=== PATIENT | female | born 1970 | race Caucasian/White ===

== ENCOUNTER 2019-09-23 09:42 | Inpatient (IN) ==
[2019-09-23] MEDS ORDERED: MoRPHine SULFATE 4 MG/ML 1 ML CARP\\VIAL IV STA (10:04)
[2019-09-23] MEDS ORDERED: ONDANSETRON INJ 2 MG/ML 2 ML VIAL IV STA (10:04)
--- NOTE | 2019-09-23 10:06 | Emergency Department Note ---
Impression & Plan Acute leg pain, Neuroendocrine neoplasm of gastrointestinal tract, Arterial thrombosis, History of hemicolectomy, Intellectual disability, Dry gangrene ED Provider Note NAME: RODNEY TATE AGE: 49 SEX: F : 1970 ARRIVES VIA: Ambulance INFORMANT: Patient ED PROVIDER(S): Lucien Reid DO CHIEF COMPLAINT: Bilateral foot pain HPI: Patient is a 49-year-old female with a past medical history of neuroendocrine carcinoma with liver months, recent hospitalization for bilateral lower extremity limb ischemia with bilateral thrombectomies, small bowel cecal resection with ileocolonic anastomosis who presents the ER for pain in her bilateral feet. She notes this has been present since July. She notes that her toes have been gradually turning black. She denies any new headache, change in vision, chest pain shortness of breath nausea vomiting or diarrhea. She notes the pain in her feet has been worsening. She describes as a 10 out of 10. She notes she is having trouble walking. Denies any other exacerbating or remitting factors. She notes she has not had this looked at. Her doctor did see her today at home and referred her in. Does have a previous extensive admission in [facility] system in July for extensive clots in her legs and per her report stomach cancer as well. ROS: See above HPI for pertinent positives & negatives. A total of 10 systems reviewed and were otherwise negative. PAST MEDICAL HISTORY:See Below PAST SURGICAL HISTORY:See Below FAMILY HISTORY:See Below SOCIAL HISTORY:See Below HOME MEDICATIONS:See Below ALLERGIES:See Below VITALS:See Below PHYSICAL EXAMINATION: GENERAL: Sitting up in bed, alert, disheveled, stool covering abdomen and upper extremities EYE EXAM: normal conjunctiva. PERRL and EOM's grossly intact. OROPHARYNX: no exudate, no erythema, lips, buccal mucosa, and tongue normal and mucous membranes are dry NECK: supple, no nuchal rigidity, no adenopathy, non-tender LUNGS: Clear to auscultation. Normal chest wall mechanics HEART: no murmurs, S1 normal and S2 normal ABDOMEN: abdomen soft, non-tender, normo-active bowel sounds, no masses, no rebound or guarding. Midline incision with dressing covered in stool is fairly clean with drainage at the inferior aspect of the incision BACK: Back is symmetrical on inspection and there is no deformity, no midline tenderness, no CVA tenderness. SKIN: no rashes and no bruising UPPER EXTREMITIES: upper extremities are grossly normal. LOWER EXTREMITIES: Incisions on bilateral calves are clean and dry with a large scab left mid calf. Necrosis of the right first and second digits with partial necrosis of the left first and second digits. Unable to appreciate a DP or PT pulse. NEURO EXAM: Normal sensorium, cranial nerves II-XII grossly intact, normal sp eech, no gross weakness of arms, no gross weakness of legs. MEDICAL DECISION MAKING: Patient is a 49-year-old female with extensive past medical history as stated above in the HPI the presents the ER for bilateral foot pain. She has dry gangrene on bilateral first and second toes. She was tachycardic. IV was established blood work was obtained. Patient was covered in stool. Labs show no significant leukocytosis or anemia. INR was at 1.9. BMP with a potassium of 3.1. Lactate was elevated 2.9. LFTs bilirubin was fairly unremarkable. Troponin was negative. TSH unremarkable. UA does suggest a UTI with nitrates and leukocytes. It was contaminated with multiple epithelial cells. Patient was given a gram of Rocephin. She was also given IV vancomycin. Arterial ultrasound shows clot however this does appear to be old. This was discussed with Dr. Gresham who agreed as these findings were present on the old ultrasound performed in [place]. Patient given IV fluids. Updated bedside. Discussed with the hospitalist admitted for further work-up. Already anticoagulated will not place on heparin. Triage Nursing notes reviewed. Prior medical records reviewed Vital Signs: reviewed and remarkable for tachycardia Differential diagnosis: Differential diagnosis includes etiologies such as sepsis, UTI, pneumonia, metabolic, electrolyte abnormalities, cardiac sources, intracerebral event, toxicologic, neurological, as well as others were entertained. ER treatment provided: See below Diagnostics interpreted by me: ECG: Sinus rhythm rate of 94 Normal axis No PVCs Poor baseline Normal QTC Cardiac Monitoring: An order was placed for continuous cardiac monitoring. The monitor shows a rate of 89 with sinus rhythm. Laboratory studies: As stated above and show below. Imaging studies: Portable AP upright 1 view chest was unremarkable. Arterial ultrasound with clots as previously discussed. Consultation(s): D/w with Kishore Marie Discussed with Dr. 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 Family History (Updated 09/23/19 @ 14:41 by Herbert Johnston) Mother , age 82 Alzheimer disease Father Laryngeal cancer Social History (Updated 09/23/19 @ 14:49 by Herbert Johnston) Preferred Language: [place] Communication Ability: Effective Beliefs That Will Affect Care: None marital status: / marital status details: 2 children Current Living Situation: Other Current Living Situation Comment: PLANS TO MOVE IN WITH UNCLE current occupational status: disabled other: lives in [place] Feels Safe at Home: No Smoking Status: Former smoker Age Started Using Tobacco: 11 ; Age Quit Using Tobacco: 49 ; packs per day: 1 ; Hx Alcohol Use: No Hx Substance Use: No Home Meds Home Medications Medication Instructions Recorded Confirmed acetaminophen 500 mg PO TID PRN 09/23/19 09/23/19 albuterol sulfate [Ventolin HFA] 1 puff INHALATION UD PRN 09/23/19 09/23/19 apixaban [Eliquis] 5 mg PO BID 09/23/19 09/23/19 loperamide 2 mg PO Q6H 09/23/19 09/23/19 pantoprazole 40 mg PO DAILY 09/23/19 09/23/19 Results & Data (ED) Vital Signs Vital Signs - 24 hr 09/23/19 09:53 09/23/19 11:08 09/23/19 11:15 Temperature 36.5 C Temperature Source Oral Pulse Rate 107 H 86 Pulse Rate [Apical] 91 H Pulse Rate from SpO2 Sensor 86 Pulse Rhythm Regular Pulse Rhythm [Apical] Regular Respiratory Rate 18 18 17 Respiratory Effort / Characteristics Non-Labored Spontaneous Non-Labored Spontaneous Respiratory Depth Normal Normal Respiratory Pattern Regular Regular Blood Pressure 122/76 105/70 Blood Pressure [Right Arm] 104/69 Blood Pressure Mean 91 94 Blood Pressure Mean [Right Arm] 80 Pulse Oximetry 94 98 93 Oxygen Delivery Method Room Air Room Air Sepsis Recent Fever Within 48 Hours No Sepsis New/Unexplained Change in Mental Status No Sepsis Action Taken by Nursing No Action Required 09/23/19 12:10 09/23/19 12:15 09/23/19 12:31 Temperature Temperature Source Pulse Rate 86 109 H 100 H Pulse Rate [Apical] Pulse Rate from SpO2 Sensor 86 Pulse Rhythm Pulse Rhythm [Apical] Respiratory Rate 14 20 20 Respiratory Effort / Characteristics Respiratory Depth Respiratory Pattern Blood Pressure 132/73 122/83 115/60 Blood Pressure [Right Arm] Blood Pressure Mean 81 109 77 Blood Pressure Mean [Right Arm] Pulse Oximetry 97 97 98 Oxygen Delivery Method Sepsis Recent Fever Within 48 Hours Sepsis New/Unexplained Change in Mental Status Sepsis Action Taken by Nursing 09/23/19 12:45 09/23/19 13:01 09/23/19 13:15 Temperature Temperature Source Pulse Rate 96 H 87 90 Pulse Rate [Apical] Pulse Rate from SpO2 Sensor Pulse Rhythm Pulse Rhythm [Apical] Respiratory Rate 20 17 18 Respiratory Effort / Characteristics Respiratory Depth Respiratory Pattern Blood Pressure 125/87 130/82 105/66 Blood Pressure [Right Arm] Blood Pressure Mean 97 108 69 Blood Pressure Mean [Right Arm] Pulse Oximetry 98 95 95 Oxygen Delivery Method Sepsis Recent Fever Within 48 Hours Sepsis New/Unexplained Change in Mental Status Sepsis Action Taken by Nursing 09/23/19 13:30 Temperature Temperature Source Pulse Rate 91 H Pulse Rate [Apical] Pulse Rate from SpO2 Sensor Pulse Rhythm Pulse Rhythm [Apical] Respiratory Rate 23 Respiratory Effort / Characteristics Respiratory Depth Respiratory Pattern Blood Pressure 130/80 Blood Pressure [Right Arm] Blood Pressure Mean 98 Blood Pressure Mean [Right Arm] Pulse Oximetry 97 Oxygen Delivery Method Sepsis Recent Fever Within 48 Hours Sepsis New/Unexplained Change in Mental Status Sepsis Action Taken by Nursing Laboratory Data Result diagrams: 09/23/19 10:24 09/23/19 10:24 Lab Results 09/23/19 09/23/19 09/23/19 Range/Units 10:24 10:24 10:24 WBC 6.07 (4.8-10.8) K/uL RBC 4.89 (4.2-5.4) M/uL Hgb 13.7 (12.0-16.0) g/dL Hct 44.0 (37-47) % MCV 90.0 (80-100) fL MCH 28.0 (25-34) pg MCHC 31.1 L (32-36) g/dL RDW Std Deviation 60.0 H (36.4-46.3) fL RDW Coeff of Sharan 18.2 H (11.5-14.5) % Plt Count 411 H (130-400) K/uL MPV 11.6 H (7.4-10.4) fL Immature Gran % (Auto) 0.2 % Neut % (Auto) 66.6 % Lymph % (Auto) 22.2 % Monona % (Auto) 6.4 % Eos % (Auto) 3.1 % Baso % (Auto) 1.5 % Immature Gran # (Auto) 0.01 (0.00-0.02) K/uL Neut # (Auto) 4.04 (1.4-6.5) K/uL Lymph # (Auto) 1.35 (1.2-3.4) K/uL Monona # (Auto) 0.39 (0.11-0.59) K/uL Eos # (Auto) 0.19 (0-0.5) K/uL Baso # (Auto) 0.09 (0-0.2) K/uL PT 19.1 H (9.0-12.0) Seconds INR 1.9 H (0.9-1.1) Sodium 143 (136-145) mmol/L Potassium 3.1 L (3.5-5.1) mmol/L Chloride 105 (98-107) mmol/L Carbon Dioxide 33 H (21-32) mmol/L Anion Gap 5.0 (3-11) BUN 6 L (7-18) mg/dl Creatinine 0.78 (0.6-1.2) mg/dl Est Cr Clr Drug Dosing 93.6 ml/min Est GFR ( Amer) 104.2 Est GFR (Non-Af Amer) 89.9 BUN/Creatinine Ratio 7.9 L (10-20) Glucose 119 H (70-99) mg/dl Lactate (0.4-2.0) mmol/L Calcium 8.0 L (8.5-10.1) mg/dl Magnesium 1.5 L (1.8-2.4) mg/dl Total Bilirubin 0.7 (0.2-1) mg/dl AST 75 H (15-37) U/L ALT 41 (12-78) U/L Alkaline Phosphatase 252 H (45-117) U/L Troponin I < 0.015 (0-0.045) ng/ml Total Protein 6.9 (6.4-8.2) gm/dl Albumin 2.3 L (3.4-5.0) gm/dl Globulin 4.6 H (2.5-4.0) gm/dl Albumin/Globulin Ratio 0.5 L (0.9-2) TSH 2.570 (0.300-4.500) uIu/ml Urine Color Urine Appearance (Clear) Urine pH (4.5-7.5) Ur Specific Solen (1.000-1.030) Urine Protein (Negative) Urine Glucose (UA) (Negative) Urine Ketones (Negative) Urine Blood (Negative) Urine Nitrite (Negative) Urine Bilirubin (Negative) Urine Urobilinogen (Negative) Ur Leukocyte Esterase (Negative) Urine WBC (Auto) (0-5) /hpf Urine RBC (Auto) (0-4) /hpf U Hyaline Cast (Auto) U Epithel Cells (Auto) (0-5) /lpf Urine Bacteria (Auto) (Negative) Ur Renal Epithelial Cell Urine Mucus (None Prsent) 09/23/19 09/23/19 Range/Units 10:24 12:40 WBC (4.8-10.8) K/uL RBC (4.2-5.4) M/uL Hgb (12.0-16.0) g/dL Hct (37-47) % MCV (80-100) fL MCH (25-34) pg MCHC (32-36) g/dL RDW Std Deviation (36.4-46.3) fL RDW Coeff of Sharan (11.5-14.5) % Plt Count (130-400) K/uL MPV (7.4-10.4) fL Immature Gran % (Auto) % Neut % (Auto) % Lymph % (Auto) % Monona % (Auto) % Eos % (Auto) % Baso % (Auto) % Immature Gran # (Auto) (0.00-0.02) K/uL Neut # (Auto) (1.4-6.5) K/uL Lymph # (Auto) (1.2-3.4) K/uL Monona # (Auto) (0.11-0.59) K/uL Eos # (Auto) (0-0.5) K/uL Baso # (Auto) (0-0.2) K/uL PT (9.0-12.0) Seconds INR (0.9-1.1) Sodium (136-145) mmol/L Potassium (3.5-5.1) mmol/L Chloride (98-107) mmol/L Carbon Dioxide (21-32) mmol/L Anion Gap (3-11) BUN (7-18) mg/dl Creatinine (0.6-1.2) mg/dl Est Cr Clr Drug Dosing ml/min Est GFR ( Amer) Est GFR (Non-Af Amer) BUN/Creatinine Ratio (10-20) Glucose (70-99) mg/dl Lactate 2.8 H* (0.4-2.0) mmol/L Calcium (8.5-10.1) mg/dl Magnesium (1.8-2.4) mg/dl Total Bilirubin (0.2-1) mg/dl AST (15-37) U/L ALT (12-78) U/L Alkaline Phosphatase (45-117) U/L Troponin I (0-0.045) ng/ml Total Protein (6.4-8.2) gm/dl Albumin (3.4-5.0) gm/dl Globulin (2.5-4.0) gm/dl Albumin/Globulin Ratio (0.9-2) TSH (0.300-4.500) uIu/ml Urine Color Dark Yellow Urine Appearance Cloudy A (Clear) Urine pH 5.0 (4.5-7.5) Ur Specific Solen 1.039 H (1.000-1.030) Urine Protein 2+ H (Negative) Urine Glucose (UA) Trace H (Negative) Urine Ketones Trace H (Negative) Urine Blood 2+ H (Negative) Urine Nitrite Positive A (Negative) Urine Bilirubin Negative (Negative) Urine Urobilinogen Negative (Negative) Ur Leukocyte Esterase Trace H (Negative) Urine WBC (Auto) 10-30 H (0-5) /hpf Urine RBC (Auto) 5-10 H (0-4) /hpf U Hyaline Cast (Auto) Not Reportable U Epithel Cells (Auto) >30 H (0-5) /lpf Urine Bacteria (Auto) Negative (Negative) Ur Renal Epithelial Cell Not Reportable Urine Mucus Present A (None Prsent) Administered Medications Magnesium Sulfate/Dextrose (Magnesium Sulfate / D5w) 1 gm in 100 mls @ 100 mls/hr IV Q1H DEIDRE Stop: 09/23/19 16:19 Last Admin: 09/23/19 14:28 Dose: 100 mls/hr Documented by: [id number] Discontinued Medications Sodium Chloride (Nss 1000ml) 1,000 mls @ 999 mls/hr IV .Q1H1M DEIDRE Stop: 09/23/19 11:15 Last Infusion: 09/23/19 12:12 Dose: 0 mls/hr Documented by: [id number] Admin: 09/23/19 11:08 Dose: 999 mls/hr Documented by: [id number] Ceftriaxone Sodium (Rocephin) 1,000 mg in 50 mls @ 100 mls/hr IV NOW STA Stop: 09/23/19 12:54 Last Infusion: 09/23/19 13:27 Dose: 0 mls/hr Documented by: [id number] Admin: 09/23/19 12:48 Dose: 100 mls/hr Documented by: [id number] Vancomycin HCl 2,250 mg/ (Sodium Chloride) 545 mls @ 200 mls/hr IV NOW ONE Stop: 09/23/19 15:08 Last Admin: 09/23/19 13:27 Dose: 200 mls/hr Documented by: [id number] Morphine Sulfate (Morphine Sulfate) 4 mg IV NOW STA Stop: 09/23/19 10:05 Last Admin: 09/23/19 11:07 Dose: 4 mg Documented by: [id number] Ondansetron HCl (Zofran) 4 mg IV NOW STA Stop: 09/23/19 10:05 Last Admin: 09/23/19 11:07 Dose: 4 mg Documented by: [id number] Potassium Chloride (Klor-Con M20) 40 meq PO NOW STA Stop: 09/23/19 14:21 Last Admin: 09/23/19 14:28 Dose: 40 meq Documented by: [id number] Discharge Plan Visit Data Chief Complaint: Foot Injury/Pain ED Provider: Lucien Reid Discharge Problem: Acute leg pain, Neuroendocrine neoplasm of gastrointestinal tract, Arterial thrombosis, History of hemicolectomy, Intellectual disability, Dry gangrene Forms Stand Alone Forms: [facility] Prescriptions Prescriptions: No Action loperamide 2 mg capsule 2 mg PO Q6H RF: 0 acetaminophen 500 mg Tablet 500 mg PO TID PRN (Reason: Mild Pain (Scale Score 1-4)) RF: 0 pantoprazole 40 mg tablet,delayed release (DR/EC) 40 mg PO DAILY RF: 0 albuterol sulfate [Ventolin HFA] 90 mcg/actuation HFA aerosol inhaler 1 puff INHALATION UD PRN (Reason: Shortness Of Breath Or Wheezing) RF: 0 Eliquis 5 mg Tablet 5 mg PO BID RF: 0 Discharge Problem: Acute leg pain Qualifiers: Laterality: unspecified laterality Qualified Code(s): M79.606 - Pain in leg, unspecified
[2019-09-23] MEDS ORDERED: SODIUM CHLORIDE 0.9% 1000ML 1,000 ML IV SCH (10:15)
[2019-09-23 11:00] LABS: Basophils # (auto) 0.09 K/uL (0-0.2); Basophils % (auto) 1.5 %; Eosinophils # (auto) 0.19 K/uL (0-0.5); Eosinophils % (auto) 3.1 %; Hemoglobin 13.7 g/dL (12.0-16.0); Immature Granulocytes # (auto) 0.01 K/uL (0.00-0.02); Immature Granulocytes % (auto) 0.2 %; Lymphocytes # (auto) 1.35 K/uL (1.2-3.4); Lymphocytes % (auto) 22.2 %; Mean Corpuscular Hgb Conc 31.1 g/dL (32-36); Mean Platelet Volume 11.6 fL (7.4-10.4); Monocytes # (auto) 0.39 K/uL (0.11-0.59); Monocytes % (auto) 6.4 %; Neutrophils # (auto) 4.04 K/uL (1.4-6.5); Neutrophils % (auto) 66.6 %; Platelet Count 411 K/uL (130-400); RDW Coefficient of Variation 18.2 % (11.5-14.5); Red Blood Count 4.89 M/uL (4.2-5.4); White Blood Count 6.07 K/uL (4.8-10.8)
[2019-09-23 11:13] LABS: INR 1.9 (0.9-1.1); Prothrombin Time 19.1 Seconds (9.0-12.0)
[2019-09-23 11:17] LABS: Alanine Aminotransferase 41 U/L (12-78); Albumin Level 2.3 gm/dl (3.4-5.0); Aspartate Aminotransferase 75 U/L (15-37); BUN Creatinine Ratio 7.9 (10-20); Blood Urea Nitrogen 6 mg/dl (7-18); Carbon Dioxide 33 mmol/L (21-32); Chloride 105 mmol/L (98-107); Creatinine Clr Calc Pharmacy 93.6 ml/min; Est GFR (African American) 104.2; Est GFR (Non-African American) 89.9; Glucose 119 mg/dl (70-99); Magnesium 1.5 mg/dl (1.8-2.4); Potassium 3.1 mmol/L (3.5-5.1); Sodium 143 mmol/L (136-145)
[2019-09-23 11:28] LABS: Albumin Globulin Ratio 0.5 (0.9-2); Alkaline Phosphatase 252 U/L (45-117); Bilirubin,Total 0.7 mg/dl (0.2-1); Globulin 4.6 gm/dl (2.5-4.0); Total Protein 6.9 gm/dl (6.4-8.2); Troponin I < 0.015 ng/ml (0-0.045)
--- NOTE | 2019-09-23 12:21 | XRay Report ---
XR chest 1V portable CLINICAL HISTORY: weakness COMPARISON STUDY: No previous studies for comparison. FINDINGS: The bones soft tissues and hemidiaphragms are normal. The cardiomediastinal silhouette is n ormal. The lungs are clear. The pulmonary vasculature is normal. IMPRESSION: Negative chest. ACT 112: Negative or not required by law. The above report was generated using voice recognition software. It may contain grammatical, syntax or spelling errors. Electronically signed by: Christopher Tovar M.D. 09/23/2019 12:20 PM
[2019-09-23] MEDS ORDERED: VANCOMYCIN CONSULT ACTIVE PRN (12:25)
[2019-09-23] MEDS ORDERED: VANCOMYCIN HCL 2,250 MG in SODIUM CHLORIDE 0.9% 500 ML IV ONE (12:25)
[2019-09-23] MEDS ORDERED: cefTRIAXone SODIUM 1,000 MG/50 ML BAG IV STA (12:25)
--- NOTE | 2019-09-23 13:06 | Ultrasound Report ---
ULTRASOUND BILATERAL LOWER EXTREMITY ARTERIAL CLINICAL HISTORY: Gangrene of the toes. COMPARISON STUDY: No priors. TECHNIQUE: Real-time, grayscale, and color Doppler sonography of the right and left lower extremities performed from the inguinal crease to the foot. The patient could not tolerate ankle-brachial index assessment. FINDINGS: Right lower extremity: There is atherosclerotic plaque and irregularity throughout the arteries of th e right lower extremity. There are triphasic arterial waveforms in the common femoral artery with justyna ocities measuring up to 104 cm/s. The profundus femoris artery is patent with velocities measuring up to 64 cm/s. There are triphasic arterial waveforms throughout the superficial femoral artery. Veloci ties throughout the superficial femoral artery measure up to 103 cm/s. There is a short segment of th rombosis within the popliteal artery with distal reconstitution. The distal popliteal artery is paten t with velocities measuring up to 28 cm/s. There are blunted arterial waveforms in the right calf. Th e anterior tibial and posterior tibial arteries are likely patent with velocities measuring up to 21 cm/s. The peroneal artery appears thrombosed. No flow is shown within the dorsalis pedis artery. Left lower extremity: Atherosclerotic plaque and irregularity is seen throughout the arteries of the left lower extremity. The common femoral artery is patent with arterial triphasic waveforms and veloc ities measuring up to 213 cm/s. The profunda femoris artery is patent with velocities measuring up to 51 cm/s. There are triphasic waveforms throughout the superficial femoral artery and the popliteal a rtery. The velocities in the superficial femoral artery measure up to 133 cm/s. Velocities in the pop liteal artery measure up to 133 cm/s. The calf arteries are patent. Velocities within the calf arteri es measure up to 57 cm/s. No definite flow is shown within the dorsalis pedis artery. This was not we ll assessed due to lack of patient cooperation. IMPRESSION: 1. There is a short segment of complete thrombosis within the mid to distal right popliteal artery wi th reconstitution. 2. There is thrombosis of the right peroneal artery and likely the right dorsalis pedis artery. 3. There is no sonographic evidence of high-grade stenosis or focal vessel cut off throughout the art eries of the left lower extremity. 4. No flow is shown within the left dorsalis pedis artery. This vessel is not well evaluated due to l ack of patient cooperation. 5. The patient could not tolerate ankle-brachial index assessment. Dictated: 09/23/2019 12:32 PM Transcribed: 09/23/2019 1:01 PM Neelima [id number] [email or web address] Electronically signed by: Rex Santacruz M.D. 09/23/2019 1:04 PM
[2019-09-23 13:24] LABS: Appearance Urine Cloudy (Clear); Bacteria Urine Automated Negative (Negative); Blood Urine 2+ (Negative); Color Urine Dark Yellow; Epithelial Cell Urine Auto >30 /lpf (0-5); Glucose Urine UA Trace (Negative); Ketones Urine Trace (Negative); Leukocyte Esterase Urine Trace (Negative); Nitrite Urine Positive (Negative); Protein Urine 2+ (Negative); Specific Gravity Urine 1.039 (1.000-1.030); Urobilinogen Urine Negative (Negative)
[2019-09-23 13:52] LABS: Bilirubin Urine Negative (Negative); Ictotest Urine Negative (Negative)
[2019-09-23] MEDS ORDERED: POTASSIUM CHLORIDE 20 MEQ TABCR PO STA (14:20)
[2019-09-23 14:21] LABS: Mucus Urine Present (None Prsent)
[2019-09-23] MEDS: MAGNESIUM SULFATE / D5W 1 GM/100 ML BAG IV SCH ×2 (14:28→16:23)
--- NOTE | 2019-09-23 14:28 | History & Physical Report ---
Date of Service September 23, 2019 Assessment & Plan (1) Dry gangrene: b/l feet - present several weeks. in setting of neuroendocrine tumor with liver mets and recent arterial thrombi of legs causing critical limb ischemia requiring thrombectomies of b/l legs and LLE fasciotomy (s/p left femoral artery thrombectomy, b/l popliteal artery thrombectomies, and left leg fasciotomy - [facility]). arterial duplex today with severe PAD and occlusive disease b/l. spoke with Dr Gresham from vascular who will consult and provide recs. repeat CTA study of abd/pelvis with run-off needed. likely b/l amputations needed. Defer management to Dr Gresham. appears to have early sepsis from gangrene. start cefepime IV. cont IV vanco. follow blood cultures. anticoagulation - hold eliquis. has h/o HIT per [facility] records - start argatroban IV until timing of surgical intervention is known. (2) Sepsis: 2nd to dry gangrene, b/l feet/toes. repeat lactate. IV fluids. broad-spectrum IV abx therapy. (3) Neuroendocrine neoplasm of gastrointestinal tract: see HPI and PMH sections for further details. s/p ileal resection and right-sided hemicolectomy 07/2019 at [facility]. known liver mets. s/p depot octreotide 07/27/19. I spoke with Dr Yeung from heme/onc who will consult in am. (4) Coagulopathy: 09/04/19 - INR was 1.6 at [facility]. consider vitamin K deficiency but suspect bulk of coagulopathy is due to severe liver dysfunction from neuroendocrine tumor mets to liver. repeat INR in am. (5) Abnormal LFTs: 2nd to liver mets from neuroendocrine tumor. repeat LFTs and INR in am for trending/stability. (6) History of hemicolectomy: right-sided, 2nd to neuroendocrine tumor. recent diarrhea but has improved. if diarrhea recurs/persists check c.diff toxin in light of recent IV/PO antibiotics for sepsis/UTI in early September. (7) Intellectual disability: self-reported by patient (8) Hypokalemia: replace repeat BMP am replace low mag (9) Hypomagnesemia: replace repeat level in am (10) Vomiting: uncertain etiology. CTA abd/pelvis at [facility] 09/04/19 did not show any obstruction of the small bowel or gastric outlet obstruction. she is passing flatus and stools. start with abdominal x-rays. also to have CTA abd/pelvis later tonight - ordered by Dr Gresham. clear liquid diet. PPI. await imaging. 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 while eliquis is on hold for potential of needing amputation will place on argatraban drip protocol; spoke with pharmacy re: such. 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 - per records (15) Asthma: no exacerbation at this time pain control - dilaudid 0.25mg IV q3h prn IVF - NS w/ KCL 75cc/hr diet - clears uncle - Ozzie Dixon -- gave extensive update to him by phone total time between reviewing 50+ pages of records, speaking with oncology, speaking with vascular surgery, speaking with pharmacy Re: argatraban, calling family, etc - 100 minutes History of Present Illness Chief Complaint: painful, black toes on right foot Primary Care Provider: Jeff Junior MD 49yo female with recent complex history of neuroendocrine tumor distal small bowel with liver mets s/p resection of ileum and right hemicolectomy with ileal- colonic anastomosis at [facility] (07/2019), arterial clots of b/l legs s/p thrombectomies (also [facility], 07/2019) and LLE fasciotomy, and recent UTI with sepsis who presents at the urging of Dr Junior who does house-calls. The physician saw her today at her home and saw gangrene of the right 1st/2nd toes and advised hospitalization. When she was in [place] last week she was told she would ultimately need amputation but it was deferred during that hospitalization. Reports claudication of both legs (posterior thighs, calves b/l) with minimal activity/walking. No fevers or chills. Poor appetite for "a while." Has emesis with eating solids. Can tolerate liquids. Started about 1 week ago after getting out of [facility]. Minimal abdominal pain. Has diarrhea once a day. Records obtained from [facility] were reviewed -- Hospitalized at [facility] from 09/03 to 09/10 for UTI. During this admission a CTA abd/pelvis showed a RLL pulmonary infarct (3.1cm x 1.9cm) along with RLL pulmonary emboli. Same CT showed a decrease in size of her liver mets. Old splenic infarcts were seen and were decreasing in size from prior scan (07/21/19). In July was hospitalized at [facility] for recently discovered mesenteric mass concerning for carcinoid. Underwent ileal resection and right-sided hemicolectomy. Biopsy of a peritoneal nodule was done as well as left ovary. Path returned as a neuroendocrine tumor. Course complicated by b/l LE ischemia due to arterial thrombi with need for left femoral vein thrombectomy and b/l popliteal artery thrombectomies. She also underwent LLE fasciotomy. Records suggest she had a genetic/hypercoagulable work-up but I do not have those labs. After her lengthy stay in July at [facility] she was discharged to SNF. Following SNF she returned home. Lastly, during her 07/2019 stay in [place], she was also found to have an internal jugular DVT. With initiation of heparin she developed HIT. She ultimately was placed on eliquis BID. Allergies Allergy/AdvReac Type Severity Reaction Status Date / Time heparin Allergy Heparin Verified 09/23/19 17:20 induced thrombocytopenia Home Medications Home Medications Medication Instructions Recorded Confirmed Type acetaminophen 500 mg PO TID PRN 09/23/19 09/23/19 History albuterol sulfate [Ventolin HFA] 1 puff INHALATION UD PRN 09/23/19 09/23/19 History apixaban [Eliquis] 5 mg PO BID 09/23/19 09/23/19 History loperamide 2 mg PO Q6H 09/23/19 09/23/19 History pantoprazole 40 mg PO DAILY 09/23/19 09/23/19 History Past Med/Surg History Medical History (Updated 09/23/19 @ 19:00 by Herbert Johnston) Arterial thrombosis (Acute) b/l legs - 07/2019 - s/p right SFA/popliteal/tibial thrombectomy, left popliteal/tibial thrombectomy, LLE fasciotomy Asthma Dry gangrene (Acute) b/l feet 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 thrombocytopenia) 07/2019 - [facility] Intellectual disability (Acute) Internal jugular vein thrombosis RIGHT - 07/24/19. Developed HIT following anticoagulation for such. Neuroendocrine neoplasm of gastrointestinal tract (Acute) 07/11/19 - CT with 3.2 x 2.5cm spiculated mesenteric mass concerning for carcinoid tumor; 07/14 - ex lap with ileal resection and right hemicolectomy w/ end-to-end anastomosis; bx of peritoneal nodules and left ovarian mass; path -- metastatic well-differentiated NET, pT4 N1 M1b; Kl6y index 7.4% 07/27/19 - first dose IM Octreotide in [place] Pulmonary emboli RLL - 09/04/19 - [facility] Pulmonary infarction L - 09/04/19 Surgical History (Updated 09/23/19 @ 18:16 by Herbert Johnston) History of hemicolectomy (Acute) ileal-cecal resection and right-sided hemicolectomy; ileal-colonic anastomosis - [facility] 07/15/2019 S/P laparoscopic procedure 1999 - exploratory - to rule out cancer? Family History (Updated 09/23/19 @ 18:02 by Herbert Johnston) Mother , age 82 Alzheimer disease Diabetes Stroke Father Laryngeal cancer Social History (Updated 09/23/19 @ 18:18 by Herbert Johnston) Preferred Language: Chilean Communication Ability: Effective Beliefs That Will Affect Care: None marital status: / marital status details: 2 children Current Living Situation: Other Current Living Situation Comment: PLANS TO MOVE IN WITH UNCLE in [place] current occupational status: disabled other: 2 children are in foster care 2nd to her severe medical issues Feels Safe at Home: No Smoking Status: Former smoker Age Started Using Tobacco: 11 ; Age Quit Using Tobacco: 49 ; packs per day: 1 ; Hx Alcohol Use: No Hx Substance Use: No Review of Systems Constitutional: + anorexia and + weight loss (5 pounds); no fever and no chills Eyes: no worsening vision Ear, Nose, Mouth, Throat: no nasal congestion, no sore throat and no dysphagia Respiratory: + dyspnea on exertion; no cough Cardiovascular: + claudication; no chest pain and no edema Gastrointestinal: + abdominal pain, + nausea, + vomiting and + diarrhea/loose stools; no blood in stools Genitourinary: + dysuria Musculoskeletal: no back pain Integumentary: + change in skin color; no rash Neurologic: + loss of sensation (feet b/l ) Psychiatric: + depression Endocrine: denies diabetes Hematologic / Lymphatic: no easy bleeding Physical Exam Constitutional: + ill appearing, + obese and + frail appearing; no acute distress and no altered mental status Eyes: + anicteric sclerae and PERRL ENMT: Mouth: + poor dentition; oral mucous membranes not dry Neck: trachea midline, no thyromegaly Respiratory: normal respiratory effort, lungs clear to auscultation Cardiovascular: Rate/Rhythm: regular rhythm and + tachycardic Heart Sounds: normal S1 and normal S2; no murmur Vessels: dorsalis pedis pulses present (absent on right; <1+ on left) and popliteal pulses present (1-2+ b/l ); no JVD and + posterior tibial pulses abnormal (right foot no PT pulse; <1+ left PT pulse) Extremities: + abnormal capillary refill (severely prolonged b/l feet, worse on right) Gastrointestinal (Abdomen): Inspection/Auscultation: + abdomen distended, normal bowel sounds, + abdominal surgical scar and + abdominal surgical incision (midline, with mild dehiscense inferior portion; slight drainage) Percussion/Palpation: + hepatomegaly (at least 2-3 fingers below costal margin ); abdomen nontender Musculoskeletal: Extremities: + clubbing Skin: right foot - severe dry gangrene toes 1/2; toes 3-5 appear dusky with severely delayed cap refill; entire foot is cold. left foot - moderate dry gangrene toes 1/2; toes 3-5 also dusky and cool to touch with delayed cap refill. medial aspect of left leg with 2 areas of black eschar; superior one is about 2-3cm in size; inferior one is <1cm in size. surgical incision midline abdomen as above. Neurologic: deep tendon reflexes 2+ bilaterally and moves all extremities Psychiatric: Orientation: alert and oriented x 3 Affect: + tearful affect Lymphatic: no cervical lymphadenopathy Results & Data Results & Data ([facility]) Vital Signs (Past 12 Hours) Vital Signs Temp Pulse Pulse Resp BP BP Pulse Ox 09/23/19 13:30 91 H 23 130/80 97 09/23/19 13:15 90 18 105/66 95 09/23/19 13:01 87 17 130/82 95 09/23/19 12:45 96 H 20 125/87 98 09/23/19 12:31 100 H 20 115/60 98 09/23/19 12:15 109 H 20 122/83 97 09/23/19 12:10 86 14 132/73 97 09/23/19 11:15 86 17 105/70 93 09/23/19 11:08 91 H 18 104/69 98 09/23/19 09:53 36.5 C 107 H 18 122/76 94 Laboratory Results Laboratory Results - last 24 hr 09/23/19 09/23/19 09/23/19 10:24 10:24 10:24 WBC 6.07 RBC 4.89 Hgb 13.7 Hct 44.0 MCV 90.0 MCH 28.0 MCHC 31.1 L RDW Std Deviation 60.0 H RDW Coeff of Sharan 18.2 H Plt Count 411 H MPV 11.6 H Immature Gran % (Auto) 0.2 Neut % (Auto) 66.6 Lymph % (Auto) 22.2 Cla[place]orne % (Auto) 6.4 Eos % (Auto) 3.1 Baso % (Auto) 1.5 Immature Gran # (Auto) 0.01 Neut # (Auto) 4.04 Lymph # (Auto) 1.35 Claiborne # (Auto) 0.39 Eos # (Auto) 0.19 Baso # (Auto) 0.09 PT 19.1 H INR 1.9 H APTT PTT Ratio Sodium 143 Potassium 3.1 L Chloride 105 Carbon Dioxide 33 H Anion Gap 5.0 BUN 6 L Creatinine 0.78 Est Cr Clr Drug Dosing 93.6 Est GFR ( Amer) 104.2 Est GFR (Non-Af Amer) 89.9 BUN/Creatinine Ratio 7.9 L Glucose 119 H Lactate Calcium 8.0 L Magnesium 1.5 L Total Bilirubin 0.7 AST 75 H ALT 41 Alkaline Phosphatase 252 H Troponin I < 0.015 Total Protein 6.9 Albumin 2.3 L Globulin 4.6 H Albumin/Globulin Ratio 0.5 L TSH 2.570 Urine Color Urine Appearance Urine pH Ur Specific Queen Urine Protein Urine Glucose (UA) Urine Ketones Urine Blood Urine Nitrite Urine Bilirubin Urine Urobilinogen Ur Leukocyte Esterase Urine WBC (Auto) Urine RBC (Auto) U Hyaline Cast (Auto) U Epithel Cells (Auto) Urine Bacteria (Auto) Ur Renal Epithelial Cell Urine Mucus 09/23/19 09/23/19 09/23/19 10:24 10:24 12:40 WBC RBC Hgb Hct MCV MCH MCHC RDW Std Deviation RDW Coeff of Sharan Plt Count MPV Immature Gran % (Auto) Neut % (Auto) Lymph % (Auto) Cla[place]orne % (Auto) Eos % (Auto) Baso % (Auto) Immature Gran # (Auto) Neut # (Auto) Lymph # (Auto) Cla[place]orne # (Auto) Eos # (Auto) Baso # (Auto) PT INR APTT 31.7 H PTT Ratio 1.1 Sodium Potassium Chloride Carbon Dioxide Anion Gap BUN Creatinine Est Cr Clr Drug Dosing Est GFR ( Amer) Est GFR (Non-Af Amer) BUN/Creatinine Ratio Glucose Lactate 2.8 H* Calcium Magnesium Total Bilirubin AST ALT Alkaline Phosphatase Troponin I Total Protein Albumin Globulin Albumin/Globulin Ratio TSH Urine Color Dark Yellow Urine Appearance Cloudy A Urine pH 5.0 Ur Specific Queen 1.039 H Urine Protein 2+ H Urine Glucose (UA) Trace H Urine Ketones Trace H Urine Blood 2+ H Urine Nitrite Positive A Urine Bilirubin Negative Urine Urobilinogen Negative Ur Leukocyte Esterase Trace H Urine WBC (Auto) 10-30 H Urine RBC (Auto) 5-10 H U Hyaline Cast (Auto) Not Reportable U Epithel Cells (Auto) >30 H Urine Bacteria (Auto) Negative Ur Renal Epithelial Cell Not Reportable Urine Mucus Present A 09/23/19 15:42 WBC RBC Hgb Hct MCV MCH MCHC RDW Std Deviation RDW Coeff of Sharan Plt Count MPV Immature Gran % (Auto) Neut % (Auto) Lymph % (Auto) Cla[place]orne % (Auto) Eos % (Auto) Baso % (Auto) Immature Gran # (Auto) Neut # (Auto) Lymph # (Auto) Cla[place]orne # (Auto) Eos # (Auto) Baso # (Auto) PT INR APTT PTT Ratio Sodium Potassium Chloride Carbon Dioxide Anion Gap BUN Creatinine Est Cr Clr Drug Dosing Est GFR ( Amer) Est GFR (Non-Af Amer) BUN/Creatinine Ratio Glucose Lactate 2.1 H* Calcium Magnesium Total Bilirubin AST ALT Alkaline Phosphatase Troponin I Total Protein Albumin Globulin Albumin/Globulin Ratio TSH Urine Color Urine Appearance Urine pH Ur Specific Queen Urine Protein Urine Glucose (UA) Urine Ketones Urine Blood Urine Nitrite Urine Bilirubin Urine Urobilinogen Ur Leukocyte Esterase Urine WBC (Auto) Urine RBC (Auto) U Hyaline Cast (Auto) U Epithel Cells (Auto) Urine Bacteria (Auto) Ur Renal Epithelial Cell Urine Mucus Diagnostic Findings 1. b/l LE arterial duplex -- IMPRESSION: 1. There is a short segment of complete thrombosis within the mid to distal right popliteal artery with reconstitution. 2. There is thrombosis of the right peroneal artery and likely the right dorsalis pedis artery. 3. There is no sonographic evidence of high-grade stenosis or focal vessel cut off throughout the arteries of the left lower extremity. 4. No flow is shown within the left dorsalis pedis artery. This vessel is not well evaluated due to lack of patient cooperation. 5. The patient could not tolerate ankle-brachial index assessment. 2. cxr - no infiltrates. 3. EKG - my reading - NSR, nonspecific ST changes anterior leads, low voltage Code Status & VTE Plan Code Status full VTE Prophylaxis Plan VTE Prophylaxis will be ordered: Yes Critical Care Time Prolonged Care Time Prolonged Care Time: Yes Total Prolonged Care Time: 100 PG Care Time/CCT Total # of Minutes Spent Total Time Spent with Patient: Total time spent is greater than 50% in coordination of care (as documented) at patient's floor/unit and/or counseling patient: Prolonged Care Time Prolonged Care Time: Yes Total Prolonged Care Time: 100 Coding Level of Care Code 23384 Initial Inpt Care Lvl 3 (25 - SIGNIFICANT, SEPARATELY IDENTIFIABLE ) Diagnoses Dry gangrene I96 Sepsis A41.9; R65.20; K72.00 Sepsis type: sepsis due to unspecified organism Sepsis acute organ dysfunction status: with acute organ dysfunction Severe sepsis acute organ dysfunction type: acute liver failure Hepatic coma status: without hepatic coma Severe sepsis shock status: without septic shock Neuroendocrine neoplasm of gastrointestinal tract D3A.8 Coagulopathy D68.9 Abnormal LFTs R94.5 History of hemicolectomy Z90.49 Intellectual disability F79 Hypokalemia E87.6 Hypomagnesemia E83.42 Vomiting R11.10 Nausea presence: unspecified Vomiting Intractability: intractable Vomiting type: unspecified Pulmonary emboli I26.99 Acute cor pulmonale presence: without acute cor pulmonale Chronicity: unspecified Pulmonary embolism type: unspecified Pulmonary infarction I26.99 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 thrombocytopenia) D75.82 Internal jugular vein thrombosis I82.C11 Laterality: right Asthma J45.20 Asthma complication type: unspecified Asthma persistence: intermittent Asthma severity: mild Additional Codes Prolonged Care Time - Prolonged Care Time: Yes ([id number]) Time Spent (min) 100 (1) Internal jugular vein thrombosis Laterality: right Qualified Code(s): I82.C11 - Acute embolism and thrombosis of right internal jugular vein (2) Pulmonary emboli Acute cor pulmonale presence: without acute cor pulmonale Chronicity: unspecified Pulmonary embolism type: unspecified Qualified Code(s): I26.99 - Other pulmonary embolism without acute cor pulmonale (3) Vomiting Nausea presence: unspecified Vomiting Intractability: intractable Vomiting type: unspecified Qualified Code(s): R11.10 - Vomiting, unspecified (4) Asthma Asthma complication type: unspecified Asthma persistence: intermittent Asthma severity: mild Qualified Code(s): J45.20 - Mild intermittent asthma, uncomplicated (5) Sepsis Sepsis type: sepsis due to unspecified organism Sepsis acute organ dysfunction status: with acute organ dysfunction Severe sepsis acute organ dysfunction type: acute liver failure Hepatic coma status: without hepatic coma Severe sepsis shock status: without septic shock Qualified Code(s): A41.9 - Sepsis, unspecified organism; R65.20 - Severe sepsis without septic shock; K72.00 - Acute and subacute hepatic failure without coma
--- NOTE | 2019-09-23 15:30 | Electrocardiogram Report ---
Test Reason : Blood Pressure : / mmHG Vent. Rate : 094 BPM Atrial Rate : 094 BPM P-R Int : 130 ms QRS Dur : 078 ms QT Int : 370 ms P-R-T Axes : 056 064 037 degrees QTc Int : 462 ms Normal sinus rhythm Low voltage QRS Nonspecific ST abnormality Borderline ECG No previous ECGs available Confirmed by Calvin Daly [id number]) on 09/23/2019 3:30:00 PM Referred By: REFERRED SELF Confirmed By:Naresh Daly
[2019-09-23 16:49] LABS: Partial Thromboplastin Ratio 1.1; Partial Thromboplastin Time 31.7 Seconds (21.0-31.0)
--- NOTE | 2019-09-23 16:57 | XRay Report ---
XR abdomen min 2V HISTORY: 49 years-old Female persistent vomiting; eval obstruction acute vomiting with possible smal l bowel obstruction COMPARISON: Chest radiograph 09/23/2019 TECHNIQUE: 2 views of the abdomen FINDINGS: Indeterminate 2.3 x 3.1 cm nodular opacity projects over the abdominal right upper quadrant, right adilene ng base. No pneumatosis or pneumoperitoneum. Mildly dilated air-filled transverse colon, 6.2 cm trans versely. Nondilated air-filled small bowel of the left lateral midabdomen. Surgical suture material t he abdominal right lower quadrant. Hepatomegaly. No urolith identified. No acute fracture. Degenerati ve changes of the lower lumbar spine. IMPRESSION: 1. Mild gaseous distention of the colon with nonobstructive bowel gas pattern. 2. Hepatomegaly. 3. Indeterminate 3.1 cm nodular opacity projects over the abdominal right upper quadrant/right lung b ase. This finding could be correlated with the CTA study of same day which has not yet been completed . ACT 112: Negative or not required by law. The above report was generated using voice recognition software. It may contain grammatical, syntax o r spelling errors. Electronically signed by: Jonel Rodriguez M.D. 09/23/2019 4:55 PM
[2019-09-23] MEDS ORDERED: ARGATROBAN CONSULT ACTIVE PRN (18:50)
[2019-09-23] MEDS ORDERED: ALBUTEROL HFA 8 GM INHALER INH PRN (18:50)
[2019-09-23] MEDS ORDERED: STAT IV Infusion **Titration per Protocol STA (18:50)
[2019-09-23] MEDS ORDERED: ARGATROBAN CONSULT ACTIVE ONE (18:50)
[2019-09-23] MEDS ORDERED: ONDANSETRON INJ 2 MG/ML 2 ML VIAL IV PRN (18:50)
--- NOTE | 2019-09-23 19:18 | CT Scan Report ---
CT ang NEHA sullivan sonia esqueda HISTORY: 49 years-old Female gangrene bilateral feet patient presents with gangrene of the bilateral feet COMPARISON: Lower extremity arterial Doppler study of same day TECHNIQUE: CTA of the abdomen and pelvis with lower extremity runoff was obtained following the intra venous administration of 117 mL Optiray 320 IV contrast. 3-D coronal and sagittal MIPS were obtained from the axial data set and were submitted for review. All measurements were obtained according to NA SCET criteria. FINDINGS: Study is mildly motion degraded. CTA: The heart is normal in size. Trace pericardial effusion. Ascending thoracic aorta is unremarkable. Th e abdominal aorta appears unremarkable without aneurysm, dissection or significant atherosclerotic pl aque. The celiac trunk, superior and inferior mesenteric arteries appear patent. Renal arteries are a lso patent and unremarkable. RIGHT LOWER EXTREMITY: Minimal calcified plaque involves the distal aspect of the right common iliac artery. The common and external iliac arteries are patent. The common femoral, profunda femoris, prox imal mid superficial femoral artery are patent and unremarkable. No appreciable contrast is noted inv olving a 5.0 cm segment of the proximal and mid popliteal artery (for example please see sagittal roxy ge 35 of series 305). Reconstitution of flow is noted within the distal popliteal artery. Patent tibi operoneal trunk, anterior tibial, peroneal and posterior tibial arteries with three-vessel flow noted at the level of the ankle. Multifocal luminal narrowing is noted throughout the peroneal artery. LEFT LOWER EXTREMITY: The common and external iliac arteries are patent. The common femoral and profu nda femoris, proximal and mid superficial femoral artery are patent and unremarkable. There is mild l uminal narrowing involving the distal superficial femoral artery with moderate and high-grade luminal narrowing noted within the popliteal artery which appears to be secondary to mixed plaque. Patent ti bioperoneal trunk, anterior tibial, peroneal and posterior tibial arteries with three-vessel flow not ed to the level of the ankle. CT ABDOMEN/PELVIS: Irregular 2.3 cm nodule involves the posterior basal segment right lower lobe demonstrating spiculate d margins. Likely benign 2 mm subpleural solid nodule of the lateral segment right middle lobe. There is no pneumatosis or pneumoperitoneum. Unremarkable appearance of the spleen. There are multiple pathologically enlarged periportal and chelsy rohepatic lymph nodes measuring up to 2.6 x 1.5 cm. No definite intrinsic pancreatic mass. There is m ild generalized pancreatic atrophy. Unremarkable adrenal glands. Hepatomegaly with hepatic steatosis. There are innumerable enhancing lesions throughout the liver, largest of which measure up to approxi mately 2 cm. Central hypodensity within these lesions suggests central necrosis. Mild gallbladder dis tention. No biliary ductal dilation. Kidneys are unremarkable. Air within the urinary bladder suggestive of instrumentation. Partial diste ntion of the bladder is noted with mild wall thickening. Nonspecific mildly heterogeneous appearance of the uterus. Nonspecific heterogeneous enhancement of the adnexa. There is mild stranding with subc entimeter nodules within the central mesentery. There are 2 subcentimeter peritoneal nodular foci of the abdominal right lower quadrant which appear to enhance measuring up to 7 mm. Equivocal tiny subce ntimeter peritoneal nodule of the abdominal right lower quadrant on image 316 series 3. Postoperative changes of partial right hemicolectomy with enterocolic anastomosis. Intraluminal debris versus enha ncement is noted within the region of the distal colon proximal to the anastomosis measuring up to 11 mm. There is a small fluid collection measuring 1.9 x 0.9 cm the ventral midline abdominal scar. Multifoc al subcutaneous stranding of the left lower extremity with an open wound of the medial left calf, 3.9 cm. There is a 6 mm sclerotic focus involving the medullary space of the right tibia, image 93 serie s 3 which is indeterminate. There is a tiny nonspecific sclerotic focus of the T10 vertebral body whi ch is nonspecific. IMPRESSION: 1. 5.0 cm occluded segment of the right popliteal artery redemonstrated with reconstitution of flow d istally. 2. Three-vessel runoff is noted bilaterally with multifocal stenoses throughout the right peroneal ar mae 3. There is at least moderate multifocal luminal narrowing about the left popliteal artery. 4. Numerous enhancing hepatic lesions suggestive of metastasis. 5. Suspicious 2.3 cm solid nodule of the posterior basal segment right lower lobe. 6. Pathologic periportal/gastrohepatic lymph nodes are suggestive of lymphatic metastasis. 7. Postoperative changes of prior partial right hemicolectomy with enterocolic anastomosis. 8. Tiny subcentimeter foci of the abdominal right lower quadrant are suspicious for peritoneal nodule s. Attention at follow-up recommended to exclude peritoneal carcinomatosis. 9. Additional findings as above. ACT 112: Negative or not required by law. The above report was generated using voice recognition software. It may contain grammatical, syntax o r spelling errors. Electronically signed by: Jonel Rodriguez M.D. 09/23/2019 7:16 PM
[2019-09-23] MEDS: HYDROmorphone INJ 0.5 MG/0.5 ML SYR IV PRN (20:16)
[2019-09-23] MEDS: NSS + 20MEQ KCL 20 MEQ/1,000 ML BAG IV SCH (20:16)
[2019-09-23] MEDS: CEFEPIME 2,000 MG in SYRINGE 7.5 ML IV SCH (20:17)
--- NOTE | 2019-09-23 20:36 | Pharmacy Report ---
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 - Subjective Regarding previous anticoagulation: Patient takes Eliquis 5 mg PO BID at home for history of thromboembolism Eliquis was discontinued upon admission. Start Argatroban-IV for history of HIT/LALO in patient with previous thromboembolism. Goal PTT Ratio as determined by provider: 2 - 3 (range is 1.5-3). 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 Also found to have a decreased in liver mets * This admission noticed to have dry gangrene of b/l lower extremities which will likely require amputation * Argatroban to be started secondary to history of HIT/LALO and need for anticoagulant that can be rapidly discontinued if surgery is required on ischemic legs - Objective Laboratory Results:: Last 24 Hours 09/23/19 09/23/19 09/23/19 10:24 10:24 10:24 Hgb 13.7 Hct 44.0 Plt Count 411 H APTT 31.7 H PTT Ratio 1.1 BUN 6 L Creatinine 0.78 Last 72 Hours 09/23/19 09/23/19 09/23/19 10:24 10:24 10:24 Plt Count 411 H INR 1.9 H Total Bilirubin 0.7 AST 75 H ALT 41 - Recent Anticoagulant Meds * Received Eliquis 5 mg PO this AM - Assessment & Plan Regarding THERAPEUTIC Argatroban-IV for history of HIT/LALO: Managed per the [facility] Direct Thrombin Inhibitor Usage Guidelines II.E.13.01(j). D/C all heparin & low molecular weight heparin (LMWH) products. Start Argatroban-IV infusion at 0.5 mcg/kg/min. Goal PTT Ratio as determined by ordering provider: 2 -- 3 Monitoring: Steady state achieved in 1-3 hours in most patients without hepatic dysfunction. Clearance is reduced up to 4-fold in patients with hepatic impairment (i.e., steady- state may not be achieved for 4-12hrs). Further dosage adjustments per Clinical Pharmacy & the [facility] Direct Thrombin Inhibitor Usage Guidelines II.E.13.01(j). Adverse Effects: As there is no specific antidote for DTIs or DTI therapy, careful attention is paid to the achievement of optimal dosing without overdosing. Any DTI therapy should be discontinued should a major clinical bleeding episode take place. Contraindications to DTI Therapy: Overt, major bleeding, hypersensitivity to the medication or any component. Labs: Baseline/Ongoing Labs: Per P&T approved Anticoagulation Safety, Laboratory Test for Anticoagulants We will continue to monitor this patient and make adjustments as needed. Thank you.
[2019-09-23] MEDS: VANCOMYCIN HCL 1,000 MG in SODIUM CHLORIDE 0.9% 250 ML IV SCH (21:02)
--- NOTE | 2019-09-23 21:02 | Pharmacy Report ---
Pharmacy Abx Initial Consult - Date of Service September 23, 2019 - Pharmacy Dosing Scope Date of Consult: 09/23/2019 Consultation requested by: Dr. Johnston Pharmacy is consulted to initiate Vancomycin IV dosing therapy, order appropriate labs and adjust drug dose/frequency. - Subjective The patient is a 49 year old F admitted on 09/23/19 15:17. - Objective Height: 5 ft 3 in Weight: 89.4 kg Vital Signs (Past 12hrs): Vital Signs Temp Pulse Pulse Resp BP BP Pulse Ox 09/23/19 20:01 36.6 C 79 20 107/72 95 09/23/19 18:50 36.6 C 103 H 16 124/76 94 09/23/19 18:08 85 20 122/69 95 09/23/19 16:09 90 16 120/68 91 09/23/19 13:30 91 H 23 130/80 97 09/23/19 13:15 90 18 105/66 95 09/23/19 13:01 87 17 130/82 95 09/23/19 12:45 96 H 20 125/87 98 09/23/19 12:31 100 H 20 115/60 98 09/23/19 12:15 109 H 20 122/83 97 09/23/19 12:10 86 14 132/73 97 09/23/19 11:15 86 17 105/70 93 09/23/19 11:08 91 H 18 104/69 98 09/23/19 09:53 36.5 C 107 H 18 122/76 94 Lab Results (24hrs): Laboratory Tests (24 Hours) 09/23/19 09/23/19 10:24 10:24 WBC 6.07 Neut # (Auto) 4.04 Creatinine 0.78 Est Cr Clr Drug Dosing 93.6 Micro Results: 09/23/19 15:42 Aerobic Blood Culture - Pending Blood Anaerobic Blood Culture - Pending 09/23/19 10:46 Aerobic Blood Culture - Pending Blood Anaerobic Blood Culture - Pending 09/23/19 12:40 Urine Culture - Pending Urine,Indwelling Cath - Risk Factors for Resistance * None - Assessment & Plan Assessment 49 year old F admitted secondary to dry gangrene of bilateral lower extremities * PMHx significant for neuroendocrine carcinoma with mets to liver, long history of GI surgeries secondary to cancer, multiple thromboembolisms requiring thrombectomies * Now with some b/l lower extremity ischemia * No leukocytosis. Afebrile. Renal fxn stable. Cultures pending. Plan Vancomycin and Cefepime (not a pharmacy consult) for treatment of skin and soft tissue infection Vancomycin IV * Patient meets criteria for vancomycin AUC dosing nomogram * AUC/RUSTAM is the preferred PK/PD target for vancomycin * Target AUC/RUSTAM = 400-600 * AUC guided dosing is effective and associated with decreased risk of nephrotoxicity Cefepime IV * 2 g IV every 8 hours is appropriate per indication and renal fxn Pharmacy will continue to follow and will adjust dose/frequency as necessary. Thank you.
[2019-09-24] MEDS: HYDROmorphone INJ 0.5 MG/0.5 ML SYR IV PRN ×2 (00:50→08:18)
[2019-09-24 01:27] LABS: Partial Thromboplastin Ratio 1.1; Partial Thromboplastin Time 31.6 Seconds (21.0-31.0)
[2019-09-24] MEDS ORDERED: PHARMACY ARGATROBAN RATE CHANGE STA ×2 (01:30→07:21)
[2019-09-24] MEDS: CEFEPIME 2,000 MG in SYRINGE 7.5 ML IV SCH ×3 (03:53→20:20)
[2019-09-24] MEDS: VANCOMYCIN HCL 1,000 MG in SODIUM CHLORIDE 0.9% 250 ML IV SCH ×3 (04:41→20:20)
[2019-09-24 07:01] LABS: Hematocrit (blood only) 38.4 % (37-47); Hemoglobin 11.8 g/dL (12.0-16.0); Mean Corpuscular Hemoglobin 27.6 pg (25-34); Mean Corpuscular Hgb Conc 30.7 g/dL (32-36); Mean Corpuscular Volume 89.9 fL (80-100); Mean Platelet Volume 11.2 fL (7.4-10.4); Platelet Count 369 K/uL (130-400); RDW Coefficient of Variation 18.6 % (11.5-14.5); RDW Standard Deviation 61.2 fL (36.4-46.3); Red Blood Count 4.27 M/uL (4.2-5.4); White Blood Count 6.34 K/uL (4.8-10.8)
[2019-09-24 07:12] LABS: Partial Thromboplastin Ratio 1.1; Partial Thromboplastin Time 30.7 Seconds (21.0-31.0)
[2019-09-24 07:31] LABS: Albumin Level 1.9 gm/dl (3.4-5.0); Bilirubin Direct 0.3 mg/dl (0-0.2); Creatinine Clr Calc Pharmacy 124.7 ml/min; Est GFR (African American) 125.6; Est GFR (Non-African American) 108.4
[2019-09-24 07:34] LABS: Bilirubin,Total 0.9 mg/dl (0.2-1)
--- NOTE | 2019-09-24 08:02 | Hospitalist Progress Note ---
Date of Service September 24, 2019 Assessment & Plan (1) Dry gangrene: b/l feet - present several weeks seemingly result of her previous issues with H ITT and limb ischemia due to thrombosis. This occurred in setting of neuroendocrine tumor with liver mets and recent arterial thrombi of legs causing critical limb ischemia requiring thrombectomies of b/l legs and LLE fasciotomy (s/p left femoral artery thrombectomy, b/l popliteal artery thrombectomies, and left leg fasciotomy - [facility]). arterial duplex today with severe PAD and occlusive disease b/l. spoke with Dr Gresham from vascular who did consult feels there is no need for immediate vascular intervention but orthopedic consultation for possible toe amputations. CTA of abd/pelvis with run-off .IMPRESSION: 1. 5.0 cm occluded segment of the right popliteal artery redemonstrated with reconstitution of flow distally. 2. Three-vessel runoff is noted bilaterally with multifocal stenoses throughout the right peroneal artery 3. There is at least moderate multifocal luminal narrowing about the left popliteal artery. 4. Numerous enhancing hepatic lesions suggestive of metastasis. 5. Suspicious 2.3 cm solid nodule of the posterior basal segment right lower lobe. 6. Pathologic periportal/gastrohepatic lymph nodes are suggestive of lymphatic metastasis. 7. Postoperative changes of prior partial right hemicolectomy with enterocolic anastomosis. 8. Tiny subcentimeter foci of the abdominal right lower quadrant are hughes spicious for peritoneal nodules. Attention at follow-up recommended to exclude peritoneal carcinomatosis initially thought to have early sepsis but does not meet strict criteria cefepime IV. vanco. follow blood cultures. anticoagulation - hold eliquis started on argatroban with concern for HIT has h/o LALO per [facility] records - started argatroban IV will coordinate stopping if surgery is required (2) Neuroendocrine neoplasm of gastrointestinal tract: s/p ileal resection and right-sided hemicolectomy 07/2019 at [facility]. known liver mets. s/p depot octreotide 07/27/19. Dr Yeung will follow (3) Coagulopathy: 09/04/19 - INR was 1.6 at [facility]. consider vitamin K deficiency but suspect bulk of coagulopathy is due to severe liver dysfunction from neuroendocrine tumor mets to liver. iNR is 1.9 but general liver function does not seem markedly out of alignment (4) Abnormal LFTs: 2nd to liver mets from neuroendocrine tumor. (5) History of hemicolectomy: right-sided, 2nd to neuroendocrine tumor. recent diarrhea but has improved. if diarrhea recurs/persists check c.diff toxin in light of recent IV/PO antibiotics for sepsis/UTI in early September. (6) Hypokalemia: replace (7) Hypomagnesemia: replace repeat level in am (8) Vomiting: uncertain etiology. CTA abd/pelvis at [facility] 09/04/19 did not show any obstruction of the small bowel or gastric outlet obstruction. she is passing flatus and stools. clear liquid diet. PPI. 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 while eliquis is on hold for potential of needing amputation will place on argatraban drip protocol; spoke with pharmacy re: such. 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 - per records (13) Asthma: no exacerbation at this time uncle - Ozzie Dixon -- gave extensive update to him by phone (14) Intellectual disability: self-reported by patient Admission and Anticipated Discharge Date Admission Date: September 23, 2019 Subjective pt is with better symptom control but she is tearful with the idea of amputation of toes and possible more The pt has very poor dentition but states that this is not bothering her at the present does not have significant abdominal pain Review of Systems Review of Systems: Mild distress and fatigue no headache, blurry or double vision no speech or swallowing issues no chest pain, pressure or palpitations no shortness of breath, cough or wheezes no abdominal pain, nausea or vomiting, no dysuria, hematuria or frequency Significant changes to her toes and lower extremities with tenderness, black areas of her toes and feet no back pain, CVA tenderness or radicular pain no focal signs of weakness or numbness or altered sensation no complaints or anxiety or depression. Physical Exam Physical Exam: The patient appeared chronically ill Vital signs as documented. Head exam is normocephalic atraumatic no scleral icterus Neck is without JVD, thyromegaly, or carotid bruits. Lungs are clear but diminished at the bases Cardiac exam, Rhythm is regular.. No murmurs, rubs or gallops. Abdominal exam reveals normal bowel sounds, soft mild tenderness to exam Extremities bilateral dry gangrene to toes on both feet with tenderness of examination and poor pulses bilaterally Neurologic exam is alert and oriented, no focal loss of strength alter distal sensation is noted Skin is without significant gangrene to her feet Psychologically is without concerns for anxiety or depression however she is emotionally labile Results & Data Results & Data ([facility]) Vital Signs (Past 12 Hours) Vital Signs Temp Pulse Pulse Resp BP Pulse Ox 09/24/19 07:42 98.1 F 98 H 18 114/74 96 09/24/19 03:52 97.9 F 87 16 96/65 L 95 09/24/19 00:02 80 09/23/19 23:46 98.2 F 91 H 16 112/73 90 09/23/19 20:01 97.9 F 79 20 107/72 95 PG Care Time/CCT Total # of Minutes Spent Total Time Spent with Patient: Total time spent is greater than 50% in coordination of care (as documented) at patient's floor/unit and/or counseling patient: Coding Level of Care Code 68448 Subseq Hosp Care Lvl 3 Diagnoses Dry gangrene I96 Neuroendocrine neoplasm of gastrointestinal tract D3A.8 Coagulopathy D68.9 Abnormal LFTs R94.5 History of hemicolectomy Z90.49 Hypokalemia E87.6 Hypomagnesemia E83.42 Vomiting R11.10 Nausea presence: unspecified Vomiting Intractability: intractable Vomiting type: unspecified Pulmonary emboli I26.99 Acute cor pulmonale presence: without acute cor pulmonale Chronicity: unspecified Pulmonary embolism type: unspecified Pulmonary infarction I26.99 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 thrombocytopenia) D75.82 Internal jugular vein thrombosis I82.C11 Laterality: right Asthma J45.20 Asthma complication type: unspecified Asthma persistence: intermittent Asthma severity: mild Intellectual disability F79 (1) Internal jugular vein thrombosis Laterality: right Qualified Code(s): I82.C11 - Acute embolism and thrombosis of right internal jugular vein (2) Pulmonary emboli Acute cor pulmonale presence: without acute cor pulmonale Chronicity: unspecified Pulmonary embolism type: unspecified Qualified Code(s): I26.99 - Other pulmonary embolism without acute cor pulmonale (3) Vomiting Nausea presence: unspecified Vomiting Intractability: intractable Vomiting type: unspecified Qualified Code(s): R11.10 - Vomiting, unspecified (4) Asthma Asthma complication type: unspecified Asthma persistence: intermittent Asthma severity: mild Qualified Code(s): J45.20 - Mild intermittent asthma, uncomplicated
[2019-09-24] MEDS: PANTOprazole 40 MG TAB PO SCH (08:13)
[2019-09-24 08:48] LABS: BUN Creatinine Ratio 9.3 (10-20); Calcium 7.6 mg/dl (8.5-10.1); Creatinine Clr Calc Pharmacy 126.9 ml/min; Est GFR (African American) 126.3; Potassium 3.4 mmol/L (3.5-5.1)
--- NOTE | 2019-09-24 09:34 | Consultation Report ---
DATE OF CONSULTATION: 09/24/2019 REASON FOR CONSULTATION: Low-grade neuroendocrine tumor and heparin-induced thrombocytopenia resulting in a disseminated thrombotic events. HISTORY OF PRESENT ILLNESS: Ms. Bardales is a very pleasant but complex 49-year-old female who was admitted to [facility] yesterday, currently on the hospitalist service at the urging of Dr. Fofana who apparently does house calls. The physician visited Mee in her home and was concern over a gangrenous right first and second toes and advised hospitalization. Apparently, she had been hospitalized in [place] for about a week and was told she would most likely need amputation, but it was deferred during that hospitalization. Specifically, she was hospitalized at [facility] at [facility] [place] from 09/04/2019 through 09/11/2019 for urinary tract infection. During that particular admission, CTA of the abdomen and pelvis revealed right lower lobe pulmonary infarct along with right lower lobe pulmonary emboli. The same CT showed a decreased size in a previously established liver mets. The patient was diagnosed with a neuroendocrine tumor back in July and was started on octreotide after undergoing a bowel resection. Specifically, Ms. Bardaels underwent an ileal resection with right sided hemicolectomy. There is a biopsy of a peritoneal nodule as well as the left ovary. 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 Additionally, Ms. Bardales underwent a left lower extremity fasciotomy. During the hospitalization in July, the patient had been started on heparin and subsequently developed heparin-induced thrombocytopenia. Upon discharge, she was placed on Eliquis p.o. b.i.d. She was admitted to [facility] for vascular workup and probable amputation of at least the right foot. Consultation with Dr. Gresham, vascular surgeon is pending at this time. Appropriately Dr. Johnston has started the patient on argatroban and she at present time is subtherapeutic. Staging on the low grade carcinoid tumor is pT4, N1, M1b with a Ki-67 index of 7.4. She received her first course of octreotide on 07/27/2019. The primary service is requesting assistance specifically continuing care of the patient's neuroendocrine tumor and heparin-induced thrombocytopenia. PAST MEDICAL HISTORY: Again arterial thromboses (acute bilateral lower extremities 07/2019, status post right SFA/popliteal/tibial thrombectomy, left popliteal tibial thrombectomy, left lower extremity fasciotomy. 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 Neuroendocrine neoplasm in the GI tract diagnosis established on 07/11/2019, CT revealing a spiculated mass 3.2 x 2.5 cm; exploratory laparotomy with ileal resection and right hemicolectomy with end-to-end anastomosis, biopsy of peritoneal nodules and a left ovarian mass. Pathology consistent with well-differentiated neuroendocrine tumor. First dose of octreotide was administered 07/27/2019 in [place]; pulmonary emboli, right lower lobe 09/04/2019 [facility], pulmonary infarctions right lower lobe 09/04/2019. PAST SURGICAL HISTORY: History of hemicolectomy, ileocecal resection right sided hemicolectomy and ileocolonic anastomosis at [facility] 07/15/2019 status post laparoscopic procedure in 1999, exploratory to "rule out cancer." MEDICATIONS: Prior to admission include Protonix 40 mg p.o. daily, loperamide 2 mg p.o. q. 6 hours, Apixaban 5 mg p.o. b.i.d., albuterol 1 puff inhaled UD p.r.n., acetaminophen 500 mg p.o. t.i.d. p.r.n. ALLERGIES: HEPARIN, WHICH RESULTED IN A HEPARIN-INDUCED THROMBOCYTOPENIA. SOCIAL HISTORY: The patient presently is homeless, but plans to move in with her uncle in [place]. She is currently disabled. She has 2 children who are in foster care secondary to her severe medical issues. She was a prior smoker, quitting recently when she developed her medical problems. Negative for alcohol or illicit drugs. FAMILY HISTORY: Mother secondary to Alzheimer disease. Also suffered from diabetes and CVA. Father attributable to laryngeal cancer. REVIEW OF SYSTEMS: CONSTITUTIONAL: The patient reports no fevers, chills or sweats. She does report anorexia and mild weight loss about 5 pounds. HEENT: No headaches, lightheadedness or dizziness. No acute visual or hearing deficits. No sinus symptoms, sore throat or dysphagia. LYMPH: No history of lymphoproliferative disease. CARDIAC: No history of coronary artery disease. No current angina or palpitations. RESPIRATORY: Positive for history of asthma. Positive for dyspnea on exertion. No cough or hemoptysis. GASTROINTESTINAL: Recent abdominal surgery to remove neuroendocrine tumor. No current abdominal pain. No nausea, vomiting, diarrhea or constipation. No hematochezia or melena. GENITOURINARY: Positive for dysuria previously treated for urinary tract infection. MUSCULOSKELETAL: No arthralgias or myalgias. No focal muscle weakness. ENDOCRINE: Negative for diabetes or thyroid disease. NEUROLOGIC: Negative for seizure, stroke, or migraine headache. HEMATOLOGIC: Positive for anemia. PHYSICAL EXAMINATION: GENERAL: The patient is a disheveled 49-year-old female. Awake, alert and appropriate, in no acute distress. HEENT: Head is atraumatic, normocephalic. Eyes: PERRLA, EOMI. Sclerae nonicteric. No conjunctival discharge. Nares patent without rhinorrhea or discharge. Throat is clear. Tongue is midline. Dentation is in very poor repair. NECK: Supple without JVD or thyromegaly. HEART: Regular rate and rhythm. LUNGS: Expiratory wheezes heard in all 3 lung baird. ABDOMEN: Soft, nontender, nondistended. She has a large midline incision which appears to be showing early signs of dehiscence. No palpable hepatosplenomegaly. EXTREMITIES: Necrotic appearing first and second toe on the right foot. Left foot moderate dry gangrene on first and second toes. Toes 3 and 5 also have delayed capillary refill. NEUROLOGICALLY: She is awake, alert and oriented x3. Cranial nerves are grossly intact. LABORATORY DATA: WBC count 6340, hemoglobin 11.8, platelet count 169,000. PT 19.1 seconds, INR 1.9, PTT 30.7 seconds. Sodium 143, potassium 3.1, chloride 105, carbon dioxide 33, creatinine 0.95, BUN 6, glucose 119. Lactate 2.1, calcium 8, magnesium 1.5, AST 72, alkaline phosphatase 220, albumin 1.9. IMPRESSION: 1. Dry gangrene, bilateral feet. 2. Heparin-induced thrombocytopenia. 3. Low-grade neuroendocrine tumor. 4. Coagulopathy. 5. Electrolyte dysfunction. 6. Pulmonary emboli. 7. Pulmonary infarction. 8. Internal jugular vein thromboses. PLAN: I have been asked to evaluate this very pleasant but unfortunate young lady. Her hospitalization and thrombotic history are well outlined in today's consultation. I suspect most of her thrombotic events have occurred secondary to cigarette smoking and complicated by heparin-induced thrombocytopenia. She has had multiple vascular procedures when she was inpatient at [facility]. Unfortunately, these interventions have been unsuccessful and the patient will most likely require amputation. Dr. Gresham is on consultation and we will await his recommendations. I agree with continuing argatroban. Keep in mind argatroban not only raises a PTT, but also PT, so thus, we do not need to address correcting PT during argatroban administration. Ultimately, the patient will require conversion to either oral direct thrombin inhibitor or perhaps subcutaneous Arixtra, which has a low rate of cross reactivity with heparin-induced antibodies. In regards to her low-grade neuroendocrine tumor, the patient received her first course of octreotide and will obtain all her prior radiographic studies done in [place] and plan to restart octreotide when she is medically/surgically stable. I have asked the hospitalist service to obtain serotonin and chromogranin A levels at present time. Ultimately, I will plan followup with Ms. Bardales upon discharge. I do not intend to start any form of chemotherapy in house. I will continue to check in on her periodically. I agree with current medical management for this poor unfortunate young lady. EDMAR
[2019-09-24] MEDS: NSS + 20MEQ KCL 20 MEQ/1,000 ML BAG IV SCH ×2 (09:43→12:03)
--- NOTE | 2019-09-24 09:43 | Consultation ---
Date of Consultation September 24, 2019 Assessment & Plan (1) Dry gangrene: Would consult ortho for future amputation of toes of the feet. The gangrene is dry at this time. Would paint with betadine till amputation of performed. Consult to ortho was placed. (2) Popliteal artery occlusion, right: There is occlusion of the right popliteal artery for a short segment. There appears to be good collateralization. Would not do any intervention at this time. If there is poor bleeding at the time of ampuation or poor healing, then intervention on the popliteal would be needed. The clot has been there for a prolonged period of time that simple thrombectomy would not give good fci results. Most likely can be treated with stenting across this short occlusion. Thank you very much for letting us participate in the care of this patient. History of Present Illness Reason for Consultation: Gangrene toes of both feet Attending Physician: Humza Lu MD History of Present Illness This is a 49y/o female who earlier this year had a resection of a small bowel neuroendocrine tumor. She does have metastatic disease. She presents now with dry gangrene of the toes of both feet. In july she had thrombosis of both popliteal arteries and underwent thrombectomy of the arteries with a fasciotomy of the left leg. The right leg has subsequently reoccluded. She now presented with gangrene of the toes of both feet. She denies pain in her left foot but does have pain in the toes of the right foot. She denies any drainage from the toes. Allergies Allergy/AdvReac Type Severity Reaction Status Date / Time heparin Allergy Heparin Verified 09/23/19 17:20 induced thrombocytopenia Home Medications Home Medications Medication Instructions Recorded Confirmed Type acetaminophen 500 mg PO TID PRN 09/23/19 09/23/19 History albuterol sulfate [Ventolin HFA] 1 puff INHALATION UD PRN 09/23/19 09/23/19 History apixaban [Eliquis] 5 mg PO BID 09/23/19 09/23/19 History loperamide 2 mg PO Q6H 09/23/19 09/23/19 History pantoprazole 40 mg PO DAILY 09/23/19 09/23/19 History Patient History Medical History (Updated 09/24/19 @ 09:51 by Mahin Gresham MD) Arterial thrombosis (Acute) b/l legs - 07/2019 - s/p right SFA/popliteal/tibial thrombectomy, left popliteal/tibial thrombectomy, LLE fasciotomy Asthma Dry gangrene (Acute) b/l feet 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 thrombocytopenia) 07/2019 - [facility] [place] Intellectual disability (Acute) Internal jugular vein thrombosis RIGHT - 07/24/19. Developed HIT following anticoagulation for such. Neuroendocrine neoplasm of gastrointestinal tract (Acute) 07/11/19 - CT with 3.2 x 2.5cm spiculated mesenteric mass concerning for carcinoid tumor; 07/14 - ex lap with ileal resection and right hemicolectomy w/ end-to-end anastomosis; bx of peritoneal nodules and left ovarian mass; path -- metastatic well-differentiated NET, pT4 N1 M1b; Kl6y index 7.4% 07/27/19 - first dose IM Octreotide in [place] Pulmonary emboli RLL - 09/04/19 - [facility] Pulmonary infarction RLL - 09/04/19 Surgical History (Updated 09/23/19 @ 18:16 by Herbert Johnston) History of hemicolectomy (Acute) ileal-cecal resection and right-sided hemicolectomy; ileal-colonic anastomosis - [facility] [place] 07/15/2019 S/P laparoscopic procedure 1999 - exploratory - to rule out cancer? Family History (Updated 09/23/19 @ 18:02 by Herbert Johnston) Mother , age 82 Alzheimer disease Diabetes Stroke Father Laryngeal cancer Social History (Updated 09/23/19 @ 18:18 by Herbert Johnston) Preferred Language: Turkish Communication Ability: Effective Beliefs That Will Affect Care: None marital status: / marital status details: 2 children Current Living Situation: Other Current Living Situation Comment: PLANS TO MOVE IN WITH UNCLE in [place] current occupational status: disabled other: 2 children are in foster care 2nd to her severe medical issues Feels Safe at Home: No Smoking Status: Former smoker Age Started Using Tobacco: 11 ; Age Quit Using Tobacco: 49 ; packs per day: 1 ; Hx Alcohol Use: No Hx Substance Use: No Review of Systems Review of Systems: All systems reviewed & are unremarkable except as noted in HPI & below Physical Exam Constitutional: well developed and well nourished; no acute distress Respiratory: normal respiratory effort, lungs clear to auscultation Cardiovascular: Rate/Rhythm: regular rate and regular rhythm Vessels: femoral pulses present, posterior tibial pulses present (weak on left, none on rigth), dorsalis pedis pulses present (weak on left, none on right) and radial pulses present; no carotid bruit Gastrointestinal (Abdomen): Inspection/Auscultation: abdomen not distended Percussion/Palpation: abdomen soft Musculoskeletal: Extremities: strength 5/5 throughout; + extremities abnormal to inspection (dry gangrene of toes right foot, first two toes of left foot) Neurologic: CN's II-XI intact bilaterally Motor/Sensory: normal movement Psychiatric: Orientation: alert and oriented x 3 Results & Data Vital Signs (Past 12 Hours) Vital Signs Temp Pulse Pulse Resp BP Pulse Ox 09/24/19 08:00 86 09/24/19 07:42 36.7 C 98 H 18 114/74 96 09/24/19 03:52 36.6 C 87 16 96/65 L 95 09/24/19 00:02 80 09/23/19 23:46 36.8 C 91 H 16 112/73 90
[2019-09-24 12:09] LABS: Partial Thromboplastin Ratio 1.1; Partial Thromboplastin Time 30.5 Seconds (21.0-31.0)
[2019-09-24 17:08] LABS: Partial Thromboplastin Ratio 2.5
[2019-09-24 17:11] LABS: Partial Thromboplastin Time 69.5 Seconds (21.0-31.0)
--- NOTE | 2019-09-24 17:11 | Orthopedic Consultation ---
Date of Consultation September 24, 2019 Assessment & Plan (1) Dry gangrene: Patient has a fairly complicated recent history with thromboembolic episodes requiring thrombectomy as well as left lower extremity fasciotomy at [facility]. The dry gangrene of her toes was noted in her prior hospitalization last week at this. That time was discussed with her she would likely require amputation but it was not going to be pursued at that hospitalization. I discussed with her that she will require likely amputation of the right great toe as well as part of the second right toe. I will have Dr. Le evaluate both feet. I do not know whether he would want to pursue something from surgical treatment for the left great toe and left second toe at this time or if he would want to wait and let that demarcate itself more. I will make her n.p.o. after midnight for possible surgery tomorrow Present on Admission?: Yes History of Present Illness Reason for Consultation: b/l feet dry gangrene Attending Physician: Humza Lu MD History of Present Illness 49yo female with recent history of neuroendocrine tumor distal small bowel with liver mets s/p resection of ileum and right hemicolectomy with ileal-colonic anastomosis at [facility], arterial clots of b/l legs s/p thrombectomies and LLE fasciotomy. She was apparently noted to have developed dry gangrene at the time of her last hospitalization last week and was discussed with her that she would likely require amputation but it was deferred at that time. She was at home in a physician who does home calls evaluated her, noted the dry gangrene and recommended hospitalization. Allergies Allergy/AdvReac Type Severity Reaction Status Date / Time heparin Allergy Heparin Verified 09/23/19 17:20 induced thrombocytopenia strawberry Allergy Hives Verified 09/24/19 16:02 Home Medications Home Medications Medication Instructions Recorded Confirmed Type acetaminophen 500 mg PO TID PRN 09/23/19 09/23/19 History albuterol sulfate [Ventolin HFA] 1 puff INHALATION UD PRN 09/23/19 09/23/19 History apixaban [Eliquis] 5 mg PO BID 09/23/19 09/23/19 History loperamide 2 mg PO Q6H 09/23/19 09/23/19 History pantoprazole 40 mg PO DAILY 09/23/19 09/23/19 History Patient History Medical History (Updated 09/24/19 @ 09:51 by Mahin Gresham MD) Arterial thrombosis (Acute) b/l legs - 07/2019 - s/p right SFA/popliteal/tibial thrombectomy, left popliteal/tibial thrombectomy, LLE fasciotomy Asthma Dry gangrene (Acute) b/l feet 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 thrombocytopenia) 07/2019 - [facility] Intellectual disability (Acute) Internal jugular vein thrombosis RIGHT - 07/24/19. Developed HIT following anticoagulation for such. Neuroendocrine neoplasm of gastrointestinal tract (Acute) 07/11/19 - CT with 3.2 x 2.5cm spiculated mesenteric mass concerning for carcinoid tumor; 07/14 - ex lap with ileal resection and right hemicolectomy w/ end-to-end anastomosis; bx of peritoneal nodules and left ovarian mass; path -- metastatic well-differentiated NET, pT4 N1 M1b; Kl6y index 7.4% 07/27/19 - first dose IM Octreotide in [place] Pulmonary emboli RLL - 09/04/19 - [facility] [place] Pulmonary infarction RLL - 09/04/19 Surgical History (Updated 09/23/19 @ 18:16 by Herbert Johnston) History of hemicolectomy (Acute) ileal-cecal resection and right-sided hemicolectomy; ileal-colonic anastomosis - [facility] 07/15/2019 S/P laparoscopic procedure 1999 - exploratory - to rule out cancer? Family History (Updated 09/23/19 @ 18:02 by Herbert Johnston) Mother , age 82 Alzheimer disease Diabetes Stroke Father Laryngeal cancer Social History (Updated 09/23/19 @ 18:18 by Herbert Johnston) Preferred Language: Slovenian Communication Ability: Effective Beliefs That Will Affect Care: None marital status: / marital status details: 2 children Current Living Situation: Other Current Living Situation Comment: PLANS TO MOVE IN WITH UNCLE in [place] current occupational status: disabled other: 2 children are in foster care 2nd to her severe medical issues Feels Safe at Home: No Smoking Status: Former smoker Age Started Using Tobacco: 11 ; Age Quit Using Tobacco: 49 ; packs per day: 1 ; Hx Alcohol Use: No Hx Substance Use: No Physical Exam Constitutional: WD/WN, vitals as above Neck: trachea midline Respiratory: normal respiratory effort Cardiovascular: Extremities: no edema Musculoskeletal: Bilateral lower extremities: Right great toe demonstrates dry gangrene down to the level of close to the MCP. The second toe has dry gangrene over the distal phalanx no surrounding erythema. No drainage. Left great toe has some discoloration and blackening over the nail and tuft. There is some discoloration and blackening over the left second toe as well Results & Data ([facility]) Vital Signs (Past 12 Hours) Vital Signs Temp Pulse Pulse Resp BP Pulse Ox 09/24/19 16:25 79 09/24/19 15:53 36.5 C 83 18 105/70 98 09/24/19 12:37 36.8 C 91 H 19 111/73 95 09/24/19 08:00 86 09/24/19 07:42 36.7 C 98 H 18 114/74 96
[2019-09-24] MEDS ORDERED: PHARMACY ARGATROBAN RATE CHANGE ONE ×2 (17:30→21:15)
[2019-09-24] MEDS: POTASSIUM CHLORIDE 20 MEQ TABCR PO SCH (20:22)
[2019-09-24 21:05] LABS: Partial Thromboplastin Ratio 2.6
[2019-09-24 21:08] LABS: Partial Thromboplastin Time 71.9 Seconds (21.0-31.0)
[2019-09-25] MEDS: NSS + 20MEQ KCL 20 MEQ/1,000 ML BAG IV SCH ×2 (00:50→16:50)
[2019-09-25 01:00] LABS: Partial Thromboplastin Ratio 2.5
[2019-09-25 01:08] LABS: Partial Thromboplastin Time 70.8 Seconds (21.0-31.0)
[2019-09-25] MEDS ORDERED: PHARMACY ARGATROBAN RATE CHANGE ONE ×2 (01:15→05:45)
[2019-09-25] MEDS ORDERED: VANCOMYCIN TROUGH ONE (04:30)
[2019-09-25] MEDS: VANCOMYCIN HCL 1,000 MG in SODIUM CHLORIDE 0.9% 250 ML IV SCH (04:33)
[2019-09-25] MEDS: CEFEPIME 2,000 MG in SYRINGE 7.5 ML IV SCH ×3 (04:34→20:45)
[2019-09-25 04:50] LABS: Hematocrit (blood only) 34.9 % (37-47); Hemoglobin 10.6 g/dL (12.0-16.0); Mean Corpuscular Hemoglobin 27.5 pg (25-34); Mean Corpuscular Hgb Conc 30.4 g/dL (32-36); Mean Corpuscular Volume 90.4 fL (80-100); Mean Platelet Volume 11.1 fL (7.4-10.4); Platelet Count 317 K/uL (130-400); RDW Coefficient of Variation 18.6 % (11.5-14.5); RDW Standard Deviation 61.4 fL (36.4-46.3); Red Blood Count 3.86 M/uL (4.2-5.4); White Blood Count 4.82 K/uL (4.8-10.8)
[2019-09-25 05:11] LABS: Partial Thromboplastin Ratio 2.6
[2019-09-25 05:16] LABS: Creatinine Clr Calc Pharmacy 164.6 ml/min; Est GFR (African American) 137.3; Est GFR (Non-African American) 118.5
[2019-09-25] MEDS: POTASSIUM CHLORIDE 20 MEQ TABCR PO SCH ×2 (08:43→20:45)
[2019-09-25] MEDS: PANTOprazole 40 MG TAB PO SCH (08:44)
[2019-09-25 10:57] LABS: Prothrombin Time 46.9 Seconds (9.0-12.0)
--- NOTE | 2019-09-25 10:57 | Pharmacy Report ---
Pharmacy Abx Dose Short Note - Date of Service September 25, 2019 - Assessment & Plan Assessment 49 year old F receiving vancomycin for treatment of ssti/gangrene of toes Day # 3 of antimicrobial therapy. Plan Vancomycin * Trough level came back supratherapeutic at ~28 mcg/ml this morning - goal ~15- 20 mcg/ml * Patient did end up receiving dose of vancomycin this morning - therefore anticipate level trending up * Patient's clearance of vancomycin much different than estimated kinetics. Patient with elevated BMI, therefore could have some accumulation with vancomycin * Will hold further doses today - plan to redose when estimated level ~15 mcg/ml / will also adjust to ~14 hr regimen * Patient possibly go to OR today for amputation / will follow up postop with plan for abx Pharmacy will continue to follow and will adjust dose/frequency as necessary. Thank you.
[2019-09-25 11:01] LABS: INR 4.8 (0.9-1.1)
[2019-09-25 14:24] LABS: Partial Thromboplastin Ratio 1.6
[2019-09-25 14:28] LABS: Partial Thromboplastin Time 45.4 Seconds (21.0-31.0)
--- NOTE | 2019-09-25 14:32 | Hospitalist Progress Note ---
Date of Service September 25, 2019 Assessment & Plan (1) Dry gangrene: b/l feet - present several weeks seemingly result of her previous issues with H ITT and limb ischemia due to thrombosis. This occurred in setting of neuroendocrine tumor with liver mets and recent arterial thrombi of legs causing critical limb ischemia requiring thrombectomies of b/l legs and LLE fasciotomy (s/p left femoral artery thrombectomy, b/l popliteal artery thrombectomies, and left leg fasciotomy - [facility]). arterial duplex today with severe PAD and occlusive disease b/l. spoke with Dr Gresham from vascular who did consult feels there is no need for immediate vascular intervention but orthopedic consultation for possible toe amputations. CTA of abd/pelvis with run-off .IMPRESSION: 1. 5.0 cm occluded segment of the right popliteal artery redemonstrated with reconstitution of flow distally. 2. Three-vessel runoff is noted bilaterally with multifocal stenoses throughout the right peroneal artery 3. There is at least moderate multifocal luminal narrowing about the left popliteal artery. 4. Numerous enhancing hepatic lesions suggestive of metastasis. 5. Suspicious 2.3 cm solid nodule of the posterior basal segment right lower lobe. 6. Pathologic periportal/gastrohepatic lymph nodes are suggestive of lymphatic metastasis. 7. Postoperative changes of prior partial right hemicolectomy with enterocolic anastomosis. 8. Tiny subcentimeter foci of the abdominal right lower quadrant are hughes spicious for peritoneal nodules. Attention at follow-up recommended to exclude peritoneal carcinomatosis initially thought to have early sepsis but does not meet strict criteria cefepime IV. vanco. follow blood cultures. anticoagulation - hold eliquis started on argatroban with concern for HIT has h/o LALO per [facility] records - difficult to corrdinate when argatroban will normalize once stopped, this impacts scheduling of surgery, will stop argatroban and check PTT 2 hours after if normalized ptt may do surgery today, if not normalized will restart and then re stop at 4 am with q2h PTT checks on 09/25 to then assure good coaguation for possible surgery 09/25. 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 known liver mets. s/p depot octreotide 07/27/19. Dr Yeung will follow discuasion of when to redose with Dr Yeung diarrhea on 09/24 pending c diff (3) Coagulopathy: . consider vitamin K deficiency but suspect bulk of coagulopathy is due to severe liver dysfunction from neuroendocrine tumor mets to liver, plus argatroban iNR is elevated but influenced by argatroban (4) Abnormal LFTs: 2nd to liver mets from neuroendocrine tumor. (5) History of hemicolectomy: right-sided, 2nd to neuroendocrine tumor. recent diarrhea but has improved. if diarrhea recurs/persists check c.diff toxin in light of recent IV/PO antibiotics for sepsis/UTI in early September. (6) Hypokalemia: replace (7) Hypomagnesemia: replace repeat level in am (8) Vomiting: resolved CTA abd/pelvis at [facility] 09/04/19 did not show any obstruction of the small bowel or gastric outlet obstruction. she is passing flatus and stools. tolerated advanced diet PPI. 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 - per records (13) Asthma: no exacerbation at this time uncle - Ozzie Mccormicky -- Dr herring gave extensive update to him by phone (14) Intellectual disability: self-reported by patient Admission and Anticipated Discharge Date Admission Date: September 23, 2019 Subjective pt is accepting of right great and possibly second toe amputation and likley the need to allow left foot and toes to further demarcate, has poor after care situation at this time and may benefit from rehab The pt has very poor dentition but states that this is not bothering her at the present does not have significant abdominal pain Review of Systems Review of Systems: Mild distress and fatigue no headache, blurry or double vision no speech or swallowing issues no chest pain, pressure or palpitations no shortness of breath, cough or wheezes no abdominal pain, nausea or vomiting, no dysuria, hematuria or frequency Significant changes to her toes and lower extremities with tenderness, black areas of her toes and feet feet are painted with bedadine no back pain, CVA tenderness or radicular pain no focal signs of weakness or numbness or altered sensation no complaints or anxiety or depression. Physical Exam Physical Exam: The patient appeared chronically ill Vital signs as documented. Head exam is normocephalic atraumatic no scleral icterus Neck is without JVD, thyromegaly, or carotid bruits. Lungs are clear but diminished at the bases Cardiac exam, Rhythm is regular.. No murmurs, rubs or gallops. Abdominal exam reveals normal bowel sounds, soft mild tenderness to exam Extremities bilateral dry gangrene to toes on both feet with tenderness of examination and poor pulses bilaterally Neurologic exam is alert and oriented, no focal loss of strength alter distal sensation is noted Skin is without significant gangrene to her feet Psychologically is without concerns for anxiety or depression however she is emotionally labile Results & Data Results & Data ([facility]) Vital Signs (Past 12 Hours) Vital Signs Temp Pulse Pulse Resp BP Pulse Ox 09/25/19 12:00 97.9 F 97 H 16 119/78 94 09/25/19 07:35 98 H 09/25/19 07:08 98.4 F 98 H 18 114/77 95 09/25/19 05:29 97 H 09/25/19 03:48 97.9 F 90 18 107/73 93 PG Care Time/CCT Total # of Minutes Spent Total Time Spent with Patient: Total time spent is greater than 50% in coordination of care (as documented) at patient's floor/unit and/or counseling patient: Coding Level of Care Code 95161 Subseq Hosp Care Lvl 3 Diagnoses Dry gangrene I96 Neuroendocrine neoplasm of gastrointestinal tract D3A.8 Coagulopathy D68.9 Abnormal LFTs R94.5 History of hemicolectomy Z90.49 Hypokalemia E87.6 Hypomagnesemia E83.42 Vomiting R11.10 Vomiting type: unspecified Vomiting Intractability: intractable Nausea presence: unspecified Pulmonary emboli I26.99 Pulmonary embolism type: unspecified Chronicity: unspecified Acute cor pulmonale presence: without acute cor pulmonale Pulmonary infarction I26.99 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 thrombocytopenia) D75.82 Internal jugular vein thrombosis I82.C11 Laterality: right Asthma J45.20 Asthma severity: mild Asthma persistence: intermittent Asthma complication type: unspecified Intellectual disability F79 (1) Vomiting Vomiting type: unspecified Vomiting Intractability: intractable Nausea presence: unspecified Qualified Code(s): R11.10 - Vomiting, unspecified (2) Pulmonary emboli Pulmonary embolism type: unspecified Chronicity: unspecified Acute cor pulmonale presence: without acute cor pulmonale Qualified Code(s): I26.99 - Other pulmonary embolism without acute cor pulmonale (3) Internal jugular vein thrombosis Laterality: right Qualified Code(s): I82.C11 - Acute embolism and thrombosis of right internal jugular vein (4) Asthma Asthma severity: mild Asthma persistence: intermittent Asthma complication type: unspecified Qualified Code(s): J45.20 - Mild intermittent asthma, uncomplicated
[2019-09-25] MEDS ORDERED: BUPIVACAINE 0.5 % 5 MG/1 ML MPF 30ML VIAL ONE (17:24)
[2019-09-25] MEDS ORDERED: BACITRACIN INJ 50,000 UNIT VIAL ONE (17:24)
[2019-09-25] MEDS ORDERED: MIDAZOLAM HCL 1 MG/ML 2ML VIAL ONE (17:27)
[2019-09-25] MEDS ORDERED: ONDANSETRON INJ 2 MG/ML 2 ML VIAL ONE (17:27)
[2019-09-25] MEDS ORDERED: PROPOFOL IV EMULSION 10 MG/ML 20 ML VIAL IV ONE (17:27)
[2019-09-25] MEDS ORDERED: LIDOCAINE HCL 2% 2 ML VIAL/AMP(20MG/ML) INFIL ONE (17:27)
--- NOTE | 2019-09-25 17:32 | Anesthesiology Consultation ---
Date of Service September 25, 2019 Assessment & Plan (1) Encounter for pre-operative examination: Chart Review Chart Review: Acceptable Risk for Surgery (necessary surgery) and Patient NOT seen in Pre Admission Testing Consults Requested none History Surgery Operation Date: 09/25/19 17:05 Proposed Procedures p Right Foot 1st, 2nd and 3rd Toe Amputation - Ezra Le DO Height/Weight Height: 5 ft 3 in Weight: 91.9 kg Allergies Allergy/AdvReac Type Severity Reaction Status Date / Time heparin Allergy Heparin Verified 09/23/19 17:20 induced thrombocytopenia strawberry Allergy Hives Verified 09/24/19 16:02 Medications Home Medications Medication Instructions Recorded Confirmed Last Taken acetaminophen 500 mg PO TID PRN 09/23/19 09/23/19 09/23/19 albuterol sulfate [Ventolin HFA] 1 puff INHALATION UD PRN 09/23/19 09/23/19 Unknown apixaban [Eliquis] 5 mg PO BID 09/23/19 09/23/19 09/23/19 loperamide 2 mg PO Q6H 09/23/19 09/23/19 09/23/19 pantoprazole 40 mg PO DAILY 09/23/19 09/23/19 09/23/19 Active Medications Generic Name Dose Route Start Last Admin Trade Name Freq PRN Reason Stop Dose Admin Hydromorphone HCl 0.25 mg 09/23/19 15:17 09/24/19 08:18 Dilaudid IV 10/07/19 15:16 0.25 mg Q3H PRN Administration Pain Argatroban 250 mg/ Sodium 252.5 mls @ 8.126 mls/hr 09/23/19 21:00 09/25/19 11:49 Chloride IV 10/23/19 20:59 0 mcg/kg/min .Q24H DEIDRE 0 mls/hr Titration Protocol 1.5 MCG/KG/MIN Cefepime HCl 2,000 mg/ Syringe 20 mls @ 5.5 mls/min 09/23/19 20:00 09/25/19 11:53 IV 09/30/19 19:59 5.5 mls/min Q8H DEIDRE Administration Protocol Potassium Chloride/Sodium Chloride 20 meq in 1,000 mls @ 75 mls/hr 09/23/19 19:15 09/25/19 16:50 Normal Saline W/20 Meq Kcl IV 10/23/19 19:14 75 mls/hr .[id number] DEIDRE Administration Pantoprazole Sodium 40 mg 09/24/19 09:00 09/25/19 08:44 Protonix PO 10/24/19 08:59 40 mg DAILY DEIDRE Administration Potassium Chloride 20 meq 09/24/19 21:00 09/25/19 08:43 Klor-Con M20 PO 09/25/19 21:01 20 meq BID DEIDRE Administration Past Medical History Medical History Arterial thrombosis (Acute) b/l legs - 07/2019 - s/p right SFA/popliteal/tibial thrombectomy, left popliteal/tibial thrombectomy, LLE fasciotomy Asthma Dry gangrene (Acute) b/l feet 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 thrombocytopenia) 07/2019 - [facility] Intellectual disability (Acute) Internal jugular vein thrombosis RIGHT - 07/24/19. Developed HIT following anticoagulation for such. Neuroendocrine neoplasm of gastrointestinal tract (Acute) 07/11/19 - CT with 3.2 x 2.5cm spiculated mesenteric mass concerning for carcinoid tumor; 07/14 - ex lap with ileal resection and right hemicolectomy w/ end-to-end anastomosis; bx of peritoneal nodules and left ovarian mass; path -- metastatic well-differentiated NET, pT4 N1 M1b; Kl6y index 7.4% 07/27/19 - first dose IM Octreotide in [place] Pulmonary emboli RLL - 09/04/19 - [facility] [place] Pulmonary infarction RLL - 09/04/19 Past Family History Family History Mother , age 82 Alzheimer disease Diabetes Stroke Father Laryngeal cancer Past Surgical History Surgical History History of hemicolectomy (Acute) ileal-cecal resection and right-sided hemicolectomy; ileal-colonic anastomosis - [facility] 07/15/2019 S/P laparoscopic procedure 1999 - exploratory - to rule out cancer? Social History Smoking Status: Former smoker Hx Alcohol Use: No Hx Substance Use: No Physical Exam Vital Signs Last Vital Signs Temp 37.1 C 09/25/19 17:30 Pulse 107 H 09/25/19 17:30 Resp 20 09/25/19 17:30 BP 116/84 09/25/19 17:30 Pulse Ox 97 09/25/19 17:30 Testing Laboratory Results 09/25/19 04:31 09/25/19 04:31 PT 46.9 Seconds (9.0-12.0) H 09/25/19 10:25 INR 4.8 (0.9-1.1) H 09/25/19 10:25 APTT 45.4 Seconds (21.0-31.0) H* 09/25/19 13:53 Urine Color Dark Yellow 09/23/19 12:40 Urine Appearance Cloudy (Clear) A 09/23/19 12:40 Urine pH 5.0 (4.5-7.5) 09/23/19 12:40 Ur Specific [place] 1.039 (1.000-1.030) H 09/23/19 12:40 Urine Protein 2+ (Negative) H 09/23/19 12:40 Urine Glucose (UA) Trace (Negative) H 09/23/19 12:40 Urine Ketones Trace (Negative) H 09/23/19 12:40 Urine Nitrite Positive (Negative) A 09/23/19 12:40 Ur Leukocyte Esterase Trace (Negative) H 09/23/19 12:40 Urine WBC (Auto) 10-30 /hpf (0-5) H 09/23/19 12:40 Urine RBC (Auto) 5-10 /hpf (0-4) H 09/23/19 12:40 U Hyaline Cast (Auto) Not Reportable 09/23/19 12:40 U Epithel Cells (Auto) >30 /lpf (0-5) H 09/23/19 12:40 Urine Bacteria (Auto) Negative (Negative) 09/23/19 12:40 09/23/19 10:46 Aerobic Blood Culture - Preliminary Blood No growth in Aerobic bottle after 48 hours. Anaerobic Blood Culture - Preliminary No growth in Anaerobic bottle after 48 hours. 09/23/19 12:40 Urine Culture - Final Urine,Indwelling Cath Three types of organisms present, all low counts probable skin sandra. No further identifications or sensitivities to follow. 09/23/19 15:42 Aerobic Blood Culture - Preliminary Blood No growth in Aerobic bottle after 24 hours. Anaerobic Blood Culture - Final Electrocardiogram Date: 09/23/19 Findings: + NSR @ (94) and + NSST changes Chest X-Ray Date: 09/23/19 XR chest 1V portable CLINICAL HISTORY: weakness COMPARISON STUDY: No previous studies for comparison. FINDINGS: The bones soft tissues and hemidiaphragms are normal. The cardiomediastinal silhouette is normal. The lungs are clear. The pulmonary vasculature is normal. IMPRESSION: Negative chest. ACT 112: Negative or not required by law. The above report was generated using voice recognition software. It may contain grammatical, syntax or spelling errors. Electronically signed by: Christopher Tovar M.D. 09/23/2019 12:20 PM Dictated: 09/23/19 1220 Transcribed: 09/23/19 1220
--- NOTE | 2019-09-25 17:42 | History & Physical Bridge Note ---
Date of Service September 25, 2019 History & Physical Bridge Note I have examined the patient, reviewed the History & Physical and in the interval since the performance of the History & Physical I have noted the following changes of clinical significance: Patient failed all conservative measures and will now require amputation of her right first, second and third toes. All questions answered. Written consent obtained and on chart.
[2019-09-25] MEDS ORDERED: PHENYLEPHRINE 100MCG/ML 5ML SYR IV PRN (17:45)
[2019-09-25] MEDS ORDERED: MEPERIDINE HCL 25 MG/ML CARP/VIAL IV PRN (17:45)
[2019-09-25] MEDS ORDERED: ePHEDrine sulfate 50 MG/ML AMP IV PRN (17:45)
[2019-09-25] MEDS ORDERED: ATROPINE SULFATE 0.1 MG/ML 10ML SYR IV PRN (17:45)
[2019-09-25] MEDS ORDERED: LABETALOL HCL IV 5 MG/ML 20ML IV PRN (17:45)
[2019-09-25] MEDS ORDERED: ONDANSETRON INJ 2 MG/ML 2 ML VIAL IV PRN (17:45)
[2019-09-25] MEDS ORDERED: HYDROmorphone INJ 1 MG/ML SYRINGE IV PRN (17:45)
[2019-09-25] MEDS ORDERED: fentaNYL citrate 100 MCG/2 ML VIAL IV PRN (17:45)
[2019-09-25] MEDS ORDERED: fentaNYL citrate 100 MCG/2 ML VIAL ONE ×2 (17:55→18:19)
[2019-09-25] MEDS ORDERED: LIDOCAINE HCL 1% 20 ML VIAL ONE (18:07)
--- NOTE | 2019-09-25 19:10 | Post Operative Brief Note ---
Immediate Post Op Note v1 Date of Surgery September 25, 2019 Pre & Post Diagnosis Operation Date: 09/25/19 17:05 Pre-Op Diagnosis: Dry gangrene right foot, gangrene with necrosis first second and third toes right foot, severe peripheral vascular disease Post-Op Diagnosis: Dry gangrene right foot, gangrene with necrosis first second and third toes right foot, severe peripheral vascular disease I identified the patient and participated in the time-out.: Yes Procedure Operation Date: 09/25/19 17:05 Actual Procedures p Right Foot Great toe, second toe, and third toe amputation and partial resection first metatarsal(Right) - Ezra Le DO Surgeon Ezra Le DO Collection Clerk Efren Mccarthy PA-C Estimated Blood Loss 2 Findings Consistent with Post-Op Diagnosis Specimens Right foot first second and third toe amputations Anesthesia Type MAC Regional Complications none Disposition Accompanied Patient To Recovery: No Disposition: Recovery Room
--- NOTE | 2019-09-25 19:40 | Anesthesiology Progress Note ---
Date of Service September 25, 2019 Anesthesia Post Procedure Vital Signs Vital Signs: Temp Pulse Pulse Pulse Resp BP Pulse Ox 09/25/19 19:20 98 H 22 107/78 97 09/25/19 19:10 119 H 19 96/82 L 98 09/25/19 19:01 36.0 C L 112 H 15 115/85 100 09/25/19 17:30 37.1 C 107 H 20 116/84 97 09/25/19 16:07 36.7 C 100 H 21 119/78 91 09/25/19 14:56 98 H 09/25/19 12:00 36.6 C 97 H 16 119/78 94 09/25/19 07:35 98 H 09/25/19 07:08 36.9 C 98 H 18 114/77 95 09/25/19 05:29 97 H 09/25/19 03:48 36.6 C 90 18 107/73 93 09/24/19 23:09 36.8 C 98 H 16 106/68 94 09/24/19 20:56 36.8 C 86 18 105/72 97 Pain Intensity Right Lower Leg: Pain Intensity: 2 Transfer of Care Handoff Completed per policy Notes Mental Status: alert / awake / arousable Patient Amnestic to Procedure: Yes Nausea / Vomiting: adequately controlled Pain: adequately controlled Airway Patency, RR, SpO2: stable & adequate BP & HR: stable & adequate Hydration State: stable & adequate Anesthetic Complications: no major complications apparent and Pt Satisfied with anesthetic care Notes: The patient is awake and stable. Her vitals are at her baseline.
[2019-09-25] MEDS ORDERED: SODIUM CHLORIDE 0.9% 1000ML 1,000 ML IV SCH (19:57)
[2019-09-25] MEDS ORDERED: NALOXONE HCL 0.4 MG/1 ML VIAL/CARP IV PRN (19:57)
--- NOTE | 2019-09-25 20:11 | Operative Report (OR) ---
DATE OF OPERATION: 09/25/2019 PREOPERATIVE DIAGNOSES: 1. Right foot dry gangrene. 2. Gangrene with necrosis of the first, second and third toes. 3. Peripheral vascular disease, severe. POSTOPERATIVE DIAGNOSES: 1. Right foot dry gangrene. 2. Gangrene with necrosis of the first, second and third toes. 3. Peripheral vascular disease, severe. PROCEDURE: 1. Right foot amputation first, second and third toes, right foot. 2. Partial resection of first metatarsal. SURGEON: Ezra Le DO. GLUE COOK: Efren Mccarthy PA-C who was present for patient positioning, sterile prep and drape, management of retractors and instruments. He was present through the critical portions of the case including wound closure, application of sterile dressing and transport of the patient to recovery. ANESTHESIA: MAC regional with ankle block. SPECIMENS: First, second and third toes, right foot. DRAINS: None. COMPLICATIONS: None. BLOOD LOSS: 2 mL. PERTINENT HISTORY: This is a 49-year-old female with worsening and progressive peripheral vascular disease. She has been seen by vascular surgery at 2 different centers including local with Dr. Gresham. She has an old thrombus in the right lower extremity. She has arborization with collateral flow; however, continues to have worsening dry gangrene with obvious necrosis of the first, second and third toes, which has worsened over the last several weeks. She has severe pain related to the ischemic disease of the right lower extremity and she is scheduled for surgery as indicated. All potential risks, benefits, complications, alternatives, rehab potential for incomplete relief of symptoms, need for further surgery, DVT, PE, , persistent pain, swelling, scarring, weakness, neurovascular injury, wound complications were discussed with the patient. Also, discussed possibility for further amputation on the right lower extremity as well as the left lower extremity. The patient voiced understanding. DESCRIPTION OF PROCEDURE: The patient was taken to the operative suite, placed supine on the operating table. After review of consent and identification of proper operative site, the patient was sedated. Next, the right lower extremity was then sterilely prepped and draped in the usual fashion. Right ankle block was performed with 30 mL of 0.5% Marcaine plain and then 10 mL of 1% lidocaine plain. Next, after sterile prep and drape in usual fashion, the limb was elevated and partially exsanguinated from the mid foot proximally with an Esmarch bandage and the Esmarch tourniquet was applied over sterile surgical towel at the level of the ankle. Next, a 15 blade scalpel was used to make an incision at the third toe dorsal aspect. A racket-shaped incision was used to have maximal tissue preservation plantar, medial and distal. This incision was then performed circumferentially around the toe at the level of the proximal phalanx. Eduardo rakes were placed into the tissue gently to retract soft tissue and preserve tissue as possible. The dorsal extensor tendon was then transected down to the level of the joint capsule at the third metatarsophalangeal joint, which was then circumferentially incised and then the proximal phalanx of the third toe was then shelled out of the soft tissue, preserving all soft tissue viability. Neurovascular bundles were preserved. Next, the third toe was then removed and passed off as specimen. Next, attention was then directed toward the second toe. A similar incision was made of a racket-shaped incision with 15 blade scalpel starting dorsally, continuing circumferentially at the level of the mid proximal phalanx and then extending proximally. A dorsal extensor was incised revealing the joint capsule, which was then circumferentially incised and then the proximal phalanx of the second toe was then shelled out of the soft tissue, maintaining tissue viability. Second toe was then passed off. Finally, the great toe (1st toe) was then incised dorsally, a similar racket- shaped incision was made; however, there was greater degree of tissue necrosis and gangrene. Therefore, incision had to be extended more proximally over the first metatarsal head. Circumferential incision was made transecting the medial and lateral soft tissue planes as well as the plantar tissue plane. Neurovascular bundles were preserved at the flap extending proximally. The dorsal extensor was incised and transected and the dorsal capsule was then circumferentially incised and released, revealing the proximal phalanx of the great toe, which was then circumferentially dissected removing the great toe and passed off as specimen. Next, the flexor tendon was then placed on traction with a Addy and then transected. The sesamoid sling was then entered with a 15 blade scalpel and the sesamoid was then resected using a 15 blade scalpel. The tissue was noted to be insufficient to close. Therefore, the Eduardo rakes were then placed back in the incision after irrigation and then the first metatarsal head was then resected just proximal to the metatarsal flare. Then adequate soft tissue closure was achieved. All incisions were then copiously irrigated with sterile normal saline until clear and then 3-0 nylon sutures were used to close the first, second and third toe amputation sites. Ample plantar pad was remaining and marked improvement overall in appearance of the foot was achieved. Next, sterile compressive dressing was applied overwrapped with an Marcel wrap. The tourniquet was released. The patient was awakened and taken to recovery in stable condition. I attest to the content of the Intraoperative Record and any orders documented therein. Any exceptions are noted below. EDMAR
[2019-09-26] MEDS: OXYCODONE HCL IR 5 MG TAB (IMMEDIATE RELEASE) PO PRN ×3 (00:12→13:45)
[2019-09-26] MEDS: CEFEPIME 2,000 MG in SYRINGE 7.5 ML IV SCH ×3 (03:48→20:39)
[2019-09-26] MEDS: HYDROmorphone INJ 0.5 MG/0.5 ML SYR IV PRN ×2 (03:54→09:21)
[2019-09-26] MEDS: VANCOMYCIN HCL 1,000 MG in SODIUM CHLORIDE 0.9% 250 ML IV SCH ×2 (05:24→20:39)
[2019-09-26 06:11] LABS: Hematocrit (blood only) 39.4 % (37-47); Hemoglobin 12.4 g/dL (12.0-16.0); Mean Corpuscular Hemoglobin 28.5 pg (25-34); Mean Corpuscular Hgb Conc 31.5 g/dL (32-36); Mean Corpuscular Volume 90.6 fL (80-100); Mean Platelet Volume 11.3 fL (7.4-10.4); Platelet Count 356 K/uL (130-400); RDW Coefficient of Variation 18.8 % (11.5-14.5); RDW Standard Deviation 62.5 fL (36.4-46.3); Red Blood Count 4.35 M/uL (4.2-5.4); White Blood Count 8.84 K/uL (4.8-10.8)
[2019-09-26] MEDS: NSS + 20MEQ KCL 20 MEQ/1,000 ML BAG IV SCH ×2 (06:14→06:34)
[2019-09-26 06:55] LABS: Albumin Level 1.9 gm/dl (3.4-5.0); Bilirubin Direct 0.4 mg/dl (0-0.2); Creatinine Clr Calc Pharmacy 147.7 ml/min; Est GFR (African American) 131.8; Est GFR (Non-African American) 113.7; Total Protein 6.3 gm/dl (6.4-8.2)
[2019-09-26] MEDS: PANTOprazole 40 MG TAB PO SCH (08:14)
[2019-09-26 08:18] LABS: INR 1.6 (0.9-1.1); Partial Thromboplastin Ratio 1.1; Partial Thromboplastin Time 29.3 Seconds (21.0-31.0); Prothrombin Time 16.4 Seconds (9.0-12.0)
[2019-09-26] MEDS: GABAPENTIN 100 MG CAP PO SCH ×2 (09:21→22:08)
--- NOTE | 2019-09-26 09:56 | Orthopedic Progress Note ---
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 Elevation and ice to the right foot. Nonweightbearing right lower extremity with crutches or walker. Plan for dressing change tomorrow. Admission and Anticipated Discharge Date Admission Date: September 23, 2019 Subjective Patient awake and alert this morning. Lying in bed. States she is having some pain in the right foot mainly around where the great toe used to be. No other complaints at this time. Denies any shortness of breath, chest pain, lightheadedness. Physical Exam Physical Exam: Dressings are clean, dry, and intact. Continue current dressing. Results & Data ([facility]) Vital Signs (Past 12 Hours) Vital Signs Temp Pulse Pulse Pulse Resp BP Pulse Ox 09/26/19 08:10 36.7 C 114 H 19 127/84 92 09/26/19 08:00 100 H 09/26/19 04:00 36.7 C 95 H 18 134/91 96 09/26/19 00:50 87 09/26/19 00:00 36.5 C 87 17 116/79 93 09/25/19 22:27 36.6 C 94 H 18 116/74 96 Laboratory Results Laboratory Results WBC 8.84 K/uL (4.8-10.8) 09/26/19 05:48 RBC 4.35 M/uL (4.2-5.4) 09/26/19 05:48 Hgb 12.4 g/dL (12.0-16.0) 09/26/19 05:48 Hct 39.4 % (37-47) 09/26/19 05:48 MCV 90.6 fL (80-100) 09/26/19 05:48 MCH 28.5 pg (25-34) 09/26/19 05:48 MCHC 31.5 g/dL (32-36) L 09/26/19 05:48 RDW Std Deviation 62.5 fL (36.4-46.3) H 09/26/19 05:48 RDW Coeff of Sharan 18.8 % (11.5-14.5) H 09/26/19 05:48 Plt Count 356 K/uL (130-400) 09/26/19 05:48 MPV 11.3 fL (7.4-10.4) H 09/26/19 05:48 Immature Gran % (Auto) 0.2 % 09/23/19 10:24 Neut % (Auto) 66.6 % 09/23/19 10:24 Lymph % (Auto) 22.2 % 09/23/19 10:24 Bledsoe % (Auto) 6.4 % 09/23/19 10:24 Eos % (Auto) 3.1 % 09/23/19 10:24 Baso % (Auto) 1.5 % 09/23/19 10:24 Immature Gran # (Auto) 0.01 K/uL (0.00-0.02) 09/23/19 10:24 Neut # (Auto) 4.04 K/uL (1.4-6.5) 09/23/19 10:24 Lymph # (Auto) 1.35 K/uL (1.2-3.4) 09/23/19 10:24 Bledsoe # (Auto) 0.39 K/uL (0.11-0.59) 09/23/19 10:24 Eos # (Auto) 0.19 K/uL (0-0.5) 09/23/19 10:24 Baso # (Auto) 0.09 K/uL (0-0.2) 09/23/19 10:24 PT 16.4 Seconds (9.0-12.0) H 09/26/19 07:39 INR 1.6 (0.9-1.1) H 09/26/19 07:39 APTT 29.3 Seconds (21.0-31.0) 09/26/19 07:39 PTT Ratio 1.1 09/26/19 07:39 Sodium 141 mmol/L (136-145) 09/24/19 06:34 Potassium 3.4 mmol/L (3.5-5.1) L 09/24/19 06:34 Chloride 106 mmol/L (98-107) 09/24/19 06:34 Carbon Dioxide 30 mmol/L (21-32) 09/24/19 06:34 Anion Gap 5.0 (3-11) 09/24/19 06:34 BUN 5 mg/dl (7-18) L 09/24/19 06:34 Creatinine 0.51 mg/dl (0.6-1.2) L 09/26/19 05:48 Est Cr Clr Drug Dosing 147.7 ml/min 09/26/19 05:48 Est GFR ( Amer) 131.8 09/26/19 05:48 Est GFR (Non-Af Amer) 113.7 09/26/19 05:48 BUN/Creatinine Ratio 9.3 (10-20) L 09/24/19 06:34 Glucose 86 mg/dl (70-99) 09/24/19 06:34 Lactate 2.1 mmol/L (0.4-2.0) H* 09/23/19 15:42 Calcium 7.6 mg/dl (8.5-10.1) L 09/24/19 06:34 Magnesium 2.0 mg/dl (1.8-2.4) 09/24/19 06:34 Total Bilirubin 1.0 mg/dl (0.2-1) 09/26/19 05:48 Direct Bilirubin 0.4 mg/dl (0-0.2) H 09/26/19 05:48 AST 71 U/L (15-37) H 09/26/19 05:48 ALT 34 U/L (12-78) 09/26/19 05:48 Alkaline Phosphatase 238 U/L (45-117) H 09/26/19 05:48 Troponin I < 0.015 ng/ml (0-0.045) 09/23/19 10:24 Total Protein 6.3 gm/dl (6.4-8.2) L 09/26/19 05:48 Albumin 1.9 gm/dl (3.4-5.0) L 09/26/19 05:48 Globulin 4.6 gm/dl (2.5-4.0) H 09/23/19 10:24 Albumin/Globulin Ratio 0.5 (0.9-2) L 09/23/19 10:24 TSH 2.570 uIu/ml (0.300-4.500) 09/23/19 10:24 Urine Color Dark Yellow 09/23/19 12:40 Urine Appearance Cloudy (Clear) A 09/23/19 12:40 Urine pH 5.0 (4.5-7.5) 09/23/19 12:40 Ur Specific [place] 1.039 (1.000-1.030) H 09/23/19 12:40 Urine Protein 2+ (Negative) H 09/23/19 12:40 Urine Glucose (UA) Trace (Negative) H 09/23/19 12:40 Urine Ketones Trace (Negative) H 09/23/19 12:40 Urine Blood 2+ (Negative) H 09/23/19 12:40 Urine Nitrite Positive (Negative) A 09/23/19 12:40 Urine Bilirubin Negative (Negative) 09/23/19 12:40 Urine Urobilinogen Negative (Negative) 09/23/19 12:40 Ur Leukocyte Esterase Trace (Negative) H 09/23/19 12:40 Urine WBC (Auto) 10-30 /hpf (0-5) H 09/23/19 12:40 Urine RBC (Auto) 5-10 /hpf (0-4) H 09/23/19 12:40 U Hyaline Cast (Auto) Not Reportable 09/23/19 12:40 U Epithel Cells (Auto) >30 /lpf (0-5) H 09/23/19 12:40 Urine Bacteria (Auto) Negative (Negative) 09/23/19 12:40 Ur Renal Epithelial Cell Not Reportable 09/23/19 12:40 Urine Mucus Present (None Prsent) A 09/23/19 12:40 Stl C. diff Tox B Gene Negative Cdiff Gene (Neg) 09/25/19 Unknown Vancomycin Trough 28.9 mcg/ml (See Comment) 09/25/19 04:31
--- NOTE | 2019-09-26 13:07 | Hospitalist Progress Note ---
Date of Service September 26, 2019 Assessment & Plan (1) Dry gangrene: b/l feet - present several weeks seemingly result of her previous issues with H ITT and limb ischemia due to thrombosis. This occurred in setting of neuroendocrine tumor with liver mets and recent arterial thrombi of legs causing critical limb ischemia requiring thrombectomies of b/l legs and LLE fasciotomy (s/p left femoral artery thrombectomy, b/l popliteal artery thrombectomies, and left leg fasciotomy - [facility]). arterial duplex today with severe PAD and occlusive disease b/l. spoke with Dr Gresham from vascular who did consult feels there is no need for immediate vascular intervention but orthopedic consultation for possible toe amputations. CTA of abd/pelvis with run-off .IMPRESSION: 1. 5.0 cm occluded segment of the right popliteal artery redemonstrated with reconstitution of flow distally. 2. Three-vessel runoff is noted bilaterally with multifocal stenoses throughout the right peroneal artery 3. There is at least moderate multifocal luminal narrowing about the left popliteal artery. 4. Numerous enhancing hepatic lesions suggestive of metastasis. 5. Suspicious 2.3 cm solid nodule of the posterior basal segment right lower lobe. 6. Pathologic periportal/gastrohepatic lymph nodes are suggestive of lymphatic metastasis. 7. Postoperative changes of prior partial right hemicolectomy with enterocolic anastomosis. 8. Tiny subcentimeter foci of the abdominal right lower quadrant are hughes spicious for peritoneal nodules. Attention at follow-up recommended to exclude peritoneal carcinomatosis initially thought to have early sepsis but does not meet strict criteria cefepime IV. vanco. negative blood cultures. 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 known liver mets. s/p depot octreotide 07/27/19. Dr Yeung will follow discuasion of when to redose with Dr Yeung diarrhea but negative c diff (3) Coagulopathy: . consider vitamin K deficiency but suspect bulk of coagulopathy is due to severe liver dysfunction from neuroendocrine tumor mets to liver, plus argatroban iNR is elevated but influenced by argatroban (4) Abnormal LFTs: 2nd to liver mets from neuroendocrine tumor. (5) History of hemicolectomy: right-sided, 2nd to neuroendocrine tumor. recent diarrhea but has improved. (6) Hypokalemia: replace (7) Hypomagnesemia: replace repeat level in am (8) Vomiting: waxing and waining, using prn medicines CTA abd/pelvis at [facility] 09/04/19 did not show any obstruction of the small bowel or gastric outlet obstruction. she is passing flatus and stools. tolerated advanced diet PPI. 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 - per records (13) Asthma: no exacerbation at this time uncle - Ozzie Dixon -- Dr herring gave extensive update to him by phone (14) Intellectual disability: self-reported by patient Admission and Anticipated Discharge Date Admission Date: September 23, 2019 Subjective this pt is having some nausea and vomiting and diarrhea, C diff checked has been negative and this maybe from her neruoendocrine tumor, she is > 1 month out from her last octreotide dose and will look for oncology to help determine the next dose the pt has some increased post op pain, otherwise is without new issues outside of gi affects Review of Systems Review of Systems: moderate distress and fatigue no headache, blurry or double vision no speech or swallowing issues no chest pain, pressure or palpitations no shortness of breath, cough or wheezes mild diffuse abdominal pain, with nausea & vomiting, persistent diarrhea no dysuria, hematuria or frequency no focal joint pain or swelling no back pain, CVA tenderness or radicular pain no bruising, bleeding persistent gangrene and leg wounds no focal signs of weakness or numbness or altered sensation no complaints or anxiety or depression. Physical Exam Physical Exam: The patient appeared chronically ill and in moderate discomfort Vital signs as documented. Head exam is normocephalic atraumatic no scleral icterus Neck is without JVD, thyromegaly, or carotid bruits. Lungs are clear to auscultation, no focal loss of breath sounds Cardiac exam, Rhythm is regular.. No murmurs, rubs or gallops. Abdominal exam reveals hyperactive bowel sounds, soft non tender, no masses Extremities are right foot with bandage, left wtih dry gangrene and eschar on lower leg perhaps from previous fascitiomy Neurologic exam is alert and oriented, no focal loss of strength or sensation Skin is without bruises or rashes Psychologically is without concerns for anxiety or depression Results & Data Results & Data ([facility]) Vital Signs (Past 12 Hours) Vital Signs Temp Pulse Pulse Pulse Resp BP Pulse Ox 09/26/19 11:40 98.2 F 115 H 16 125/74 92 09/26/19 08:10 98.1 F 114 H 19 127/84 92 09/26/19 08:00 100 H 09/26/19 04:00 98.1 F 95 H 18 134/91 96 PG Care Time/CCT Total # of Minutes Spent Total Time Spent with Patient: Total time spent is greater than 50% in coordination of care (as documented) at patient's floor/unit and/or counseling patient: Coding Level of Care Code 06526 Subseq Hosp Care Lvl 3 Diagnoses Dry gangrene I96 Neuroendocrine neoplasm of gastrointestinal tract D3A.8 Coagulopathy D68.9 Abnormal LFTs R94.5 History of hemicolectomy Z90.49 Hypokalemia E87.6 Hypomagnesemia E83.42 Vomiting R11.10 Vomiting type: unspecified Vomiting Intractability: intractable Nausea presence: unspecified Pulmonary emboli I26.99 Pulmonary embolism type: unspecified Chronicity: unspecified Acute cor pulmonale presence: without acute cor pulmonale Pulmonary infarction I26.99 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 thrombocytopenia) D75.82 Internal jugular vein thrombosis I82.C11 Laterality: right Asthma J45.20 Asthma severity: mild Asthma persistence: intermittent Asthma complication type: unspecified Intellectual disability F79 (1) Vomiting Vomiting type: unspecified Vomiting Intractability: intractable Nausea presence: unspecified Qualified Code(s): R11.10 - Vomiting, unspecified (2) Pulmonary emboli Pulmonary embolism type: unspecified Chronicity: unspecified Acute cor pulmonale presence: without acute cor pulmonale Qualified Code(s): I26.99 - Other pulmonary embolism without acute cor pulmonale (3) Internal jugular vein thrombosis Laterality: right Qualified Code(s): I82.C11 - Acute embolism and thrombosis of right internal jugular vein (4) Asthma Asthma severity: mild Asthma persistence: intermittent Asthma complication type: unspecified Qualified Code(s): J45.20 - Mild intermittent asthma, uncomplicated
[2019-09-26 13:42] LABS: Partial Thromboplastin Ratio 1.6
[2019-09-26 13:58] LABS: Partial Thromboplastin Time 45.3 Seconds (21.0-31.0)
[2019-09-26] MEDS ORDERED: PHARMACY ARGATROBAN RATE CHANGE ONE ×2 (14:30→19:45)
[2019-09-26 19:13] LABS: Partial Thromboplastin Ratio 2.3
[2019-09-26 19:17] LABS: Partial Thromboplastin Time 65.4 Seconds (21.0-31.0)
[2019-09-26 23:28] LABS: Partial Thromboplastin Ratio 2.6
[2019-09-26 23:38] LABS: Partial Thromboplastin Time 72.6 Seconds (21.0-31.0)
[2019-09-27 03:06] LABS: Hematocrit (blood only) 33.8 % (37-47); Hemoglobin 10.6 g/dL (12.0-16.0); Mean Corpuscular Hgb Conc 31.4 g/dL (32-36); Mean Corpuscular Volume 89.4 fL (80-100); Mean Platelet Volume 10.9 fL (7.4-10.4); Platelet Count 250 K/uL (130-400); RDW Standard Deviation 62.1 fL (36.4-46.3); Red Blood Count 3.78 M/uL (4.2-5.4); White Blood Count 7.42 K/uL (4.8-10.8)
[2019-09-27 03:24] LABS: Creatinine Clr Calc Pharmacy 188.3 ml/min; Est GFR (African American) 142.8; Est GFR (Non-African American) 123.2
[2019-09-27 03:27] LABS: Partial Thromboplastin Ratio 2.4
[2019-09-27 03:50] LABS: Partial Thromboplastin Time 65.8 Seconds (21.0-31.0)
[2019-09-27] MEDS ORDERED: PHARMACY ARGATROBAN RATE CHANGE ONE (04:00)
[2019-09-27] MEDS: CEFEPIME 2,000 MG in SYRINGE 7.5 ML IV SCH ×2 (04:09→11:45)
--- NOTE | 2019-09-27 07:08 | Hospitalist Progress Note ---
Date of Service September 27, 2019 Assessment & Plan (1) Dry gangrene: b/l feet -a result of her previous issues with LALO and limb ischemia due to thrombosis during hospitalization at [facility], [place], operated by [facility] for surgical resection of bowel due to neuroendocrine tumor with liver mets and subsequent arterial thrombi of legs causing critical limb ischemia requiring thrombectomies of b/l legs and LLE fasciotomy (s/p left femoral artery thrombectomy, b/l popliteal artery thrombectomies, and left leg fasciotomy arterial duplex on admission with severe PAD and occlusive disease b/l. Dr Gresham reviewed studies and feels there is no need for immediate vascular intervention but orthopedic consultation for possible toe amputations, which occurred saturday09/25/19 CTA of abd/pelvis with run-off .IMPRESSION: 1. 5.0 cm occluded segment of the right popliteal artery redemonstrated with reconstitution of flow distally. 2. Three-vessel runoff is noted bilaterally with multifocal stenoses throughout the right peroneal artery 3. There is at least moderate multifocal luminal narrowing about the left popliteal artery. 4. Numerous enhancing hepatic lesions suggestive of metastasis. 5. Suspicious 2.3 cm solid nodule of the posterior basal segment right lower lobe. 6. Pathologic periportal/gastrohepatic lymph nodes are suggestive of lymphatic metastasis. 7. Postoperative changes of prior partial right hemicolectomy with enterocolic anastomosis. 8. Tiny subcentimeter foci of the abdominal right lower quadrant are suspicious for peritoneal nodules. Attention at follow-up recommended to exclude peritoneal carcinomatosis initially thought to have early sepsis but does not meet strict criteria cefepime IV. vanco. negative blood cultures. 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 known liver mets. s/p depot octreotide 07/27/19. Dr Yeung will follow discuasion of when to redose with Dr Yeung diarrhea but negative c diff (3) Coagulopathy: . consider vitamin K deficiency but suspect bulk of coagulopathy is due to severe liver dysfunction from neuroendocrine tumor mets to liver, plus argatroban iNR is elevated but influenced by argatroban, tawanda check 09/27 (4) Abnormal LFTs: 2nd to liver mets from neuroendocrine tumor. (5) History of hemicolectomy: right-sided, 2nd to neuroendocrine tumor. recent diarrhea but has improved. (6) Hypokalemia: replace (7) Hypomagnesemia: replace repeat level in am (8) Vomiting: waxing and waining, using prn medicines if persists will re Ct CTA abd/pelvis at [facility] 09/04/19 did not show any obstruction of the small bowel or gastric outlet obstruction. she is passing flatus and stools. tolerated advanced diet PPI. 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 - per records (13) Asthma: no exacerbation at this time uncle - Ozzie Mccormicky -- Dr herring gave extensive update to him by phone (14) Intellectual disability: self-reported by patient Admission and Anticipated Discharge Date Admission Date: September 23, 2019 Subjective pt has lessened bowel movement, her biggest complaint is post op pain, otherwise is without new issues outside of gi affects Review of Systems Review of Systems: moderate distress and fatigue no headache, blurry or double vision no speech or swallowing issues no chest pain, pressure or palpitations no shortness of breath, cough or wheezes mild diffuse abdominal pain, with nausea & vomiting, persistent diarrhea no dysuria, hematuria or frequency no focal joint pain or swelling no back pain, CVA tenderness or radicular pain no bruising, bleeding persistent gangrene and leg wounds no focal signs of weakness or numbness or altered sensation no complaints or anxiety or depression. Physical Exam Physical Exam: The patient appeared chronically ill and in moderate discomfort Vital signs as documented. Head exam is normocephalic atraumatic no scleral icterus Neck is without JVD, thyromegaly, or carotid bruits. Lungs are clear to auscultation, no focal loss of breath sounds Cardiac exam, Rhythm is regular.. No murmurs, rubs or gallops. Abdominal exam reveals hyperactive bowel sounds, soft non tender, no masses Extremities are right foot with bandage, left wtih dry gangrene and eschar on lower leg perhaps from previous fascitiomy Neurologic exam is alert and oriented, no focal loss of strength or sensation Skin is without bruises or rashes Psychologically is without concerns for anxiety or depression Results & Data Results & Data ([facility]) Vital Signs (Past 12 Hours) Vital Signs Temp Pulse Resp BP Pulse Ox 09/27/19 00:33 98.4 F 96 H 18 116/83 94 09/26/19 19:55 98.1 F 56 L 19 119/83 95 PG Care Time/CCT Total # of Minutes Spent Total Time Spent with Patient: Total time spent is greater than 50% in coordination of care (as documented) at patient's floor/unit and/or counseling patient: Coding Level of Care Code 00967 Subseq Hosp Care Lvl 2 Diagnoses Dry gangrene I96 Neuroendocrine neoplasm of gastrointestinal tract D3A.8 Coagulopathy D68.9 Abnormal LFTs R94.5 History of hemicolectomy Z90.49 Hypokalemia E87.6 Hypomagnesemia E83.42 Vomiting R11.10 Nausea presence: unspecified Vomiting Intractability: intractable Vomiting type: unspecified Pulmonary emboli I26.99 Acute cor pulmonale presence: without acute cor pulmonale Chronicity: unspecified Pulmonary embolism type: unspecified Pulmonary infarction I26.99 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 thrombocytopenia) D75.82 Internal jugular vein thrombosis I82.C11 Laterality: right Asthma J45.20 Asthma complication type: unspecified Asthma persistence: intermittent Asthma severity: mild Intellectual disability F79 (1) Internal jugular vein thrombosis Laterality: right Qualified Code(s): I82.C11 - Acute embolism and thrombosis of right internal jugular vein (2) Pulmonary emboli Acute cor pulmonale presence: without acute cor pulmonale Chronicity: unspecified Pulmonary embolism type: unspecified Qualified Code(s): I26.99 - Other pulmonary embolism without acute cor pulmonale (3) Vomiting Nausea presence: unspecified Vomiting Intractability: intractable Vomiting type: unspecified Qualified Code(s): R11.10 - Vomiting, unspecified (4) Asthma Asthma complication type: unspecified Asthma persistence: intermittent Asthma severity: mild Qualified Code(s): J45.20 - Mild intermittent asthma, uncomplicated
[2019-09-27] MEDS ORDERED: [UNRECOGNIZED DRUG - REMARK] ONE (07:30)
[2019-09-27] MEDS: APIXABAN 5 MG TABLET PO SCH ×2 (08:40→21:33)
[2019-09-27] MEDS: GABAPENTIN 100 MG CAP PO SCH ×2 (09:18→21:33)
[2019-09-27] MEDS: PANTOprazole 40 MG TAB PO SCH (09:18)
[2019-09-27] MEDS: HYDROmorphone INJ 0.5 MG/0.5 ML SYR IV PRN (09:24)
[2019-09-27] MEDS ORDERED: VANCOMYCIN TROUGH ONE (09:30)
--- NOTE | 2019-09-27 09:39 | Orthopedic Progress Note ---
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 Elevation and ice to the right foot. Nonweightbearing right lower extremity with crutches or walker. Will order cast shoe. Daily dressing changes. Planning for [facility] when stable for dc. No further surgical needs at this time. Ortho will sign off. Plan for follow up with Dr Le in 2 weeks. Admission and Anticipated Discharge Date Admission Date: September 23, 2019 Subjective POD 2 Pt lying in bed. Awake, alert. No new complaints at this time. Pain off and on of the operative foot. Physical Exam Physical Exam: Dressings C/D/I. Dressings removed. Pt with some discomfort during dressing change. Suture lines intact. Minimal drainage. Mild erythema near the suture line. No purulence noted. Redressed with adaptic, 4x4's, kerlix, and liam wrap. Results & Data ([facility]) Vital Signs (Past 12 Hours) Vital Signs Temp Pulse Resp BP BP Pulse Ox 09/27/19 07:20 37.0 C 111 H 20 111/73 98 09/27/19 00:33 36.9 C 96 H 18 116/83 94
[2019-09-27] MEDS: VANCOMYCIN HCL 1,000 MG in SODIUM CHLORIDE 0.9% 250 ML IV SCH (11:09)
[2019-09-27 11:35] LABS: Partial Thromboplastin Ratio 1.7
[2019-09-27 11:57] LABS: Partial Thromboplastin Time 48.4 Seconds (21.0-31.0)
[2019-09-28 06:32] LABS: Hematocrit (blood only) 33.5 % (37-47); Hemoglobin 10.4 g/dL (12.0-16.0); Mean Corpuscular Hemoglobin 27.9 pg (25-34); Mean Corpuscular Volume 89.8 fL (80-100); Mean Platelet Volume 11.8 fL (7.4-10.4); Platelet Count 264 K/uL (130-400); RDW Coefficient of Variation 19.1 % (11.5-14.5); RDW Standard Deviation 62.6 fL (36.4-46.3); Red Blood Count 3.73 M/uL (4.2-5.4); White Blood Count 6.48 K/uL (4.8-10.8)
[2019-09-28 07:19] LABS: Albumin Level 1.4 gm/dl (3.4-5.0); Bilirubin Direct 0.5 mg/dl (0-0.2)
[2019-09-28] MEDS: OXYCODONE HCL IR 5 MG TAB (IMMEDIATE RELEASE) PO PRN (08:20)
[2019-09-28] MEDS: GABAPENTIN 100 MG CAP PO SCH (08:21)
[2019-09-28] MEDS: PANTOprazole 40 MG TAB PO SCH (08:21)
[2019-09-28] MEDS: APIXABAN 5 MG TABLET PO SCH (08:21)
[2019-09-28] MEDS: HYDROmorphone INJ 0.5 MG/0.5 ML SYR IV PRN (12:15)
--- NOTE | 2019-09-28 16:23 | Discharge Summary ---
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 The physician saw her today at her home and saw gangrene of the right 1st/2nd toes and advised hospitalization. When she was in [place] last week she was told she would ultimately need amputation but it was deferred during that hospitalization. Reports claudication of both legs (posterior thighs, calves b/l) with minimal activity/walking. No fevers or chills. Poor appetite for "a while." Has emesis with eating solids. Can tolerate liquids. Started about 1 week ago after getting out of [facility]. Minimal abdominal pain. Has diarrhea once a day. Records obtained from [facility] were reviewed -- Hospitalized at [facility] from 09/03 to 09/10 for UTI. During this admission a CTA abd/pelvis showed a RLL pulmonary infarct (3.1cm x 1.9cm) along with RLL pulmonary emboli. Same CT showed a decrease in size of her liver mets. Old splenic infarcts were seen and were decreasing in size from prior scan (07/21/19). 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 Underwent ileal resection and right-sided hemicolectomy. Biopsy of a peritoneal nodule was done as well as left ovary. Path returned as a neuroendocrine tumor. Course complicated by b/l LE ischemia due to arterial thrombi with need for left femoral vein thrombectomy and b/l popliteal artery thrombectomies. She also underwent LLE fasciotomy. Records suggest she had a genetic/hypercoagulable work-up but I do not have those labs. After her lengthy stay in July at [facility] she was discharged to SNF. Following SNF she returned home. Lastly, during her 07/2019 stay in [place], she was also found to have an internal jugular DVT. With initiation of heparin she developed HIT. She ultimately was placed on eliquis BID. Principal Diagnosis Dry gangrene of toes Discharge Exam Constitutional WD/WN, vitals as above Eyes EOM intact bilaterally; no conjunctival abnormality ENMT external ear and nose normal, oropharynx normal Neck trachea midline, no thyromegaly normal visual inspection Respiratory normal respiratory effort, lungs clear to auscultation no respiratory distress Cardiovascular RRR, no murmur, no edema Gastrointestinal (Abdomen) Inspection/Auscultation: abdomen normal to inspection; abdomen not distended Musculoskeletal no cyanosis or clubbing, extremities motor strength 5/5 Extremities: + extremities abnormal to inspection (Right foot in bandage; left toes with areas of necrosis) Skin no rashes, warm and dry Neurologic moves all extremities and awake Psychiatric Orientation: alert, oriented to person and cooperative Discharge Data Allergies Allergy/AdvReac Type Severity Reaction Status Date / Time heparin Allergy Heparin Verified 09/23/19 17:20 induced thrombocytopenia strawberry Allergy Hives Verified 09/24/19 16:02 Consultations 09/23/19 13:49 ED Decision to Admit Stat 09/23/19 15:17 Consult Vascular Surgery Routine 09/23/19 18:50 Consult Case Management - Discharge Planning Routine Consult Hematology Routine 09/24/19 09:35 Consult Orthopedic Surgery Routine 09/25/19 19:57 Consult Case Management - Discharge Planning Routine Procedures Performed Operation Date: 09/25/19 17:05 Actual Procedures p Right Foot Great toe, second toe, and third toe amputation and partial resection first metatarsal(Right) - Ezra Le DO Ordered Studies 09/23/19 10:10 US arterial duplex LE BI Stat 09/23/19 15:13 CT ang AA runof w inc wo ifdon Stat Hospital Course (1) Dry gangrene: b/l feet -a result of her previous issues with LALO and limb ischemia due to thrombosis during hospitalization at [facility] for surgical resection of bowel due to neuroendocrine tumor with liver mets and subsequent arterial thrombi of legs causing critical limb ischemia requiring thrombectomies of b/l legs and LLE fasciotomy (s/p left femoral artery thrombectomy, b/l popliteal artery thrombectomies, and left leg fasciotomy arterial duplex on admission with severe PAD and occlusive disease b/l. Dr Gresham reviewed studies and feels there is no need for immediate vascular intervention but orthopedic consultation for possible toe amputations, which occurred saturday09/25/19 CTA of abd/pelvis with run-off .IMPRESSION: 1. 5.0 cm occluded segment of the right popliteal artery redemonstrated with reconstitution of flow distally. 2. Three-vessel runoff is noted bilaterally with multifocal stenoses throughout the right peroneal artery 3. There is at least moderate multifocal luminal narrowing about the left popliteal artery. 4. Numerous enhancing hepatic lesions suggestive of metastasis. 5. Suspicious 2.3 cm solid nodule of the posterior basal segment right lower lobe. 6. Pathologic periportal/gastrohepatic lymph nodes are suggestive of lymphatic metastasis. 7. Postoperative changes of prior partial right hemicolectomy with enterocolic anastomosis. 8. Tiny subcentimeter foci of the abdominal right lower quadrant are hughes spicious for peritoneal nodules. Attention at follow-up recommended to exclude peritoneal carcinomatosis initially thought to have early sepsis but does not meet strict criteria cefepime IV. vanco. negative blood cultures. anticoagulation -intially held eliquis started on argatroban with concern for HIT, argatroban held for approx 18 hours for surgery, resumed am of 09/25 has h/o LALO per [facility] records return to eliquis 09/27/19 (2) Neuroendocrine neoplasm of gastrointestinal tract: s/p ileal resection and right-sided hemicolectomy 07/2019 at [facility]. known liver mets. s/p depot octreotide 07/27/19. Dr Yeung will follow discuasion of when to redose with Dr Yeung diarrhea but negative c diff (3) Coagulopathy: . consider vitamin K deficiency but suspect bulk of coagulopathy is due to severe liver dysfunction from neuroendocrine tumor mets to liver, plus argatroban iNR is elevated but influenced by argatroban, tawanda check 09/27 (4) Abnormal LFTs: 2nd to liver mets from neuroendocrine tumor. (5) History of hemicolectomy: right-sided, 2nd to neuroendocrine tumor. recent diarrhea but has improved. (6) Hypokalemia: replace (7) Hypomagnesemia: replace repeat level in am (8) Vomiting: waxing and waining, using prn medicines if persists will re Ct CTA abd/pelvis at [facility] 09/04/19 did not show any obstruction of the small bowel or gastric outlet obstruction. she is passing flatus and stools. tolerated advanced diet PPI. (9) Pulmonary emboli: RLL - incidentally noted on CTA on 09/04/19 in [place] associated pulmonary infarction in the RLL has occasional pain from such remains on anticoagulation (10) Pulmonary infarction: as above (11) 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 thrombocytopenia): 07/2019 - HIT developed in setting of anticoagulation for right IJ DVT, arterial thrombi of legs, etc. 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 - per records (13) Asthma: no exacerbation at this time uncle - Ozzie Dixon -- Dr herring gave extensive update to him by phone (14) Intellectual disability: self-reported by patient Total Time Total Time Spent Total Time Spent (In Minutes): 35 Discharge Plan Discharge Items Patient Disposition: Transfer Inpatient Rehab Fac Reason For Visit: DRY GANGRENE B/L FEET Discharge Diagnosis: Dry gangrene of toes Activity: Resume your previous activity Non-emergency contact: Primary Care Provider and Surgeon Call non-emergency contact if: you have any medication questions, your symptoms worsen, your pain is not controlled, your pain is worsening, your pain is unusual for you, your pain is concerning for you, you have a fever, your rectal temperature is above 100.4, your temperature is above 101, your temperature is above 101.5, your wound has increased redness, your wound has increased drainage and your wound pain has increased Follow-up/Referrals: Ezra Le DO [Surgeon] - (Please see Dr. Le in 2 weeks.) Jeff Junior [Primary Care Provider] - Diet: Regular Addtl Attending Provider Instructions: You were admitted for toe gangrene related to poor blood flow to the toes. You ended up needing surgery for the toes and having several amputated. Please follow up with Dr. Le in 2 weeks and with your outpatient doctors as scheduled. Addtl Spray Drier Operator Provider Instructions: ACTIVITY RECOMMENDATIONS: Limitations: Non weightbearing on the Right Foot. Cast shoe for protection SPECIAL CARE INSTRUCTIONS: * Some drainage onto the dressing is normal and is no cause for alarm. * Some swelling is natural especially after walking. * When resting, keep your foot elevated above the level of your heart. * Call [facility] if you notice: -Increased drainage -Fever over 101 degrees F -Severe constant pain BANDAGE: * Leave bandage/cast in place unless otherwise directed. * Keep bandage/cast dry at all times. FOLLOW UP VISIT WITH DR. LE If appointment is not already scheduled: Please call [facility] after you get home today to schedule a follow-up appointment for 10-[address] Le at . Pending Studies at Discharge: No Stand-Alone Forms: My [facility] Skilled Items Patient informed of condition?: Yes DNR: No Discharge Level of Care: Acute rehab Communicable Disease: No Discharge Prognosis: Stable Lines: None Urinary Catheter: No Medications and DC Order Prescriptions: New gabapentin 100 mg Capsule 100 mg PO BID Qty: 1 RF: 0 oxycodone 5 mg Tablet 15 mg PO Q6H PRN (Reason: pain) Qty: 1 RF: 0 Continued loperamide 2 mg capsule 2 mg PO Q6H RF: 0 acetaminophen 500 mg Tablet 500 mg PO TID PRN (Reason: Mild Pain (Scale Score 1-4)) RF: 0 pantoprazole 40 mg tablet,delayed release (DR/EC) 40 mg PO DAILY RF: 0 albuterol sulfate [Ventolin HFA] 90 mcg/actuation HFA aerosol inhaler 1 puff INHALATION UD PRN (Reason: Shortness Of Breath Or Wheezing) RF: 0 Eliquis 5 mg Tablet 5 mg PO BID RF: 0 Discharge Orders: Discharge Order (Routine); Ordered 09/28/19 Ordered By: Cyril Pulliam Admission Data Admit Date/Time: 09/23/19 15:17 Attending Provider: Cyril Pulliam Admit Provider: Herbert Herring Primary Care Provider: Jeff Junior Other Providers: [facility] ; Mahin Gresham ; Jeff Yeung V. ; Ezra Le ; Cyril Pulliam Other Interventions: Discharge Summary Assessment (RN) Last Done: 09/28/19 13:01 DC Date/Time DO NOT enter until pt leaves facility: 09/28/19 13:37 Coding Level of Care Code D/C Day Management >30 mins Diagnoses Dry gangrene I96 Neuroendocrine neoplasm of gastrointestinal tract D3A.8 Coagulopathy D68.9 Abnormal LFTs R94.5 History of hemicolectomy Z90.49 Hypokalemia E87.6 Hypomagnesemia E83.42 Vomiting R11.10 Vomiting type: unspecified Vomiting Intractability: intractable Nausea presence: unspecified Pulmonary emboli I26.99 Pulmonary embolism type: unspecified Chronicity: unspecified Acute cor pulmonale presence: without acute cor pulmonale Pulmonary infarction I26.99 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 thrombocytopenia) D75.82 Internal jugular vein thrombosis I82.C11 Laterality: right Asthma J45.20 Asthma severity: mild Asthma persistence: intermittent Asthma complication type: unspecified Intellectual disability F79
[2019-09-30 19:49] LABS: Chromogranin A 445 ng/mL (25-140); Serotonin 1459 ng/mL (56-244)
== END 2019-09-28 13:37 | DRG 853 ==
LOC: ED 09:42 → SUATTDRO 15:17 → 2S 15:17 → 2N 09-26 13:57

== ENCOUNTER 2019-10-15 00:13 | Inpatient (IN) ==
[2019-10-15] MEDS ORDERED: POLYETHYLENE (MIRALAX) 17 GM PACK PO PRN (02:39)
[2019-10-15] MEDS ORDERED: ALBUTEROL HFA 8 GM INHALER INH PRN (02:45)
--- NOTE | 2019-10-15 03:29 | History & Physical Report ---
Date of Service October 15, 2019 Assessment & Plan (1) Popliteal artery occlusion, right: Secondary to LALO status post thrombectomy, Not diabetic Still with bilateral gangrenous necrosis Will consult vascular surgery and order bilateral lower extremity arterial doppler CT abdomen with runoff from outside hospital on disc to be uploaded Patient's right foot swollen and red possible cellulitis will treat with cefepime and vancomycin (2) Acute leg pain: Left lower limb secondary to ischemia, gangrene and possible cellulitis Will treat with cefepime and vancomycin Tylenol and oxycodone for pain, Continuing home gabapentin Vascular surgery consulted Possible osteomyelitis of right foot based on swelling and extreme tenderness, will get X ray of feet (3) Dry gangrene: As above (4) 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 thrombocytopenia): Developed during July hospitalization while on therapeutic heparin for right IJ DVT and artiral thrombi of legs. Continuing home eliquis will avoid heparin (5) Intellectual disability: Patient tells me she has an intellectual disability "a little slow" She says her decision maker is a family member named blaine at [phone] She was not aware of her cancer prognosis or what kind of cancer it was did not know there were any liver issues didn't know about the IJ DVT or PE (6) Neuroendocrine neoplasm of gastrointestinal tract: Cardiology consulted, given octreotide in July plan is for further octreotide per last consultation with Dr. Yeung, patient has no current oncologist, will need to establish care for outpatient treatment. (7) Abnormal LFTs: Likely secondary to hepatic metastasis seen on CT scan from outside hospital Will continue to monitor CMP ordered for this am Very low albumin and elevated INR signs of decreasing liver function Coag studies ordered for am (8) Vomiting: Zofran PRN possibly secondary to malignancy, history is unclear, patient tells me she vomits whenver someone mentions a wheelchair (9) History of hemicolectomy: In july 2019 removed ileum and right colon with reanastamosis to remove carcinoid tumor Residual soft stools continuing home loperamide prn (10) Arterial thrombosis: As above (11) Asthma: Continuing home albuterol PRN Never smoker she tells me (12) Pulmonary emboli: RLL - incidentally noted on CTA on 09/04/19 in [place] associated pulmonary infarction in the RLL has occasional pain from such Continuing home eliquis (13) Internal jugular vein thrombosis: Per history Continuing eliquis (14) Pulmonary infarction: As above, continuing eliquis, no tachycardia, no respiratory distress oxygenating well on room air (15) Tenuous home situation: Patient with intellectual disability asking not to go home to boyfriend because he is not able to care for her Has two children both in foster care Wants decision maker to be Blaine gonzalez in HPI No able to cope at home, may need SNF placement or family help. (16) Excoriated rash: Patient with very large amount of excoriated diaper rash on her backside Will use butt paste with zinc oxide Pure wick in place to keep dry Admission and Anticipated Discharge Date Admission Date: October 15, 2019 History of Present Illness Chief Complaint: Foot Pain Primary Care Provider: Jeff Junior Mee Bardales is a 49 year old woman with an unfortunate medical history of neurendocrine cancer of the GI tract with liver mets who is status post resection of ileum and right hemicolectomy with ileal colonic anastomosis from July of this year. 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 She had thrombectomies in July and LLE fasciotomy. Most recently she was admitted to [facility] for toe amputation on right foot of gangrenous toes. Patient has been at [facility] until Yesterday when she went to live with her boyfriend. He boyfriend was not able to help her care for herself and she has been unable to get around so she has been living in her own stool and urine. She was brought into outside hospital ED and evaluated to have further gangrenous ch anges to toes on both right and left foot and exquisite toe pain on the right. her only complaint at present is left lower limb pain. She is intellectually disabled and has very poor insight into her disease process. Tells me she has cancer but is unaware of type or status of disease, unaware of causes of her toe amputations. Asked me to call family member blaine but she is not answering at this time. She is sexually active with her boyfriend she has two children both in foster care, she does not smoke drink or use recreational drugs. She does not think she can live with boyfriend any more. Allergies Allergy/AdvReac Type Severity Reaction Status Date / Time heparin Allergy Heparin Verified 09/23/19 17:20 induced thrombocytopenia strawberry Allergy Hives Verified 09/24/19 16:02 Home Medications Home Medications Medication Instructions Recorded Confirmed Type Eliquis 5 mg PO BID 09/23/19 10/15/19 History acetaminophen 500 mg PO TID PRN 09/23/19 10/15/19 History albuterol sulfate [Ventolin HFA] 1 puff INHALATION Q4 PRN 09/23/19 10/15/19 History loperamide 2 mg PO Q6H PRN 09/23/19 10/15/19 History pantoprazole 40 mg PO DAILY 09/23/19 10/15/19 History gabapentin 200 mg PO BID 10/15/19 10/15/19 History lorazepam 0.5 mg PO TID PRN 10/15/19 10/15/19 History morphine 15 mg PO Q4 PRN 10/15/19 10/15/19 History naloxone 4 mg INTRANASAL PRN 10/15/19 History Past Med/Surg History Social History (Updated 09/23/19 @ 18:18 by Herbert Johnston) Preferred Language: Azeri Communication Ability: Impaired Personal Property Assessor Required: No Beliefs That Will Affect Care: None marital status: / marital status details: 2 children Current Living Situation: Family Current Living Situation Comment: PLANS TO MOVE IN WITH UNCLE in [place] current occupational status: disabled other: 2 children are in foster care 2nd to her severe medical issues Feels Safe at Home: No Smoking Status: Former smoker Age Started Using Tobacco: 11 ; Age Quit Using Tobacco: 49 ; packs per day: 1 ; Hx Alcohol Use: No Hx Substance Use: No Review of Systems Review of Systems: All systems reviewed & are unremarkable except as noted in HPI & below (Difficult to obtain secondary to cognititve status) Physical Exam Constitutional: + acute distress (patient in clear discomfort) and + obese Eyes: PERRL, conjunctivae normal, anicteric sclerae ENMT: external ear and nose normal, oropharynx normal Neck: trachea midline, no thyromegaly Respiratory: normal respiratory effort, lungs clear to auscultation Cardiovascular: Rate/Rhythm: regular rate and regular rhythm Heart Sounds: no click, no gallop, no murmur and no cardiac rub Vessels: no JVD, + posterior tibial pulses abnormal and + dorsalis pedis pulses abnormal Extremities: no calf tenderness and no edema Gastrointestinal (Abdomen): normal bowel sounds, soft, nontender, no hepatosplenomegaly Skin: Flaking skin of bilateral lower extremities below knee, patient missing four toes on right foot remaining toe is gangrenous at tip and very tender, toes on left foot appearing gangrenous not as tender. Patient with large wound on left medial lower limb which appears to be healing poorly with eschar located in the center. Patient also with very red diaper rash of backside and around her vagina, she has been incontinent of stool and urine and area is quite red and excoriated. Neurologic: PERRL, EOMI, accommodation nl, no face palsy, no dysarthria Code Status & VTE Plan VTE Prophylaxis Plan VTE Prophylaxis will be ordered: Yes Supervising Physician Co-Signing Physician Notes Patient seen and examined, chart reviewed, case discussed with Dr. An and I agree with his assessment and plan as documented above. Resident Activity Tracking Resident Involvement: Resident Care Provided Care Provided: Adult Hospital Medicine (1) Acute leg pain Laterality: unspecified laterality Qualified Code(s): M79.606 - Pain in leg, unspecified (2) Internal jugular vein thrombosis Laterality: right Qualified Code(s): I82.C11 - Acute embolism and thrombosis of right internal jugular vein (3) Pulmonary emboli Acute cor pulmonale presence: without acute cor pulmonale Chronicity: unspecified Pulmonary embolism type: unspecified Qualified Code(s): I26.99 - Other pulmonary embolism without acute cor pulmonale (4) Vomiting Nausea presence: unspecified Vomiting Intractability: intractable Vomiting type: unspecified Qualified Code(s): R11.10 - Vomiting, unspecified (5) Asthma Asthma complication type: unspecified Asthma persistence: intermittent Asthma severity: mild Qualified Code(s): J45.20 - Mild intermittent asthma, uncomplicated
[2019-10-15] MEDS ORDERED: CEFEPIME CONSULT ACTIVE PRN (03:33)
[2019-10-15] MEDS ORDERED: VANCOMYCIN CONSULT ACTIVE PRN (03:33)
[2019-10-15 03:54] LABS: Basophils % (auto) 1.4 %; Eosinophils % (auto) 1.4 %; Hematocrit (blood only) 38.6 % (37-47); Hemoglobin 11.9 g/dL (12.0-16.0); Immature Granulocytes # (auto) 0.01 K/uL (0.00-0.02); Immature Granulocytes % (auto) 0.1 %; Lymphocytes # (auto) 1.79 K/uL (1.2-3.4); Lymphocytes % (auto) 24.5 %; Mean Corpuscular Volume 90.8 fL (80-100); Mean Platelet Volume 11.3 fL (7.4-10.4); Monocytes # (auto) 0.81 K/uL (0.11-0.59); Monocytes % (auto) 11.1 %; Neutrophils % (auto) 61.5 %; Platelet Count 399 K/uL (130-400); RDW Standard Deviation 62.8 fL (36.4-46.3); Red Blood Count 4.25 M/uL (4.2-5.4); White Blood Count 7.31 K/uL (4.8-10.8)
[2019-10-15 04:00] LABS: INR 1.6 (0.9-1.1); Partial Thromboplastin Ratio 1.1; Prothrombin Time 16.8 Seconds (9.0-12.0)
[2019-10-15] MEDS ORDERED: VANCOMYCIN HCL 1,750 MG in SODIUM CHLORIDE 0.9% 500 ML IV ONE (04:00)
[2019-10-15] MEDS ORDERED: VANCOMYCIN HCL 1,500 MG in SODIUM CHLORIDE 0.9% 500 ML IV ONE (04:00)
[2019-10-15] MEDS ORDERED: CEFEPIME 2,000 MG in SYRINGE 7.5 ML IV SCH (04:00)
[2019-10-15 04:25] LABS: Albumin Globulin Ratio 0.4 (0.9-2); Albumin Level 1.7 gm/dl (3.4-5.0); BUN Creatinine Ratio 6.9 (10-20); Bilirubin,Total 1.6 mg/dl (0.2-1); Calcium 7.5 mg/dl (8.5-10.1); Creatinine Clr Calc Pharmacy 111.7 ml/min; Est GFR (African American) 122.3; Est GFR (Non-African American) 105.5; Globulin 4.3 gm/dl (2.5-4.0); Magnesium 1.7 mg/dl (1.8-2.4); Potassium 3.6 mmol/L (3.5-5.1)
[2019-10-15 04:34] LABS: Mean Corpuscular Hgb Conc 30.8 g/dL (32-36)
[2019-10-15] MEDS: SODIUM CHLORIDE 0.9% 1000ML 1,000 ML IV SCH ×2 (04:37→15:33)
--- NOTE | 2019-10-15 05:07 | Pharmacy Report ---
Pharmacy Abx Dose Short Note - Date of Service October 15, 2019 - Assessment & Plan Assessment 49 year old F receiving vancomycin/cefepime for treatment of ongoing gangrene on toe. Day # 1 of antimicrobial therapy. Plan Vancomycin * Previous patient specific data suggests that vancomycin 1000 mg IV q14 hours with provide therapeutic levels. (obtained prior to 3rd dose after high trough from AUC dosing). * Give vancomycin 1500 mg IV x 1 (17.4 mg/kg) IV load * Start vancomycin 1000 mg IV q14 hours (start 5 hours early due to low load). * Goal trough for gangrene is 15 mcg/mL * Trough to be obtained prior to 1800 dose on 10/16/19 Pharmacy will continue to follow and will adjust dose/frequency as necessary. Thank you.
--- NOTE | 2019-10-15 07:37 | Ultrasound Report ---
US arterial duplex LE BI CLINICAL HISTORY: gangrenous necrosis of toes COMPARISON STUDY: 09/23/2019 FINDINGS: Real-time as well as Doppler evaluation of the arterial structures of the lower legs was p erformed. Waveforms again demonstrate complete occlusion of the right popliteal artery. This is unch anged from the prior study. There is distal reconstitution of the popliteal artery immediately above the trifurcation. Monophasic waveforms of the anterior tibial and peroneal arteries is unchanged. The right dorsalis pe dis artery again remains thrombosed. Left leg shows no significant occlusive change of the arterial structures of the thigh. Three-vessel runoff is present. IMPRESSION: 1. No major change compared to the prior study dated 09/23/2019. 2. Complete occlusion right popliteal artery with partial reconstitution superior to the lower leg tr ifurcation. 3. Occlusion of the right peroneal artery is also unchanged, and possibly right dorsalis pedis artery . 4. No major stenosis of the arterial structures of the left leg. ACT 112: Negative or not required by law. The above report was generated using voice recognition software. It may contain grammatical, syntax or spelling errors. Electronically signed by: Christopher Tovar M.D. 10/15/2019 7:36 AM
[2019-10-15] MEDS ORDERED: PNEUMOCOCCAL ADMINISTRATION CHARGE ONE (09:00)
[2019-10-15] MEDS ORDERED: PNEUMOCOCCAL POLYSACCHARIDES 25 MCG/0.5 ML VIAL/SYR IM ONE (09:00)
[2019-10-15] MEDS ORDERED: MAGNESIUM SULFATE / D5W 1 GM/100 ML BAG IV ONE (09:30)
[2019-10-15] MEDS: APIXABAN 5 MG TABLET PO SCH (09:52)
[2019-10-15] MEDS: PANTOprazole 40 MG TAB PO SCH (09:52)
[2019-10-15] MEDS: GABAPENTIN 100 MG CAP PO SCH ×2 (09:53→20:51)
--- NOTE | 2019-10-15 09:59 | Consultation Report ---
DATE OF CONSULTATION: 10/15/2019 HEMATOLOGY-ONCOLOGY CONSULTATION REASON FOR CONSULTATION: Morbidly obese 49-year-old female with low-grade neuroendocrine tumor and heparin-induced thrombocytopenia. HISTORY OF PRESENT ILLNESS: The patient, who I got to know back in mid September via consultation, is readmitted to [facility] after being home 1 day from being discharged from [facility]. As you know, the patient was admitted in mid September with multiple issues related to heparin-induced thrombocytopenia and arterial occlusive disease. She underwent amputation of toes in the right foot. She was subsequently sent to [facility] for rehabilitation. The patient states that she was home 24 hours and her significant other was less than helpful. In particular, the patient needed to go to the bathroom and apparently he was not helping her and thus tried to get to the bathroom on her own, subsequently tripped on a rug which immediately caused pain involving the left great toe. Hence, her rationale for representing. The patient has a very complex past medical history apparently. Prior to September admission, she was visited by a physician in her home and advised hospitalization because of gangrenous right first and second toes. The patient had been previously hospitalized in [place] for a week and was told at that time she would require amputation, but deferred. She was inpatient at [facility] from 09/04/2019 through 09/11/2019 for urinary tract infection. During the admission, CTA of abdomen and pelvis revealed a right lower lobe pulmonary infarct along with a right lower lobe pulmonary emboli. The same CAT scan revealed decreased size and previously established liver mets. The patient was diagnosed with low-grade neuroendocrine tumor in 07/2019, underwent bowel resection, subsequently started on octreotide. Specifically, the patient underwent ileal resection with right-sided hemicolectomy. Biopsy of a peritoneal nodule and a left ovary confirmed the diagnosis of low-grade neuroendocrine tumor. The patient had then developed bilateral lower extremity ischemia due to arterial thrombi within the left femoral vein. She underwent a thrombectomy and bilateral popliteal artery thrombectomies subsequently. Additionally, the patient also underwent a left lower extremity fasciotomy. During hospitalization in July, the patient had been started on heparin, subsequently developed heparin-induced thrombocytopenia. Upon discharge, she was placed on Eliquis b.i.d. Thus, during her admission with us in September, she was affectively anticoagulated with argatroban. Staging of the low-grade neuroendocrine tumor was pT4, N1, M1b with a Ki-67 index of 7.4. She received her first course of octreotide on 07/27/2019. I have yet to see the patient in outpatient followup. My plan was to reinstitute octreotide when she is medically/surgically stable. Obviously, this admission is once again a set back. I suspect Vascular Surgery will once again become involved. I have also spoken to the hospitalist and if surgery is in the offing, she should be taken off Eliquis and converted to argatroban. PAST MEDICAL HISTORY: Multiple arterial thromboses acute bilateral lower extremities 07/2019, status post SFA/popliteal/tibial thrombectomy; left popliteal-tibial thrombectomy; left lower extremity fasciotomy. 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 Pathology consistent with well-differentiated neuroendocrine tumor. Octreotide was initially administered on 07/27/2019 in [place]. Pulmonary emboli, right lower lobe 09/04/2019, again established to [facility]. Pulmonary infarctions of right lower lobe, 09/04/2019. PAST SURGICAL HISTORY: Includes hemicolectomy, ileocecal resection, right-sided hemicolectomy and ileocolonic anastomosis at [facility] on 07/15/2019, status post laparoscopic procedure in 1999 exploratory to "rule out cancer." MEDICATIONS: Prior to admission, naloxone 4 mg intranasal as needed, morphine 15 mg p.o. q. 4 hours p.r.n., lorazepam 0.5 mg p.o. t.i.d. p.r.n., gabapentin 200 mg p.o. b.i.d., Protonix 40 mg p.o. daily, loperamide 2 mg p.o. q. 6 hours p.r.n., albuterol sulfate 1 puff inhaled q. 4 hours, acetaminophen 500 mg p.o. t.i.d. p.r.n., Eliquis 5 mg p.o. b.i.d. ALLERGIES: HEPARIN RESULTED IN HEPARIN-INDUCED THROMBOCYTOPENIA AND STRAWBERRIES. SOCIAL HISTORY: The patient is a . She has a significant other. She has 2 children. The patient is currently disabled. She is a reformed smoker. Negative for alcohol or illicit drugs. FAMILY HISTORY: Noncontributory. Mother secondary of Alzheimer's disease, also suffered from diabetes and cerebrovascular accident. Father attributable to laryngeal cancer. REVIEW OF SYSTEMS: CONSTITUTIONAL: Most notably for status post fall and injury of the left great toe. The patient reports no fevers, chills or sweats. Negative for anorexia and weight loss. HEENT: No headaches, lightheadedness or dizziness. No visual or hearing deficits. No sinus symptoms, sore throat or dysphagia. LYMPH: No history of lymphoproliferative disease. CARDIAC: No history of coronary artery disease. No current angina or palpitations. RESPIRATORY: Positive history of asthma. She is not acutely short of breath or dyspneic on exertion. No cough or hemoptysis. GASTROINTESTINAL: Recent abdominal surgery to remove neuroendocrine tumor. No current abdominal pain. No nausea, vomiting, diarrhea or constipation. No hematochezia or melena. GENITOURINARY: No hematuria, dysuria or urinary incontinence. MUSCULOSKELETAL: No arthralgias or myalgias. No muscle weakness. ENDOCRINE: Negative for diabetes or thyroid disease. NEUROLOGIC: Negative for seizure, stroke or migraine headache. HEMATOLOGIC: Positive for chronic anemia and thrombophilia. PHYSICAL EXAMINATION: GENERAL: Very pleasant, morbidly obese 49-year-old female patient, in no acute distress. SKIN: Warm, dry, noncyanotic. No rashes or lesions. No evidence of petechiae or ecchymosis. Multiple excoriations noted in lower extremities predominantly. VITAL SIGNS: Temperature 36.7, pulse 82, respiratory rate 20, blood pressure 106/70. HEENT: Atraumatic, normocephalic. Eyes: PERRLA, EOMI. Sclerae nonicteric. No conjunctival injection. Nares patent without rhinorrhea or discharge. Throat clear. Tongue midline. No buccal lesions or ulcerations. Dentation in very poor repair. NECK: Supple without JVD. HEART: Regular rate and rhythm. LUNGS: Expiratory wheezes heard in all posterior lung baird. ABDOMEN: Soft, nontender, nondistended. Well healed large midline incision. No palpable masses or hepatomegaly. EXTREMITIES: Necrotic appearing toes on the left. Right foot is completely dressed sterilely. NEUROLOGICAL: She is awake, alert and oriented x3. Cranial nerves are grossly intact. LABORATORY DATA: WBC count 7310, hemoglobin 11.9, platelet count 399,000. Her PT is 16.8, INR 1.6, her PTT is 31. Sodium 143, potassium 3.6, chloride 109, carbon dioxide 29, creatinine 0.64, BUN 4. Alkaline phosphatase 165, albumin 1.7, calcium 7.5, magnesium 1.7. IMPRESSION: 1. 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 2. Acute left lower extremity leg pain. 3. Dry gangrene. 4. Heparin-induced thrombocytopenia. 5. Low-grade neuroendocrine tumor. 6. Hypomagnesemia. 7. Hypoalbuminemia. PLAN: It was my pleasure to visit with the patient again at bedside. Again, I became familiar with this patient back in mid September when she was admitted with dry gangrene involving her feet bilaterally. The patient has a prior diagnosis of low-grade neuroendocrine tumor, underwent a bowel resection, but unfortunately suffers from hepatic metastatic disease. She was started on octreotide in [place] back in July and has not been dosed since. My plan when I saw her in September was to reinstitute octreotide when she was medically and surgically stable. Unfortunately, the patient is a vasculopath for variety of reasons. She has required anticoagulation in the form of Eliquis, which she continues today. Unclear if amputation is necessary moving forward. If so, Eliquis needs to be discontinued and replaced with argatroban. THE PATIENT SHOULD NOT RECEIVE HEPARIN OR LOW MOLECULAR WEIGHT HEPARIN. Once she is surgically managed, she can be converted back to Eliquis 5 mg p.o. b.i.d. In regard to treatment of the carcinoid tumor, plan remains the same to reinstitute monthly octreotide once she is medically and surgically stable. Clearly, she has electrolyte anomalies that need corrected as well as her nutritional status addressed. Her albumin is 1.7 and perhaps to aid in healing, daily supplemental albumin may prove to be helpful. We will continue to follow her periodically during her hospitalization and will plan to establish outpatient followup. EDMAR
[2019-10-15] MEDS: CEFEPIME 2,000 MG in SYRINGE 7.5 ML IV SCH ×2 (12:18→20:51)
[2019-10-15] MEDS: VANCOMYCIN HCL 1,000 MG in SODIUM CHLORIDE 0.9% 250 ML IV SCH (13:16)
--- NOTE | 2019-10-15 14:49 | Consultation ---
Date of Consultation October 15, 2019 Assessment & Plan (1) Popliteal artery occlusion, right: There is occlusion of the right popliteal artery for a short segment. There appears to be good collateralization. Her R foot wounds appear to be healing well without any new gangrene or sign of significant infection. LLE toes remain similar in appearance and L medial leg wound showing good healing. Recommend eval by ortho for R foot surgical wound and regular outpt wound care with a local wound clinic. The R pop clot has been there for a prolonged period of time such that simple thrombectomy would not likely give good jail results. Most likely can be treated with stenting across this short occlusion if needed in future. Patient was seen, examined, and chart reviewed. Agree with exam and treatment plan of the Vascular PA. Will follow up as outpatient. Thank you very much for letting us participate in the care of this patient. History of Present Illness Reason for Consultation: R pop occlusion, gangrene Attending Physician: Lui Ching, History of Present Illness This is a 49y/o female who earlier this year had a resection of a small bowel neuroendocrine tumor. She does have metastatic disease. In July she had thrombosis of both popliteal arteries and underwent thrombectomy of the arteries with a fasciotomy of the left leg. The right leg has subsequently reoccluded. She presented last month with gangrene of RLE toes and underwent amputation by Dr Le approx 2 weeks ago. Has not seen him in f/u yet. She states she has some pain in R foot, but thinks this is related to her surgical wounds. Denies pain in LLE or numbness in BLE. She had arterial US last month that demonstrated chronic occlusion of R pop art, with good collateralization, so no vascular intervention was recommended at the time. She is readmitted with gangrene of BLE. Pt denies noting increased pain or discoloration or odor or drainage, fever, N/V, other complaints. Arterial US redemonstrates R pop occlusion. Allergies Allergy/AdvReac Type Severity Reaction Status Date / Time heparin Allergy Heparin Verified 09/23/19 17:20 induced thrombocytopenia strawberry Allergy Hives Verified 09/24/19 16:02 Home Medications Home Medications Medication Instructions Recorded Confirmed Type Eliquis 5 mg PO BID 09/23/19 10/15/19 History acetaminophen 500 mg PO TID PRN 09/23/19 10/15/19 History albuterol sulfate [Ventolin HFA] 1 puff INHALATION Q4 PRN 09/23/19 10/15/19 History loperamide 2 mg PO Q6H PRN 09/23/19 10/15/19 History pantoprazole 40 mg PO DAILY 09/23/19 10/15/19 History gabapentin 200 mg PO BID 10/15/19 10/15/19 History lorazepam 0.5 mg PO TID PRN 10/15/19 10/15/19 History morphine 15 mg PO Q4 PRN 10/15/19 10/15/19 History naloxone 4 mg INTRANASAL PRN 10/15/19 History Patient History Social History (Updated 09/23/19 @ 18:18 by Herbert Johnston) Preferred Language: [place] Communication Ability: Impaired Territory Representative Required: No Beliefs That Will Affect Care: None marital status: / marital status details: 2 children Current Living Situation: Family Current Living Situation Comment: PLANS TO MOVE IN WITH UNCLE in [place] current occupational status: disabled other: 2 children are in foster care 2nd to her severe medical issues Feels Safe at Home: No Smoking Status: Former smoker Age Started Using Tobacco: 11 ; Age Quit Using Tobacco: 49 ; packs per day: 1 ; Hx Alcohol Use: No Hx Substance Use: No Review of Systems Review of Systems: All systems reviewed & are unremarkable except as noted in HPI & below Physical Exam Physical Exam: Constitutional: well developed and well nourished; no acute distress Respiratory: normal respiratory effort, lungs clear to auscultation Cardiovascular: Rate/Rhythm: regular rate and regular rhythm Vessels: femoral pulses present, posterior tibial pulses present (weak on left, none on rigth), dorsalis pedis pulses present (weak on left, none on right) and radial pulses present; no carotid bruit Gastrointestinal (Abdomen): Inspection/Auscultation: abdomen not distended Percussion/Palpation: abdomen soft Musculoskeletal: Extremities: strength 5/5 throughout; RLE toe amputation sites C/D/I with sutures, healing well. No new gangrene noted. No odor or drainage. LLE 1st and 2nd toetips remain with dry gangrene, edges healinig. L medial leg with healing wound mid-distal calf, excellent granulation, but with loosening black eschar in center. Neurologic: CN's II-XI intact bilaterally Motor/Sensory: normal movement Psychiatric: Orientation: alert and oriented x 3 Results & Data Vital Signs (Past 12 Hours) Vital Signs Temp Pulse Resp BP Pulse Ox 10/15/19 07:02 36.7 C 82 20 106/70 92
[2019-10-15] MEDS: ZINC OXIDE 16% 45 APPLN, HYDROCORTISONE 1% 45 APPLN, ALUMINUM/MAGNESIUM SUSP 15 ML, BAR... TOP PRN (21:19)
--- NOTE | 2019-10-15 22:11 | Billing Data ---
Date of Service October 15, 2019 Coding Level of Care Code 79140 Initial Inpt Care Lvl 3
--- NOTE | 2019-10-15 22:42 | History & Physical Bridge Note ---
Date of Service October 15, 2019 History & Physical Bridge Note I have examined the patient, reviewed the History & Physical and in the interval since the performance of the History & Physical I have noted the following changes of clinical significance: patient admitted after midnight d/w Dr. Gresham, plans for angiogram and intervention with thrombectomy and stent tomorrow d/w Dr. Yeung, he recommends using Argatroban, holding Eliquis, he plans to start Octreotide therapy once she is recovered d/w case management, very difficult living situation, not much family support which she needs
[2019-10-16] MEDS: VANCOMYCIN HCL 1,000 MG in SODIUM CHLORIDE 0.9% 250 ML IV SCH ×2 (04:22→20:00)
[2019-10-16] MEDS: CEFEPIME 2,000 MG in SYRINGE 7.5 ML IV SCH ×3 (04:23→20:35)
[2019-10-16] MEDS: SODIUM CHLORIDE 0.9% 1000ML 1,000 ML IV SCH ×2 (04:23→16:28)
[2019-10-16 06:44] LABS: Creatinine Clr Calc Pharmacy 137.5 ml/min; Est GFR (African American) 130.9
[2019-10-16] MEDS: ACETAMINOPHEN 325 MG TAB PO PRN (08:02)
[2019-10-16] MEDS: PANTOprazole 40 MG TAB PO SCH (08:03)
[2019-10-16] MEDS: GABAPENTIN 100 MG CAP PO SCH ×2 (08:03→20:35)
[2019-10-16] MEDS: LOPERAMIDE HCL 2 MG CAP PO PRN ×2 (16:12→22:20)
[2019-10-16] MEDS: ZINC OXIDE 16% 45 APPLN, HYDROCORTISONE 1% 45 APPLN, ALUMINUM/MAGNESIUM SUSP 15 ML, BAR... TOP PRN (16:28)
[2019-10-16] MEDS ORDERED: VANCOMYCIN TROUGH ONE (17:30)
--- NOTE | 2019-10-16 19:51 | Pharmacy Report ---
Pharmacy Abx Dose Short Note - Date of Service October 16, 2019 - Assessment & Plan Assessment 49 year old F receiving Vancomycin + Cefepime for treatment of bilateral lower extremity gangrenous necrosis * Day #2 of antimicrobial therapy Plan Vancomycin * Trough level of 20.1 mcg/mL is supratherapeutic * Drawn prior to the 3rd maintenance dose which does not reflect steady state concentrations so true trough would have been higher * Change to 1000 mg IV every 18 hours * Goal trough level: 15 to 20 mcg/mL * Trough level ordered for 10/17 Pharmacy will continue to follow and will adjust dose/frequency as necessary. Thank you.
--- NOTE | 2019-10-16 22:46 | Hospitalist Progress Note ---
Date of Service October 16, 2019 Assessment & Plan (1) Popliteal artery occlusion, right: There is occlusion of the right popliteal artery for a short segment. There appears to be good collateralization. Her R foot wounds appear to be healing well without any new gangrene or sign of significant infection. LLE toes remain similar in appearance and L medial leg wound showing good healing. Recommend eval by ortho for R foot surgical wound and regular outpt wound care with a local wound clinic. The R pop clot has been there for a prolonged period of time such that simple thrombectomy would not likely give good custodial results. Most likely can be treated with stenting across this short occlusion if needed in future. Patient was seen, examined, and chart reviewed. Agree with exam and treatment plan of the Vascular PA. Will follow up as outpatient. No intervention required now.. (2) Acute leg pain: Left lower limb secondary to ischemia, gangrene and possible cellulitis Will treat with cefepime and vancomycin Tylenol and oxycodone for pain, Continuing home gabapentin Vascular surgery consulted Possible osteomyelitis of right foot based on swelling and extreme tenderness, will consult [facility] Dr Le as unsure if patient will make followup appointment (3) Dry gangrene: As above (4) 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 thrombocytopenia): Developed during July hospitalization while on therapeutic heparin for right IJ DVT and artiral thrombi of legs. Continuing home eliquis will avoid heparin (5) Intellectual disability: Patient tells me she has an intellectual disability "a little slow" She says her decision maker is a family member named blaine at [phone] She was not aware of her cancer prognosis or what kind of cancer it was did not know there were any liver issues didn't know about the IJ DVT or PE (6) Neuroendocrine neoplasm of gastrointestinal tract: Cardiology consulted, given octreotide in July plan is for further octreotide per last consultation with Dr. Yeung, patient has no current oncologist, will need to establish care for outpatient treatment. (7) Abnormal LFTs: Likely secondary to hepatic metastasis seen on CT scan from outside hospital Will continue to monitor CMP ordered for this am Very low albumin and elevated INR signs of decreasing liver function Coag studies ordered for am and reviewed (8) Vomiting: Zofran PRN possibly secondary to malignancy, history is unclear, patient tells me she vomits whenver someone mentions a wheelchair (9) History of hemicolectomy: In july 2019 removed ileum and right colon with reanastamosis to remove carcinoid tumor Residual soft stools continuing home loperamide prn (10) Arterial thrombosis: As above (11) Asthma: Continuing home albuterol PRN Never smoker she tells me (12) Pulmonary emboli: RLL - incidentally noted on CTA on 09/04/19 in [place] associated pulmonary infarction in the RLL has occasional pain from such Continuing home eliquis (13) Internal jugular vein thrombosis: Per history Continuing eliquis (14) Pulmonary infarction: As above, continuing eliquis, no tachycardia, no respiratory distress oxygenating well on room air (15) Tenuous home situation: Patient with intellectual disability asking not to go home to boyfriend because he is not able to care for her Has two children both in foster care Wants decision maker to be Blaine gonzalez in HPI Not able to cope at home, may need SNF placement or family help. (16) Excoriated rash: Patient with very large amount of excoriated diaper rash on her backside Will use butt paste with zinc oxide Pure wick in place to keep dry dispo: Patient does have family support after discussing with facility service manager. (refer to CM note) await input from ortho prior to discharge Admission and Anticipated Discharge Date Admission Date: October 15, 2019 Subjective Patient reports pain has improved. Review of Systems Review of Systems: All systems reviewed & are unremarkable except as noted in HPI & below Physical Exam Physical Exam: Constitutional: no distres and + obese Eyes: PERRL, conjunctivae normal, anicteric sclerae ENMT: external ear and nose normal, oropharynx normal Neck: trachea midline, no thyromegaly Respiratory: normal respiratory effort, lungs clear to auscultation Cardiovascular: Rate/Rhythm: regular rate and regular rhythm Heart Sounds: no click, no gallop, no murmur and no cardiac rub Vessels: no JVD, + posterior tibial pulses abnormal and + dorsalis pedis pulses abnormal Extremities: no calf tenderness and no edema Gastrointestinal (Abdomen): normal bowel sounds, soft, nontender, no hepatosplenomegaly Skin: Flaking skin of bilateral lower extremities below knee, patient missing four toes on right foot remaining toe is gangrenous at tip and very tender, toes on left foot appearing gangrenous not as tender. Patient with large wound on left medial lower limb which appears to be healing poorly with eschar located in the center. Neurologic: PERRL, EOMI, accommodation nl, no face palsy, no dysarthria Results & Data Results & Data ([facility]) Vital Signs (Past 12 Hours) Vital Signs Temp Pulse Resp BP Pulse Ox 10/16/19 15:22 36.3 C L 69 16 106/71 95 PG Care Time/CCT Total # of Minutes Spent Total Time Spent with Patient: Total time spent is greater than 50% in coordination of care (as documented) at patient's floor/unit and/or counseling patient: Coding Level of Care Code 91538 Subseq Hosp Care Lvl 3 Diagnoses Popliteal artery occlusion, right I70.201 Acute leg pain M79.606 Laterality: unspecified laterality Dry gangrene I96 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 thrombocytopenia) D75.82 Intellectual disability F79 Neuroendocrine neoplasm of gastrointestinal tract D3A.8 Abnormal LFTs R94.5 Vomiting R11.10 Nausea presence: unspecified Vomiting Intractability: intractable Vomiting type: unspecified History of hemicolectomy Z90.49 Arterial thrombosis I74.9 Asthma J45.20 Asthma complication type: unspecified Asthma persistence: intermittent Asthma severity: mild Pulmonary emboli I26.99 Acute cor pulmonale presence: without acute cor pulmonale Chronicity: unspecified Pulmonary embolism type: unspecified Internal jugular vein thrombosis I82.C11 Laterality: right Pulmonary infarction I26.99 Tenuous home situation Excoriated rash R21 Time Spent (min) 35 (1) Acute leg pain Laterality: unspecified laterality Qualified Code(s): M79.606 - Pain in leg, unspecified (2) Internal jugular vein thrombosis Laterality: right Qualified Code(s): I82.C11 - Acute embolism and thrombosis of right internal jugular vein (3) Pulmonary emboli Acute cor pulmonale presence: without acute cor pulmonale Chronicity: unspecified Pulmonary embolism type: unspecified Qualified Code(s): I26.99 - Other pulmonary embolism without acute cor pulmonale (4) Vomiting Nausea presence: unspecified Vomiting Intractability: intractable Vomiting type: unspecified Qualified Code(s): R11.10 - Vomiting, unspecified (5) Asthma Asthma complication type: unspecified Asthma persistence: intermittent Asthma severity: mild Qualified Code(s): J45.20 - Mild intermittent asthma, uncomplicated
[2019-10-17] MEDS: VANCOMYCIN HCL 1,000 MG in SODIUM CHLORIDE 0.9% 250 ML IV SCH ×2 (00:20→18:29)
[2019-10-17] MEDS: ZINC OXIDE 16% 45 APPLN, HYDROCORTISONE 1% 45 APPLN, ALUMINUM/MAGNESIUM SUSP 15 ML, BAR... TOP PRN (00:20)
[2019-10-17] MEDS: SODIUM CHLORIDE 0.9% 1000ML 1,000 ML IV SCH ×2 (04:52→16:44)
[2019-10-17] MEDS: CEFEPIME 2,000 MG in SYRINGE 7.5 ML IV SCH ×3 (04:52→20:43)
[2019-10-17 07:02] LABS: Creatinine Clr Calc Pharmacy 127.7 ml/min; Est GFR (African American) 127.8; Est GFR (Non-African American) 110.3
[2019-10-17] MEDS: PANTOprazole 40 MG TAB PO SCH (09:41)
[2019-10-17] MEDS: GABAPENTIN 100 MG CAP PO SCH ×2 (09:41→20:43)
--- NOTE | 2019-10-17 15:09 | Orthopedic Consultation ---
Date of Consultation October 17, 2019 Assessment & Plan (1) Dry gangrene: There was concern of worsening and new gangrene of the right side. Per report there is increased erythema and swelling. On my examination today things look very good. The wounds appear to be healing well. I do not see any evidence of any new gangrene on the right foot. With regards to the left foot she has some mild dry gangrene at the tip of the great toe as well as second toe. This appears to be stable from the appearance that she had on her previous admission. The previous plan was to operate on the left foot in a more staged fashion from the right foot and a more elective basis. The gangrene appears to be stable from what it appeared like at her previous admission. No erythema. There is no drainage. We will touch base with Dr. Le to see when he would want to proceed with surgery on the left side if he wants to give more time for the right foot to heal or if he wants to proceed with amputation/partial amputation during this admission. 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 She was previously admitted about 3 weeks ago for worsening of lower extremity gangrene. She underwent amputation of the right first second and third toes. She had some demarcating dry gangrene on the great and small toes of the left foot and the plan was for more staged an elective amputation or partial amputation on the left foot once the right foot it healed more. She was at [facility] in per her report was discharged home under the care of her significant other. She is now getting appropriate assistance in toileting and was in her own waste. There was concern for worsening gangrene of the right foot as well as left foot. Evaluation of the right lower extremity is demonstrated she has occlusion of the right popliteal artery but with good collateral flow and no vascular intervention is planned at this time. Allergies Allergy/AdvReac Type Severity Reaction Status Date / Time heparin Allergy Heparin Verified 09/23/19 17:20 induced thrombocytopenia strawberry Allergy Hives Verified 09/24/19 16:02 Home Medications Home Medications Medication Instructions Recorded Confirmed Type Eliquis 5 mg PO BID 09/23/19 10/15/19 History acetaminophen 500 mg PO TID PRN 09/23/19 10/15/19 History albuterol sulfate [Ventolin HFA] 1 puff INHALATION Q4 PRN 09/23/19 10/15/19 History loperamide 2 mg PO Q6H PRN 09/23/19 10/15/19 History pantoprazole 40 mg PO DAILY 09/23/19 10/15/19 History gabapentin 200 mg PO BID 10/15/19 10/15/19 History lorazepam 0.5 mg PO TID PRN 10/15/19 10/15/19 History morphine 15 mg PO Q4 PRN 10/15/19 10/15/19 History naloxone 4 mg INTRANASAL PRN 10/15/19 History Patient History Social History (Updated 09/23/19 @ 18:18 by Herbert Johnston) Preferred Language: Portuguese Communication Ability: Impaired Outside Sales Executive Required: No Beliefs That Will Affect Care: None marital status: / marital status details: 2 children Current Living Situation: Family Current Living Situation Comment: PLANS TO MOVE IN WITH UNCLE in [place] current occupational status: disabled other: 2 children are in foster care 2nd to her severe medical issues Feels Safe at Home: No Smoking Status: Former smoker Age Started Using Tobacco: 11 ; Age Quit Using Tobacco: 49 ; packs per day: 1 ; Hx Alcohol Use: No Hx Substance Use: No Physical Exam Constitutional: WD/WN, vitals as above Neck: normal visual inspection Respiratory: normal respiratory effort Cardiovascular: Extremities: normal capillary refill; no edema Musculoskeletal: Right foot: She is status post amputation of first second third and fifth toes. There are surgical wounds over the of the first second and third previous amputations. These wounds appear to be healing well. I do not appreciate erythema or new gangrene in that region. Left foot: There is evidence of some dry gangrene of the tip of the great and second toe. This appears to be stable from her previous admission Results & Data ([facility]) Vital Signs (Past 12 Hours) Vital Signs Temp Pulse Resp BP Pulse Ox 10/17/19 14:37 36.6 C 94 H 16 108/71 92 10/17/19 07:31 36.5 C 90 16 105/70 94 10/17/19 07:30 36.5 C 90 16 94
[2019-10-17] MEDS: OXYCODONE HCL IR 5 MG TAB (IMMEDIATE RELEASE) PO PRN (17:37)
--- NOTE | 2019-10-17 17:45 | Hospitalist Progress Note ---
Date of Service October 17, 2019 Assessment & Plan (1) Acute leg pain: Left lower limb secondary gangrene and possible cellulitis. No major stenosis of the arterial structures of the left leg. Continue cefepime and vancomycin pending possible amputation Tylenol and oxycodone for pain, Continuing home gabapentin Right foot healing well as per orthopedic consult today. Concern for osteomyelitis on admission. Given this was dressed and already inspected only the tips that could be seen today by this provider and appears to have no surrounding cellulitis (2) Dry gangrene: Appreciate orthopedic consult will continue antibiotics pending decision on definitive amputation management. Although cellulitis seen on today's exam. (3) Popliteal artery occlusion, right: Appreciate vascular consult Chronic popliteal artery occlusion and simple thrombectomy unlikely to give orthotic/prosthetic practitioner results, possible stent across short occlusion if needed in the future. (4) 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 thrombocytopenia): Developed during July hospitalization while on therapeutic heparin for right IJ DVT and arterial thrombi of legs. Continuing home Eliquis. PATIENT CANNOT HAVE HEPARIN OR LMWH (will need agatroban if Eliquis needs to be discontinued for surgery. (5) Intellectual disability: Patient has intellectual disability "a little slow". Decision maker is a family member named blaine at [phone] She is not aware of her cancer prognosis or what kind of cancer it was did not know there were any liver issues didn't know about the IJ DVT or PE. (6) Neuroendocrine neoplasm of gastrointestinal tract: Appreciate oncology consult On octreotide in [place] in July. Planned on repeat this once medically and surgically stable. (7) Abnormal LFTs: Likely secondary to hepatic metastasis seen on CT scan from outside hospital INR possibly raised due to Eliquis rather than liver dysfunction, Plt normal. 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 Will get c. diff given broad spectrum antibiotic use. 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 dispo: Patient does have family support after discussing with artist relationship manager. (refer to CM note) Awaiting possible definitive management of gangrene from orthopedics Admission and Anticipated Discharge Date Admission Date: October 15, 2019 Subjective Patient afebrile. She reports pain is well controlled on current regiment. Reports no changes since yesterday. Orthopedics seen foot and reportedly improving on current antibiotics. Possibly planning on left sided toe amputation for dry gangrene. Review of Systems Gastrointestinal: + diarrhea/loose stools (watery) Physical Exam Constitutional: well developed; + not well nourished and no acute distress Eyes: + anicteric sclerae; normal pupil size ENMT: Mouth: + poor dentition and + chipped teeth Neck: trachea midline Respiratory: normal respiratory effort, lungs clear to auscultation (anteriorly) Cardiovascular: Rate/Rhythm: regular rate and regular rhythm Heart Sounds: no murmur Gastrointestinal (Abdomen): Inspection/Auscultation: normal bowel sounds; + abdomen abnormal to inspection (abdominal scar healing with mild erythema but not cellulits) Percussion/Palpation: + abdomen tender (Generalized (patient reports since stable since her recent operation)) and abdomen soft; no guarding and abdomen not rigid Musculoskeletal: no cyanosis or clubbing, extremities motor strength 5/5 Skin: Mild erythema surrounding right. Seen by orthopedics today and dressed therefore not fully inspected under dressing to avoid contamination. Dry gangrene present on left great and second toe tips without surrounding cellulitis Neurologic: moves all extremities and awake; not confused Psychiatric: Orientation: alert and oriented x 3 Results & Data Results & Data ([facility]) Vital Signs (Past 12 Hours) Vital Signs Temp Pulse Resp BP Pulse Ox 10/17/19 14:37 36.6 C 94 H 16 108/71 92 10/17/19 07:31 36.5 C 90 16 105/70 94 10/17/19 07:30 36.5 C 90 16 94 PG Care Time/CCT Total # of Minutes Spent Total Time Spent with Patient: Total time spent is greater than 50% in coordination of care (as documented) at patient's floor/unit and/or counseling patient: Coding Level of Care Code 79141 Subseq Hosp Care Lvl 2 Diagnoses Acute leg pain M79.606 Laterality: unspecified laterality Dry gangrene I96 Popliteal artery occlusion, right I70.201 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 thrombocytopenia) D75.82 Intellectual disability F79 Neuroendocrine neoplasm of gastrointestinal tract D3A.8 Abnormal LFTs R94.5 Vomiting R11.10 Nausea presence: unspecified Vomiting Intractability: intractable Vomiting type: unspecified History of hemicolectomy Z90.49 Watery stools R19.5 Asthma J45.20 Asthma complication type: unspecified Asthma persistence: intermittent Asthma severity: mild Pulmonary emboli I26.99 Acute cor pulmonale presence: without acute cor pulmonale Chronicity: unspecified Pulmonary embolism type: unspecified Internal jugular vein thrombosis I82.C11 Laterality: right Excoriated rash R21 Tenuous home situation (1) Acute leg pain Laterality: unspecified laterality Qualified Code(s): M79.606 - Pain in leg, unspecified (2) Internal jugular vein thrombosis Laterality: right Qualified Code(s): I82.C11 - Acute embolism and thrombosis of right internal jugular vein (3) Pulmonary emboli Acute cor pulmonale presence: without acute cor pulmonale Chronicity: unspecified Pulmonary embolism type: unspecified Qualified Code(s): I26.99 - Other pulmonary embolism without acute cor pulmonale (4) Vomiting Nausea presence: unspecified Vomiting Intractability: intractable Vomiting type: unspecified Qualified Code(s): R11.10 - Vomiting, unspecified (5) Asthma Asthma complication type: unspecified Asthma persistence: intermittent Asthma severity: mild Qualified Code(s): J45.20 - Mild intermittent asthma, uncomplicated
[2019-10-18] MEDS: SODIUM CHLORIDE 0.9% 1000ML 1,000 ML IV SCH ×2 (03:33→14:41)
[2019-10-18] MEDS: CEFEPIME 2,000 MG in SYRINGE 7.5 ML IV SCH ×3 (03:34→20:54)
[2019-10-18 06:10] LABS: Basophils % (auto) 1.7 %; Eosinophils # (auto) 0.21 K/uL (0-0.5); Eosinophils % (auto) 3.5 %; Hematocrit (blood only) 33.2 % (37-47); Hemoglobin 10.4 g/dL (12.0-16.0); Immature Granulocytes # (auto) 0.01 K/uL (0.00-0.02); Immature Granulocytes % (auto) 0.2 %; Lymphocytes # (auto) 1.31 K/uL (1.2-3.4); Lymphocytes % (auto) 21.8 %; Mean Corpuscular Hemoglobin 28.6 pg (25-34); Mean Corpuscular Hgb Conc 31.3 g/dL (32-36); Mean Corpuscular Volume 91.2 fL (80-100); Mean Platelet Volume 11.3 fL (7.4-10.4); Monocytes # (auto) 0.57 K/uL (0.11-0.59); Monocytes % (auto) 9.5 %; Neutrophils % (auto) 63.3 %; Platelet Count 333 K/uL (130-400); RDW Coefficient of Variation 19.1 % (11.5-14.5); RDW Standard Deviation 64.1 fL (36.4-46.3); Red Blood Count 3.64 M/uL (4.2-5.4)
[2019-10-18 06:45] LABS: Albumin Level 1.4 gm/dl (3.4-5.0); BUN Creatinine Ratio 9.3 (10-20); Calcium 7.5 mg/dl (8.5-10.1); Est GFR (African American) 132.6; Est GFR (Non-African American) 114.5; Magnesium 1.6 mg/dl (1.8-2.4); Potassium 2.7 mmol/L (3.5-5.1)
[2019-10-18 06:48] LABS: Albumin Globulin Ratio 0.4 (0.9-2); Bilirubin,Total 1.5 mg/dl (0.2-1); Globulin 3.8 gm/dl (2.5-4.0); Total Protein 5.2 gm/dl (6.4-8.2)
[2019-10-18] MEDS: PANTOprazole 40 MG TAB PO SCH (08:00)
[2019-10-18] MEDS: GABAPENTIN 100 MG CAP PO SCH ×2 (08:00→20:54)
[2019-10-18] MEDS ORDERED: POTASSIUM CHLORIDE 20 MEQ TABCR PO STA (10:11)
[2019-10-18] MEDS: MAGNESIUM SULFATE / D5W 1 GM/100 ML BAG IV SCH ×2 (10:41→12:35)
[2019-10-18] MEDS: POTASSIUM CHLORIDE / WTR 10 MEQ/100 ML PLCT IV SCH ×2 (10:41→12:35)
[2019-10-18] MEDS ORDERED: VANCOMYCIN TROUGH ONE (11:30)
--- NOTE | 2019-10-18 12:11 | Pharmacy Report ---
Pharmacy Abx Dose Progress Nt - Date of Service October 18, 2019 - Pharmacy Dosing Scope The patient is currently receiving the following antimicrobial agents per Pharmacy consult: VANCOMYCIN 1000mg IV every 18 hours - Objective Vital Signs (Past 12hrs): Vital Signs Temp Pulse Resp BP Pulse Ox 10/18/19 06:54 36.6 C 88 16 115/71 94 10/18/19 00:10 36.7 C 85 16 117/75 98 Lab Results (24hrs): Laboratory Tests (24 Hours) 10/18/19 10/18/19 10/18/19 11:12 05:38 05:38 WBC 6.00 Neut # (Auto) 3.80 Creatinine 0.50 L Est Cr Clr Drug Dosing 143.0 Vancomycin Trough 13.9 Micro Results: 10/15/19 03:59 Anaerobic Blood Culture - Final Blood - Assessment & Plan Assessment 49 year old F receiving VANCOMYCIN/CEFEPIME for treatment of B/L GANGRENOUS NECROSIS Day # 4/7 of antimicrobial therapy Plan Vancomycin IV * Trough level of 13.9 mcg/mL is subtherapeutic. * Change to VANCOMYCIN 1000mg IV every 16 hours * Goal trough level for SST : 15 to 20 mcg/mL * Will order a trough level in a few days if Vancomycin therapy is continued by Ortho. Pharmacy will continue to follow and will adjust dose/frequency as necessary. Thank you.
[2019-10-18] MEDS: VANCOMYCIN HCL 1,000 MG in SODIUM CHLORIDE 0.9% 250 ML IV SCH (13:37)
[2019-10-18 17:49] LABS: Magnesium 2.1 mg/dl (1.8-2.4); Potassium 3.5 mmol/L (3.5-5.1)
--- NOTE | 2019-10-18 19:37 | Hospitalist Progress Note ---
Date of Service October 18, 2019 Assessment & Plan (1) Dry gangrene: b/l feet. 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 operative sites look clean. no obvious cellulitis or deeper infection this admission of either foot. orthopedics has seen - unlikely to need additional surgery at this time unless decision is made to proceed with amputation of 1st/2nd toes of left foot. will await final decision from Dr Le. continue cefepime and vanco but suspect they can be stopped soon - tomorrow?? (2) Popliteal artery occlusion, right: Chronic popliteal artery occlusion. Appreciate vascular consult by Dr Gresham this admission. Likely no intervention at this time - some consideration towards stenting, however, if poor wound healing of right foot. Defer ultimate decision to Dr Gresham. (3) 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 thrombocytopenia): 07/2019 at [facility]. Remains on eliquis for h/o PEs, right IJ DVT, and arterial thrombi of legs. Use argatraban if eliquis needs to be stopped and we need another anticoagulant bridge. (4) Intellectual disability: Long-standing. Patient asks that a family member named Rebecca be updated as needed ([phone]). (5) 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 with liver Mets. Will resume octreotide in future as outpatient -- to be managed by Dr Yeung. (6) Abnormal LFTs: Likely secondary to hepatic metastasis from neuroendocrine tumor (7) History of hemicolectomy: 07/2019 - s/p removal of ileum and right colon with reanastomosis. 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 (8) Watery stools: c diff negative likely abx-associated diarrhea and also likely from neuroendocrine tumor loperamide prn lactinex (9) Asthma: albuterol prn (10) Pulmonary emboli: RLL - incidentally noted on CTA on 09/04/19 in [place]. associated pulmonary infarction in the RLL as well. no symptoms. cont eliquis. (11) Internal jugular vein thrombosis: 07/2019 - [facility]. eliquis. (12) Hypokalemia: replace IV/PO repeat level tonight and in am (13) Hypomagnesemia: replace IV repeat level tonight (14) DVT prophylaxis: eliquis 5mg BID Pt, Ot evals (nonweightbearing RLE) does she need placement ? Admission and Anticipated Discharge Date Admission Date: October 15, 2019 Subjective patient denies pain in either leg or foot. having 2-3 loose stools/day. appetite fair. no abd pain or chest pain. denies cough/dyspnea. no drainage from either foot. Review of Systems Constitutional: no fever and no chills Cardiovascular: no orthopnea Gastrointestinal: + vomiting (had such following potassium supplementation this am ) Physical Exam Constitutional: no acute distress and no altered mental status ENMT: external ear and nose normal, oropharynx normal Respiratory: normal respiratory effort, lungs clear to auscultation Cardiovascular: Rate/Rhythm: regular rate and regular rhythm Heart Sounds: normal S1 and normal S2; no murmur Vessels: posterior tibial pulses present (right foot - <1+) and dorsalis pedis pulses present (right foot <1+); no JVD Extremities: + abnormal capillary refill (4+ seconds both feet ) and no edema Gastrointestinal (Abdomen): normal bowel sounds, soft, nontender, no hepatospl enomegaly Inspection/Auscultation: + abdomen distended (mild) Skin: gangrenous changes of left 1st/2nd toes - distally; right 4th/5th toes - slightly dusky; sutures intact over operative site of right foot; ulcer with thick black eschar medial distal left leg - clean, no drainage. No cellulitis either foot. No drainage either foot. prior fasciotomy site left leg just distal to knee. Psychiatric: Orientation: alert and oriented x 3 Affect: + depressed affect Results & Data Results & Data ([facility]) Vital Signs (Past 12 Hours) Vital Signs Temp Pulse Resp BP Pulse Ox 10/18/19 15:06 36.4 C L 87 18 115/75 97 Laboratory Results Laboratory Results - last 24 hr 10/17/19 10/18/19 10/18/19 22:39 05:38 05:38 WBC 6.00 RBC 3.64 L Hgb 10.4 L Hct 33.2 L MCV 91.2 MCH 28.6 MCHC 31.3 L RDW Std Deviation 64.1 H RDW Coeff of Sharan 19.1 H Plt Count 333 MPV 11.3 H Immature Gran % (Auto) 0.2 Neut % (Auto) 63.3 Lymph % (Auto) 21.8 Rolette % (Auto) 9.5 Eos % (Auto) 3.5 Baso % (Auto) 1.7 Neut # (Auto) 3.80 Lymph # (Auto) 1.31 Rolette # (Auto) 0.57 Eos # (Auto) 0.21 Baso # (Auto) 0.10 Immature Gran # (Auto) 0.01 Sodium 143 Potassium 2.7 L Chloride 112 H Carbon Dioxide 24 Anion Gap 7.0 BUN 5 L Creatinine 0.50 L Est Cr Clr Drug Dosing 143.0 Est GFR ( Amer) 132.6 Est GFR (Non-Af Amer) 114.5 BUN/Creatinine Ratio 9.3 L Glucose 99 Calcium 7.5 L Magnesium 1.6 L Total Bilirubin 1.5 H AST 63 H ALT 35 Alkaline Phosphatase 131 H Total Protein 5.2 L Albumin 1.4 L Globulin 3.8 Albumin/Globulin Ratio 0.4 L Stl C. diff Tox B Gene Negative Cdiff Gene Vancomycin Trough 10/18/19 10/18/19 11:12 17:03 WBC RBC Hgb Hct MCV MCH MCHC RDW Std Deviation RDW Coeff of Sharan Plt Count MPV Immature Gran % (Auto) Neut % (Auto) Lymph % (Auto) Rolette % (Auto) Eos % (Auto) Baso % (Auto) Neut # (Auto) Lymph # (Auto) Rolette # (Auto) Eos # (Auto) Baso # (Auto) Immature Gran # (Auto) Sodium Potassium 3.5 D Chloride Carbon Dioxide Anion Gap BUN Creatinine Est Cr Clr Drug Dosing Est GFR ( Amer) Est GFR (Non-Af Amer) BUN/Creatinine Ratio Glucose Calcium Magnesium 2.1 Total Bilirubin AST ALT Alkaline Phosphatase Total Protein Albumin Globulin Albumin/Globulin Ratio Stl C. diff Tox B Gene Vancomycin Trough 13.9 Diagnostic Findings 10/14 blood cx's negative PG Care Time/CCT Total # of Minutes Spent Total Time Spent with Patient: Total time spent is greater than 50% in coordination of care (as documented) at patient's floor/unit and/or counseling patient: Coding Level of Care Code 46383 Subseq Hosp Care Lvl 2 Diagnoses Dry gangrene I96 Popliteal artery occlusion, right I70.201 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 thrombocytopenia) D75.82 Intellectual disability F79 Neuroendocrine neoplasm of gastrointestinal tract D3A.8 Abnormal LFTs R94.5 History of hemicolectomy Z90.49 Watery stools R19.5 Asthma J45.20 Asthma severity: mild Asthma persistence: intermittent Asthma complication type: unspecified Pulmonary emboli I26.99 Pulmonary embolism type: unspecified Chronicity: unspecified Acute cor pulmonale presence: without acute cor pulmonale Internal jugular vein thrombosis I82.C11 Laterality: right Hypokalemia E87.6 Hypomagnesemia E83.42 DVT prophylaxis Z29.9 (1) Asthma Asthma severity: mild Asthma persistence: intermittent Asthma complication type: unspecified Qualified Code(s): J45.20 - Mild intermittent asthma, uncomplicated (2) Pulmonary emboli Pulmonary embolism type: unspecified Chronicity: unspecified Acute cor pulmonale presence: without acute cor pulmonale Qualified Code(s): I26.99 - Other pulmonary embolism without acute cor pulmonale (3) Internal jugular vein thrombosis Laterality: right Qualified Code(s): I82.C11 - Acute embolism and thrombosis of right internal jugular vein
[2019-10-18] MEDS: LACTOBACILLUS ACIDOPHILUS (FLORANEX) TAB PO SCH (20:58)
[2019-10-19] MEDS ORDERED: VANCOMYCIN HCL 1,000 MG in SODIUM CHLORIDE 0.9% 250 ML IV SCH (04:00)
[2019-10-19] MEDS: CEFEPIME 2,000 MG in SYRINGE 7.5 ML IV SCH (04:38)
[2019-10-19 06:00] LABS: Calcium 7.3 mg/dl (8.5-10.1); Creatinine Clr Calc Pharmacy 155.5 ml/min; Est GFR (African American) 136.3; Est GFR (Non-African American) 117.6; Potassium 3.1 mmol/L (3.5-5.1)
[2019-10-19] MEDS: GABAPENTIN 100 MG CAP PO SCH ×2 (08:08→21:41)
[2019-10-19] MEDS: LACTOBACILLUS ACIDOPHILUS (FLORANEX) TAB PO SCH ×4 (08:08→21:41)
[2019-10-19] MEDS: PANTOprazole 40 MG TAB PO SCH (08:09)
[2019-10-19] MEDS ORDERED: POTASSIUM CHLORIDE 20 MEQ TABCR PO ONE ×2 (09:00→12:00)
[2019-10-19] MEDS: OXYCODONE HCL IR 5 MG TAB (IMMEDIATE RELEASE) PO PRN ×2 (09:42→19:52)
[2019-10-19] MEDS ORDERED: APIXABAN 5 MG TABLET PO ONE (12:15)
[2019-10-19] MEDS: LOPERAMIDE HCL 2 MG CAP PO PRN (17:32)
[2019-10-19] MEDS: LORazepam 0.5 MG TAB PO PRN (19:52)
[2019-10-19] MEDS ORDERED: GADOBUTROL 65ML VIAL IV PRN (20:59)
--- NOTE | 2019-10-19 21:22 | Hospitalist Progress Note ---
Date of Service October 19, 2019 Assessment & Plan (1) Weakness of left foot: with associated numbness left anterior hooper and left foot dorsum. in light of neuroendocrine tumor with mets to liver will obtain MRI l-spine w/ and w/o contrast to rule out metastatic disease. also r/o infectious process, herniated disc, etc. if negative consider MRI brain. if still negative then peripheral neuropathy? patient is to be non-weightbearing right foot. uncertain how she can perform PT/OT in light of left foot/leg issues. re-eval after MRI returns. (2) Dry gangrene: b/l feet. 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 operative sites intact. no obvious cellulitis or deeper infection this admission of either foot. spoke with orthopedics - no additional procedures needed either foot at this time. spoke with vascular - no interventions at this time. stop IV cefepime and vanco. (3) Popliteal artery occlusion, right: Chronic popliteal artery occlusion. Appreciate vascular consult by Dr Gresham this admission. No intervention at this time. f/u Dr Gresham post-discharge. (4) 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 thrombocytopenia): 07/2019 at [facility]. Remains on eliquis for h/o PEs, right IJ DVT, and arterial thrombi of legs. Use argatraban if eliquis needs to be stopped and we need another anticoagulant bridge. (5) Intellectual disability: Long-standing. Patient asks that a family member named Rebecca be updated as needed ([phone]). 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 with liver Mets. Will resume octreotide in future as outpatient -- to be managed by Dr Yeung. see above re: MRI lumbar spine. (7) Abnormal LFTs: Likely secondary to hepatic metastasis from neuroendocrine tumor (8) History of hemicolectomy: 07/2019 - s/p removal of ileum and right colon with reanastomosis. 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 (9) Watery stools: c diff negative likely abx-associated diarrhea and also likely from neuroendocrine tumor loperamide prn lactinex (10) Asthma: albuterol prn (11) Pulmonary emboli: RLL - incidentally noted on CTA on 09/04/19 in [place]. associated pulmonary infarction in the RLL as well. no symptoms. cont eliquis. (12) Internal jugular vein thrombosis: 07/2019 - [facility]. eliquis. (13) Hypokalemia: ongoing - 2nd to GI losses? place on potassium liquid 20meq BID. repeat BMP am. (14) Hypomagnesemia: repleted (15) DVT prophylaxis: eliquis 5mg BID Pt, Ot recommending rehab- patient refusing home would be quite difficult given her right leg non-weight bearing status and left foot / ankle issues re-eval after MRI returns care today d/w social work, vascular, ortho updated contact listed in chart today Admission and Anticipated Discharge Date Admission Date: October 15, 2019 Subjective patient c/o numbness in the anterior aspect of left hooper - starts just below the left knee and travels down to the foot. numbness extends onto dorsum of left foot. left foot/ankle is also weak. when she tries to stand the left leg feels like it will give way. she cannot pinpoint a date when these symptoms started but she noted them sometime during the hospitalization. denies numbness right leg. denies foot pain b/l. denies abd pain. eating fine. no dyspnea. expects to go home at discharge - no interest in going to rehab. Review of Systems Constitutional: no fever and no chills Respiratory: no dyspnea Cardiovascular: no chest pain Gastrointestinal: + diarrhea/loose stools; no nausea and no vomiting Musculoskeletal: no back pain, no neck pain and no joint pain Neurologic: as per Subjective / HPI, + localized weakness and + loss of sensation Physical Exam Constitutional: no acute distress and no altered mental status ENMT: external ear and nose normal, oropharynx normal Respiratory: normal respiratory effort, lungs clear to auscultation Cardiovascular: Rate/Rhythm: regular rate and regular rhythm Heart Sounds: normal S1 and normal S2; no murmur Vessels: posterior tibial pulses present (right foot - <1+) and dorsalis pedis pulses present (right foot <1+); no JVD Extremities: + abnormal capillary refill (4+ seconds both feet ) and no edema Gastrointestinal (Abdomen): normal bowel sounds, soft, nontender, no hepatosplenomegaly Inspection/Auscultation: + abdomen distended (mild) Skin: dry gangrene distal 1st/2nd toes on left unchanged; right foot not inspected today; dressings intact Neurologic: weakness of left foot/ankle - significant issues with dorsiflexion and to a degree plantarflexion; hip flexion on left appears intact; hip flexion on right intact; right foot dorsiflexion/plantarflexion wnl Psychiatric: Orientation: alert and oriented x 3 Affect: + depressed affect Results & Data Results & Data ([facility]) Vital Signs (Past 12 Hours) Vital Signs Temp Pulse Resp BP Pulse Ox 10/19/19 15:14 36.8 C 98 H 18 120/70 96 Laboratory Results Laboratory Results - last 24 hr 10/19/19 04:47 Sodium 143 Potassium 3.1 L Chloride 112 H Carbon Dioxide 25 Anion Gap 6.0 BUN 4 L Creatinine 0.46 L Est Cr Clr Drug Dosing 155.5 Est GFR ( Amer) 136.3 Est GFR (Non-Af Amer) 117.6 BUN/Creatinine Ratio 8.0 L Glucose 110 H Calcium 7.3 L PG Care Time/CCT Total # of Minutes Spent Total Time Spent with Patient: Total time spent is greater than 50% in coordination of care (as documented) at patient's floor/unit and/or counseling patient: Coding Level of Care Code 78803 Subseq Hosp Care Lvl 3 Diagnoses Weakness of left foot R29.898 Dry gangrene I96 Popliteal artery occlusion, right I70.201 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 thrombocytopenia) D75.82 Intellectual disability F79 Neuroendocrine neoplasm of gastrointestinal tract D3A.8 Abnormal LFTs R94.5 History of hemicolectomy Z90.49 Watery stools R19.5 Asthma J45.20 Asthma severity: mild Asthma persistence: intermittent Asthma complication type: unspecified Pulmonary emboli I26.99 Pulmonary embolism type: unspecified Chronicity: unspecified Acute cor pulmonale presence: without acute cor pulmonale Internal jugular vein thrombosis I82.C11 Laterality: right Hypokalemia E87.6 Hypomagnesemia E83.42 DVT prophylaxis Z29.9 (1) Asthma Asthma severity: mild Asthma persistence: intermittent Asthma complication type: unspecified Qualified Code(s): J45.20 - Mild intermittent asthma, uncomplicated (2) Pulmonary emboli Pulmonary embolism type: unspecified Chronicity: unspecified Acute cor pulmonale presence: without acute cor pulmonale Qualified Code(s): I26.99 - Other pulmonary embolism without acute cor pulmonale (3) Internal jugular vein thrombosis Laterality: right Qualified Code(s): I82.C11 - Acute embolism and thrombosis of right internal jugular vein
[2019-10-19] MEDS: APIXABAN 5 MG TABLET PO SCH (21:42)
[2019-10-20 06:07] LABS: Creatinine Clr Calc Pharmacy 145.9 ml/min; Est GFR (African American) 133.5; Est GFR (Non-African American) 115.2
--- NOTE | 2019-10-20 07:06 | Magnetic Resonance Report ---
MR lumbar spine wo/w con HISTORY: Pain. Neuropathy. neuroendocrine cancer; L leg numbness, footdrop TECHNIQUE: Multiplanar multisequence MRI of the lumbar spine was performed both before and after the intravenous administration of contrast. COMPARISON: None. FINDINGS: For the purpose of the report the L5-S1 disc space will be located on axial image 27 of 30. Normal signal characteristics of the vertebral bodies. Minimal disc desiccation L4-L5 and L5-S1. No abnormal postcontrast sagittal enhancement. L1-L2: No significant central canal or neural foraminal narrowing. L2-L3: No significant central canal or neural foraminal narrowing. L3-L4: No significant central canal or neural foraminal narrowing. L4-L5: Moderate degenerative change of the posterior facets. L5-S1: Mild central disc bulge. Minimal impact anterior thecal sac. IMPRESSION: 1. No abnormal postcontrast enhancement. 2. Minimal central disc bulge L5-S1. 3. Moderate degenerative change posterior facets. 4. No abnormal postcontrast enhancement mass or collection. ACT 112: Negative or not required by law. The above report was generated using voice recognition software. It may contain grammatical, syntax or spelling errors. Electronically signed by: Christopher Tovar M.D. 10/20/2019 7:05 AM
[2019-10-20] MEDS: GABAPENTIN 100 MG CAP PO SCH ×2 (08:01→20:31)
[2019-10-20] MEDS: LACTOBACILLUS ACIDOPHILUS (FLORANEX) TAB PO SCH ×4 (08:01→20:33)
[2019-10-20] MEDS: PANTOprazole 40 MG TAB PO SCH (08:01)
[2019-10-20] MEDS: APIXABAN 5 MG TABLET PO SCH ×2 (08:01→20:31)
[2019-10-20] MEDS: POTASSIUM CHLORIDE 20 MEQ/15 ML UDC PO SCH ×2 (08:05→20:33)
[2019-10-20 09:14] LABS: Calcium 8.1 mg/dl (8.5-10.1); Creatinine Clr Calc Pharmacy 127.7 ml/min; Est GFR (African American) 127.8; Est GFR (Non-African American) 110.3; Potassium 3.5 mmol/L (3.5-5.1)
[2019-10-20] MEDS ORDERED: VANCOMYCIN TROUGH ONE (11:30)
[2019-10-20] MEDS: LOPERAMIDE HCL 2 MG CAP PO PRN (17:10)
--- NOTE | 2019-10-20 20:10 | Hospitalist Progress Note ---
Date of Service October 20, 2019 Assessment & Plan (1) Weakness of left foot: left foot drop. new - started at [facility] recently while rehabbing. with associated numbness left anterior hooper and left foot dorsum. in light of neuroendocrine tumor with mets to liver obtained MRI L-spine to r/o mets -- negative for such. MRI did not show an etiology for foot drop. Patient refusing MRI brain or CT head to r/o [employer] causes of this weakness. Peroneal nerve injury in left leg?? Asked ortho to re-eval -- suspect she needs AFO device. patient is to be non-weightbearing right foot due to recent surgery. fall risk is very high; have doubts she will be able to ambulate at home let alone stand. (2) Dry gangrene: b/l feet. 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 operative sites intact. spoke with orthopedics - no additional procedures needed either foot at this time. spoke with vascular - no interventions at this time. stopped IV cefepime and vanco. if patient opts for palliative care would not continue antibiotics. if she continues with routine care would send home with PO abx (keflex/doxy? other?) (3) Popliteal artery occlusion, right: Chronic popliteal artery occlusion. Appreciate vascular consult by Dr Gresham this admission. No intervention at this time. f/u Dr Gresham post-discharge. (4) 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 thrombocytopenia): 07/2019 at [facility]. Remains on eliquis for h/o PEs, right IJ DVT, and arterial thrombi of legs. Use argatraban if eliquis needs to be stopped and we need another anticoagulant bridge. (5) Intellectual disability: Long-standing. Next of kin - Rebecca her niece ([phone]). Pt's children are in foster care. from boyfriend/. 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 with liver Mets. Will resume octreotide in future as outpatient -- to be managed by Dr Yeung. see above re: MRI lumbar spine. (7) Abnormal LFTs: Likely secondary to hepatic metastasis from neuroendocrine tumor (8) History of hemicolectomy: 07/2019 - s/p removal of ileum and right colon with reanastomosis. 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 (9) Watery stools: c diff negative likely abx-associated diarrhea and also likely from neuroendocrine tumor loperamide prn lactinex (10) Asthma: albuterol prn (11) Pulmonary emboli: RLL - incidentally noted on CTA on 09/04/19 in [place]. associated pulmonary infarction in the RLL as well. no symptoms. cont eliquis. (12) Internal jugular vein thrombosis: 07/2019 - [facility]. eliquis. (13) Hypokalemia: ongoing - 2nd to GI losses? place on potassium liquid 20meq BID. continue such at discharge. (14) Hypomagnesemia: repleted would keep on mag supplementation at d/c (15) DVT prophylaxis: eliquis 5mg BID Pt, Ot recommending rehab- patient refusing home would be quite difficult given her right leg non-weight bearing status and left foot / ankle issues patient adamant about going home with Rebecca her niece large family meeting held today see HPI for details plan - pallliative care consult on 10/20 patient hoping to go home on 10/20 as well will need litter transport needs AFO for left foot/ankle Admission and Anticipated Discharge Date Admission Date: October 15, 2019 Subjective continues w/ numbness left distal leg continues with ankle/foot weakness on left denies pain in either foot during my rounds she refused MRI brain she refused CT head "I'm done with tests!!" she told me she simply wants to go home lengthy discussion held with patient, her niece Rebecca, and Jolene from case management regarding plan of care patient fed up with hospitals she understands she is a fall risk she understands she may not be able to walk at home she further understands that her deconditioning will worsen she is accepting of the fact she may not walk at home Rebecca feels family can take care of her Rebecca understands that Mee will need 29/10 care patient is open to having palliative care consultation to define goals of care her 1st had hospice so she is familiar with such Review of Systems Constitutional: no fever Respiratory: no dyspnea Cardiovascular: no chest pain Gastrointestinal: + diarrhea/loose stools Physical Exam Constitutional: no acute distress and no altered mental status ENMT: external ear and nose normal, oropharynx normal Respiratory: normal respiratory effort, lungs clear to auscultation Cardiovascular: Rate/Rhythm: regular rate and regular rhythm Heart Sounds: normal S1 and normal S2; no murmur Vessels: posterior tibial pulses present (right foot - <1+) and dorsalis pedis pulses present (right foot <1+); no JVD Extremities: + abnormal capillary refill (4+ seconds both feet ) and no edema left foot pulses ~1+ Gastrointestinal (Abdomen): normal bowel sounds, soft, nontender, no hepatosplenomegaly Skin: right foot in dressings; left foot - distal 1st/2nd toes gangrenous - no change; mild erythema surrounding these toes; left medial hooper with black eschar overlying ulcer - no change; scattered scars on shins Neurologic: left foot drop Psychiatric: Orientation: alert and oriented x 3 Affect: + depressed affect Results & Data Results & Data ([facility]) Vital Signs (Past 12 Hours) Vital Signs Temp Pulse Resp BP Pulse Ox 10/20/19 15:25 36.6 C 89 18 119/79 93 Laboratory Results Laboratory Results - last 24 hr 10/20/19 10/20/19 05:13 05:14 Sodium 142 Potassium 3.5 Chloride 113 H Carbon Dioxide 26 Anion Gap 3.0 BUN 3 L Creatinine 0.49 L 0.56 L Est Cr Clr Drug Dosing 145.9 127.7 Est GFR ( Amer) 133.5 127.8 Est GFR (Non-Af Amer) 115.2 110.3 BUN/Creatinine Ratio 5.0 L Glucose 114 H Calcium 8.1 L PG Care Time/CCT Total # of Minutes Spent Total Time Spent with Patient: Total time spent is greater than 50% in coordination of care (as documented) at patient's floor/unit and/or counseling patient: Coding Level of Care Code 88554 Subseq Hosp Care Lvl 3 Diagnoses Weakness of left foot R29.898 Dry gangrene I96 Popliteal artery occlusion, right I70.201 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 thrombocytopenia) D75.82 Intellectual disability F79 Neuroendocrine neoplasm of gastrointestinal tract D3A.8 Abnormal LFTs R94.5 History of hemicolectomy Z90.49 Watery stools R19.5 Asthma J45.20 Asthma complication type: unspecified Asthma persistence: intermittent Asthma severity: mild Pulmonary emboli I26.99 Acute cor pulmonale presence: without acute cor pulmonale Chronicity: unspecified Pulmonary embolism type: unspecified Internal jugular vein thrombosis I82.C11 Laterality: right Hypokalemia E87.6 Hypomagnesemia E83.42 DVT prophylaxis Z29.9 (1) Internal jugular vein thrombosis Laterality: right Qualified Code(s): I82.C11 - Acute embolism and thrombosis of right internal jugular vein (2) Pulmonary emboli Acute cor pulmonale presence: without acute cor pulmonale Chronicity: unspecified Pulmonary embolism type: unspecified Qualified Code(s): I26.99 - Other pulmonary embolism without acute cor pulmonale (3) Asthma Asthma complication type: unspecified Asthma persistence: intermittent Asthma severity: mild Qualified Code(s): J45.20 - Mild intermittent asthma, uncomplicated
[2019-10-21 06:48] LABS: Creatinine Clr Calc Pharmacy 170.3 ml/min; Est GFR (African American) 140.5; Est GFR (Non-African American) 121.2
[2019-10-21] MEDS: LACTOBACILLUS ACIDOPHILUS (FLORANEX) TAB PO SCH ×5 (07:58→20:35)
[2019-10-21] MEDS: GABAPENTIN 100 MG CAP PO SCH ×2 (07:58→20:35)
[2019-10-21] MEDS: PANTOprazole 40 MG TAB PO SCH (07:59)
[2019-10-21] MEDS: APIXABAN 5 MG TABLET PO SCH ×2 (07:59→20:35)
[2019-10-21] MEDS: POTASSIUM CHLORIDE 20 MEQ/15 ML UDC PO SCH ×3 (08:01→20:43)
--- NOTE | 2019-10-21 09:02 | Hospitalist Progress Note ---
Date of Service October 21, 2019 Assessment & Plan (1) Weakness of left foot: left foot drop. new - started at [facility] recently while rehabbing. with associated numbness left anterior hooper and left foot dorsum. in light of neuroendocrine tumor with mets to liver obtained MRI L-spine to r/o mets -- negative for such. MRI did not show an etiology for foot drop. Patient refusing MRI brain or CT head to r/o OUTREACH REPRESENTATIVE causes of this weakness. Peroneal nerve injury in left leg, consider from intra abdominal mets or paraneoplastic syndrome Ortho has AFO device. patient is to be non-weightbearing right foot due to recent surgery. fall risk is very high; have doubts she will be able to ambulate at home let alone stand. (2) Dry gangrene: b/l feet. 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 operative sites intact. spoke with orthopedics - no additional procedures needed either foot at this time. spoke with vascular - no interventions at this time. stopped IV cefepime and vanco. if patient opts for palliative care would not continue antibiotics. if she continues with routine care would send home with PO abx (keflex/doxy? other?) (3) Popliteal artery occlusion, right: Chronic popliteal artery occlusion. Appreciate vascular consult by Dr Gresham this admission. No intervention at this time. f/u Dr Gresham post-discharge. (4) 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 thrombocytopenia): 07/2019 at [facility]. Remains on eliquis for h/o PEs, right IJ DVT, and arterial thrombi of legs. Use argatraban if eliquis needs to be stopped and we need another anticoagulant bridge. (5) Intellectual disability: Long-standing. Next of kin - Rebecca her niece ([phone]). Pt's children are in foster care. from boyfriend/. 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 with liver Mets. Will resume octreotide in future as outpatient -- to be managed by Dr Yeung. see above re: MRI lumbar spine. (7) Abnormal LFTs: Likely secondary to hepatic metastasis from neuroendocrine tumor (8) History of hemicolectomy: 07/2019 - s/p removal of ileum and right colon with reanastomosis. 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 (9) Watery stools: c diff negative likely abx-associated diarrhea and also likely from neuroendocrine tumor loperamide prn lactinex (10) Asthma: albuterol prn (11) Pulmonary emboli: RLL - incidentally noted on CTA on 09/04/19 in [place]. associated pulmonary infarction in the RLL as well. no symptoms. cont eliquis. (12) Internal jugular vein thrombosis: 07/2019 - [facility]. eliquis. (13) Hypokalemia: ongoing - 2nd to GI losses? place on potassium liquid 20meq BID. continue such at discharge. (14) Hypomagnesemia: repleted would keep on mag supplementation at d/c (15) DVT prophylaxis: eliquis 5mg BID Pt, Ot recommending rehab- patient refusing home would be quite difficult given her right leg non-weight bearing status and left foot / ankle issues patient adamant about going home with Rebecca her niece large family meeting held 10/20/19 plan - pallliative care consult on 10/20 patient hoping to go home soon will need litter transport needs AFO for left foot/ankle Admission and Anticipated Discharge Date Admission Date: October 15, 2019 Subjective this pt states she is ready to go home, even if with hospice. she has no complaints of leg pain, some nausea and abdominal pain Dr Johnston had a lengthy discussion held with patient, her niece Rebecca, and Jolene from case management regarding plan of care 10/20/19 patient fed up with hospitals she understands she is a fall risk she understands she may not be able to walk at home she further understands that her deconditioning will worsen she is accepting of the fact she may not walk at home Rebecca feels family can take care of her Rebecca understands that Mee will need 29/10 care patient is open to having palliative care consultation to define goals of care her 1st had hospice so she is familiar with such Review of Systems Review of Systems: Mild to moderate distress and fatigue no headache, blurry or double vision no speech or swallowing issues no chest pain, pressure or palpitations no shortness of breath, cough or wheezes Generalized diffuse abdominal pain, mild nausea has had no vomiting, no dysuria, hematuria or frequency Discomfort of both feet gangrene on the left great toe and second toes obvious no back pain, CVA tenderness or radicular pain Healing right toe amputations and gangrene of left foot no focal signs of weakness or numbness or altered sensation no complaints or anxiety or depression. Physical Exam Physical Exam: The patient appeared ill and a bit ill kept Vital signs as documented. Head exam is normocephalic atraumatic no scleral icterus Marked dental caries and loss of teeth Neck is without JVD, thyromegaly, or carotid bruits. Lungs are clear to auscultation, no focal loss of breath sounds Cardiac exam, Rhythm is regular.. No murmurs, rubs or gallops. Abdominal exam reveals normal bowel sounds, she is mildly tender abdominal pain Extremities right foot is bandaged as she status post previous amputation left foot has demarcation of dry gangrene on the great toe and second toe overall she has some chronic stasis changes to her lower legs bilaterally Neurologic exam is alert and oriented, no focal loss of strength or sensation patient does fit her description of having a developmental disability with regard to her mentation Psychologically is with concerns for depression Results & Data Results & Data ([facility]) Vital Signs (Past 12 Hours) Vital Signs Temp Pulse Resp BP Pulse Ox 10/21/19 07:00 98.6 F 90 18 126/80 96 10/20/19 23:15 97.9 F 90 16 102/68 96 PG Care Time/CCT Total # of Minutes Spent Total Time Spent with Patient: Total time spent is greater than 50% in coordination of care (as documented) at patient's floor/unit and/or counseling patient: Coding Level of Care Code 93318 Subseq Hosp Care Lvl 3 Diagnoses Weakness of left foot R29.898 Dry gangrene I96 Popliteal artery occlusion, right I70.201 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 thrombocytopenia) D75.82 Intellectual disability F79 Neuroendocrine neoplasm of gastrointestinal tract D3A.8 Abnormal LFTs R94.5 History of hemicolectomy Z90.49 Watery stools R19.5 Asthma J45.20 Asthma complication type: unspecified Asthma persistence: intermittent Asthma severity: mild Pulmonary emboli I26.99 Acute cor pulmonale presence: without acute cor pulmonale Chronicity: unspecified Pulmonary embolism type: unspecified Internal jugular vein thrombosis I82.C11 Laterality: right Hypokalemia E87.6 Hypomagnesemia E83.42 DVT prophylaxis Z29.9 (1) Internal jugular vein thrombosis Laterality: right Qualified Code(s): I82.C11 - Acute embolism and thrombosis of right internal jugular vein (2) Pulmonary emboli Acute cor pulmonale presence: without acute cor pulmonale Chronicity: unspecified Pulmonary embolism type: unspecified Qualified Code(s): I26.99 - Other pulmonary embolism without acute cor pulmonale (3) Asthma Asthma complication type: unspecified Asthma persistence: intermittent Asthma severity: mild Qualified Code(s): J45.20 - Mild intermittent asthma, uncomplicated
--- NOTE | 2019-10-21 15:23 | Palliative Care Consultation ---
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 She had thrombectomies in July and LLE fasciotomy. Most recently she was admitted to [facility] for toe amputation on right foot of gangrenous toes. Patient has been at [facility] until a week ago when she went to live with her boyfriend who is not able to help her care for her. She has been living in poor living conditions. She does have two children who are teenage age who are in foster care. She has a niece, Rebecca, who has been involved in her care. A family meeting was held yesterday and the decision was made for her to return to Rebecca's house. Rebecca also cares for her own mother at home and realizes that she will need to provide 24/7 care at home. Palliative Care was consulted to discuss goals of care. -I met with the patient in room 360-1. She first asked when she was going home. -She agreed that she will be moving to her nieces house and stated that "I am the one who suggested that" -She said she continues to not want to go to inpatient rehab. -She understands that she will be bedbound and not able to put pressure on her feet. -I called and talked to Rebecca, her niece at ([phone]) who stated that she understands that she will need 24/7 care. -Resources have been provided to her regarding additional caregiver support. -The patient indicated she is not ready to give up the hope of surgery. Rebecca understands that surgery will be a life prolonging measure. -We talked about code status and she is adament that she is to remain a Full Code. -She is apprecitive of palliative in home options; however, after discussing with the in-home palliative care liason, they do not go to [facility]. -Referral placed with [facility] with an understanding they can pursue hospice if she declines. -We discussed that she does not have a hospital bed and she stated they just got a new bed at home and will try that at first. -The patient will need litter van for transport. Likely discharge tomorrow. -PPS; 30% (2) Dry gangrene: (3) Intellectual disability: (4) Neuroendocrine neoplasm of gastrointestinal tract: (5) Internal jugular vein thrombosis: Laterality: right Qualified Code(s): I82.C11 - Acute embolism and thrombosis of right internal jugular vein History of Present Illness Reason for Consultation: Goals of care Requesting Physician: Dr. 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 She had thrombectomies in July and LLE fasciotomy. Most recently she was admitted to [facility] for toe amputation on right foot of gangrenous toes. Patient has been at [facility] until a week ago when she went to live with her boyfriend who is not able to help her care for her. She has been living in poor living conditions. She does have two children who are teenage age who are in foster care. She has a niece, Rebecca, who has been involved in her care. A family meeting was held yesterday and the decision was made for her to return to Rebecca's house. Rebecca also cares for her own mother at home and realizes that she will need to provide 24/7 care at home. Palliative Care was consulted to discuss goals of care. Please see A/P for further details. Thanks for involving palliative care with this patient. Allergies Allergy/AdvReac Type Severity Reaction Status Date / Time heparin Allergy Heparin Verified 09/23/19 17:20 induced thrombocytopenia strawberry Allergy Hives Verified 09/24/19 16:02 Home Medications Home Medications Medication Instructions Recorded Confirmed Type Eliquis 5 mg PO BID 09/23/19 10/15/19 History acetaminophen 500 mg PO TID PRN 09/23/19 10/15/19 History albuterol sulfate [Ventolin HFA] 1 puff INHALATION Q4 PRN 09/23/19 10/15/19 History loperamide 2 mg PO Q6H PRN 09/23/19 10/15/19 History pantoprazole 40 mg PO DAILY 09/23/19 10/15/19 History gabapentin 200 mg PO BID 10/15/19 10/15/19 History lorazepam 0.5 mg PO TID PRN 10/15/19 10/15/19 History morphine 15 mg PO Q4 PRN 10/15/19 10/15/19 History naloxone 4 mg INTRANASAL PRN 10/15/19 History Patient History Social History (Updated 09/23/19 @ 18:18 by Herbert Johnston) Preferred Language: Citizen Of [place] Communication Ability: Impaired Call Worker Required: No Beliefs That Will Affect Care: None marital status: / marital status details: 2 children Current Living Situation: Family Current Living Situation Comment: PLANS TO MOVE IN WITH UNCLE in [place] current occupational status: disabled other: 2 children are in foster care 2nd to her severe medical issues Feels Safe at Home: No Smoking Status: Former smoker Age Started Using Tobacco: 11 ; Age Quit Using Tobacco: 49 ; packs per day: 1 ; Hx Alcohol Use: No Hx Substance Use: No Physical Exam Constitutional: + ill appearing and + disheveled Respiratory: normal respiratory effort, lungs clear to auscultation Cardiovascular: RRR, no murmur, no edema Extremities: normal capillary refill Skin: right foot is bandaged. left foot has dry gangrene on the great toe and second toe Psychiatric: A+Ox3, euthymic affect (some cognitive delay related to her intellect disability ) Results & Data Vital Signs (Past 12 Hours) Vital Signs Temp Pulse Resp BP Pulse Ox 10/21/19 07:00 37 C 90 18 126/80 96 PG Care Time/CCT Total # of Minutes Spent Total Time Spent with Patient: Total time spent is greater than 50% in coordination of care (as documented) at patient's floor/unit and/or counseling patient: 70 Coding Level of Care Code 85203 Inpt Consult Level 3 Diagnoses Goals of care, counseling/discussion Z71.89 Dry gangrene I96 Intellectual disability F79 Neuroendocrine neoplasm of gastrointestinal tract D3A.8 Internal jugular vein thrombosis I82.C11 Laterality: right Time Spent (min) 70 Time Spent Midlevel total time spent 70 minutes with > 50% of that time spent assessing the patient, discussing goals of care with the patient, family and coordinating with the IDT.
[2019-10-21] MEDS: ACETAMINOPHEN 325 MG TAB PO PRN (17:01)
[2019-10-21] MEDS: LOPERAMIDE HCL 2 MG CAP PO PRN (18:36)
[2019-10-22] MEDS: APIXABAN 5 MG TABLET PO SCH ×2 (07:54→20:33)
[2019-10-22] MEDS: PANTOprazole 40 MG TAB PO SCH (07:54)
[2019-10-22] MEDS: POTASSIUM CHLORIDE 20 MEQ/15 ML UDC PO SCH ×3 (07:54→20:39)
[2019-10-22] MEDS: GABAPENTIN 100 MG CAP PO SCH ×2 (07:54→20:35)
[2019-10-22] MEDS: LACTOBACILLUS ACIDOPHILUS (FLORANEX) TAB PO SCH ×4 (07:55→20:33)
[2019-10-22] MEDS: ONDANSETRON INJ 2 MG/ML 2 ML VIAL IV PRN (09:04)
[2019-10-22 09:40] LABS: Creatinine Clr Calc Pharmacy 170.3 ml/min; Est GFR (African American) 140.5; Est GFR (Non-African American) 121.2
[2019-10-22] MEDS: ACETAMINOPHEN 325 MG TAB PO PRN (16:14)
[2019-10-22] MEDS: LOPERAMIDE HCL 2 MG CAP PO PRN (20:34)
[2019-10-22] MEDS: OXYCODONE HCL IR 5 MG TAB (IMMEDIATE RELEASE) PO PRN (20:34)
[2019-10-22] MEDS: LORazepam 0.5 MG TAB PO PRN (20:36)
--- NOTE | 2019-10-22 21:24 | Hospitalist Progress Note ---
Date of Service October 22, 2019 Assessment & Plan (1) Weakness of left foot: left foot drop. new - started at [facility] recently while rehabbing. with associated numbness left anterior hooper and left foot dorsum. in light of neuroendocrine tumor with mets to liver obtained MRI L-spine to r/o mets -- negative for such. MRI did not show an etiology for foot drop. Patient refusing MRI brain or CT head to r/o [employer] causes of this weakness. Peroneal nerve injury in left leg?? pelvic compression of nerves? other? AFO device obtained - refusing to wear such. patient is to be non-weightbearing right foot due to recent surgery. high risk of falls. doubt she will stand or walk again. (2) Dry gangrene: b/l feet. 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 operative sites intact and clean. spoke with orthopedics - no additional procedures needed either foot at this time. spoke with vascular - no interventions at this time. stopped IV cefepime and vanco. dry gangrene - distal 1st/2nd toes left foot - no Rx at this time per ortho. (3) Popliteal artery occlusion, right: Chronic popliteal artery occlusion. Appreciate vascular consult by Dr Gresham this admission. No intervention at this time. f/u Dr Gresham post-discharge. (4) 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 thrombocytopenia): 07/[address] [facility]. Remains on eliquis for h/o PEs, right IJ DVT, and arterial thrombi of legs. (5) Intellectual disability: Long-standing. Pt's children are in foster care. from boyfriend/. next of kin - her uncle?? (6) Neuroendocrine neoplasm of gastrointestinal tract: s/p hemicolectomy [facility] 07/2019. with liver Mets. s/p octreotide this admission. needs outpatient f/u with Dr Yeung. (7) Abnormal LFTs: Likely secondary to hepatic metastasis from neuroendocrine tumor (8) History of hemicolectomy: 07/2019 - s/p removal of ileum and right colon with reanastomosis. 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 (9) Watery stools: c diff negative likely abx-associated diarrhea and also likely from neuroendocrine tumor loperamide prn lactinex (10) Asthma: albuterol prn (11) Pulmonary emboli: RLL - incidentally noted on CTA on 09/04/19 in [place]. associated pulmonary infarction in the RLL as well. cont eliquis. recommend life-long in light of cancer. (12) Internal jugular vein thrombosis: 07/[address] - [facility]. eliquis. (13) Hypokalemia: ongoing - 2nd to GI losses? place on potassium liquid 20meq BID. continue such at discharge. recheck BMP am. (14) Hypomagnesemia: repleted would keep on mag supplementation at d/c recheck level am (15) DVT prophylaxis: eliquis 5mg BID Pt, Ot recommending rehab- patient refusing social situation is very complicated best option would be placement in SNF in terms of healthcare POA -- if her uncle is unable or unwilling to be her POA - does she need state guardianship?? I am quite concerned by Rebecca's actions (leaving town and calling us 30 minutes prior to Mrs Bardales's discharge that she wouldn't be home for several days) discharge canceled appreciate social work assistance Admission and Anticipated Discharge Date Admission Date: October 15, 2019 Subjective patient was to d/c today and was to live with her niece, Rebecca. it turns out that Rebecca is not related to Mrs Bardales. Rebecca then called Jolene from case management this afternoon and told Jolene she was leaving town and couldn't care for Mrs Bardales until next week. patient told of the above - got very upset, stated "I'm leaving! I can live with my uncle Ozzie!" latter was felt to be unsafe discharge plan. discharge canceled. no new medical issues overnight. refusing to use left AFO. refusing to get out of bed. Review of Systems Respiratory: no cough and no dyspnea Cardiovascular: no chest pain Gastrointestinal: + diarrhea/loose stools; no abdominal pain Physical Exam Constitutional: no acute distress and no altered mental status ENMT: external ear and nose normal, oropharynx normal Mouth: + poor dentition and + chipped teeth Respiratory: normal respiratory effort, lungs clear to auscultation Cardiovascular: Rate/Rhythm: regular rate and regular rhythm Heart Sounds: normal S1 and normal S2; no murmur Vessels: posterior tibial pulses present (right foot - <1+) and dorsalis pedis pulses present (right foot <1+); no JVD Extremities: + abnormal capillary refill (4+ seconds both feet ) and no edema Gastrointestinal (Abdomen): normal bowel sounds, soft, nontender, no he patosplenomegaly Skin: right foot dressings removed; 4th/5th toes w/o gangrene; sutures at surgical site of 1st/2nd/3rd metatarsals intact -- no erythema, no drainage. left foot - gangrene distal toes, 1 and 2. no cellulitis. no drainage. left medial distal leg - black eschar. Psychiatric: Orientation: alert and oriented x 3 Affect: + depressed affect and + tearful affect Results & Data Results & Data ([facility]) Vital Signs (Past 12 Hours) Vital Signs Temp Pulse Resp BP Pulse Ox 10/22/19 15:25 36.6 C 91 H 18 124/80 93 Laboratory Results Laboratory Results - last 24 hr 10/22/19 08:43 Creatinine 0.42 L Est Cr Clr Drug Dosing 170.3 Est GFR ( Amer) 140.5 Est GFR (Non-Af Amer) 121.2 PG Care Time/CCT Total # of Minutes Spent Total Time Spent with Patient: Total time spent is greater than 50% in coordination of care (as documented) at patient's floor/unit and/or counseling patient: Coding Level of Care Code 50860 Subseq Hosp Care Lvl 2 Diagnoses Weakness of left foot R29.898 Dry gangrene I96 Popliteal artery occlusion, right I70.201 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 thrombocytopenia) D75.82 Intellectual disability F79 Neuroendocrine neoplasm of gastrointestinal tract D3A.8 Abnormal LFTs R94.5 History of hemicolectomy Z90.49 Watery stools R19.5 Asthma J45.20 Asthma complication type: unspecified Asthma persistence: intermittent Asthma severity: mild Pulmonary emboli I26.99 Acute cor pulmonale presence: without acute cor pulmonale Chronicity: unspecified Pulmonary embolism type: unspecified Internal jugular vein thrombosis I82.C11 Laterality: right Hypokalemia E87.6 Hypomagnesemia E83.42 DVT prophylaxis Z29.9 (1) Internal jugular vein thrombosis Laterality: right Qualified Code(s): I82.C11 - Acute embolism and thrombosis of right internal jugular vein (2) Pulmonary emboli Acute cor pulmonale presence: without acute cor pulmonale Chronicity: unspecified Pulmonary embolism type: unspecified Qualified Code(s): I26.99 - Other pulmonary embolism without acute cor pulmonale (3) Asthma Asthma complication type: unspecified Asthma persistence: intermittent Asthma severity: mild Qualified Code(s): J45.20 - Mild intermittent asthma, uncomplicated
[2019-10-23 07:13] LABS: Hematocrit (blood only) 34.4 % (37-47); Hemoglobin 10.9 g/dL (12.0-16.0); Mean Corpuscular Hemoglobin 28.7 pg (25-34); Mean Corpuscular Hgb Conc 31.7 g/dL (32-36); Mean Corpuscular Volume 90.5 fL (80-100); Platelet Count 311 K/uL (130-400); RDW Coefficient of Variation 19.4 % (11.5-14.5); RDW Standard Deviation 64.7 fL (36.4-46.3)
[2019-10-23 07:46] LABS: BUN Creatinine Ratio 3.6 (10-20); Calcium 7.7 mg/dl (8.5-10.1); Creatinine Clr Calc Pharmacy 162.5 ml/min; Est GFR (African American) 138.3; Est GFR (Non-African American) 119.4; Magnesium 1.6 mg/dl (1.8-2.4); Potassium 3.5 mmol/L (3.5-5.1)
[2019-10-23] MEDS: POTASSIUM CHLORIDE 20 MEQ/15 ML UDC PO SCH ×2 (08:14→21:23)
[2019-10-23] MEDS: GABAPENTIN 100 MG CAP PO SCH ×2 (08:14→21:25)
[2019-10-23] MEDS: PANTOprazole 40 MG TAB PO SCH (08:15)
[2019-10-23] MEDS: LACTOBACILLUS ACIDOPHILUS (FLORANEX) TAB PO SCH ×4 (08:15→21:25)
[2019-10-23] MEDS: APIXABAN 5 MG TABLET PO SCH ×2 (08:15→21:25)
[2019-10-23] MEDS: MAGNESIUM SULFATE / D5W 1 GM/100 ML BAG IV SCH ×2 (08:20→10:11)
--- NOTE | 2019-10-23 16:11 | Psychiatric Consultation ---
Date of Consultation October 23, 2019 Impression / Recommendations Impression Dr. Dylan Stone was directly involved in review and discussion of the patient's case and participated in medical decision making regarding treatment recommendations. RECOMMENDATIONS: 10/22 - Psychiatric consultation requested to evaluate patient for capacity with regard to reported intermittent refusal of recommendation for SNF placement. Pt has a complicated medical history which includes metastatic cancer, gangrene of feet bilaterally with history of amputation of toes, and is likely to be bed- bound and requiring 24/7 care. It is reportedly documented from [facility] records that patient has a diagnosis of intellectual disability, though there is no comment as to the severity of this. - Pt seen for targeted assessment, initially indicating "I want to go home." With further discussion, patient is able to verbalize understanding that the current recommendation is for SNF placement and she is able to appreciate the need for supportive care. At time of assessment, patient is able to verbalize reasonable decision for discharge to SNF, based on her present understanding of her medical condition and recognition that she cannot care for herself independently. Although patient does verbalize she is hopeful for only a short stay at a custodial facility, she is agreeable with current discharge recommendations presented by primary team. - There is enough question about patient's level of insight that it certainly reasonable to evaluate capacity for discharge planning decisions if patient should change her mind or verbalize that she is no longer willing for SNF referral, as patient does demonstrate unrealistic views of the present support available to her at this time. Additional information to assist with capacity assessments has been outlined below. - Agree with recommendation for communication with the Office of Aging/Adult Protective Services should patient decide she is no longer agreeable with discharge recommendations. Pt states she does not have a POA and information documented on her current living situation and available supports does sound concerning. Case management is involved in patient's case. - Pt denies significant mood concerns, SI, A/V hallucinations, or any desire for psychiatric involvement. Pt appears psychiatrically stable for discharge to a custodial facility. Thoughts for Capacity Evaluations: As a reminder, any medical provider involved in the patient's care can make a determination regarding capacity to make a specific treatment decision at a specific point in time. Capacity for appropriate medical decision-making can vary based on patient's present state, but also on the weight of the specific decision. In order for a patient to have capacity to make a specific treatment decision, they must meet the four following criteria: ability to recall/understand information related to the decision being made, appreciate their condition as well as the consequences of t heir decision, demonstrate ability to rationally process information being provided, and clearly communicate a choice. Psych History Identifying Data 49-year-old female admitted medically on 10/15/2019 after presenting to the ED with reports of left foot pain. Pt has a rather complicated medical history with poor overall prognosis. 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 Psychiatric consultation is requested to assess capacity, as there are reported changes to expected discharge planning. Chief Complaint "I want to go home." History of Present Illness Mee Bardales is a 49-year-old female admitted medically on 10/15/2019 with complaints of left leg/foot pain. 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 It is reported that patient had been staying at [facility] up until the day prior to admission, but was reportedly discharged to live with her "boyfriend" who has been unable to adequately care for the patient - so she has been laying in her own stool and urine. Over the course of patient's hospital admission, plan was developed for the patient to live with a "niece" - whom is now reporting she will be unable to care for the patient. SNF referrals have been suggested due to patient's limited outpatient supports and clear inability to provide appropriate care for herself. Psychiatric consultation was requested to assist with capacity discussions, as patient is agreeing with SNF referral to [facility], but is intermittently stating she wants to go home. On assessment, patient initially verbalizes "I want to go home." She is able to recall that she initially presented to the hospital as "my left foot was hurting", and is aware of the timeline of her admission "I was admitted a week ago, yesterday." When asked about discharge recommendations, patient is able to verbalize that it has been recommended that she be placed in a facility to provide necessary care. Pt states that she is willing for a referral to [facility]. Pt states that she is hopeful to not be there long-term, and reports that she could stay with an Uncle. Pt states the reason for this is "he was the one that helped pick me up when I fell." Pt was asked her understanding of the risks associated with a discharge to the home of an outpatient support without adequate supervision, and she states "I could fall." Pt denies depression, anxiety, SI, A/V hallucinations, or other concerns. She denies a psychiatric history. Pt denies need for outpatient psychiatric referrals. Past Psychiatric History Previous Psych History: Pt denies prior psychiatric history Outpatient Services: None Previous Psych Admissions: None History of Previous Suicide Attempt: No Past Medication Trials: None Allergies Allergy/AdvReac Type Severity Reaction Status Date / Time heparin Allergy Heparin Verified 09/23/19 17:20 induced thrombocytopenia strawberry Allergy Hives Verified 09/24/19 16:02 Home Medications Home Medications Medication Instructions Recorded Confirmed Type Eliquis 5 mg PO BID 09/23/19 10/15/19 History acetaminophen 500 mg PO TID PRN 09/23/19 10/15/19 History albuterol sulfate [Ventolin HFA] 1 puff INHALATION Q4 PRN 09/23/19 10/15/19 History loperamide 2 mg PO Q6H PRN 09/23/19 10/15/19 History pantoprazole 40 mg PO DAILY 09/23/19 10/15/19 History gabapentin 200 mg PO BID 10/15/19 10/15/19 History lorazepam 0.5 mg PO TID PRN 10/15/19 10/15/19 History morphine 15 mg PO Q4 PRN 10/15/19 10/15/19 History naloxone 4 mg INTRANASAL PRN 10/15/19 History Personal History Highest Grade Completed Comment: Unknown - reportedly was in special education classes in school Employment Status: Disabled Marital Status: Single Number Of Children: 2 children, reported to have been placed in Foster care Patient History Medical History Arterial thrombosis (Acute) b/l legs - 07/2019 - s/p right SFA/popliteal/tibial thrombectomy, left popliteal/tibial thrombectomy, LLE fasciotomy Asthma Dry gangrene (Acute) b/l feet Goals of care, counseling/discussion 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 thrombocytopenia) 07/[address] - [facility] Intellectual disability (Acute) Internal jugular vein thrombosis RIGHT - 07/24/19. Developed HIT following anticoagulation for such. Neuroendocrine neoplasm of gastrointestinal tract (Acute) 07/11/19 - CT with 3.2 x 2.5cm spiculated mesenteric mass concerning for carcinoid tumor; 07/14 - ex lap with ileal resection and right hemicolectomy w/ end-to-end anastomosis; bx of peritoneal nodules and left ovarian mass; path -- metastatic well-differentiated NET, pT4 N1 M1b; Kl6y index 7.4% 07/27/19 - first dose IM Octreotide in [place] [facility] - [facility] Surgical History History of hemicolectomy (Acute) ileal-cecal resection and right-sided hemicolectomy; ileal-colonic anastomosis - [facility] 07/15/2019 S/P laparoscopic procedure 1999 - exploratory - to rule out cancer? Family History Mother , age 82 Alzheimer disease Diabetes Stroke Father Laryngeal cancer Social History Preferred Language: Ivorian Communication Ability: Impaired Automatic Car Wash Attendant Required: No Beliefs That Will Affect Care: None marital status: / marital status details: 2 children Current Living Situation: Family Current Living Situation Comment: PLANS TO MOVE IN WITH UNCLE in [place] current occupational status: disabled other: 2 children are in foster care 2nd to her severe medical issues Feels Safe at Home: No Smoking Status: Former smoker Age Started Using Tobacco: 11 ; Age Quit Using Tobacco: 49 ; packs per day: 1 ; Hx Alcohol Use: No Hx Substance Use: No Physical Exam Psychiatric: Orientation: alert, oriented x 3 and + guarded (superficially cooperative, but with underlying irritability ) Apperance: appropriately dressed and + disheveled; + inappropriately groomed Obese-appearing female, laying in bed in no acute distress. Pt is appropriately dressed for setting, wearing hospital gown. Level of hygiene and grooming is poor. Pt has short, messy hair. Very poor dentition. Eye Contact: + poor eye contact (distracted by television in room, only brief episodes of direct eye contact) Motor Behavior: no abnormal motor movements (observed while laying in bed) Speech: normal rate/rhythm/volume of speech (brief responses to questions) Affect: + blunted affect Mood: no depressed mood and no anxious mood Thought Process: goal directed thought process and + concrete thought process Thought Content: reality based without delusions; not paranoid, no hopelessness and no worthlessness Suicidal Thoughts: denies suicidal thoughts, denies suicidal plan and denies suicidal intent Homicidal Thoughts: denies homicidal thoughts Hallucinations: no auditory hallucinations and no visual hallucinations Cognition: attention grossly intact and language grossly intact Estimated Intelligence: + below average estimated intelligence Insight: + limited insight Likely limited overall, but patient is agreeable with SNF referral at this time. Judgement: + limited judgement Likely limited overall, but patient is agreeable with SNF referral at this time. Vital Signs (Past 24 Hours): Last Vital Signs Temp 36.6 C 10/23/19 15:05 Pulse 90 10/23/19 15:05 Resp 16 10/23/19 15:05 BP 122/82 10/23/19 15:05 Pulse Ox 91 10/23/19 15:05 Review of Systems Constitutional: reports fatigue Cardiovascular: denied Respiratory: denied Gastrointestinal: denied Neurological/Musculoskeletal: weakness/pain of left foot Psychiatric: denies symptoms other than stated above Total of at least 10 systems reviewed, pertinent positives as above and in HPI. Results & Data (PSY) Medications Administered Acetaminophen (Tylenol) 650 mg PO Q4H PRN PRN Reason: pain/fever Stop: 11/14/19 02:33 Last Admin: 10/22/19 16:14 Dose: 650 mg Documented by: [id number] Admin: 10/21/19 17:01 Dose: 650 mg Documented by: [id number] Admin: 10/16/19 08:02 Dose: 650 mg Documented by: [id number] Apixaban (Eliquis) 5 mg PO BID DEIDRE Stop: 11/14/19 08:59 Last Admin: 10/23/19 08:15 Dose: 5 mg Documented by: [id number] Admin: 10/22/19 20:33 Dose: 5 mg Documented by: [id number] Admin: 10/22/19 07:54 Dose: 5 mg Documented by: [id number] Admin: 10/21/19 20:35 Dose: 5 mg Documented by: [id number] Admin: 10/21/19 07:59 Dose: 5 mg Documented by: [id number] Admin: 10/20/19 20:31 Dose: 5 mg Documented by: [id number] Admin: 10/20/19 08:01 Dose: 5 mg Documented by: [id number] Admin: 10/19/19 21:42 Dose: 5 mg Documented by: [id number] Admin: 10/15/19 09:52 Dose: 5 mg Documented by: [id number] Petrolatum 45 appln/Hydrocortisone 45 appln/ Al Hydrox/Mg Hydrox/Simethicone 15 ml/ BARCODE IDENTIFIER 1 ea 0 appln TOP UD PRN PRN Reason: Diaper Rash Stop: 11/14/19 02:46 Last Admin: 10/17/19 00:20 Dose: 1 appln Documented by: [id number] Admin: 10/16/19 16:28 Dose: 1 appln Documented by: [id number] Admin: 10/15/19 21:19 Dose: 1 appln Documented by: [id number] Gabapentin (Neurontin) 200 mg PO BID DEIDRE Stop: 11/14/19 08:59 Last Admin: 10/23/19 08:14 Dose: 200 mg Documented by: [id number] Admin: 10/22/19 20:35 Dose: 200 mg Documented by: [id number] Admin: 10/22/19 07:54 Dose: 200 mg Documented by: [id number] Admin: 10/21/19 20:35 Dose: 200 mg Documented by: [id number] Admin: 10/21/19 07:58 Dose: 200 mg Documented by: [id number] Admin: 10/20/19 20:31 Dose: 200 mg Documented by: [id number] Admin: 10/20/19 08:01 Dose: 200 mg Documented by: [id number] Admin: 10/19/19 21:41 Dose: 200 mg Documented by: [id number] Admin: 10/19/19 08:08 Dose: 200 mg Documented by: [id number] Admin: 10/18/19 20:54 Dose: 200 mg Documented by: [id number] Admin: 10/18/19 08:00 Dose: 200 mg Documented by: [id number] Admin: 10/17/19 20:43 Dose: 200 mg Documented by: [id number] Admin: 10/17/19 09:41 Dose: 200 mg Documented by: [id number] Admin: 10/16/19 20:35 Dose: 200 mg Documented by: [id number] Admin: 10/16/19 08:03 Dose: 200 mg Documented by: [id number] Admin: 10/15/19 20:51 Dose: 200 mg Documented by: [id number] Admin: 10/15/19 09:53 Dose: 200 mg Documented by: [id number] Gadobutrol (Gadavist 65ml) 8.5 ml IV ONCE PRN PRN Reason: Interaction Checking Stop: 10/23/19 20:58 Last Admin: 10/19/19 20:59 Dose: 8.5 ml Documented by: [id number] Lactobacillus Acidophilus (Floranex) 4 tab PO QIDM DEIDRE Stop: 11/17/19 20:59 Last Admin: 10/23/19 13:33 Dose: 4 tab Documented by: [id number] Admin: 10/23/19 08:15 Dose: 4 tab Documented by: [id number] Admin: 10/22/19 20:33 Dose: 4 tab Documented by: [id number] Admin: 10/22/19 16:15 Dose: 4 tab Documented by: [id number] Admin: 10/22/19 12:20 Dose: Not Given Documented by: [id number] Admin: 10/22/19 07:55 Dose: 4 tab Documented by: [id number] Admin: 10/21/19 20:35 Dose: 4 tab Documented by: [id number] Admin: 10/21/19 17:02 Dose: 4 tab Documented by: [id number] Admin: 10/21/19 11:37 Dose: Not Given Documented by: [id number] Admin: 10/21/19 08:03 Dose: Not Given Documented by: [id number] Admin: 10/20/19 20:33 Dose: 4 tab Documented by: [id number] Admin: 10/20/19 17:10 Dose: 4 tab Documented by: [id number] Admin: 10/20/19 12:25 Dose: Not Given Documented by: [id number] Admin: 10/20/19 08:01 Dose: 4 tab Documented by: [id number] Admin: 10/19/19 21:41 Dose: 4 tab Documented by: [id number] Admin: 10/19/19 17:26 Dose: 4 tab Documented by: [id number] Admin: 10/19/19 12:26 Dose: Not Given Documented by: [id number] Admin: 10/19/19 08:08 Dose: 4 tab Documented by: [id number] Admin: 10/18/19 20:58 Dose: 4 tab Documented by: [id number] Loperamide HCl (Imodium) 2 mg PO Q6H PRN PRN Reason: Diarrhea Stop: 11/14/19 02:44 Last Admin: 10/22/19 20:34 Dose: 2 mg Documented by: [id number] Admin: 10/21/19 18:36 Dose: 2 mg Documented by: [id number] Admin: 10/20/19 17:10 Dose: 2 mg Documented by: [id number] Admin: 10/19/19 17:32 Dose: 2 mg Documented by: [id number] Admin: 10/16/19 22:20 Dose: 2 mg Documented by: [id number] Admin: 10/16/19 16:12 Dose: 2 mg Documented by: [id number] Lorazepam (Ativan) 0.5 mg PO TID PRN PRN Reason: Anxiety Stop: 11/14/19 02:44 Last Admin: 10/22/19 20:36 Dose: 0.5 mg Documented by: [id number] Admin: 10/19/19 19:52 Dose: 0.5 mg Documented by: [id number] Ondansetron HCl (Zofran) 4 mg IV Q6H PRN PRN Reason: Nausea Stop: 11/14/19 02:33 Last Admin: 10/22/19 09:04 Dose: 4 mg Documented by: [id number] Oxycodone HCl (Roxicodone Immediate Rel) 5 mg PO Q6H PRN PRN Reason: SEVERE PAIN Stop: 10/29/19 02:49 Last Admin: 10/22/19 20:34 Dose: 5 mg Documented by: [id number] Admin: 10/19/19 19:52 Dose: 5 mg Documented by: [id number] Admin: 10/19/19 09:42 Dose: 5 mg Documented by: [id number] Admin: 10/17/19 17:37 Dose: 5 mg Documented by: [id number] Pantoprazole Sodium (Protonix) 40 mg PO DAILY DEIDRE Stop: 11/14/19 08:59 Last Admin: 10/23/19 08:15 Dose: 40 mg Documented by: [id number] Admin: 10/22/19 07:54 Dose: 40 mg Documented by: [id number] Admin: 10/21/19 07:59 Dose: 40 mg Documented by: [id number] Admin: 10/20/19 08:01 Dose: 40 mg Documented by: [id number] Admin: 10/19/19 08:09 Dose: 40 mg Documented by: [id number] Admin: 10/18/19 08:00 Dose: 40 mg Documented by: [id number] Admin: 10/17/19 09:41 Dose: 40 mg Documented by: [id number] Admin: 10/16/19 08:03 Dose: 40 mg Documented by: [id number] Admin: 10/15/19 09:52 Dose: 40 mg Documented by: [id number] Potassium Chloride (Antonia Ciel Elix) 20 meq PO BID DEIDRE Stop: 11/19/19 08:59 Last Admin: 10/23/19 08:14 Dose: Not Given Documented by: [id number] Admin: 10/22/19 20:39 Dose: Not Given Documented by: [id number] Admin: 10/22/19 07:54 Dose: Not Given Documented by: [id number] Admin: 10/21/19 20:43 Dose: Not Given Documented by: [id number] Admin: 10/21/19 08:01 Dose: Not Given Documented by: [id number] Admin: 10/20/19 20:33 Dose: Not Given Documented by: [id number] Admin: 10/20/19 08:05 Dose: 20 meq Documented by: [id number] Coding Level of Care Code 48268 [facility] Intl Hosp Care Lvl 1
[2019-10-23] MEDS: CEROVITE ADV FORMULA TAB PO SCH (16:49)
--- NOTE | 2019-10-23 21:44 | Hospitalist Progress Note ---
Date of Service October 23, 2019 Assessment & Plan (1) Foot drop, left: left foot drop. ongoing. new - started at [facility] recently while rehabbing. with associated numbness left anterior hooper and left foot dorsum. AFO device obtained - refusing to wear such. patient is to be non-weightbearing right foot due to recent surgery. recent l-spine MRI negative for pathology. refusing head imaging. (2) Dry gangrene: b/l feet. 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 operative sites intact and clean. dry gangrene - distal 1st/2nd toes left foot - no Rx at this time per ortho. all abx stopped. no infectious process at this time. (3) Popliteal artery occlusion, right: Chronic popliteal artery occlusion. Appreciate vascular consult by Dr Gresham this admission. No intervention at this time. f/u Dr Gresham post-discharge. (4) 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 thrombocytopenia): 07/2019 at [facility]. Remains on eliquis for h/o PEs, right IJ DVT, and arterial thrombi of legs. (5) Intellectual disability: Long-standing. Pt's children are in foster care. from boyfriend/. next of kin - her uncle Ozzie? asked psych today to do a formal capacity test. (6) Neuroendocrine neoplasm of gastrointestinal tract: s/p hemicolectomy [facility] 07/2019. with liver Mets. s/p octreotide this admission. needs outpatient f/u with Dr Yeung. (7) Abnormal LFTs: Likely secondary to hepatic metastasis from neuroendocrine tumor (8) History of hemicolectomy: 07/2019 - s/p removal of ileum and right colon with reanastomosis. 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 (9) Watery stools: c diff negative likely abx-associated diarrhea and also likely from neuroendocrine tumor loperamide prn lactinex stable (10) Asthma: albuterol prn (11) Pulmonary emboli: RLL - incidentally noted on CTA on 09/04/19 in [place]. associated pulmonary infarction in the RLL as well. cont eliquis. recommend life-long in light of cancer. (12) Internal jugular vein thrombosis: 07/2019 - [facility]. eliquis. (13) Hypokalemia: ongoing - likely 2nd to GI losses. cont K supplementation. K level normal today. (14) Hypomagnesemia: replete IV today then place on PO mag BID indefinitely likely GI losses mag in am (15) DVT prophylaxis: eliquis 5mg BID social situation is very complicated best option would be placement in SNF - patient finally agreeable to such in terms of healthcare POA -- if her uncle is unable or unwilling to be her POA - does she need state guardianship?? I am quite concerned by Rebecca's actions (leaving town and calling us 30 minutes prior to Mrs Bardales's discharge that she wouldn't be home for several days) psych to do formal capacity testing today referral to APS?? appreciate social work assistance Admission and Anticipated Discharge Date Admission Date: October 15, 2019 Subjective patient agreeable to SNF placement - not happy about it, but willing to go no change in chronic abdominal discomfort refusing to get out of bed "can't eat - I can't eat solids" denies foot pain Review of Systems Constitutional: no fever Respiratory: no cough and no dyspnea Cardiovascular: no chest pain and no orthopnea Gastrointestinal: + nausea and + diarrhea/loose stools Physical Exam Constitutional: no acute distress and no altered mental status ENMT: external ear and nose normal, oropharynx normal Mouth: + poor dentition and + chipped teeth; no oral mucosal abnormality Respiratory: normal respiratory effort, lungs clear to auscultation Cardiovascular: Rate/Rhythm: regular rate and regular rhythm Heart Sounds: normal S1 and normal S2; no murmur Vessels: posterior tibial pulses present (right foot - <1+) and dorsalis pedis pulses present (right foot <1+); no JVD Extremities: + abnormal capillary refill (4+ seconds both feet ) and no edema Gastrointestinal (Abdomen): normal bowel sounds, soft, nontender, no hepatosplenomegaly Skin: dressings intact right foot; no change in ulcer left lower leg, medial aspect; no change in gangrenous toes, first/2nd - left foot Psychiatric: Orientation: alert and oriented x 3 Results & Data Results & Data ([facility]) Vital Signs (Past 12 Hours) Vital Signs Temp Pulse Resp BP Pulse Ox 10/23/19 15:05 36.6 C 90 16 122/82 91 Laboratory Results Laboratory Results - last 24 hr 10/23/19 10/23/19 06:41 06:41 WBC 7.30 RBC 3.80 L Hgb 10.9 L Hct 34.4 L MCV 90.5 MCH 28.7 MCHC 31.7 L RDW Std Deviation 64.7 H RDW Coeff of Sharan 19.4 H Plt Count 311 MPV 11.0 H Sodium 140 Potassium 3.5 Chloride 108 H Carbon Dioxide 30 Anion Gap 3.0 BUN 2 L Creatinine 0.44 L Est Cr Clr Drug Dosing 162.5 Est GFR ( Amer) 138.3 Est GFR (Non-Af Amer) 119.4 BUN/Creatinine Ratio 3.6 L Glucose 95 Calcium 7.7 L Magnesium 1.6 L Specimen Hemolysis PG Care Time/CCT Total # of Minutes Spent Total Time Spent with Patient: Total time spent is greater than 50% in coordination of care (as documented) at patient's floor/unit and/or counseling patient: Coding Level of Care Code 96975 Subseq Hosp Care Lvl 2 Diagnoses Foot drop, left M21.372 Dry gangrene I96 Popliteal artery occlusion, right I70.201 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 thrombocytopenia) D75.82 Intellectual disability F79 Neuroendocrine neoplasm of gastrointestinal tract D3A.8 Abnormal LFTs R94.5 History of hemicolectomy Z90.49 Watery stools R19.5 Asthma J45.20 Asthma complication type: unspecified Asthma persistence: intermittent Asthma severity: mild Pulmonary emboli I26.99 Acute cor pulmonale presence: without acute cor pulmonale Chronicity: unspecified Pulmonary embolism type: unspecified Internal jugular vein thrombosis I82.C11 Laterality: right Hypokalemia E87.6 Hypomagnesemia E83.42 DVT prophylaxis Z29.9 (1) Internal jugular vein thrombosis Laterality: right Qualified Code(s): I82.C11 - Acute embolism and thrombosis of right internal jugular vein (2) Pulmonary emboli Acute cor pulmonale presence: without acute cor pulmonale Chronicity: unspecified Pulmonary embolism type: unspecified Qualified Code(s): I26.99 - Other pulmonary embolism without acute cor pulmonale (3) Asthma Asthma complication type: unspecified Asthma persistence: intermittent Asthma severity: mild Qualified Code(s): J45.20 - Mild intermittent asthma, uncomplicated
[2019-10-23] MEDS: ONDANSETRON INJ 2 MG/ML 2 ML VIAL IV PRN (22:16)
[2019-10-23] MEDS: MAGNESIUM OXIDE 400 MG TAB PO SCH (22:46)
[2019-10-24] MEDS: GABAPENTIN 100 MG CAP PO SCH ×2 (09:20→22:04)
[2019-10-24] MEDS: MAGNESIUM OXIDE 400 MG TAB PO SCH ×2 (09:20→22:06)
[2019-10-24] MEDS: APIXABAN 5 MG TABLET PO SCH ×2 (09:21→22:06)
[2019-10-24] MEDS: PANTOprazole 40 MG TAB PO SCH (09:21)
[2019-10-24] MEDS: POTASSIUM CHLORIDE 20 MEQ/15 ML UDC PO SCH ×4 (09:21→22:16)
[2019-10-24] MEDS: LACTOBACILLUS ACIDOPHILUS (FLORANEX) TAB PO SCH ×4 (09:21→22:04)
[2019-10-24] MEDS: CEROVITE ADV FORMULA TAB PO SCH (09:21)
[2019-10-24] MEDS: LOPERAMIDE HCL 2 MG CAP PO PRN (11:47)
[2019-10-24] MEDS ORDERED: KETOROLAC 30 MG/ML VIAL IV ONE ×3 (17:00→23:00)
--- NOTE | 2019-10-24 17:01 | Hospitalist Progress Note ---
Date of Service October 24, 2019 Assessment & Plan (1) Pain of left midfoot: gout? pseudogout? check xrays for CPPD changes, acute fracture, etc. if negative - sed rate/uric acid in am. does not sound neuropathic as the mid-foot is tender to palpation (and swollen). toradol x 2 doses. re-eval in am. (2) Foot drop, left: left foot drop. ongoing. new - started at [facility] recently while rehabbing. with associated numbness left anterior hooper and left foot dorsum. AFO device obtained - refusing to wear such. patient is to be non-weightbearing right foot due to recent surgery but is refusing to get out of bed the entire hospitalization. recent l-spine MRI negative for pathology. refusing head imaging to investigate this issue further. 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 operative sites intact and clean. dry gangrene - distal 1st/2nd toes left foot - no Rx at this time per ortho. exam today unchanged. all abx stopped. no infectious process at this time. (4) Popliteal artery occlusion, right: Chronic popliteal artery occlusion. Appreciate vascular consult by Dr Gresham this admission. No intervention at this time. f/u Dr Gresham post-discharge. (5) 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 thrombocytopenia): 07/2019 at [facility]. Remains on eliquis for h/o PEs, right IJ DVT, and arterial thrombi of legs. (6) Intellectual disability: Long-standing. Pt's children are in foster care. from boyfriend/. next of kin - her uncle Ozzie? asked psych to do formal capacity testing on 10/22 - appears to have capacity from their standpoint, but patient telling me today that she wants to go to her Uncle Ozzie's house, that when she is incontinent of urine/stool she will "do it herself" [clean herself up], etc. 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 with liver Mets. s/p octreotide this admission. needs outpatient f/u with Dr Yeung. 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 (10) Asthma: albuterol prn stable (11) Pulmonary emboli: RLL - incidentally noted on CTA on 09/04/19 in [place]. associated pulmonary infarction in the RLL as well. cont eliquis. recommend life-long in light of cancer. 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 eliquis. (13) Hypokalemia: ongoing - likely 2nd to GI losses. cont K supplementation. bmp in am. (14) Hypomagnesemia: recheck level am cont mag oxide BID (15) DVT prophylaxis: eliquis 5mg BID social situation is very complicated best option would be placement in SNF - patient finally agreeable to such - referral made to [facility] in [place] in terms of healthcare POA -- if her uncle is unable or unwilling to be her POA - does she need state guardianship?? psych recommending referral to Adult Protective Services - I agree w/ such. psych, however, feels she retains capacity but today's conversation about living w/ her uncle seems not consistent with such (uncle doesn't drive, apparently is in poor health himself, etc). social work heavily involved in her care Admission and Anticipated Discharge Date Admission Date: October 15, 2019 Subjective Mee c/o left mid-foot pain that started overnight. has been continuous since. hurts at rest. no pain with flexion/extension of left ankle. feels entirely different than nerve pain she has had over left hooper and left foot. no h/o gout. no injury overnight. toes are unchanged. no abdominal symptoms today. refuses to get out of bed, and I offered an opportunity for staff to take her to [facility] - again declined such. incontinent of urine. Review of Systems Constitutional: no fever Respiratory: no cough and no dyspnea Cardiovascular: no chest pain and no orthopnea Gastrointestinal: no abdominal pain, no nausea and no vomiting Physical Exam Constitutional: no acute distress and no altered mental status ENMT: external ear and nose normal, oropharynx normal Mouth: + poor dentition and + chipped teeth; no oral mucosal abnormality Respiratory: normal respiratory effort, lungs clear to auscultation Cardiovascular: Rate/Rhythm: regular rate and regular rhythm Heart Sounds: normal S1 and normal S2; no murmur Vessels: no JVD Extremities: + abnormal capillary refill (4+ seconds R foot; L foot 2-3 sec) and no edema pulses right foot <1+ at best; left foot 1+ Gastrointestinal (Abdomen): normal bowel sounds, soft, nontender, no hepatosplenomegaly Musculoskeletal: left foot -- mid-foot with mild swelling; tender to very light palpation over entire mid-foot; no pain over toes; no pain or swelling over left ankle; passive movement of left ankle does not give her pain Skin: right foot - dressings intact. left foot - distal tips, 1st/2nd toes - unchanged gangrene. severe xerosis left foot. Psychiatric: Orientation: alert and oriented x 3 Results & Data Results & Data ([facility]) Vital Signs (Past 12 Hours) Vital Signs Temp Pulse Resp BP BP Pulse Ox 10/24/19 15:56 36.8 C 82 18 104/67 93 10/24/19 07:15 36.6 C 89 15 133/82 95 PG Care Time/CCT Total # of Minutes Spent Total Time Spent with Patient: Total time spent is greater than 50% in coordination of care (as documented) at patient's floor/unit and/or counseling patient: Coding Level of Care Code 73966 Subseq Hosp Care Lvl 2 Diagnoses Pain of left midfoot M79.672 Foot drop, left M21.372 Dry gangrene I96 Popliteal artery occlusion, right I70.201 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 thrombocytopenia) D75.82 Intellectual disability F79 Neuroendocrine neoplasm of gastrointestinal tract D3A.8 Abnormal LFTs R94.5 History of hemicolectomy Z90.49 Asthma J45.20 Asthma complication type: unspecified Asthma persistence: intermittent Asthma severity: mild Pulmonary emboli I26.99 Acute cor pulmonale presence: without acute cor pulmonale Chronicity: unspecified Pulmonary embolism type: unspecified Internal jugular vein thrombosis I82.C11 Laterality: right Hypokalemia E87.6 Hypomagnesemia E83.42 DVT prophylaxis Z29.9 (1) Internal jugular vein thrombosis Laterality: right Qualified Code(s): I82.C11 - Acute embolism and thrombosis of right internal jugular vein (2) Pulmonary emboli Acute cor pulmonale presence: without acute cor pulmonale Chronicity: unspecified Pulmonary embolism type: unspecified Qualified Code(s): I26.99 - Other pulmonary embolism without acute cor pulmonale (3) Asthma Asthma complication type: unspecified Asthma persistence: intermittent Asthma severity: mild Qualified Code(s): J45.20 - Mild intermittent asthma, uncomplicated
--- NOTE | 2019-10-24 17:39 | XRay Report ---
XR foot LT min 3V routine CLINICAL HISTORY: mid-foot pain, acute; eval Fx, CPPD, etc COMPARISON: None FINDINGS: Tarsometatarsal joints are intact. Moderate plantar calcaneal spurring is noted. There is an old minimally distracted at stress fracture the distal left fibula. This was present on CTA of Sep. Mild dorsal soft tissue swelling of the left foot is noted. There is osteopenia. IMPRESSION: 1. No acute fracture or dislocation within the left foot. 2. Old minimally distracted transverse fracture of the distal left fibula. 3. Osteopenia. ACT 112: Negative or not required by law. Electronically signed by: Kenji Kinney M.D. 10/24/2019 5:38 PM
[2019-10-25 06:14] LABS: BUN Creatinine Ratio 4.6 (10-20); Calcium 8.1 mg/dl (8.5-10.1); Creatinine Clr Calc Pharmacy 123.3 ml/min; Est GFR (African American) 126.3; Magnesium 1.9 mg/dl (1.8-2.4); Potassium 3.5 mmol/L (3.5-5.1); Uric Acid 3.4 mg/dl (2.6-7.2)
[2019-10-25] MEDS: LACTOBACILLUS ACIDOPHILUS (FLORANEX) TAB PO SCH ×4 (08:44→21:40)
[2019-10-25] MEDS: CEROVITE ADV FORMULA TAB PO SCH (08:45)
[2019-10-25] MEDS: MAGNESIUM OXIDE 400 MG TAB PO SCH ×2 (08:45→21:41)
[2019-10-25] MEDS: GABAPENTIN 100 MG CAP PO SCH ×2 (08:45→21:41)
[2019-10-25] MEDS: PANTOprazole 40 MG TAB PO SCH (08:45)
[2019-10-25] MEDS: APIXABAN 5 MG TABLET PO SCH ×2 (08:46→21:40)
[2019-10-25] MEDS: POTASSIUM CHLORIDE 20 MEQ/15 ML UDC PO SCH ×3 (08:46→21:41)
[2019-10-25] MEDS: ONDANSETRON INJ 2 MG/ML 2 ML VIAL IV PRN ×2 (08:49→18:14)
[2019-10-25] MEDS: NYSTATIN POWDER 15GM BTL EXT SCH ×2 (16:47→21:44)
[2019-10-25] MEDS: LOPERAMIDE HCL 2 MG CAP PO PRN (18:14)
[2019-10-25] MEDS: MIRTAZAPINE SOLTAB 15 MG PO SCH (21:41)
--- NOTE | 2019-10-25 22:11 | Hospitalist Progress Note ---
Date of Service October 25, 2019 Assessment & Plan (1) Depression: with poor sleep, poor appetite - start remeron 15mg HS recent TSH wnl. check b12 and 25-OH vit D in am. (2) Pain of left midfoot: gout? pseudogout? checked xrays for CPPD changes, acute fracture - neither seen; old fibular fracture seen sed rate minimally high; uric acid wnl. pain largely resolved with 2 doses of toradol yesterday pm. swelling resolved as well. cont to monitor. (3) Foot drop, left: left foot drop. ongoing. new - started at [facility] recently while rehabbing. with associated numbness left anterior hooper and left foot dorsum. AFO device obtained - refusing to wear such. patient is to be non-weightbearing right foot due to recent surgery but is refusing to get out of bed the entire hospitalization. recent l-spine MRI negative for pathology. refused head imaging to investigate this issue further. 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 operative sites intact and clean again today. dry gangrene - distal 1st/2nd toes left foot - no Rx at this time per ortho. exam today unchanged. will need f/u with Dr Le post-discharge. all abx stopped. no infectious process at this time. (5) Popliteal artery occlusion, right: Chronic popliteal artery occlusion. Appreciate vascular consult by Dr Gresham this admission. No intervention at this time. f/u Dr Gresham post-discharge. (6) 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 thrombocytopenia): 07/2019 at [facility]. Cont eliquis for h/o PEs, right IJ DVT, and arterial thrombi of legs. Platelets normal. (7) Intellectual disability: Long-standing. Pt's children are in foster care. from boyfriend/. next of kin - patient has 2 sisters - 1 in [place]. but has not spoken to her in some time. asked psych to do formal capacity testing on 10/22 - appears to have capacity from their standpoint, but patient telling me once again today that she wants to go to her Uncle Ozzie's house, that when she is incontinent of urine/stool she will "do it herself" [clean herself up], etc. Continually states that her Uncle can care for her adequately. now stating she is NOT going to [facility] or [facility] SNFs. 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 with liver Mets. s/p octreotide this admission. needs outpatient f/u with Dr Yeung. 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 has chronic diarrhea with neg c diff this admission. (11) Asthma: albuterol prn stable (12) Pulmonary emboli: RLL - incidentally noted on CTA on 09/04/19 in [place]. associated pulmonary infarction in the RLL as well. cont eliquis. recommend life-long in light of cancer. (13) Internal jugular vein thrombosis: 07/2019 - [facility]. eliquis. (14) Hypokalemia: resolved. likely 2nd to GI losses and poor PO intake. cont K supplementation daily. BMP stable again today. (15) Hypomagnesemia: stable, normal today. likely GI losses and poor PO intake. cont mag oxide BID indefinitely. (16) DVT prophylaxis: eliquis 5mg BID social situation is very complicated best option would be placement in SNF - patient was finally agreeable to such late this past week - referral made to [facility] in [place] she is now refusing such stating she wants to live with her uncle Ozzie who has been previously deemed not an option at discharge in terms of healthcare POA -- next of kin would be 2 sisters one of whom lives in [facility]. Patient has not been in contact with either in a long time. psych recommending referral to Adult Protective Services - I agree w/ such. psych, however, feels she retains capacity but yesterday's and today's conversations about living w/ her uncle seems not consistent with such (uncle doesn't drive, apparently is in poor health himself, couldn't care for her, etc). social work heavily involved in her care need to readdress these issues on Saturday, 10/25 Admission and Anticipated Discharge Date Admission Date: October 15, 2019 Subjective patient reports left mid-foot is much improved today following 2 doses toradol yesterday she is VERY tearful today states "I'm leaving - I'm gonna stay with my Uncle Ozzie" "He can take care of me" she reports that she has not spoken to Rebecca since last week did not speak to her Uncle today asked if she was depressed - reported yes appetite poor - essentially refusing to eat refusing to get OOB offered to get in wheelchair and take a ride to lobby, etc - refusing sleeping poorly - up much of the night "you can't make me do anything" she said repeatedly to the nurse and myself Review of Systems Constitutional: no fever Respiratory: no cough and no dyspnea Cardiovascular: no chest pain and no orthopnea Gastrointestinal: + abdominal pain (minimal) and + nausea Physical Exam Constitutional: no acute distress and no altered mental status depressed, tearful ENMT: external ear and nose normal, oropharynx normal Mouth: + poor dentition and + chipped teeth; no oral mucosal abnormality Respiratory: normal respiratory effort, lungs clear to auscultation Cardiovascular: Rate/Rhythm: regular rate and regular rhythm Heart Sounds: normal S1 and normal S2; no murmur Vessels: no JVD Extremities: + abnormal capillary refill (3-4 seconds R foot; L foot 2-3 sec) and no edema (left foot edema resolved) Gastrointestinal (Abdomen): normal bowel sounds, soft, nontender, no hepatosplenomegaly Skin: dressings removed right foot; wound bed from 1st/2nd/3rd toe amputation clean, sutures intact, no erythema/drainage; 4th/5th toes with poor color but no change from prior exams; left distal hooper, medial aspect - ulcer with overlying eschar - no change, no drainage. left foot - first/2nd toes with distal gangrene - no change from prior exams. 3rd/4th/5th toes, left foot, without gangrene. Psychiatric: Orientation: alert and oriented x 3 Affect: + depressed affect and + tearful affect Results & Data Results & Data ([facility]) Vital Signs (Past 12 Hours) Vital Signs Temp Pulse Resp BP Pulse Ox 10/25/19 15:26 36.6 C 87 18 103/72 94 Laboratory Results Laboratory Results - last 24 hr 10/25/19 10/25/19 05:18 05:18 ESR 33 H Sodium 143 Potassium 3.5 Chloride 107 Carbon Dioxide 31 Anion Gap 5.0 BUN 3 L Creatinine 0.58 L Est Cr Clr Drug Dosing 123.3 Est GFR ( Amer) 126.3 Est GFR (Non-Af Amer) 109.0 BUN/Creatinine Ratio 4.6 L Glucose 96 Uric Acid 3.4 Calcium 8.1 L Magnesium 1.9 PG Care Time/CCT Total # of Minutes Spent Total Time Spent with Patient: Total time spent is greater than 50% in coordination of care (as documented) at patient's floor/unit and/or counseling patient: Coding Level of Care Code 17237 Subseq Hosp Care Lvl 2 Diagnoses Depression F32.9 Depression Type: unspecified Pain of left midfoot M79.672 Foot drop, left M21.372 Dry gangrene I96 Popliteal artery occlusion, right I70.201 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 thrombocytopenia) D75.82 Intellectual disability F79 Neuroendocrine neoplasm of gastrointestinal tract D3A.8 Abnormal LFTs R94.5 History of hemicolectomy Z90.49 Asthma J45.20 Asthma severity: mild Asthma persistence: intermittent Asthma complication type: unspecified Pulmonary emboli I26.99 Pulmonary embolism type: unspecified Chronicity: unspecified Acute cor pulmonale presence: without acute cor pulmonale Internal jugular vein thrombosis I82.C11 Laterality: right Hypokalemia E87.6 Hypomagnesemia E83.42 DVT prophylaxis Z29.9 (1) Asthma Asthma severity: mild Asthma persistence: intermittent Asthma complication type: unspecified Qualified Code(s): J45.20 - Mild intermittent asthma, uncomplicated (2) Pulmonary emboli Pulmonary embolism type: unspecified Chronicity: unspecified Acute cor pulmonale presence: without acute cor pulmonale Qualified Code(s): I26.99 - Other pulmonary embolism without acute cor pulmonale (3) Internal jugular vein thrombosis Laterality: right Qualified Code(s): I82.C11 - Acute embolism and thrombosis of right internal jugular vein (4) Depression Depression Type: unspecified Qualified Code(s): F32.9 - Major depressive disorder, single episode, unspecified
[2019-10-25] MEDS: LORazepam 0.5 MG TAB PO PRN (22:19)
[2019-10-25] MEDS: OXYCODONE HCL IR 5 MG TAB (IMMEDIATE RELEASE) PO PRN (22:19)
[2019-10-26 07:06] LABS: Albumin Level 1.5 gm/dl (3.4-5.0); Bilirubin Direct 1.2 mg/dl (0-0.2); Bilirubin,Total 2.2 mg/dl (0.2-1)
[2019-10-26] MEDS: PANTOprazole 40 MG TAB PO SCH (07:26)
[2019-10-26] MEDS: MAGNESIUM OXIDE 400 MG TAB PO SCH ×2 (07:26→20:54)
[2019-10-26] MEDS: NYSTATIN POWDER 15GM BTL EXT SCH ×3 (07:27→20:55)
[2019-10-26] MEDS: GABAPENTIN 100 MG CAP PO SCH ×2 (07:27→20:54)
[2019-10-26] MEDS: POTASSIUM CHLORIDE 20 MEQ/15 ML UDC PO SCH ×2 (07:27→20:59)
[2019-10-26] MEDS: CEROVITE ADV FORMULA TAB PO SCH (07:27)
[2019-10-26] MEDS: LACTOBACILLUS ACIDOPHILUS (FLORANEX) TAB PO SCH ×4 (07:27→20:53)
[2019-10-26] MEDS: APIXABAN 5 MG TABLET PO SCH ×2 (07:27→20:53)
--- NOTE | 2019-10-26 16:33 | Hospitalist Progress Note ---
Date of Service October 26, 2019 Assessment & Plan (1) Depression: with poor sleep, poor appetite - start remeron 15mg HS recent TSH wnl. B 12 is normal Vitamin D quite low at 10, will start replacement (2) Pain of left midfoot: gout? pseudogout? checked xrays for CPPD changes, acute fracture - neither seen; old fibular fracture seen sed rate minimally high; uric acid wnl. pain largely resolved with 2 doses of toradol swelling resolved as well. cont to monitor, pain is minimal today (3) Foot drop, left: left foot drop. ongoing. new - started at [facility] recently while rehabbing. with associated numbness left anterior hooper and left foot dorsum. AFO device obtained - refusing to wear such. patient is to be non-weightbearing right foot due to recent surgery but is refusing to get out of bed the entire hospitalization. recent l-spine MRI negative for pathology. refused head imaging to investigate this issue further. 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 operative sites intact and clean dry gangrene - distal 1st/2nd toes left foot - no Rx at this time per ortho. exam unchanged. will need f/u with Dr Le post-discharge. all abx stopped. no infectious process at this time. (5) Popliteal artery occlusion, right: Chronic popliteal artery occlusion. Appreciate vascular consult by Dr Gresham this admission. No intervention at this time. f/u Dr Gresham post-discharge. (6) 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 thrombocytopenia): 07/2019 at [facility]. Cont eliquis for h/o PEs, right IJ DVT, and arterial thrombi of legs. Platelets normal. (7) Intellectual disability: Long-standing. Pt's children are in foster care. from boyfriend/. next of kin - patient has 2 sisters - 1 in [place]. but has not spoken to her in some time. 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 with liver Mets. s/p octreotide this admission. 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 has chronic diarrhea with neg c diff this admission. (11) Asthma: albuterol prn stable (12) Pulmonary emboli: RLL - incidentally noted on CTA on 09/04/19 in [place]. associated pulmonary infarction in the RLL as well. cont eliquis. recommend life-long in light of cancer. 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 eliquis. (14) Hypokalemia: resolved. likely 2nd to GI losses and poor PO intake. cont K supplementation daily. (15) Hypomagnesemia: stable, normal today. likely GI losses and poor PO intake. cont mag oxide BID indefinitely. (16) DVT prophylaxis: eliquis 5mg BID social situation is very complicated best option would be placement in SNF - patient was finally agreeable to such late this past week - referral made to [facility] in [place] in terms of healthcare POA -- next of kin would be 2 sisters one of whom lives in [facility]. Patient has not been in contact with either in a long time. psych recommending referral to Adult Protective Services - I agree social work heavily involved in her care working on placement, right now there are no beds, remain hospitalized until that time Admission and Anticipated Discharge Date Admission Date: October 15, 2019 Subjective patient says she has no appetite her left leg is painful at times but not terrible she denies fever, chills, chest pain, dyspnea, cough, nausea discussed that right now there are no beds available at SNF for her she admits that she knows she cannot go home with family, no one to take care of her needs she is still refusing to get OOB labs today, Vitamin D low at 10 Review of Systems Review of Systems: All systems reviewed & are unremarkable except as noted in HPI & below Physical Exam Constitutional: WD/WN, vitals as above + overweight Eyes: PERRL, conjunctivae normal, anicteric sclerae ENMT: external ear and nose normal, oropharynx normal Neck: trachea midline, no thyromegaly Respiratory: normal respiratory effort, lungs clear to auscultation Cardiovascular: RRR, no murmur, no edema Gastrointestinal (Abdomen): normal bowel sounds, soft, nontender, no hepat osplenomegaly Musculoskeletal: no cyanosis or clubbing, extremities motor strength 5/5 Neurologic: patellar DTR's 2+ bilat, sensation intact and PERRL, EOMI, accommodation nl, no face palsy, no dysarthria Psychiatric: A+Ox3, euthymic affect Lymphatic: no cervical or axillary lymphadenopathy Results & Data Results & Data ([facility]) Vital Signs (Past 12 Hours) Vital Signs Temp Pulse Resp BP BP Pulse Ox 10/26/19 15:21 36.2 C L 72 18 115/76 97 10/26/19 06:54 36.4 C L 68 16 113/79 97 Laboratory Results Laboratory Results - last 24 hr 10/26/19 10/26/19 10/26/19 05:45 05:45 05:45 Total Bilirubin 2.2 H Direct Bilirubin 1.2 H AST 130 H ALT 48 Alkaline Phosphatase 136 H Total Protein 6.0 L Albumin 1.5 L Vitamin B12 1777 H 25-OH Vitamin D Total 10.0 L Medications Administered Current Inpatient Medications Acetaminophen (Tylenol) 650 mg PO Q4H PRN PRN Reason: pain/fever Stop: 11/14/19 02:33 Last Admin: 10/22/19 16:14 Dose: 650 mg Documented by: Albuterol (Ventolin Hfa) 1 puffs INH Q4 PRN PRN Reason: Shortness Of Breath Or Wheezing Stop: 11/14/19 02:44 Apixaban (Eliquis) 5 mg PO BID [facility] Stop: 11/14/19 08:59 Last Admin: 10/26/19 07:27 Dose: 5 mg Documented by: Petrolatum 45 appln/Hydrocortisone 45 appln/ Al Hydrox/Mg Hydrox/Simethicone 15 ml/ BARCODE IDENTIFIER 1 ea 0 appln TOP UD PRN PRN Reason: Diaper Rash Stop: 11/14/19 02:46 Last Admin: 10/17/19 00:20 Dose: 1 appln Documented by: Gabapentin (Neurontin) 200 mg PO BID [facility] Stop: 11/14/19 08:59 Last Admin: 10/26/19 07:27 Dose: 200 mg Documented by: Lactobacillus Acidophilus (Floranex) 4 tab PO QIDM [facility] Stop: 11/17/19 20:59 Last Admin: 10/26/19 12:52 Dose: 4 tab Documented by: Loperamide HCl (Imodium) 2 mg PO Q6H PRN PRN Reason: Diarrhea Stop: 11/14/19 02:44 Last Admin: 10/25/19 18:14 Dose: 2 mg Documented by: Lorazepam (Ativan) 0.5 mg PO TID PRN PRN Reason: Anxiety Stop: 11/14/19 02:44 Last Admin: 10/25/19 22:19 Dose: 0.5 mg Documented by: Magnesium Oxide (Mag-Ox) 400 mg PO BID [facility] Stop: 11/22/19 21:44 Last Admin: 10/26/19 07:26 Dose: 400 mg Documented by: Mirtazapine (Remeron Solutab) 15 mg PO HS [facility] Stop: 11/24/19 20:59 Last Admin: 10/25/19 21:41 Dose: 15 mg Documented by: Multivitamins/Minerals (Multivitamin W/ Minerals Tab) 1 tab PO QAM [facility] Stop: 11/22/19 14:44 Last Admin: 10/26/19 07:27 Dose: 1 tab Documented by: Nystatin (Mycostatin) 1 appln EXT TID [facility] Stop: 11/24/19 13:59 Last Admin: 10/26/19 14:57 Dose: 1 appln Documented by: Ondansetron HCl (Zofran) 4 mg IV Q6H PRN PRN Reason: Nausea Stop: 11/14/19 02:33 Last Admin: 10/25/19 18:14 Dose: 4 mg Documented by: Oxycodone HCl (Roxicodone Immediate Rel) 5 mg PO Q6H PRN PRN Reason: SEVERE PAIN Stop: 10/29/19 02:49 Last Admin: 10/25/19 22:19 Dose: 5 mg Documented by: Pantoprazole Sodium (Protonix) 40 mg PO DAILY [facility] Stop: 11/14/19 08:59 Last Admin: 10/26/19 07:26 Dose: 40 mg Documented by: Polyethylene Glycol (Miralax Powder Packet) 17 gm PO DAILY PRN PRN Reason: constipation Stop: 11/14/19 08:59 Potassium Chloride (Antonia Ciel Elix) 20 meq PO BID [facility] Stop: 11/19/19 08:59 Last Admin: 10/26/19 07:27 Dose: 20 meq Documented by: PG Care Time/CCT Total # of Minutes Spent Total Time Spent with Patient: Total time spent is greater than 50% in coordination of care (as documented) at patient's floor/unit and/or counseling patient: Coding Level of Care Code 21814 Subseq Hosp Care Lvl 2 Diagnoses Depression F32.9 Depression Type: unspecified Pain of left midfoot M79.672 Foot drop, left M21.372 Dry gangrene I96 Popliteal artery occlusion, right I70.201 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 thrombocytopenia) D75.82 Intellectual disability F79 Neuroendocrine neoplasm of gastrointestinal tract D3A.8 Abnormal LFTs R94.5 History of hemicolectomy Z90.49 Asthma J45.20 Asthma complication type: unspecified Asthma persistence: intermittent Asthma severity: mild Pulmonary emboli I26.99 Acute cor pulmonale presence: without acute cor pulmonale Chronicity: unspecified Pulmonary embolism type: unspecified Internal jugular vein thrombosis I82.C11 Laterality: right Hypokalemia E87.6 Hypomagnesemia E83.42 DVT prophylaxis Z29.9 (1) Internal jugular vein thrombosis Laterality: right Qualified Code(s): I82.C11 - Acute embolism and thrombosis of right internal jugular vein (2) Depression Depression Type: unspecified Qualified Code(s): F32.9 - Major depressive disorder, single episode, unspecified (3) Pulmonary emboli Acute cor pulmonale presence: without acute cor pulmonale Chronicity: unspecified Pulmonary embolism type: unspecified Qualified Code(s): I26.99 - Other pulmonary embolism without acute cor pulmonale (4) Asthma Asthma complication type: unspecified Asthma persistence: intermittent Asthma severity: mild Qualified Code(s): J45.20 - Mild intermittent asthma, uncomplicated
[2019-10-26] MEDS: MIRTAZAPINE SOLTAB 15 MG PO SCH (20:54)
[2019-10-27] MEDS: LACTOBACILLUS ACIDOPHILUS (FLORANEX) TAB PO SCH ×4 (08:54→20:51)
[2019-10-27] MEDS: CEROVITE ADV FORMULA TAB PO SCH (08:55)
[2019-10-27] MEDS: APIXABAN 5 MG TABLET PO SCH ×2 (08:55→20:52)
[2019-10-27] MEDS: PANTOprazole 40 MG TAB PO SCH (08:55)
[2019-10-27] MEDS: GABAPENTIN 100 MG CAP PO SCH ×2 (08:55→20:54)
[2019-10-27] MEDS: POTASSIUM CHLORIDE 20 MEQ/15 ML UDC PO SCH (08:56)
[2019-10-27] MEDS: MAGNESIUM OXIDE 400 MG TAB PO SCH ×2 (08:56→20:54)
[2019-10-27] MEDS: NYSTATIN POWDER 15GM BTL EXT SCH ×3 (08:57→20:54)
[2019-10-27] MEDS ORDERED: ERGOCALCIFEROL 50,000 UNITS CAP PO ONE (09:00)
[2019-10-27] MEDS: ONDANSETRON INJ 2 MG/ML 2 ML VIAL IV PRN (11:54)
[2019-10-27] MEDS ORDERED: Nursing to Pharmacy Communication SCH (13:30)
--- NOTE | 2019-10-27 16:17 | Hospitalist Progress Note ---
Date of Service October 27, 2019 Assessment & Plan (1) Depression: with poor sleep, poor appetite - start remeron 15mg HS recent TSH wnl. B 12 is normal Vitamin D quite low at 10, will start replacement, 50,000 units Vitamin D2 per week for 8 weeks then daily (2) Pain of left midfoot: gout? pseudogout? checked xrays for CPPD changes, acute fracture - neither seen; old fibular fracture seen sed rate minimally high; uric acid wnl. pain largely resolved with 2 doses of toradol swelling resolved as well. cont to monitor, pain is again minimal today (3) Foot drop, left: left foot drop. ongoing. new - started at [facility] recently while rehabbing. with associated numbness left anterior hooper and left foot dorsum. AFO device obtained - refusing to wear such. patient is to be non-weightbearing right foot due to recent surgery but is refusing to get out of bed the entire hospitalization. recent l-spine MRI negative for pathology. refused head imaging to investigate this issue further. 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 operative sites intact and clean dry gangrene - distal 1st/2nd toes left foot - no Rx at this time per ortho. exam unchanged. will need f/u with Dr Le post-discharge. all abx stopped. no infectious process at this time. (5) Popliteal artery occlusion, right: Chronic popliteal artery occlusion. Appreciate vascular consult by Dr Gresham this admission. No intervention at this time. f/u Dr Gresham post-discharge. (6) 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 thrombocytopenia): 07/2019 at [facility]. Cont eliquis for h/o PEs, right IJ DVT, and arterial thrombi of legs. Platelets normal. (7) Intellectual disability: Long-standing. Pt's children are in foster care. from boyfriend/. next of kin - patient has 2 sisters - 1 in [place]. but has not spoken to her in some time. asked psych to do formal capacity testing on 10/22 - appears to have capacity from their standpoint, but then patient wanted to go home with family even though she knows they cannot take care of her discussed again with psychiatry, although she may have some degree of capacity at times, she clearly lacks insight into the severity of her issues and the complete lack of appropriate resources at home today she was more accepting of going to SNF the issue is that there are no beds right now at local facilities, CM making referrals to 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 with liver Mets. s/p octreotide this admission. 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 has chronic diarrhea with neg c diff this admission. (11) Asthma: albuterol prn stable (12) Pulmonary emboli: RLL - incidentally noted on CTA on 09/04/19 in [place]. associated pulmonary infarction in the RLL as well. cont eliquis. recommend life-long in light of cancer. (13) Internal jugular vein thrombosis: 07/2019 - [facility]. eliquis. (14) Hypokalemia: resolved. likely 2nd to GI losses and poor PO intake. cont K supplementation daily. (15) Hypomagnesemia: stable, normal today. likely GI losses and poor PO intake. cont mag oxide BID indefinitely. (16) DVT prophylaxis: eliquis 5mg BID social situation is very complicated best option would be placement in SNF - patient was finally agreeable to such late this past week - referral made to [facility] in [place] in terms of healthcare POA -- next of kin would be 2 sisters one of whom lives in [facility]. Patient has not been in contact with either in a long time. psych recommending referral to Adult Protective Services - I agree social work heavily involved in her care working on placement, right now there are no beds, remain hospitalized until that time Admission and Anticipated Discharge Date Admission Date: October 15, 2019 Subjective patient doing well eating, has mild pain in foot says she feels cold sometimes CM working on discharge plan Review of Systems Review of Systems: All systems reviewed & are unremarkable except as noted in HPI & below Musculoskeletal: + joint pain (foot) Physical Exam Constitutional: WD/WN, vitals as above + overweight Eyes: PERRL, conjunctivae normal, anicteric sclerae ENMT: external ear and nose normal, oropharynx normal Neck: trachea midline, no thyromegaly Respiratory: normal respiratory effort, lungs clear to auscultation Cardiovascular: RRR, no murmur, no edema Gastrointestinal (Abdomen): normal bowel sounds, soft, nontender, no hepatosplenomegaly Musculoskeletal: no cyanosis or clubbing, extremities motor strength 5/5 Neurologic: patellar DTR's 2+ bilat, sensation intact and PERRL, EOMI, accommodation nl, no face palsy, no dysarthria Psychiatric: A+Ox3, euthymic affect Lymphatic: no cervical or axillary lymphadenopathy Results & Data Results & Data ([facility]) Vital Signs (Past 12 Hours) Vital Signs Temp Pulse Resp BP BP Pulse Ox 10/27/19 15:12 36.6 C 98 H 18 109/71 93 10/27/19 07:45 36.9 C 84 16 116/82 92 Medications Administered Current Inpatient Medications Acetaminophen (Tylenol) 650 mg PO Q4H PRN PRN Reason: pain/fever Stop: 11/14/19 02:33 Last Admin: 10/28/19 20:03 Dose: 650 mg Documented by: Albuterol (Ventolin Hfa) 1 puffs INH Q4 PRN PRN Reason: Shortness Of Breath Or Wheezing Stop: 11/14/19 02:44 Apixaban (Eliquis) 5 mg PO BID [facility] Stop: 11/14/19 08:59 Last Admin: 10/28/19 19:49 Dose: 5 mg Documented by: Petrolatum 45 appln/Hydrocortisone 45 appln/ Al Hydrox/Mg Hydrox/Simethicone 15 ml/ BARCODE IDENTIFIER 1 ea 0 appln TOP UD PRN PRN Reason: Diaper Rash Stop: 11/14/19 02:46 Last Admin: 10/17/19 00:20 Dose: 1 appln Documented by: Gabapentin (Neurontin) 200 mg PO BID [facility] Stop: 11/14/19 08:59 Last Admin: 10/28/19 19:51 Dose: 200 mg Documented by: Lactobacillus Acidophilus (Floranex) 4 tab PO QIDM [facility] Stop: 11/17/19 20:59 Last Admin: 10/28/19 19:50 Dose: 4 tab Documented by: Loperamide HCl (Imodium) 2 mg PO Q6H PRN PRN Reason: Diarrhea Stop: 11/14/19 02:44 Last Admin: 10/25/19 18:14 Dose: 2 mg Documented by: Lorazepam (Ativan) 0.5 mg PO TID PRN PRN Reason: Anxiety Stop: 11/14/19 02:44 Last Admin: 10/25/19 22:19 Dose: 0.5 mg Documented by: Magnesium Oxide (Mag-Ox) 400 mg PO BID [facility] Stop: 11/22/19 21:44 Last Admin: 10/28/19 19:51 Dose: 400 mg Documented by: Mirtazapine (Remeron Solutab) 15 mg PO HS [facility] Stop: 11/24/19 20:59 Last Admin: 10/28/19 19:52 Dose: 15 mg Documented by: Multivitamins/Minerals (Multivitamin W/ Minerals Tab) 1 tab PO QAM [facility] Stop: 11/22/19 14:44 Last Admin: 10/28/19 08:32 Dose: 1 tab Documented by: Nystatin (Mycostatin) 1 appln EXT TID [facility] Stop: 11/24/19 13:59 Last Admin: 10/28/19 19:51 Dose: 1 appln Documented by: Ondansetron HCl (Zofran) 4 mg IV Q6H PRN PRN Reason: Nausea Stop: 11/14/19 02:33 Last Admin: 10/27/19 11:54 Dose: 4 mg Documented by: Oxycodone HCl (Roxicodone Immediate Rel) 5 mg PO Q6H PRN PRN Reason: SEVERE PAIN Stop: 10/29/19 02:49 Last Admin: 10/28/19 14:18 Dose: 5 mg Documented by: Pantoprazole Sodium (Protonix) 40 mg PO DAILY [facility] Stop: 11/14/19 08:59 Last Admin: 10/28/19 08:32 Dose: 40 mg Documented by: Polyethylene Glycol (Miralax Powder Packet) 17 gm PO DAILY PRN PRN Reason: constipation Stop: 11/14/19 08:59 Potassium Chloride (Klor-Con M20) 20 meq PO BID [facility] Stop: 11/26/19 20:59 Last Admin: 10/28/19 19:50 Dose: 20 meq Documented by: PG Care Time/CCT Total # of Minutes Spent Total Time Spent with Patient: Total time spent is greater than 50% in coordination of care (as documented) at patient's floor/unit and/or counseling patient: Coding Level of Care Code 75831 Subseq Hosp Care Lvl 1 Diagnoses Depression F32.9 Depression Type: unspecified Pain of left midfoot M79.672 Foot drop, left M21.372 Dry gangrene I96 Popliteal artery occlusion, right I70.201 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 thrombocytopenia) D75.82 Intellectual disability F79 Neuroendocrine neoplasm of gastrointestinal tract D3A.8 Abnormal LFTs R94.5 History of hemicolectomy Z90.49 Asthma J45.20 Asthma complication type: unspecified Asthma persistence: intermittent Asthma severity: mild Pulmonary emboli I26.99 Acute cor pulmonale presence: without acute cor pulmonale Chronicity: unspecified Pulmonary embolism type: unspecified Internal jugular vein thrombosis I82.C11 Laterality: right Hypokalemia E87.6 Hypomagnesemia E83.42 DVT prophylaxis Z29.9 (1) Internal jugular vein thrombosis Laterality: right Qualified Code(s): I82.C11 - Acute embolism and thrombosis of right internal jugular vein (2) Depression Depression Type: unspecified Qualified Code(s): F32.9 - Major depressive disorder, single episode, unspecified (3) Pulmonary emboli Acute cor pulmonale presence: without acute cor pulmonale Chronicity: unspecified Pulmonary embolism type: unspecified Qualified Code(s): I26.99 - Other pulmonary embolism without acute cor pulmonale (4) Asthma Asthma complication type: unspecified Asthma persistence: intermittent Asthma severity: mild Qualified Code(s): J45.20 - Mild intermittent asthma, uncomplicated
[2019-10-27] MEDS: POTASSIUM CHLORIDE 20 MEQ TABCR PO SCH (20:52)
[2019-10-27] MEDS: MIRTAZAPINE SOLTAB 15 MG PO SCH (20:53)
[2019-10-27] MEDS: OXYCODONE HCL IR 5 MG TAB (IMMEDIATE RELEASE) PO PRN (23:59)
[2019-10-28] MEDS: LACTOBACILLUS ACIDOPHILUS (FLORANEX) TAB PO SCH ×4 (08:32→19:50)
[2019-10-28] MEDS: MAGNESIUM OXIDE 400 MG TAB PO SCH ×2 (08:32→19:51)
[2019-10-28] MEDS: CEROVITE ADV FORMULA TAB PO SCH (08:32)
[2019-10-28] MEDS: PANTOprazole 40 MG TAB PO SCH (08:32)
[2019-10-28] MEDS: POTASSIUM CHLORIDE 20 MEQ TABCR PO SCH ×2 (08:33→19:50)
[2019-10-28] MEDS: GABAPENTIN 100 MG CAP PO SCH ×2 (08:33→19:51)
[2019-10-28] MEDS: APIXABAN 5 MG TABLET PO SCH ×2 (08:34→19:49)
[2019-10-28] MEDS: NYSTATIN POWDER 15GM BTL EXT SCH ×3 (08:35→19:51)
[2019-10-28] MEDS: OXYCODONE HCL IR 5 MG TAB (IMMEDIATE RELEASE) PO PRN (14:18)
[2019-10-28] MEDS: MIRTAZAPINE SOLTAB 15 MG PO SCH (19:52)
[2019-10-28] MEDS: ACETAMINOPHEN 325 MG TAB PO PRN (20:03)
--- NOTE | 2019-10-28 22:27 | Hospitalist Progress Note ---
Date of Service October 28, 2019 Assessment & Plan (1) Depression: with poor sleep, poor appetite - start remeron 15mg HS recent TSH wnl. B 12 is normal Vitamin D quite low at 10, will start replacement, 50,000 units Vitamin D2 per week for 8 weeks then daily recheck level in 8 weeks (2) Foot drop, left: left foot drop. ongoing. new - started at [facility] recently while rehabbing. with associated numbness left anterior hooper and left foot dorsum. AFO device obtained - refusing to wear such. patient is to be non-weightbearing right foot due to recent surgery but is refusing to get out of bed the entire hospitalization. recent l-spine MRI negative for pathology. refused head imaging to investigate this issue further. 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 operative sites intact and clean dry gangrene - distal 1st/2nd toes left foot - no Rx at this time per ortho. exam unchanged. will need f/u with Dr Le post-discharge. all abx stopped. no infectious process at this time. (4) Popliteal artery occlusion, right: Chronic popliteal artery occlusion. Appreciate vascular consult by Dr Gresham this admission. No intervention at this time. f/u Dr Gresham post-discharge. (5) 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 thrombocytopenia): 07/2019 at [facility]. Cont eliquis for h/o PEs, right IJ DVT, and arterial thrombi of legs. Platelets normal. (6) Intellectual disability: Long-standing. Pt's children are in foster care. from boyfriend/. next of kin - patient has 2 sisters - 1 in [place]. but has not spoken to her in some time. asked psych to do formal capacity testing on 10/22 - appears to have capacity from their standpoint, but then patient wanted to go home with family even though she knows they cannot take care of her discussed again with psychiatry, although she may have some degree of capacity at times, she clearly lacks insight into the severity of her issues and the complete lack of appropriate resources at home today she was more accepting of going to SNF the issue is that there are no beds right now at local facilities, CM making referrals to [place] facilities as there were none in the [place] area (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 with liver Mets. s/p octreotide this admission. 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 has chronic diarrhea with neg c diff this admission. (10) Asthma: albuterol prn stable (11) Pulmonary emboli: RLL - incidentally noted on CTA on 09/04/19 in [place]. associated pulmonary infarction in the RLL as well. cont eliquis. recommend life-long in light of cancer. 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 eliquis. (13) Hypokalemia: resolved. likely 2nd to GI losses and poor PO intake. cont K supplementation daily. (14) Hypomagnesemia: stable, normal today. likely GI losses and poor PO intake. cont mag oxide BID indefinitely. (15) DVT prophylaxis: eliquis 5mg BID social situation is very complicated best option would be placement in SNF - patient was finally agreeable to such late this past week - referral made to [facility] in [place] in terms of healthcare POA -- next of kin would be 2 sisters one of whom lives in [facility]. Patient has not been in contact with either in a long time. psych recommending referral to Adult Protective Services - I agree social work heavily involved in her care working on placement, will pursue [employer] process since she has mental health issues, no POA Admission and Anticipated Discharge Date Admission Date: October 15, 2019 Subjective no major changes, patient sleeping most of the day she is eating okay, but has frequent stools, loose, no blood no dyspnea, no fever/chills Review of Systems Review of Systems: All systems reviewed & are unremarkable except as noted in Subjective Respiratory: no cough and no dyspnea Cardiovascular: no chest pain Gastrointestinal: + diarrhea/loose stools; no abdominal pain Physical Exam Constitutional: WD/WN, vitals as above + overweight Eyes: PERRL, conjunctivae normal, anicteric sclerae ENMT: external ear and nose normal, oropharynx normal Neck: trachea midline, no thyromegaly Respiratory: normal respiratory effort, lungs clear to auscultation Cardiovascular: RRR, no murmur, no edema Gastrointestinal (Abdomen): normal bowel sounds, soft, nontender, no hepatosplenomegaly Musculoskeletal: no cyanosis or clubbing, extremities motor strength 5/5 Neurologic: patellar DTR's 2+ bilat, sensation intact and PERRL, EOMI, accommodation nl, no face palsy, no dysarthria Psychiatric: A+Ox3, euthymic affect Lymphatic: no cervical or axillary lymphadenopathy Results & Data Results & Data ([facility]) Medications Administered Current Inpatient Medications Acetaminophen (Tylenol) 650 mg PO Q4H PRN PRN Reason: pain/fever Stop: 11/14/19 02:33 Last Admin: 10/28/19 20:03 Dose: 650 mg Documented by: Albuterol (Ventolin Hfa) 1 puffs INH Q4 PRN PRN Reason: Shortness Of Breath Or Wheezing Stop: 11/14/19 02:44 Apixaban (Eliquis) 5 mg PO BID [facility] Stop: 11/14/19 08:59 Last Admin: 10/28/19 19:49 Dose: 5 mg Documented by: Petrolatum 45 appln/Hydrocortisone 45 appln/ Al Hydrox/Mg Hydrox/Simethicone 15 ml/ BARCODE IDENTIFIER 1 ea 0 appln TOP UD PRN PRN Reason: Diaper Rash Stop: 11/14/19 02:46 Last Admin: 10/17/19 00:20 Dose: 1 appln Documented by: Gabapentin (Neurontin) 200 mg PO BID [facility] Stop: 11/14/19 08:59 Last Admin: 10/28/19 19:51 Dose: 200 mg Documented by: Lactobacillus Acidophilus (Floranex) 4 tab PO QIDM [facility] Stop: 11/17/19 20:59 Last Admin: 10/28/19 19:50 Dose: 4 tab Documented by: Loperamide HCl (Imodium) 2 mg PO Q6H PRN PRN Reason: Diarrhea Stop: 11/14/19 02:44 Last Admin: 10/25/19 18:14 Dose: 2 mg Documented by: Lorazepam (Ativan) 0.5 mg PO TID PRN PRN Reason: Anxiety Stop: 11/14/19 02:44 Last Admin: 10/25/19 22:19 Dose: 0.5 mg Documented by: Magnesium Oxide (Mag-Ox) 400 mg PO BID [facility] Stop: 11/22/19 21:44 Last Admin: 10/28/19 19:51 Dose: 400 mg Documented by: Mirtazapine (Remeron Solutab) 15 mg PO HS [facility] Stop: 11/24/19 20:59 Last Admin: 10/28/19 19:52 Dose: 15 mg Documented by: Multivitamins/Minerals (Multivitamin W/ Minerals Tab) 1 tab PO QAM [facility] Stop: 11/22/19 14:44 Last Admin: 10/28/19 08:32 Dose: 1 tab Documented by: Nystatin (Mycostatin) 1 appln EXT TID [facility] Stop: 11/24/19 13:59 Last Admin: 10/28/19 19:51 Dose: 1 appln Documented by: Ondansetron HCl (Zofran) 4 mg IV Q6H PRN PRN Reason: Nausea Stop: 11/14/19 02:33 Last Admin: 10/27/19 11:54 Dose: 4 mg Documented by: Oxycodone HCl (Roxicodone Immediate Rel) 5 mg PO Q6H PRN PRN Reason: SEVERE PAIN Stop: 10/29/19 02:49 Last Admin: 10/28/19 14:18 Dose: 5 mg Documented by: Pantoprazole Sodium (Protonix) 40 mg PO DAILY [facility] Stop: 11/14/19 08:59 Last Admin: 10/28/19 08:32 Dose: 40 mg Documented by: Polyethylene Glycol (Miralax Powder Packet) 17 gm PO DAILY PRN PRN Reason: constipation Stop: 11/14/19 08:59 Potassium Chloride (Klor-Con M20) 20 meq PO BID [facility] Stop: 11/26/19 20:59 Last Admin: 10/28/19 19:50 Dose: 20 meq Documented by: PG Care Time/CCT Total # of Minutes Spent Total Time Spent with Patient: Total time spent is greater than 50% in coordination of care (as documented) at patient's floor/unit and/or counseling patient: Coding Level of Care Code 19894 Subseq Hosp Care Lvl 1 Diagnoses Depression F32.9 Depression Type: unspecified Foot drop, left M21.372 Dry gangrene I96 Popliteal artery occlusion, right I70.201 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 thrombocytopenia) D75.82 Intellectual disability F79 Neuroendocrine neoplasm of gastrointestinal tract D3A.8 Abnormal LFTs R94.5 History of hemicolectomy Z90.49 Asthma J45.20 Asthma complication type: unspecified Asthma persistence: intermittent Asthma severity: mild Pulmonary emboli I26.99 Acute cor pulmonale presence: without acute cor pulmonale Chronicity: unspecified Pulmonary embolism type: unspecified Internal jugular vein thrombosis I82.C11 Laterality: right Hypokalemia E87.6 Hypomagnesemia E83.42 DVT prophylaxis Z29.9 (1) Internal jugular vein thrombosis Laterality: right Qualified Code(s): I82.C11 - Acute embolism and thrombosis of right internal jugular vein (2) Depression Depression Type: unspecified Qualified Code(s): F32.9 - Major depressive disorder, single episode, unspecified (3) Pulmonary emboli Acute cor pulmonale presence: without acute cor pulmonale Chronicity: unspecified Pulmonary embolism type: unspecified Qualified Code(s): I26.99 - Other pulmonary embolism without acute cor pulmonale (4) Asthma Asthma complication type: unspecified Asthma persistence: intermittent Asthma severity: mild Qualified Code(s): J45.20 - Mild intermittent asthma, uncomplicated
[2019-10-29] MEDS: POTASSIUM CHLORIDE 20 MEQ TABCR PO SCH ×2 (08:49→21:04)
[2019-10-29] MEDS: LACTOBACILLUS ACIDOPHILUS (FLORANEX) TAB PO SCH ×4 (08:49→21:04)
[2019-10-29] MEDS: PANTOprazole 40 MG TAB PO SCH (08:49)
[2019-10-29] MEDS: APIXABAN 5 MG TABLET PO SCH ×2 (08:49→21:04)
[2019-10-29] MEDS: MAGNESIUM OXIDE 400 MG TAB PO SCH ×2 (08:50→21:04)
[2019-10-29] MEDS: CEROVITE ADV FORMULA TAB PO SCH (08:50)
[2019-10-29] MEDS: GABAPENTIN 100 MG CAP PO SCH ×2 (08:50→21:04)
[2019-10-29] MEDS: NYSTATIN POWDER 15GM BTL EXT SCH ×3 (08:50→21:04)
--- NOTE | 2019-10-29 17:04 | Hospitalist Progress Note ---
Date of Service October 29, 2019 Assessment & Plan (1) Depression: with poor sleep, poor appetite - start remeron 15mg HS recent TSH wnl. B 12 is normal Vitamin D quite low at 10, will start replacement, 50,000 units Vitamin D2 per week for 8 weeks then daily (2) Foot drop, left: left foot drop. ongoing. new - started at [facility] recently while rehabbing. with associated numbness left anterior hooper and left foot dorsum. AFO device obtained - refusing to wear such. patient is to be non-weightbearing right foot due to recent surgery but is refusing to get out of bed the entire hospitalization. recent l-spine MRI negative for pathology. refused head imaging to investigate this issue further. 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 operative sites intact and clean dry gangrene - distal 1st/2nd toes left foot - no Rx at this time per ortho. exam unchanged. will need f/u with Dr Le post-discharge. all abx stopped. no infectious process at this time. (4) Popliteal artery occlusion, right: Chronic popliteal artery occlusion. Appreciate vascular consult by Dr Gresham this admission. No intervention at this time. f/u Dr Gresham post-discharge. (5) 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 thrombocytopenia): 07/2019 at [facility]. Cont eliquis for h/o PEs, right IJ DVT, and arterial thrombi of legs. Platelets normal. (6) Intellectual disability: Long-standing. Pt's children are in foster care. from boyfriend/. next of kin - patient has 2 sisters - 1 in [place]. but has not spoken to her in some time. asked psych to do formal capacity testing on 10/22 - appears to have capacity from their standpoint, but then patient wanted to go home with family even though she knows they cannot take care of her discussed again with psychiatry, although she may have some degree of capacity at times, she clearly lacks insight into the severity of her issues and the complete lack of appropriate resources at home today she was more accepting of going to SNF the issue is that there are no beds right now at local facilities, CM making referrals to [facility] as there were none in the [place] area (7) 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 with liver Mets. s/p octreotide this admission. 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 has chronic diarrhea with neg c diff this admission. (10) Asthma: albuterol prn stable (11) Pulmonary emboli: RLL - incidentally noted on CTA on 09/04/19 in [place]. associated pulmonary infarction in the RLL as well. cont eliquis. recommend life-long in light of cancer. (12) Internal jugular vein thrombosis: 07/2019 - [facility]. eliquis. (13) Hypokalemia: resolved. likely 2nd to GI losses and poor PO intake. cont K supplementation daily. (14) Hypomagnesemia: stable, normal today. likely GI losses and poor PO intake. cont mag oxide BID indefinitely. (15) DVT prophylaxis: eliquis 5mg BID social situation is very complicated best option would be placement in SNF - patient was finally agreeable to such late this past week - referral made [facility] in [place] in terms of healthcare POA -- next of kin would be 2 sisters one of whom lives in [facility]. Patient has not been in contact with either in a long time. psych recommending referral to Adult Protective Services - I agree social work heavily involved in her care [employer] process started, referrals placed to several area SNFs Admission and Anticipated Discharge Date Admission Date: October 15, 2019 Subjective patient is status quo, no changes awaiting placement spoke with radha CARRILLO several referrals to area SNFs will be next week until she has a bed Review of Systems Review of Systems: All systems reviewed & are unremarkable except as noted in Subjective Gastrointestinal: + diarrhea/loose stools Physical Exam Constitutional: WD/WN, vitals as above + overweight Eyes: PERRL, conjunctivae normal, anicteric sclerae ENMT: external ear and nose normal, oropharynx normal Neck: trachea midline, no thyromegaly Respiratory: normal respiratory effort, lungs clear to auscultation Cardiovascular: RRR, no murmur, no edema Gastrointestinal (Abdomen): normal bowel sounds, soft, nontender, no hepatosplenomegaly Musculoskeletal: no cyanosis or clubbing, extremities motor strength 5/5 Neurologic: patellar DTR's 2+ bilat, sensation intact and PERRL, EOMI, accommodation nl, no face palsy, no dysarthria Psychiatric: A+Ox3, euthymic affect Lymphatic: no cervical or axillary lymphadenopathy Results & Data Results & Data ([facility]) Vital Signs (Past 12 Hours) Vital Signs Temp Pulse Resp BP BP Pulse Ox 10/29/19 15:36 36.7 C 81 20 120/77 96 10/29/19 07:05 36.7 C 79 18 102/68 96 PG Care Time/CCT Total # of Minutes Spent Total Time Spent with Patient: Total time spent is greater than 50% in coordination of care (as documented) at patient's floor/unit and/or counseling p atient: Coding Level of Care Code 87488 Subseq Hosp Care Lvl 1 Diagnoses Depression F32.9 Depression Type: unspecified Foot drop, left M21.372 Dry gangrene I96 Popliteal artery occlusion, right I70.201 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 thrombocytopenia) D75.82 Intellectual disability F79 Neuroendocrine neoplasm of gastrointestinal tract D3A.8 Abnormal LFTs R94.5 History of hemicolectomy Z90.49 Asthma J45.20 Asthma complication type: unspecified Asthma persistence: intermittent Asthma severity: mild Pulmonary emboli I26.99 Acute cor pulmonale presence: without acute cor pulmonale Chronicity: unspecified Pulmonary embolism type: unspecified Internal jugular vein thrombosis I82.C11 Laterality: right Hypokalemia E87.6 Hypomagnesemia E83.42 DVT prophylaxis Z29.9 (1) Internal jugular vein thrombosis Laterality: right Qualified Code(s): I82.C11 - Acute embolism and thrombosis of right internal jugular vein (2) Depression Depression Type: unspecified Qualified Code(s): F32.9 - Major depressive disorder, single episode, unspecified (3) Pulmonary emboli Acute cor pulmonale presence: without acute cor pulmonale Chronicity: unspecified Pulmonary embolism type: unspecified Qualified Code(s): I26.99 - Other pulmonary embolism without acute cor pulmonale (4) Asthma Asthma complication type: unspecified Asthma persistence: intermittent Asthma severity: mild Qualified Code(s): J45.20 - Mild intermittent asthma, uncomplicated
[2019-10-29] MEDS: ONDANSETRON INJ 2 MG/ML 2 ML VIAL IV PRN (18:18)
[2019-10-29] MEDS: MIRTAZAPINE SOLTAB 15 MG PO SCH (21:04)
[2019-10-30] MEDS: LACTOBACILLUS ACIDOPHILUS (FLORANEX) TAB PO SCH ×4 (08:51→21:23)
[2019-10-30] MEDS: APIXABAN 5 MG TABLET PO SCH ×2 (08:51→21:23)
[2019-10-30] MEDS: POTASSIUM CHLORIDE 20 MEQ TABCR PO SCH ×2 (08:52→21:23)
[2019-10-30] MEDS: CEROVITE ADV FORMULA TAB PO SCH (08:52)
[2019-10-30] MEDS: MAGNESIUM OXIDE 400 MG TAB PO SCH ×2 (08:52→21:23)
[2019-10-30] MEDS: NYSTATIN POWDER 15GM BTL EXT SCH ×3 (08:53→21:25)
[2019-10-30] MEDS: PANTOprazole 40 MG TAB PO SCH (08:54)
[2019-10-30] MEDS: GABAPENTIN 100 MG CAP PO SCH ×2 (08:54→21:24)
[2019-10-30] MEDS: ACETAMINOPHEN 325 MG TAB PO PRN (09:52)
[2019-10-30] MEDS: MIRTAZAPINE SOLTAB 15 MG PO SCH (21:24)
[2019-10-31] MEDS: POTASSIUM CHLORIDE 20 MEQ TABCR PO SCH ×2 (08:23→19:39)
[2019-10-31] MEDS: CEROVITE ADV FORMULA TAB PO SCH (08:23)
[2019-10-31] MEDS: PANTOprazole 40 MG TAB PO SCH (08:23)
[2019-10-31] MEDS: MAGNESIUM OXIDE 400 MG TAB PO SCH ×2 (08:23→19:40)
[2019-10-31] MEDS: GABAPENTIN 100 MG CAP PO SCH ×2 (08:24→19:39)
[2019-10-31] MEDS: LACTOBACILLUS ACIDOPHILUS (FLORANEX) TAB PO SCH ×4 (08:24→19:41)
[2019-10-31] MEDS: APIXABAN 5 MG TABLET PO SCH ×2 (08:24→19:40)
[2019-10-31 08:52] LABS: Hematocrit (blood only) 33.8 % (37-47); Hemoglobin 10.8 g/dL (12.0-16.0); Mean Corpuscular Hemoglobin 29.3 pg (25-34); Mean Corpuscular Volume 91.6 fL (80-100); Mean Platelet Volume 11.2 fL (7.4-10.4); Platelet Count 255 K/uL (130-400); RDW Coefficient of Variation 19.2 % (11.5-14.5); RDW Standard Deviation 63.6 fL (36.4-46.3); Red Blood Count 3.69 M/uL (4.2-5.4); White Blood Count 6.85 K/uL (4.8-10.8)
[2019-10-31 09:23] LABS: BUN Creatinine Ratio 6.1 (10-20); Calcium 8.1 mg/dl (8.5-10.1); Creatinine Clr Calc Pharmacy 140.2 ml/min; Est GFR (African American) 131.8; Est GFR (Non-African American) 113.7; Potassium 3.8 mmol/L (3.5-5.1)
[2019-10-31] MEDS: NYSTATIN POWDER 15GM BTL EXT SCH ×3 (10:34→19:41)
[2019-10-31] MEDS: MIRTAZAPINE SOLTAB 15 MG PO SCH (19:40)
--- NOTE | 2019-10-31 21:07 | Hospitalist Progress Note ---
Date of Service October 31, 2019 Assessment & Plan (1) Depression: with poor sleep, poor appetite - start remeron 15mg HS recent TSH wnl. sleeping better B 12 is normal Vitamin D quite low at 10, will start replacement, 50,000 units Vitamin D2 per week for 8 weeks then daily will need next dose on Wednesday 11/01 (2) Pain of left midfoot: gout? pseudogout? checked xrays for CPPD changes, acute fracture - neither seen; old fibular fracture seen sed rate minimally high; uric acid wnl. no complaints of pain all week (3) Foot drop, left: left foot drop. ongoing. new - started at [facility] recently while rehabbing. with associated numbness left anterior hooper and left foot dorsum. AFO device obtained - refusing to wear such. patient is to be non-weightbearing right foot due to recent surgery but is refusing to get out of bed the entire hospitalization still refuses to get up, says the pain is too intense explained that there is no way she can go to [facility] if she does not get up recent l-spine MRI negative for pathology. refused head imaging to investigate this issue further. 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 operative sites intact and clean dry gangrene - distal 1st/2nd toes left foot - no Rx at this time per ortho. exam unchanged all week will need f/u with Dr Le post-discharge. all abx stopped. no infectious process at this time. (5) Popliteal artery occlusion, right: Chronic popliteal artery occlusion. Appreciate vascular consult by Dr Gresham this admission. No intervention at this time. f/u Dr Gresham post-discharge. (6) 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 thrombocytopenia): 07/2019 at [facility]. Cont eliquis for h/o PEs, right IJ DVT, and arterial thrombi of legs. Platelets normal. (7) Intellectual disability: Long-standing. Pt's children are in foster care. from boyfriend/. next of kin - patient has 2 sisters - 1 in [place]. but has not spoken to her in some time. asked psych to do formal capacity testing on 10/22 - appears to have capacity from their standpoint, but then patient wanted to go home with family even though she knows they cannot take care of her discussed again with psychiatry, although she may have some degree of capacity at times, she clearly lacks insight into the severity of her issues and the complete lack of appropriate resources at home she is tearful about being in the hospital which is appropriate however, she wants to go home with her boyfriend or her uncle, even though they cannot provide care she needs she is now reluctant to go to SNF but it is now a target process should be done Saturday (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 with liver Mets. s/p octreotide this admission. 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 has chronic diarrhea with neg c diff this admission. add imodium PRN (11) Asthma: albuterol prn stable (12) Pulmonary emboli: RLL - incidentally noted on CTA on 09/04/19 in [place]. associated pulmonary infarction in the RLL as well. cont eliquis. recommend life-long in light of cancer. (13) Internal jugular vein thrombosis: 07/2019 - [facility]. eliquis. (14) Hypokalemia: resolved. K is 3.8 today likely 2nd to GI losses and poor PO intake. cont K supplementation daily. (15) Hypomagnesemia: stable, normal likely GI losses and poor PO intake. cont mag oxide BID indefinitely. (16) DVT prophylaxis: eliquis 5mg BID social situation is very complicated best option would be placement in SNF - patient was finally agreeable to such late this past week in terms of healthcare POA -- next of kin would be 2 sisters one of whom lives in [facility]. Patient has not been in contact with either in a long time. psych recommending referral to Adult Protective Services - I agree social work heavily involved in her care working on placement, right now there are no beds, remain hospitalized until that time Target process, might have a bed at [facility] on Saturday Admission and Anticipated Discharge Date Admission Date: October 15, 2019 Subjective patient frustrated, tearful at times she just wants out of the hospital she wants to go home with her boyfriend Benigno I asked her if he would take care of her since she is bedbound, has wound care, needs appointments she said she wishes she would have made someone her POA have not been able to get ahold of her uncle or cousin no contact with her sisters she is worried about going to [facility], she wishes she could go to [facility] to be close to her children explained to her that [facility] having COVID 19 outbreak, no new patients going there she is eating well, minimal pain in her feet no dyspnea, no cough, no fever explained that the tentative plan is to discharge on Saturday if the target paper work goes through Review of Systems Review of Systems: All systems reviewed & are unremarkable except as noted in Subjective Physical Exam Constitutional: WD/WN, vitals as above + overweight Eyes: PERRL, conjunctivae normal, anicteric sclerae ENMT: external ear and nose normal, oropharynx normal Neck: trachea midline, no thyromegaly Respiratory: normal respiratory effort, lungs clear to auscultation Cardiovascular: RRR, no murmur, no edema Gastrointestinal (Abdomen): normal bowel sounds, soft, nontender, no hepa tosplenomegaly Musculoskeletal: no cyanosis or clubbing, extremities motor strength 5/5 Neurologic: patellar DTR's 2+ bilat, sensation intact and PERRL, EOMI, accommodation nl, no face palsy, no dysarthria Psychiatric: Orientation: alert and oriented x 3 Affect: + tearful affect Mood: + depressed mood Lymphatic: no cervical or axillary lymphadenopathy Results & Data Results & Data ([facility]) Vital Signs (Past 12 Hours) Vital Signs Temp Pulse Resp BP Pulse Ox 10/31/19 15:23 36.9 C 85 18 115/77 93 Laboratory Results Laboratory Results - last 24 hr 10/31/19 10/31/19 08:16 08:16 WBC 6.85 RBC 3.69 L Hgb 10.8 L Hct 33.8 L MCV 91.6 MCH 29.3 MCHC 32.0 RDW Std Deviation 63.6 H RDW Coeff of Sharan 19.2 H Plt Count 255 MPV 11.2 H Sodium 140 Potassium 3.8 Chloride 108 H Carbon Dioxide 28 Anion Gap 4.0 BUN 3 L Creatinine 0.51 L Est Cr Clr Drug Dosing 140.2 Est GFR ( Amer) 131.8 Est GFR (Non-Af Amer) 113.7 BUN/Creatinine Ratio 6.1 L Glucose 80 Calcium 8.1 L Specimen Hemolysis Medications Administered Current Inpatient Medications Acetaminophen (Tylenol) 650 mg PO Q4H PRN PRN Reason: pain/fever Stop: 11/14/19 02:33 Last Admin: 10/30/19 09:52 Dose: 650 mg Documented by: Albuterol (Ventolin Hfa) 1 puffs INH Q4 PRN PRN Reason: Shortness Of Breath Or Wheezing Stop: 11/14/19 02:44 Apixaban (Eliquis) 5 mg PO BID [facility] Stop: 11/14/19 08:59 Last Admin: 10/31/19 19:40 Dose: 5 mg Documented by: Petrolatum 45 appln/Hydrocortisone 45 appln/ Al Hydrox/Mg Hydrox/Simethicone 15 ml/ BARCODE IDENTIFIER 1 ea 0 appln TOP UD PRN PRN Reason: Diaper Rash Stop: 11/14/19 02:46 Last Admin: 10/17/19 00:20 Dose: 1 appln Documented by: Gabapentin (Neurontin) 200 mg PO BID [facility] Stop: 11/14/19 08:59 Last Admin: 10/31/19 19:39 Dose: 200 mg Documented by: Lactobacillus Acidophilus (Floranex) 4 tab PO QIDM [facility] Stop: 11/17/19 20:59 Last Admin: 10/31/19 19:41 Dose: 4 tab Documented by: Loperamide HCl (Imodium) 2 mg PO Q6H PRN PRN Reason: Diarrhea Stop: 11/14/19 02:44 Last Admin: 10/25/19 18:14 Dose: 2 mg Documented by: Lorazepam (Ativan) 0.5 mg PO TID PRN PRN Reason: Anxiety Stop: 11/14/19 02:44 Last Admin: 10/25/19 22:19 Dose: 0.5 mg Documented by: Magnesium Oxide (Mag-Ox) 400 mg PO BID [facility] Stop: 11/22/19 21:44 Last Admin: 10/31/19 19:40 Dose: 400 mg Documented by: Mirtazapine (Remeron Solutab) 15 mg PO [facility] Stop: 11/24/19 20:59 Last Admin: 10/31/19 19:40 Dose: 15 mg Documented by: Multivitamins/Minerals (Multivitamin W/ Minerals Tab) 1 tab PO QAM [facility] Stop: 11/22/19 14:44 Last Admin: 10/31/19 08:23 Dose: 1 tab Documented by: Nystatin (Mycostatin) 1 appln EXT TID [facility] Stop: 11/24/19 13:59 Last Admin: 10/31/19 19:41 Dose: 1 appln Documented by: Ondansetron HCl (Zofran) 4 mg IV Q6H PRN PRN Reason: Nausea Stop: 11/14/19 02:33 Last Admin: 10/29/19 18:18 Dose: 4 mg Documented by: Pantoprazole Sodium (Protonix) 40 mg PO DAILY [facility] Stop: 11/14/19 08:59 Last Admin: 10/31/19 08:23 Dose: 40 mg Documented by: Polyethylene Glycol (Miralax Powder Packet) 17 gm PO DAILY PRN PRN Reason: constipation Stop: 11/14/19 08:59 Potassium Chloride (Klor-Con M20) 20 meq PO BID [facility] Stop: 11/26/19 20:59 Last Admin: 10/31/19 19:39 Dose: 20 meq Documented by: PG Care Time/CCT Total # of Minutes Spent Total Time Spent with Patient: Total time spent is greater than 50% in coordination of care (as documented) at patient's floor/unit and/or counseling patient: Coding Level of Care Code 91145 Subseq Hosp Care Lvl 2 Diagnoses Depression F32.9 Depression Type: unspecified Pain of left midfoot M79.672 Foot drop, left M21.372 Dry gangrene I96 Popliteal artery occlusion, right I70.201 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 thrombocytopenia) D75.82 Intellectual disability F79 Neuroendocrine neoplasm of gastrointestinal tract D3A.8 Abnormal LFTs R94.5 History of hemicolectomy Z90.49 Asthma J45.20 Asthma severity: mild Asthma persistence: intermittent Asthma complication type: unspecified Pulmonary emboli I26.99 Pulmonary embolism type: unspecified Chronicity: unspecified Acute cor pulmonale presence: without acute cor pulmonale Internal jugular vein thrombosis I82.C11 Laterality: right Hypokalemia E87.6 Hypomagnesemia E83.42 DVT prophylaxis Z29.9 (1) Depression Depression Type: unspecified Qualified Code(s): F32.9 - Major depressive disorder, single episode, unspecified (2) Asthma Asthma severity: mild Asthma persistence: intermittent Asthma complication type: unspecified Qualified Code(s): J45.20 - Mild intermittent asthma, uncomplicated (3) Pulmonary emboli Pulmonary embolism type: unspecified Chronicity: unspecified Acute cor pulmonale presence: without acute cor pulmonale Qualified Code(s): I26.99 - Other pulmonary embolism without acute cor pulmonale (4) Internal jugular vein thrombosis Laterality: right Qualified Code(s): I82.C11 - Acute embolism and thrombosis of right internal jugular vein
[2019-11-01] MEDS: LACTOBACILLUS ACIDOPHILUS (FLORANEX) TAB PO SCH ×4 (09:53→20:56)
[2019-11-01] MEDS: MAGNESIUM OXIDE 400 MG TAB PO SCH ×2 (09:54→20:56)
[2019-11-01] MEDS: APIXABAN 5 MG TABLET PO SCH ×2 (09:54→20:55)
[2019-11-01] MEDS: PANTOprazole 40 MG TAB PO SCH (09:54)
[2019-11-01] MEDS: GABAPENTIN 100 MG CAP PO SCH ×2 (09:54→20:57)
[2019-11-01] MEDS: CEROVITE ADV FORMULA TAB PO SCH (09:54)
[2019-11-01] MEDS: NYSTATIN POWDER 15GM BTL EXT SCH ×3 (09:55→20:58)
[2019-11-01] MEDS: POTASSIUM CHLORIDE 20 MEQ TABCR PO SCH ×2 (09:55→20:56)
--- NOTE | 2019-11-01 16:06 | Hospitalist Progress Note ---
Date of Service November 01, 2019 Assessment & Plan (1) Depression: with poor sleep, poor appetite - start remeron 15mg HS recent TSH wnl. sleeping better B 12 is normal Vitamin D quite low at 10 on 10/25, will start replacement, 50,000 units Vitamin D2 per week for 8 weeks then daily will need next dose on Wednesday 11/01, it is ordered for tomorrow (2) Pain of left midfoot: gout? pseudogout? checked xrays for CPPD changes, acute fracture - neither seen; old fibular fracture seen sed rate minimally high; uric acid wnl. no complaints of pain today (3) Foot drop, left: left foot drop. ongoing. new - started at [facility] recently while rehabbing. with associated numbness left anterior hooper and left foot dorsum. AFO device obtained - refusing to wear such. patient is to be non-weightbearing right foot due to recent surgery but is refusing to get out of bed the entire hospitalization still refuses to get up, says the pain is too intense explained that there is no way she can go to [facility] if she does not get up recent l-spine MRI negative for pathology. refused head imaging to investigate this issue further. 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 operative sites intact and clean, ortho/wound following peripherally dry gangrene - distal 1st/2nd toes left foot - no Rx at this time per ortho. exam unchanged all week will need f/u with Dr Le post-discharge. all abx stopped. no infectious process at this time no fever, WBC normal on 10/30 (5) Popliteal artery occlusion, right: Chronic popliteal artery occlusion, related to HIT Appreciate vascular consult by Dr Gresham this admission. No intervention at this time. f/u Dr Gresham post-discharge. (6) 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 thrombocytopenia): 07/2019 at [facility]. Cont eliquis for h/o PEs, right IJ DVT, and arterial thrombi of legs. Platelets normal at 255k on 10/30 avoid all heparin products (7) Intellectual disability: Long-standing. Pt's children are in foster care. from boyfriend/. next of kin - patient has 2 sisters - 1 in [place]. they are not in contact, have not visited asked psych to do formal capacity testing on 10/22 - appears to have capacity from their standpoint, but then patient wanted to go home with family even though she knows they cannot take care of her discussed again with psychiatry, although she may have some degree of capacity at times, she clearly lacks insight into the severity of her issues and the complete lack of appropriate resources at home evaluated by the [facility], target process initiated to get her into SNF on 10/30 she is tearful about being in the hospital which is appropriate however, she wants to go home with her boyfriend or her uncle, even though they cannot provide care she needs she is now reluctant to go to SNF but it is now a target process should be done Saturday (8) 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 with liver Mets. s/p octreotide this admission. 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 has chronic diarrhea with neg c diff this admission. try Imodium scheduled q6 (11) Asthma: albuterol prn stable (12) Pulmonary emboli: RLL - incidentally noted on CTA on 09/04/19 in [place]. associated pulmonary infarction in the RLL as well. cont eliquis. recommend life-long in light of cancer. (13) Internal jugular vein thrombosis: 07/2019 - [facility]. eliquis. (14) Hypokalemia: resolved. K is 3.8 on 10/30 likely 2nd to GI losses and poor PO intake. cont K supplementation daily. (15) Hypomagnesemia: stable, normal likely GI losses and poor PO intake. cont mag oxide BID indefinitely. (16) DVT prophylaxis: eliquis 5mg BID social situation is very complicated best option would be placement in SNF - patient was finally agreeable to such late this past week in terms of healthcare POA -- next of kin would be 2 sisters one of whom lives in [facility]. Patient has not been in contact with either in a long time. psych recommending referral to Adult Protective Services - I agree social work heavily involved in her care, the [facility] evaluated her, now in target process working on placement, right now there are no beds, remain hospitalized until that time might have a bed at [facility] on Saturday Admission and Anticipated Discharge Date Admission Date: October 15, 2019 Subjective patient sleeping most of the day c/o diarrhea, any time she eats the food goes through her quickly no doubt it is related to neuroendocrine tumor, colectomy no labs today continue to work towards discharge to SNF, Target process pending Review of Systems Review of Systems: All systems reviewed & are unremarkable except as noted in Subjective Gastrointestinal: + diarrhea/loose stools; no abdominal pain, no nausea, no vomiting and no constipation Physical Exam Constitutional: WD/WN, vitals as above + overweight Eyes: PERRL, conjunctivae normal, anicteric sclerae ENMT: external ear and nose normal, oropharynx normal Neck: trachea midline, no thyromegaly Respiratory: normal respiratory effort, lungs clear to auscultation Cardiovascular: RRR, no murmur, no edema Gastrointestinal (Abdomen): normal bowel sounds, soft, nontender, no hepatosplenomegaly Musculoskeletal: no cyanosis or clubbing, extremities motor strength 5/5 Skin: no rashes, warm and dry (dry gangrene of toes left foot) Neurologic: patellar DTR's 2+ bilat, sensation intact and PERRL, EOMI, accommodation nl, no face palsy, no dysarthria Psychiatric: A+Ox3, euthymic affect Orientation: alert and oriented x 3 Affect: + tearful affect Mood: + depressed mood Lymphatic: no cervical or axillary lymphadenopathy Results & Data Results & Data ([facility]) Vital Signs (Past 12 Hours) Vital Signs Temp Pulse Resp BP Pulse Ox 11/01/19 15:28 36.9 C 98 H 16 116/77 96 11/01/19 07:58 36.6 C 92 H 16 120/84 95 Medications Administered Current Inpatient Medications Acetaminophen (Tylenol) 650 mg PO Q4H PRN PRN Reason: pain/fever Stop: 11/14/19 02:33 Last Admin: 10/30/19 09:52 Dose: 650 mg Documented by: Albuterol (Ventolin Hfa) 1 puffs INH Q4 PRN PRN Reason: Shortness Of Breath Or Wheezing Stop: 11/14/19 02:44 Apixaban (Eliquis) 5 mg PO BID [facility] Stop: 11/14/19 08:59 Last Admin: 11/01/19 20:55 Dose: 5 mg Documented by: Petrolatum 45 appln/Hydrocortisone 45 appln/ Al Hydrox/Mg Hydrox/Simethicone 15 ml/ BARCODE IDENTIFIER 1 ea 0 appln TOP UD PRN PRN Reason: Diaper Rash Stop: 11/14/19 02:46 Last Admin: 10/17/19 00:20 Dose: 1 appln Documented by: Gabapentin (Neurontin) 200 mg PO BID [facility] Stop: 11/14/19 08:59 Last Admin: 11/01/19 20:57 Dose: 200 mg Documented by: Lactobacillus Acidophilus (Floranex) 4 tab PO QIDM [facility] Stop: 11/17/19 20:59 Last Admin: 11/01/19 20:56 Dose: 4 tab Documented by: Loperamide HCl (Imodium) 2 mg PO Q6H PRN PRN Reason: Diarrhea Stop: 11/14/19 02:44 Last Admin: 10/25/19 18:14 Dose: 2 mg Documented by: Lorazepam (Ativan) 0.5 mg PO TID PRN PRN Reason: Anxiety Stop: 11/14/19 02:44 Last Admin: 10/25/19 22:19 Dose: 0.5 mg Documented by: Magnesium Oxide (Mag-Ox) 400 mg PO BID [facility] Stop: 11/22/19 21:44 Last Admin: 11/01/19 20:56 Dose: 400 mg Documented by: Mirtazapine (Remeron Solutab) 15 mg PO HS [facility] Stop: 11/24/19 20:59 Last Admin: 11/01/19 20:57 Dose: 15 mg Documented by: Multivitamins/Minerals (Multivitamin W/ Minerals Tab) 1 tab PO QAM [facility] Stop: 11/22/19 14:44 Last Admin: 11/01/19 09:54 Dose: 1 tab Documented by: Nystatin (Mycostatin) 1 appln EXT TID [facility] Stop: 11/24/19 13:59 Last Admin: 11/01/19 20:58 Dose: 1 appln Documented by: Ondansetron HCl (Zofran) 4 mg IV Q6H PRN PRN Reason: Nausea Stop: 11/14/19 02:33 Last Admin: 11/01/19 20:01 Dose: 4 mg Documented by: Pantoprazole Sodium (Protonix) 40 mg PO DAILY [facility] Stop: 11/14/19 08:59 Last Admin: 11/01/19 09:54 Dose: 40 mg Documented by: Polyethylene Glycol (Miralax Powder Packet) 17 gm PO DAILY PRN PRN Reason: constipation Stop: 11/14/19 08:59 Potassium Chloride (Klor-Con M20) 20 meq PO BID [facility] Stop: 11/26/19 20:59 Last Admin: 11/01/19 20:56 Dose: 20 meq Documented by: PG Care Time/CCT Total # of Minutes Spent Total Time Spent with Patient: Total time spent is greater than 50% in coordination of care (as documented) at patient's floor/unit and/or counseling patient: Coding Level of Care Code 80278 Subseq Hosp Care Lvl 2 Diagnoses Depression F32.9 Depression Type: unspecified Pain of left midfoot M79.672 Foot drop, left M21.372 Dry gangrene I96 Popliteal artery occlusion, right I70.201 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 thrombocytopenia) D75.82 Intellectual disability F79 Neuroendocrine neoplasm of gastrointestinal tract D3A.8 Abnormal LFTs R94.5 History of hemicolectomy Z90.49 Asthma J45.20 Asthma complication type: unspecified Asthma persistence: intermittent Asthma severity: mild Pulmonary emboli I26.99 Acute cor pulmonale presence: without acute cor pulmonale Chronicity: unspecified Pulmonary embolism type: unspecified Internal jugular vein thrombosis I82.C11 Laterality: right Hypokalemia E87.6 Hypomagnesemia E83.42 DVT prophylaxis Z29.9 (1) Internal jugular vein thrombosis Laterality: right Qualified Code(s): I82.C11 - Acute embolism and thrombosis of right internal jugular vein (2) Depression Depression Type: unspecified Qualified Code(s): F32.9 - Major depressive disorder, single episode, unspecified (3) Pulmonary emboli Acute cor pulmonale presence: without acute cor pulmonale Chronicity: unspecified Pulmonary embolism type: unspecified Qualified Code(s): I26.99 - Other pulmonary embolism without acute cor pulmonale (4) Asthma Asthma complication type: unspecified Asthma persistence: intermittent Asthma severity: mild Qualified Code(s): J45.20 - Mild intermittent asthma, uncomplicated
[2019-11-01] MEDS: ONDANSETRON INJ 2 MG/ML 2 ML VIAL IV PRN (20:01)
[2019-11-01] MEDS: MIRTAZAPINE SOLTAB 15 MG PO SCH (20:57)
[2019-11-02] MEDS: LOPERAMIDE HCL 2 MG CAP PO SCH ×3 (06:20→20:38)
[2019-11-02] MEDS: LACTOBACILLUS ACIDOPHILUS (FLORANEX) TAB PO SCH ×4 (08:17→20:35)
[2019-11-02] MEDS: ACETAMINOPHEN 325 MG TAB PO PRN ×2 (08:17→16:31)
[2019-11-02] MEDS ORDERED: ERGOCALCIFEROL 50,000 UNITS CAP PO ONE (09:00)
[2019-11-02] MEDS: GABAPENTIN 100 MG CAP PO SCH ×2 (09:49→20:37)
[2019-11-02] MEDS: CEROVITE ADV FORMULA TAB PO SCH (09:49)
[2019-11-02] MEDS: PANTOprazole 40 MG TAB PO SCH (09:49)
[2019-11-02] MEDS: MAGNESIUM OXIDE 400 MG TAB PO SCH ×2 (09:49→20:36)
[2019-11-02] MEDS: APIXABAN 5 MG TABLET PO SCH ×2 (09:50→20:36)
[2019-11-02] MEDS: NYSTATIN POWDER 15GM BTL EXT SCH ×3 (09:50→20:38)
[2019-11-02] MEDS: POTASSIUM CHLORIDE 20 MEQ TABCR PO SCH ×2 (09:50→20:37)
[2019-11-02] MEDS: ONDANSETRON INJ 2 MG/ML 2 ML VIAL IV PRN ×2 (10:19→22:18)
--- NOTE | 2019-11-02 12:54 | Orthopedic Progress Note ---
Date of Service November 02, 2019 Assessment & Plan (1) Gangrene of toe of left foot: Dry gangrene of the first and second toes of the left foot. I spoken to Dr. Le today. Recent Doppler was on 10/15/2019. No significant stenosis of the left lower extremity. Patient will likely need amputation of the first second toes versus TMA. Dr Le to see the patient to discuss for possible surgery this week. Admission and Anticipated Discharge Date Admission Date: October 15, 2019 Subjective I was asked to see the patient today for worsening pain due to gangrene of the l eft first and second toes. Patient had undergone amputation of several toes on the right foot and had noted dry gangrene of several toes on her left foot. At the time the patient was not having much in the way of pain and or complications from these toes. Dr. Renee contacted me today stating that she was having some worsening symptoms and noted that the toenail of the great toe was now loosening. Currently the patient is lying in bed awake and alert. She states that she is now asking for more pain medication because of pain in her left toes. She has no other complaints at this time. Physical Exam Physical Exam: Examination of the left foot shows dry gangrene of the left great toe and the second toe. Second toe has more gangrene noted than the great toe. Good portion of the tip of the toe is black itself. There is no draining. On the great toe there are 2 spots noted at the tip of the toe, one being approximately 4 to 5 mm in width and the other being approximately 6 to 7 mm in width. There is some loosening of the toenail of the great toe noted. Again there is no drainage from either toe at this time. Results & Data ([facility]) Vital Signs (Past 12 Hours) Vital Signs Temp Pulse Resp BP Pulse Ox 11/02/19 07:33 36.6 C 87 16 113/76 95
--- NOTE | 2019-11-02 15:33 | Wound Consultation ---
Date of Consultation November 02, 2019 Assessment & Plan (1) Surgical wound, non healing: Patient reportedly underwent fasciotomy while at [facility]. She has wound of his left calf likely due to wound dehiscence. Wound debridement. After obtaining permission was debrided of eschar using s cissors. There was no bleeding. Patient tolerated the procedure well with no complications. This represents a non-excisional debridement less than 20 cm. Wound will be dressed with Santyl. Dr. Le will reevaluate dry gangrene of the left foot. We will continue to follow. Thank you for limited participate in the care of this patient. Please do not hesitate to call with any questions. 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 She has a history of arterial clots of bilateral lower extremities. Patient further went into hit from heparin use. She had thrombectomies and left lower extremity fasciotomy in July. She had amputation of toes of the right foot due to gangrene. Patient was admitted to [facility] from [facility] for worsening gangrene. I am being consulted for the wound of her calf. Allergies Allergy/AdvReac Type Severity Reaction Status Date / Time heparin Allergy Heparin Verified 09/23/19 17:20 induced thrombocytopenia strawberry Allergy Hives Verified 09/24/19 16:02 Home Medications Home Medications Medication Instructions Recorded Confirmed Type Eliquis 5 mg PO BID 09/23/19 10/15/19 History acetaminophen 500 mg PO TID PRN 09/23/19 10/15/19 History albuterol sulfate [Ventolin HFA] 1 puff INHALATION Q4 PRN 09/23/19 10/15/19 History loperamide 2 mg PO Q6H PRN 09/23/19 10/15/19 History pantoprazole 40 mg PO DAILY 09/23/19 10/15/19 History gabapentin 200 mg PO BID 10/15/19 10/15/19 History lorazepam 0.5 mg PO TID PRN 10/15/19 10/15/19 History morphine 15 mg PO Q4 PRN 10/15/19 10/15/19 History naloxone 4 mg INTRANASAL PRN 10/15/19 History Patient History Medical History Arterial thrombosis (Acute) b/l legs - 07/2019 - s/p right SFA/popliteal/tibial thrombectomy, left popliteal/tibial thrombectomy, LLE fasciotomy Asthma Dry gangrene (Acute) b/l feet Goals of care, counseling/discussion 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 Developed HIT following anticoagulation for such. Neuroendocrine neoplasm of gastrointestinal tract (Acute) 07/11/19 - CT with 3.2 x 2.5cm spiculated mesenteric mass concerning for carcinoid tumor; 07/14 - ex lap with ileal resection and right hemicolectomy w/ end-to-end anastomosis; bx of peritoneal nodules and left ovarian mass; path -- metastatic well-differentiated NET, pT4 N1 M1b; Kl6y index 7.4% 07/27/19 - first dose IM Octreotide in [place] Pulmonary emboli RLL - 09/04/[address] - [facility] Pulmonary infarction RLL - 09/04/19 Surgical History History of hemicolectomy (Acute) ileal-cecal resection and right-sided hemicolectomy; ileal-colonic anastomosis - [facility] 07/15/2019 S/P laparoscopic procedure 1999 - exploratory - to rule out cancer? Family History Mother , age 82 Alzheimer disease Diabetes Stroke Father Laryngeal cancer Social History Smoking Status: Former smoker Age Started Using Tobacco: 11; Age Quit Using Tobacco: 49; packs per day: 1; Hx Alcohol Use: No Hx Substance Use: No Preferred Language: Setswana Communication Ability: Impaired Health Type Technician Required: No marital status: / marital status details: 2 children Current Living Situation: Family Current Living Situation Comment: PLANS TO MOVE IN WITH UNCLE in [place] current occupational status: disabled other: 2 children are in foster care 2nd to her severe medical issues Feels Safe at Home: No Review of Systems Review of Systems: All systems reviewed & are unremarkable except as noted in HPI & below Physical Exam Constitutional: WD/WN, vitals as above Eyes: PERRL, conjunctivae normal, anicteric sclerae ENMT: external ear and nose normal, oropharynx normal Ears: no hearing impairment Skin: Wounds measuring as recorded in nursing documentation. Left calf wound is covered with black eschar., Fibrin and slough. Periwound is intact without inflammation. There is moderate drainage no foul odors. Neurologic: awake; not confused Psychiatric: A+Ox3, euthymic affect Results & Data Vital Signs (Past 12 Hours) Vital Signs Temp Pulse Resp BP Pulse Ox 11/02/19 07:33 36.6 C 87 16 113/76 95 PG Care Time/CCT Total # of Minutes Spent Total Time Spent with Patient: Total time spent is greater than 50% in coordination of care (as documented) at patient's floor/unit and/or counseling patient: Coding Level of Care Code 90287 Inpt Consult Level 3 Diagnoses Surgical wound, non healing T81.89XA
[2019-11-02] MEDS: COLLAGENASE OINT 30 GM TUBE EXT SCH (16:30)
[2019-11-02] MEDS: ZINC OXIDE 16% 45 APPLN, HYDROCORTISONE 1% 45 APPLN, ALUMINUM/MAGNESIUM SUSP 15 ML, BAR... TOP PRN ×2 (16:53→20:42)
[2019-11-02] MEDS: OXYCODONE HCL IR 5 MG TAB (IMMEDIATE RELEASE) PO PRN (17:38)
--- NOTE | 2019-11-02 20:21 | Hospitalist Progress Note ---
Date of Service November 02, 2019 Assessment & Plan (1) Dry gangrene: b/l feet. 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 dry gangrene - distal 1st/2nd toes left foot - possible amputation this admission. exam today unchanged from prior exams. no evidence of complicating infection. await plan by orthopedics. (2) Depression: cont remeron 15mg HS recent TSH wnl. recent b12 wnl. replace low vitamin D. (3) Foot drop, left: left foot drop. ongoing. new - started at [facility] recently while rehabbing. with associated numbness left anterior hooper and left foot dorsum. AFO device obtained - refusing to wear such. patient is to be non-weightbearing right foot due to recent surgery but is refusing to get out of bed the entire hospitalization. recent l-spine MRI negative for pathology. refused head imaging to investigate this issue further. (4) Popliteal artery occlusion, right: Chronic popliteal artery occlusion. No intervention at this time per Dr Gresham. f/u with him after discharge. (5) Neuroendocrine neoplasm of gastrointestinal tract: s/p hemicolectomy [facility], [place] 07/2019. with liver Mets. s/p octreotide this admission. needs outpatient f/u with Dr Yeung. (6) 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 thrombocytopenia): 07/2019 at [facility], [place]. Cont eliquis for h/o PEs, right IJ DVT, and arterial thrombi of legs. Recent cbc acceptable. (7) Intellectual disability: Long-standing. Pt's children are in foster care. from boyfriend/. next of kin - patient has 2 sisters - 1 in [place]. but has not spoken to her in some time. asked psych to do formal capacity testing on 10/22 - appears to have capacity from their standpoint, but patient has told us multiple times she wants to live with people who cannot care for her. Her decision making is poor at best. Now going through "target process" for snf placement. (8) Abnormal LFTs: secondary to hepatic metastasis from neuroendocrine tumor repeat LFTs recently high but stable (9) History of hemicolectomy: 07/2019 - s/p removal of ileum and right colon with reanastomosis. 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 has chronic diarrhea with neg c diff this admission. (10) Asthma: albuterol prn stable (11) Pulmonary emboli: RLL - incidentally noted on CTA on 09/04/19 in [place]. associated pulmonary infarction in the RLL as well. cont eliquis life long. (12) Internal jugular vein thrombosis: 07/2019 - [facility], [place]. eliquis. (13) Hypokalemia: resolved. likely 2nd to GI losses and poor PO intake. cont K supplementation daily. BMP in am. (14) Hypomagnesemia: likely GI losses and poor PO intake. cont mag oxide BID indefinitely. check level AM. (15) Vitamin D deficiency: ergocalciferol 63751 U weekly x 8 weeks. recheck level at end of replacement. (16) DVT prophylaxis: eliquis 5mg BID target process for snf placement appreciate social work assistance Admission and Anticipated Discharge Date Admission Date: October 15, 2019 Subjective pt states her oxycodone was stopped and desires to have it restarted for left foot pain wants 1st/2nd toes amputated this admission - she is accepting that it needs to happen had abdominal pain this am - now resolved no new complaints wound care debrided left medial hooper ulceration today Review of Systems Constitutional: + anorexia Respiratory: no dyspnea Cardiovascular: no chest pain Gastrointestinal: + abdominal pain; no nausea and no vomiting Physical Exam Constitutional: no acute distress and no altered mental status ENMT: external ear and nose normal, oropharynx normal Mouth: + poor dentition and + chipped teeth; no oral mucosal abnormality Respiratory: normal respiratory effort, lungs clear to auscultation Cardiovascular: Rate/Rhythm: regular rate and regular rhythm Heart Sounds: normal S1 and normal S2; no murmur Vessels: no JVD Extremities: + abnormal capillary refill (Prolonged b/l feet ) and no edema Gastrointestinal (Abdomen): Inspection/Auscultation: normal bowel sounds; abdomen not distended Percussion/Palpation: abdomen soft and + hepatomegaly; abdomen nontender and no guarding Musculoskeletal: left 1st/2nd toes w/ distal gangrene - no change from prior exam; dressings intact right foot Psychiatric: Orientation: alert and oriented x 3 Results & Data Results & Data ([facility]) Vital Signs (Past 12 Hours) Vital Signs Temp Pulse Resp BP Pulse Ox 11/02/19 15:36 36.9 C 97 H 16 119/78 95 PG Care Time/CCT Total # of Minutes Spent Total Time Spent with Patient: Total time spent is greater than 50% in coordination of care (as documented) at patient's floor/unit and/or counseling patient: Coding Level of Care Code 81137 Subseq Hosp Care Lvl 2 Diagnoses Dry gangrene I96 Depression F32.9 Depression Type: unspecified Foot drop, left M21.372 Popliteal artery occlusion, right I70.201 Neuroendocrine neoplasm of gastrointestinal tract D3A.8 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 thrombocytopenia) D75.82 Intellectual disability F79 Abnormal LFTs R94.5 History of hemicolectomy Z90.49 Asthma J45.20 Asthma complication type: unspecified Asthma persistence: intermittent Asthma severity: mild Pulmonary emboli I26.99 Acute cor pulmonale presence: without acute cor pulmonale Chronicity: unspecified Pulmonary embolism type: unspecified Internal jugular vein thrombosis I82.C11 Laterality: right Hypokalemia E87.6 Hypomagnesemia E83.42 Vitamin D deficiency E55.9 DVT prophylaxis Z29.9 (1) Internal jugular vein thrombosis Laterality: right Qualified Code(s): I82.C11 - Acute embolism and thrombosis of right internal jugular vein (2) Depression Depression Type: unspecified Qualified Code(s): F32.9 - Major depressive disorder, single episode, unspecified (3) Pulmonary emboli Acute cor pulmonale presence: without acute cor pulmonale Chronicity: unspecified Pulmonary embolism type: unspecified Qualified Code(s): I26.99 - Other pulmonary embolism without acute cor pulmonale (4) Asthma Asthma complication type: unspecified Asthma persistence: intermittent Asthma severity: mild Qualified Code(s): J45.20 - Mild intermittent asthma, uncomplicated
[2019-11-02] MEDS: MIRTAZAPINE SOLTAB 15 MG PO SCH (20:36)
[2019-11-03] MEDS: LOPERAMIDE HCL 2 MG CAP PO SCH ×4 (00:06→18:58)
[2019-11-03 06:49] LABS: BUN Creatinine Ratio 3.9 (10-20); Calcium 7.8 mg/dl (8.5-10.1); Creatinine Clr Calc Pharmacy 140.2 ml/min; Est GFR (African American) 131.8; Est GFR (Non-African American) 113.7; Magnesium 1.5 mg/dl (1.8-2.4); Potassium 3.7 mmol/L (3.5-5.1)
[2019-11-03] MEDS: LACTOBACILLUS ACIDOPHILUS (FLORANEX) TAB PO SCH ×4 (09:52→20:02)
[2019-11-03] MEDS: APIXABAN 5 MG TABLET PO SCH ×2 (09:52→20:02)
[2019-11-03] MEDS: CEROVITE ADV FORMULA TAB PO SCH (09:52)
[2019-11-03] MEDS: GABAPENTIN 100 MG CAP PO SCH ×2 (09:53→20:01)
[2019-11-03] MEDS: NYSTATIN POWDER 15GM BTL EXT SCH ×3 (09:53→20:03)
[2019-11-03] MEDS: POTASSIUM CHLORIDE 20 MEQ TABCR PO SCH ×2 (09:53→20:02)
[2019-11-03] MEDS: PANTOprazole 40 MG TAB PO SCH (09:54)
[2019-11-03] MEDS: MAGNESIUM SULFATE / D5W 1 GM/100 ML BAG IV SCH ×2 (10:07→12:12)
[2019-11-03] MEDS: COLLAGENASE OINT 30 GM TUBE EXT SCH (10:11)
[2019-11-03] MEDS: MAGNESIUM OXIDE 400 MG TAB PO SCH ×3 (10:28→20:01)
[2019-11-03] MEDS: ONDANSETRON INJ 2 MG/ML 2 ML VIAL IV PRN ×2 (13:36→20:00)
[2019-11-03] MEDS: OXYCODONE HCL IR 5 MG TAB (IMMEDIATE RELEASE) PO PRN (15:50)
[2019-11-03] MEDS: MIRTAZAPINE SOLTAB 15 MG PO SCH (20:02)
--- NOTE | 2019-11-03 21:33 | Hospitalist Progress Note ---
Date of Service November 03, 2019 Assessment & Plan (1) Dry gangrene: b/l feet. 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 dry gangrene - distal 1st/2nd toes left foot - amputation planned for THIS SATURDAY by Dr Le. exam today unchanged from prior exams. no evidence of complicating infection. (2) Depression: cont remeron 15mg HS recent TSH wnl. recent b12 wnl. replace low vitamin D. (3) Foot drop, left: left foot drop. ongoing. AFO device obtained - refusing to wear such. patient is to be non-weightbearing right foot due to recent surgery but is refusing to get out of bed the entire hospitalization regardless. recent l-spine MRI negative for pathology. refused head imaging to investigate this issue further. (4) Popliteal artery occlusion, right: Chronic popliteal artery occlusion. No intervention at this time per Dr Gresham. after discharge set up follow-up with him. (5) Neuroendocrine neoplasm of gastrointestinal tract: s/p hemicolectomy [facility] 07/2019. with liver Mets. s/p octreotide this admission. needs outpatient f/u with Dr Yeung post-d/c. (6) 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 thrombocytopenia): 07/2019 at [facility]. Cont eliquis for h/o PEs, right IJ DVT, and arterial thrombi of legs. cbc acceptable. (7) Intellectual disability: Long-standing. Pt's children are in foster care. from boyfriend/. next of kin - patient has 2 sisters - 1 in [place]. but has not spoken to her in some time. asked psych to do formal capacity testing on 10/22 - appears to have capacity from their standpoint, but patient has told us multiple times she wants to live with people who cannot care for her. Her decision making is poor at best. Now going through "target process" for snf placement. 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 has chronic diarrhea with neg c diff this admission. (10) Asthma: albuterol prn stable (11) Pulmonary emboli: RLL - incidentally noted on CTA on 09/04/19 in [place]. associated pulmonary infarction in the RLL as well. infarction resolved; no chest pain. cont eliquis life long. (12) Internal jugular vein thrombosis: 07/2019 - [facility]. eliquis. (13) Hypokalemia: resolved. likely 2nd to GI losses and poor PO intake. cont K supplementation daily. BMP in am. (14) Hypomagnesemia: low today again - GI losses (or renal losses) -- mag sulfate x 2 grams IV. repeat level am. (15) Vitamin D deficiency: ergocalciferol 42656 U weekly x 8 weeks. recheck level at end of replacement. (16) DVT prophylaxis: eliquis 5mg BID target process for snf placement appreciate social work assistance increase oxy to 7.5mg q4h prn left foot pain Admission and Anticipated Discharge Date Admission Date: October 15, 2019 Subjective patient states she overall is having good day. does c/o pain in the left foot - oxy helps but requests larger dose. having amputation of left 1st/2nd toes on . abd pain controlled. no dyspnea. refuses to get out of bed. Review of Systems Constitutional: no fever Respiratory: no cough and no dyspnea Cardiovascular: no chest pain Gastrointestinal: no abdominal pain, no nausea and no vomiting Physical Exam Constitutional: no acute distress and no altered mental status ENMT: external ear and nose normal, oropharynx normal Mouth: + poor dentition and + chipped teeth; no oral mucosal abnormality Respiratory: normal respiratory effort, lungs clear to auscultation Cardiovascular: Rate/Rhythm: regular rate and regular rhythm Heart Sounds: normal S1 and normal S2; no murmur Vessels: no JVD Extremities: + abnormal capillary refill (Prolonged b/l feet ) and no edema Gastrointestinal (Abdomen): Inspection/Auscultation: normal bowel sounds; abdomen not distended Percussion/Palpation: abdomen soft and + hepatomegaly; abdomen nontender and no guarding Skin: sutures intact right foot; no drainage; left medial calf ulcer clean- based (eschar gone); left foot - distal 1st/2nd toes with mild dry gangrene (no change) Psychiatric: Orientation: alert and oriented x 3 Results & Data Results & Data ([facility]) Vital Signs (Past 12 Hours) Vital Signs Temp Pulse Resp BP Pulse Ox 11/03/19 15:18 36.8 C 98 H 18 121/81 98 Laboratory Results Laboratory Results - last 24 hr 11/03/19 06:01 Sodium 142 Potassium 3.7 Chloride 109 H Carbon Dioxide 28 Anion Gap 5.0 BUN 2 L Creatinine 0.51 L Est Cr Clr Drug Dosing 140.2 Est GFR ( Amer) 131.8 Est GFR (Non-Af Amer) 113.7 BUN/Creatinine Ratio 3.9 L Glucose 81 Calcium 7.8 L Magnesium 1.5 L PG Care Time/CCT Total # of Minutes Spent Total Time Spent with Patient: Total time spent is greater than 50% in coordinat ion of care (as documented) at patient's floor/unit and/or counseling patient: Coding Level of Care Code 70569 Subseq Hosp Care Lvl 2 Diagnoses Dry gangrene I96 Depression F32.9 Depression Type: unspecified Foot drop, left M21.372 Popliteal artery occlusion, right I70.201 Neuroendocrine neoplasm of gastrointestinal tract D3A.8 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 thrombocytopenia) D75.82 Intellectual disability F79 Abnormal LFTs R94.5 History of hemicolectomy Z90.49 Asthma J45.20 Asthma complication type: unspecified Asthma persistence: intermittent Asthma severity: mild Pulmonary emboli I26.99 Acute cor pulmonale presence: without acute cor pulmonale Chronicity: unspecified Pulmonary embolism type: unspecified Internal jugular vein thrombosis I82.C11 Laterality: right Hypokalemia E87.6 Hypomagnesemia E83.42 Vitamin D deficiency E55.9 DVT prophylaxis Z29.9 (1) Internal jugular vein thrombosis Laterality: right Qualified Code(s): I82.C11 - Acute embolism and thrombosis of right internal jugular vein (2) Depression Depression Type: unspecified Qualified Code(s): F32.9 - Major depressive disorder, single episode, unspecified (3) Pulmonary emboli Acute cor pulmonale presence: without acute cor pulmonale Chronicity: unspecified Pulmonary embolism type: unspecified Qualified Code(s): I26.99 - Other pulmonary embolism without acute cor pulmonale (4) Asthma Asthma complication type: unspecified Asthma persistence: intermittent Asthma severity: mild Qualified Code(s): J45.20 - Mild intermittent asthma, uncomplicated
[2019-11-04] MEDS: LOPERAMIDE HCL 2 MG CAP PO SCH ×4 (01:59→18:46)
[2019-11-04] MEDS: LACTOBACILLUS ACIDOPHILUS (FLORANEX) TAB PO SCH ×4 (10:01→21:02)
[2019-11-04] MEDS: MAGNESIUM OXIDE 400 MG TAB PO SCH ×3 (10:02→21:00)
[2019-11-04] MEDS: POTASSIUM CHLORIDE 20 MEQ TABCR PO SCH ×2 (10:02→21:00)
[2019-11-04] MEDS: PANTOprazole 40 MG TAB PO SCH (10:03)
[2019-11-04] MEDS: GABAPENTIN 100 MG CAP PO SCH ×2 (10:03→21:02)
[2019-11-04] MEDS: CEROVITE ADV FORMULA TAB PO SCH (10:04)
[2019-11-04] MEDS: NYSTATIN POWDER 15GM BTL EXT SCH ×3 (10:04→20:59)
[2019-11-04] MEDS: COLLAGENASE OINT 30 GM TUBE EXT SCH (10:06)
[2019-11-04] MEDS: ONDANSETRON INJ 2 MG/ML 2 ML VIAL IV PRN (13:51)
[2019-11-04] MEDS: OXYCODONE HCL IR 5 MG TAB (IMMEDIATE RELEASE) PO PRN (13:55)
--- NOTE | 2019-11-04 16:49 | Anesthesiology Consultation ---
Date of Service November 04, 2019 The patient underwent a toe amputation on 09/25/19 under MAC anesthesia and tolerated the procedure well. She was readmitted on 10/15/19 due to ongoing gangrene in her foot and inability to care for herself. She has been at [facility] since 10/15/19 and tested negative for Covid 19 on 10/19/19 according to her nurse. She does have some intellectual disability and there was some concern about her decision making but is AOx4 according to her nurse. She was able to sign consent for her previous anesthetic and should be able to do so again for this procedure. Assessment & Plan (1) Encounter for pre-operative examination: Chart Review Chart Review: Acceptable Risk for Surgery (necessary surgery) and Patient NOT seen in Pre Admission Testing Consults Requested none History Surgery Operation Date: 10/16/19 09:45 Proposed Procedures p Right Leg Angiogram with Intervention - Mahin Gresham MD Operation Date: 11/05/19 12:25 Proposed Procedures p Left Transmetatarsal Ampuation - Ezra Le DO Height/Weight Height: 5 ft 3 in Weight: 86 kg Allergies Allergy/AdvReac Type Severity Reaction Status Date / Time heparin Allergy Heparin Verified 09/23/19 17:20 induced thrombocytopenia strawberry Allergy Hives Verified 09/24/19 16:02 Medications Home Medications Medication Instructions Recorded Confirmed Last Taken Eliquis 5 mg PO BID 09/23/19 10/15/19 09/23/19 acetaminophen 500 mg PO TID PRN 09/23/19 10/15/19 09/23/19 albuterol sulfate [Ventolin HFA] 1 puff INHALATION Q4 PRN 09/23/19 10/15/19 Unknown loperamide 2 mg PO Q6H PRN 09/23/19 10/15/19 09/23/19 pantoprazole 40 mg PO DAILY 09/23/19 10/15/19 09/23/19 gabapentin 200 mg PO BID 10/15/19 10/15/19 Unknown lorazepam 0.5 mg PO TID PRN 10/15/19 10/15/19 Unknown morphine 15 mg PO Q4 PRN 10/15/19 10/15/19 Unknown naloxone 4 mg INTRANASAL PRN 10/15/19 Unknown Active Medications Generic Name Dose Route Start Last Admin Trade Name Freq PRN Reason Stop Dose Admin Acetaminophen 650 mg 10/15/19 02:34 11/02/19 16:31 Tylenol PO 11/14/19 02:33 650 mg Q4H PRN Administration pain/fever Collagenase 1 appln 11/02/19 15:00 11/04/19 10:06 Santyl EXT 12/02/19 14:59 1 appln DAILY DEIDRE Administration Petrolatum 45 appln/ 0 appln 10/15/19 02:47 11/02/19 20:42 Hydrocortisone 45 appln/ Al TOP 11/14/19 02:46 1 appln Hydrox/Mg Hydrox/Simethicone UD PRN Administration 15 ml/ BARCODE IDENTIFIER 1 ea Diaper Rash Gabapentin 200 mg 10/15/19 09:00 11/04/19 10:03 Neurontin PO 11/14/19 08:59 200 mg BID DEIDRE Administration Lactobacillus Acidophilus 4 tab 10/18/19 21:00 11/04/19 13:51 Floranex PO 11/17/19 20:59 4 tab QIDM DEIDRE Administration Loperamide HCl 2 mg 11/02/19 07:00 11/04/19 13:51 Imodium PO 12/02/19 06:59 2 mg Q6H DEIDRE Administration Lorazepam 0.5 mg 10/15/19 02:45 10/25/19 22:19 Ativan PO 11/14/19 02:44 0.5 mg TID PRN Administration Anxiety Magnesium Oxide 400 mg 11/03/19 14:00 11/04/19 13:51 Mag-Ox PO 12/03/19 13:59 400 mg TID DEIDRE Administration Mirtazapine 15 mg 10/25/19 21:00 11/03/19 20:02 Remeron Solutab PO 11/24/19 20:59 15 mg HS DEIDRE Administration Multivitamins/Minerals 1 tab 10/23/19 14:45 11/04/19 10:04 Multivitamin W/ Minerals Tab PO 11/22/19 14:44 1 tab QAM DEIDRE Administration Nystatin 1 appln 10/25/19 14:00 11/04/19 13:51 Mycostatin EXT 11/24/19 13:59 1 appln TID DEIDRE Administration Ondansetron HCl 4 mg 10/15/19 02:34 11/04/19 13:51 Zofran IV 11/14/19 02:33 4 mg Q6H PRN Administration Nausea Oxycodone HCl 7.5 mg 11/03/19 21:32 11/04/19 13:55 Roxicodone Immediate Rel PO 11/16/19 17:23 7.5 mg Q4H PRN Administration Pain Pantoprazole Sodium 40 mg 10/15/19 09:00 11/04/19 10:03 Protonix PO 11/14/19 08:59 40 mg DAILY DEIDRE Administration Potassium Chloride 20 meq 10/27/19 21:00 11/04/19 10:02 Klor-Con M20 PO 11/26/19 20:59 20 meq BID DEIDRE Administration Past Medical History Medical History Anemia Arterial thrombosis (Acute) b/l legs - 07/2019 - s/p right SFA/popliteal/tibial thrombectomy, left popliteal/tibial thrombectomy, LLE fasciotomy Asthma Dry gangrene (Acute) b/l feet Goals of care, counseling/discussion 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 thrombocytopenia) 07/[address] - [facility] Hypomagnesemia Intellectual disability (Acute) Internal jugular vein thrombosis RIGHT - 07/24/19. Developed HIT following anticoagulation for such. 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 07/15/2019 S/P laparoscopic procedure 1999 - exploratory - to rule out cancer? Social History Smoking Status: Former smoker Hx Alcohol Use: No Hx Substance Use: No Physical Exam Vital Signs Last Vital Signs Temp 36.6 C 11/04/19 15:33 Pulse 90 11/04/19 15:33 Resp 18 11/04/19 15:33 BP 116/78 11/04/19 15:33 Pulse Ox 98 11/04/19 15:33 Testing Laboratory Results 10/31/19 08:16 11/03/19 06:01 PT 16.8 Seconds (9.0-12.0) H 10/15/19 03:36 INR 1.6 (0.9-1.1) H 10/15/19 03:36 APTT 31.0 Seconds (21.0-31.0) 10/15/19 03:36 10/15/19 03:47 Aerobic Blood Culture - Final Blood No growth in Aerobic bottle after 5 days. Anaerobic Blood Culture - Final No growth in Anaerobic bottle after 5 days. 10/15/19 03:59 Aerobic Blood Culture - Final Blood No growth in Aerobic bottle after 5 days. Anaerobic Blood Culture - Final 11/04/19 magnesium 2 Electrocardiogram Date: 09/23/19 Findings: + NSR @ (94) and + NSST changes low voltage QRS Chest X-Ray Date: 09/23/19 Findings: + NAD
[2019-11-04] MEDS: MIRTAZAPINE SOLTAB 15 MG PO SCH (20:59)
--- NOTE | 2019-11-04 21:22 | Hospitalist Progress Note ---
Date of Service November 04, 2019 Assessment & Plan (1) Dry gangrene: b/l feet. 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 dry gangrene - distal 1st/2nd toes left foot - amputation tomorrow by Dr Le. eliquis on hold. NPO after MN tonight. repeat labs for stability in am. still no evidence of complicating infection. (2) Depression: improving cont remeron 15mg HS recent TSH wnl. recent b12 wnl. replace low vitamin D. (3) Foot drop, left: left foot drop. ongoing. no change. AFO device obtained - refusing to wear such. patient is to be non-weightbearing right foot due to recent surgery but is refusing to get out of bed the entire hospitalization regardless. again refused OOB today. recent l-spine MRI negative for pathology. refused head imaging to investigate this issue further. (4) Popliteal artery occlusion, right: Chronic popliteal artery occlusion. No intervention at this time per Dr Gresham. after discharge set up follow-up with him. 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 with liver Mets. s/p octreotide this admission. needs outpatient f/u with Dr Yeung post-d/c. (6) 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 thrombocytopenia): 07/2019 at [facility]. Cont eliquis for h/o PEs, right IJ DVT, and arterial thrombi of legs. cbc acceptable. (7) Intellectual disability: Long-standing. Pt's children are in foster care. from boyfriend/. next of kin - patient has 2 sisters - 1 in [place]. but has not spoken to her in some time. asked psych to do formal capacity testing on 10/22 - appears to have capacity from their standpoint, but patient has told us multiple times she wants to live with people who cannot care for her. Her decision making is poor at best. Now going through "target process" for snf placement. 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 has chronic diarrhea with neg c diff this admission. (10) Asthma: albuterol prn stable (11) Pulmonary emboli: RLL - incidentally noted on CTA on 09/04/19 in [place]. associated pulmonary infarction in the RLL as well. infarction resolved; no chest pain. cont eliquis life long but place on hold for amputation tomorrow. 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 eliquis (hold for amputation tomorrow). (13) Hypokalemia: resolved. likely 2nd to GI losses and poor PO intake. cont K supplementation daily. BMP in am. (14) Hypomagnesemia: level today wnl. cont PO supplementation. (15) Vitamin D deficiency: ergocalciferol 76774 U weekly x 8 weeks. recheck level at end of replacement. (16) DVT prophylaxis: eliquis 5mg BID but hold for amputation tomorrow target process for snf placement appreciate social work assistance Admission and Anticipated Discharge Date Admission Date: October 15, 2019 Subjective no events overnight she understands that left foot 1st/2nd toes amp is tomorrow eating during my visit tolerating diet stools improved Review of Systems Constitutional: no fever and no chills Respiratory: no dyspnea Cardiovascular: no chest pain Gastrointestinal: no abdominal pain Physical Exam Constitutional: no acute distress and no altered mental status ENMT: Mouth: + poor dentition and + chipped teeth; no oral mucosal abnormality Respiratory: normal respiratory effort, lungs clear to auscultation Cardiovascular: Rate/Rhythm: regular rate and regular rhythm Heart Sounds: normal S1 and normal S2; no murmur Vessels: no JVD Extremities: + abnormal capillary refill (Prolonged b/l feet ) and no edema Gastrointestinal (Abdomen): Inspection/Auscultation: normal bowel sounds; abdomen not distended Percussion/Palpation: abdomen soft and + hepatomegaly; abdomen nontender and no guarding Skin: right foot wrapped in dressings - clean/dry; left foot 1/2nd toes with distal dry gangrene -- no change; optifoam in place left medial hooper Psychiatric: Orientation: alert and oriented x 3 Results & Data Results & Data ([facility]) Vital Signs (Past 12 Hours) Vital Signs Temp Pulse Resp BP Pulse Ox 11/04/19 15:33 36.6 C 90 18 116/78 98 Laboratory Results Mag = 2 PG Care Time/CCT Total # of Minutes Spent Total Time Spent with Patient: Total time spent is greater than 50% in coordination of care (as documented) at patient's floor/unit and/or counseling patient: Coding Level of Care Code 88138 Subseq Hosp Care Lvl 2 Diagnoses Dry gangrene I96 Depression F32.9 Depression Type: unspecified Foot drop, left M21.372 Popliteal artery occlusion, right I70.201 Neuroendocrine neoplasm of gastrointestinal tract D3A.8 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 thrombocytopenia) D75.82 Intellectual disability F79 Abnormal LFTs R94.5 History of hemicolectomy Z90.49 Asthma J45.20 Asthma complication type: unspecified Asthma persistence: intermittent Asthma severity: mild Pulmonary emboli I26.99 Acute cor pulmonale presence: without acute cor pulmonale Chronicity: unspecified Pulmonary embolism type: unspecified Internal jugular vein thrombosis I82.C11 Laterality: right Hypokalemia E87.6 Hypomagnesemia E83.42 Vitamin D deficiency E55.9 DVT prophylaxis Z29.9 (1) Internal jugular vein thrombosis Laterality: right Qualified Code(s): I82.C11 - Acute embolism and thrombosis of right internal jugular vein (2) Depression Depression Type: unspecified Qualified Code(s): F32.9 - Major depressive disorder, single episode, unspecified (3) Pulmonary emboli Acute cor pulmonale presence: without acute cor pulmonale Chronicity: unspecified Pulmonary embolism type: unspecified Qualified Code(s): I26.99 - Other pulmonary embolism without acute cor pulmonale (4) Asthma Asthma complication type: unspecified Asthma persistence: intermittent Asthma severity: mild Qualified Code(s): J45.20 - Mild intermittent asthma, uncomplicated
[2019-11-05] MEDS: LOPERAMIDE HCL 2 MG CAP PO SCH ×4 (00:23→19:03)
[2019-11-05 07:02] LABS: Hematocrit (blood only) 34.9 % (37-47); Hemoglobin 11.2 g/dL (12.0-16.0); Mean Corpuscular Hemoglobin 29.8 pg (25-34); Mean Corpuscular Hgb Conc 32.1 g/dL (32-36); Mean Corpuscular Volume 92.8 fL (80-100); Mean Platelet Volume 10.9 fL (7.4-10.4); Nucleated RBC # (auto) 0.05 K/uL (0-0); Nucleated RBC % (auto) 0.8 %; Platelet Count 276 K/uL (130-400); RDW Standard Deviation 64.2 fL (36.4-46.3); Red Blood Count 3.76 M/uL (4.2-5.4); White Blood Count 6.85 K/uL (4.8-10.8)
[2019-11-05 07:52] LABS: BUN Creatinine Ratio 5.9 (10-20); Calcium 8.2 mg/dl (8.5-10.1); Creatinine Clr Calc Pharmacy 145.9 ml/min; Est GFR (African American) 133.5; Est GFR (Non-African American) 115.2
[2019-11-05] MEDS: LACTOBACILLUS ACIDOPHILUS (FLORANEX) TAB PO SCH ×4 (10:41→20:47)
[2019-11-05] MEDS: POTASSIUM CHLORIDE 20 MEQ TABCR PO SCH ×2 (10:41→20:48)
[2019-11-05] MEDS: GABAPENTIN 100 MG CAP PO SCH ×2 (10:42→20:49)
[2019-11-05] MEDS: MAGNESIUM OXIDE 400 MG TAB PO SCH ×3 (10:42→20:48)
[2019-11-05] MEDS: CEROVITE ADV FORMULA TAB PO SCH (10:42)
[2019-11-05] MEDS: PANTOprazole 40 MG TAB PO SCH (10:42)
[2019-11-05] MEDS: NYSTATIN POWDER 15GM BTL EXT SCH ×3 (10:42→20:49)
[2019-11-05] MEDS: COLLAGENASE OINT 30 GM TUBE EXT SCH ×2 (10:43→10:44)
[2019-11-05] MEDS: OXYCODONE HCL IR 5 MG TAB (IMMEDIATE RELEASE) PO PRN (10:54)
[2019-11-05] MEDS ORDERED: PROPOFOL IV EMULSION 10 MG/ML 20 ML VIAL IV ONE ×2 (13:08→15:16)
[2019-11-05] MEDS ORDERED: MIDAZOLAM HCL 1 MG/ML 2ML VIAL ONE ×2 (13:09→15:08)
[2019-11-05] MEDS ORDERED: fentaNYL citrate 100 MCG/2 ML VIAL ONE ×3 (13:09→16:08)
--- NOTE | 2019-11-05 14:35 | History & Physical Bridge Note ---
Date of Service November 05, 2019 History & Physical Bridge Note I have examined the patient, reviewed the History & Physical and in the interval since the performance of the History & Physical I have noted the following changes of clinical significance:Will require left transmetatarsal amputation.
[2019-11-05] MEDS ORDERED: BUPIVACAINE 0.5 % 5 MG/1 ML MPF 30ML VIAL ONE (14:40)
--- NOTE | 2019-11-05 14:44 | Wound Progress Note ---
Date of Service November 05, 2019 Assessment & Plan (1) Surgical wound, non healing: Patient is improving. Wound bed looks healthier. We will continue apply Santyl and cover with 4 x 4's and an OPTi foam. We will see patient in the office after discharge. Subjective Patient seen at bedside with MAHESH. She is for amputation of left first and second toes due to gangrene. Review of Systems Review of Systems: All systems reviewed & are unremarkable except as noted in HPI & below Physical Exam Skin: Wound measuring as recorded in nursing documentation. Wound is still covered with fibrin and slough however is much improved. Periwound is intact with mild erythema. There is moderate drainage and no foul odors. Neurologic: awake; not confused Psychiatric: A+Ox3, euthymic affect Results & Data Vital Signs (Past 12 Hours) Vital Signs Temp Pulse Pulse Resp BP BP Pulse Ox 11/05/19 14:36 37.2 C 89 20 106/71 94 11/05/19 07:06 36.7 C 87 14 119/73 94 PG Care Time/CCT Total # of Minutes Spent Total Time Spent with Patient: Total time spent is greater than 50% in coordination of care (as documented) at patient's floor/unit and/or counseling patient: Coding Level of Care Code 44844 Subseq Hosp Care Lvl 2 Diagnoses Surgical wound, non healing T81.89XA
[2019-11-05] MEDS ORDERED: BACITRACIN INJ 50,000 UNIT VIAL ONE (14:45)
[2019-11-05] MEDS ORDERED: HYDROmorphone INJ 2 MG/ML SYR/VIAL IV PRN (14:55)
[2019-11-05] MEDS ORDERED: ATROPINE SULFATE 0.1 MG/ML 10ML SYR IV PRN (14:55)
[2019-11-05] MEDS ORDERED: ePHEDrine sulfate 50 MG/ML AMP IV PRN (14:55)
[2019-11-05] MEDS ORDERED: METOCLOPRAMIDE HCL INJ 5 MG/ML 2 ML VIAL IV PRN ×2 (14:55→17:00)
[2019-11-05] MEDS ORDERED: PROMETHAZINE HCL 12.5 MG in SODIUM CHLORIDE 0.9% 50 ML IV PRN (14:55)
[2019-11-05] MEDS ORDERED: ONDANSETRON INJ 2 MG/ML 2 ML VIAL IV PRN ×2 (14:55→17:00)
[2019-11-05] MEDS ORDERED: KETOROLAC 30 MG/ML VIAL IV PRN (14:55)
[2019-11-05] MEDS ORDERED: fentaNYL citrate 100 MCG/2 ML VIAL IV PRN (14:55)
[2019-11-05] MEDS ORDERED: LIDOCAINE HCL 1% 20 ML VIAL ONE (15:01)
[2019-11-05] MEDS ORDERED: LIDOCAINE HCL 2% 2 ML VIAL/AMP(20MG/ML) INFIL ONE (15:16)
[2019-11-05] MEDS ORDERED: ONDANSETRON INJ 2 MG/ML 2 ML VIAL ONE (15:18)
--- NOTE | 2019-11-05 15:58 | Post Operative Brief Note ---
Immediate Post Op Note v1 Date of Surgery November 05, 2019 Pre & Post Diagnosis Operation Date: 10/16/19 09:45 <No data on this case meets the specified criteria> Operation Date: 11/05/19 12:25 Preoperative diagnosis: Left foot gangrene great toe, gangrene second toe, severe peripheral vascular disease, neuropathy Postoperative diagnosis: Left foot gangrene great toe, gangrene second toe, severe peripheral vascular disease, neuropathy I identified the patient and participated in the time-out.: Yes Procedure Operation Date: 10/16/19 09:45 <No data on this case meets the specified criteria> Operation Date: 11/05/19 12:25 Left foot transmetatarsal amputation Surgeon Ezra Le DO Garage Supervisor Stephen Navarro PA-C Estimated Blood Loss 5 Findings Consistent with Post-Op Diagnosis Specimens Amputated toes and metatarsals left foot Drains Hemovac Drain Anesthesia Type MAC Regional Complications none Disposition Accompanied Patient To Recovery: No Disposition: Recovery Room
--- NOTE | 2019-11-05 16:17 | Anesthesiology Progress Note ---
Date of Service November 05, 2019 Anesthesia Post Procedure Vital Signs Vital Signs: Temp Pulse Pulse Pulse Resp BP BP 11/05/19 14:36 37.2 C 89 20 106/71 11/05/19 07:06 36.7 C 87 14 119/73 11/04/19 23:03 36.5 C 95 H 14 130/73 Pulse Ox 11/05/19 14:36 94 11/05/19 07:06 94 11/04/19 23:03 92 Pain Intensity Right Foot: Pain Intensity: 0 Bilateral Foot: Pain Intensity: 0 Bilateral Abdomen: Pain Intensity: 0 Left Leg: Pain Intensity: 9 Left Foot: Pain Intensity: 5 Transfer of Care Handoff Completed per policy Notes Mental Status: alert / awake / arousable Patient Amnestic to Procedure: Yes Nausea / Vomiting: adequately controlled Pain: adequately controlled Airway Patency, RR, SpO2: stable & adequate BP & HR: stable & adequate Hydration State: stable & adequate Anesthetic Complications: no major complications apparent
[2019-11-05] MEDS ORDERED: HYDROmorphone INJ 0.5 MG/0.5 ML SYR IV PRN (17:00)
[2019-11-05] MEDS ORDERED: NALOXONE HCL 0.4 MG/1 ML VIAL/CARP IV PRN (17:00)
[2019-11-05] MEDS ORDERED: MAGNESIUM HYDROXIDE SUSP 30 ML UDC PO PRN (17:00)
[2019-11-05] MEDS ORDERED: ALUMINUM/MAGNESIUM SUSP 30 ML UDC PO PRN (17:00)
[2019-11-05] MEDS ORDERED: bisacodyL 10 MG SUPP PR PRN (17:00)
--- NOTE | 2019-11-05 17:40 | Operative Report (OR) ---
DATE OF OPERATION: 11/05/2019 PREOPERATIVE DIAGNOSES: 1. Left foot gangrene of the great toe. 2. Gangrene of the second toe. 3. Severe peripheral vascular disease. 4. Painful neuropathy. POSTOPERATIVE DIAGNOSES: 1. Left foot gangrene of the great toe. 2. Gangrene of the second toe. 3. Severe peripheral vascular disease. 4. Painful neuropathy. PROCEDURE: Left foot transmetatarsal amputation. SURGEON: Ezra Le DO. INFECTIOUS DISEASE TECHNICIAN: tSephen Navarro PA-C who was present for patient positioning, sterile prep and drape, management of retractors and instruments. He was present through the critical portions of the case including wound closure, application of sterile dressing and transport of the patient to recovery. ANESTHESIA: Local MAC. SPECIMENS: Bone and tissue amputated parts of left foot. DRAINS: Hemovac x1. COMPLICATIONS: None. BLOOD LOSS: 5 mL. PERTINENT HISTORY: This is a 49-year-old woman with severe peripheral vascular disease distal to the trifurcation. She attempted and failed conservative management including vascular consultation, management of medications, minimizing weightbearing, modification of shoe wear and shoe inserts. She failed all measures and has obvious gangrene with tissue necrosis of the first and second toes with severe pain and hypersensitivity and nerve and vascular claudication distal to the mid foot on the left foot. The patient was scheduled for surgery as indicated. All potential risks, benefits, complications, alternatives, rehab potential for incomplete relief of symptoms, need for further surgery, DVT, PE, , persistent pain, swelling, scarring, weakness, neurovascular injury, wound complications, need for further amputation were discussed with the patient. The patient decided to proceed with the procedure as indicated. DESCRIPTION OF PROCEDURE: The patient was taken to the operative suite, placed supine on the operating room table. After review of consent and identification of proper operative site, the patient was sedated and after sterile prep, ankle block was performed. The left lower extremity was then sterilely prepped and draped in usual fashion, elevated and partially exsanguinated with an Esmarch bandage from the heel proximally with a 4-inch Esmarch and a 4-inch tourniquet was applied over sterile surgical towel at the level of the ankle. Next, a 15 blade scalpel was used to make a transverse incision on the dorsum of the foot just at the metatarsal heads from medial to lateral. Next, the mid lateral line of the great toe tissue flap was then created distally, taking care to preserve and protect as much plantar tissue for the pad as possible. Next, this was continued across the metatarsophalangeal junction from medial to lateral. Next, a dorsal incision was carried down to the level of the bone, first, second, third, fourth, and fifth metatarsals respectively. Using Hohmann retractors, the bone was then visualized and soft tissues protected. Sequentially, the first, second, third, fourth, and fifth metatarsals were transected with a sagittal saw. Next, the towel clip was then used to grasp the first, second, third, fourth, and fifth metatarsals distally and used to free soft tissue from the metatarsals. These were then passed off as specimen and the toes were then passed off as well. Next, the plantar flap was then noted to be stable, well vascularized and perfused. The tissue appeared healthy. The flexor and extensor tendons were then placed on stretch using a hemostat and then transected with a 15 blade scalpel allowed to retract within the flap. The sesamoids for the fifth metatarsal and the first metatarsal were then sharply resected using a 15 blade scalpel. This was then copiously irrigated with sterile normal saline until clear. The plantar flap was then folded dorsally and then using a low tension closure between 3-0 nylon sutures with simple and horizontal mattress stitches, flap was then closed over a 10-Portuguese Hemovac drain. Next, a sterile compressive dressing was applied, overwrapped with an Marcel wrap. The tourniquet was released. The patient was awakened and taken to recovery in stable condition. I attest to the content of the Intraoperative Record and any orders documented therein. Any exception s are noted below.
[2019-11-05] MEDS: SODIUM CHLORIDE 0.9% 1000ML 1,000 ML IV SCH (18:09)
[2019-11-05] MEDS: CEFAZOLIN 2000MG 2,000 MG/15 ML SYR IV SCH ×2 (18:20→19:03)
[2019-11-05] MEDS: KETOROLAC TROMETHAMINE 15 MG/ML VIAL IV SCH (19:03)
[2019-11-05] MEDS: DOCUSATE SODIUM 100 MG CAP PO SCH (20:47)
[2019-11-05] MEDS: MIRTAZAPINE SOLTAB 15 MG PO SCH (20:48)
[2019-11-05] MEDS: SENNA 8.6 MG TAB PO SCH (20:48)
--- NOTE | 2019-11-05 21:08 | Hospitalist Progress Note ---
Date of Service November 05, 2019 Assessment & Plan (1) Dry gangrene: b/l feet. 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 dry gangrene - distal 1st/2nd toes left foot - s/p TMA of all toes today by Dr Le. eliquis on hold - resume when ok with ortho. increase gabapentin to TID dosing from BID as pain has been ongoing issue this week in left foot. (2) Depression: improving cont remeron 15mg HS recent TSH wnl. recent b12 wnl. replace low vitamin D. (3) Foot drop, left: left foot drop. ongoing. no change. AFO device obtained - refusing to wear such. patient is to be non-weightbearing right foot due to recent surgery but is refusing to get out of bed the entire hospitalization regardless. again refused OOB today. recent l-spine MRI negative for pathology. refused head imaging to investigate this issue further. (4) Popliteal artery occlusion, right: Chronic popliteal artery occlusion. No intervention at this time per Dr Gresham. after discharge set up follow-up with him. (5) Neuroendocrine neoplasm of gastrointestinal tract: s/p hemicolectomy [facility] 07/2019. with liver Mets. s/p octreotide this admission. needs outpatient f/u with Dr Yeung post-d/c. (6) 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 thrombocytopenia): 07/2019 at [facility]. Cont eliquis for h/o PEs, right IJ DVT, and arterial thrombi of legs. cbc acceptable. eliquis on hold for amputation today. resume when ok with ortho. (7) Intellectual disability: Long-standing. Pt's children are in foster care. from boyfriend/. next of kin - patient has 2 sisters - 1 in [place]. but has not spoken to her in some time. asked psych to do formal capacity testing on 10/22 - appears to have capacity from their standpoint, but patient has told us multiple times she wants to live with people who cannot care for her. Her decision making is poor at best. Now going through "target process" for snf placement. 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 Surgery at [facility]. (10) Asthma: albuterol prn stable no exacerbation (11) Pulmonary emboli: RLL - incidentally noted on CTA on 09/04/19 in [place]. associated pulmonary infarction in the RLL as well. infarction resolved; no chest pain. cont eliquis life long but on hold for amputation today - resume when ok with ortho. (12) Internal jugular vein thrombosis: 07/2019 - [facility]. eliquis (held for amputation). (13) Hypokalemia: resolved. likely 2nd to GI losses and poor PO intake. cont K supplementation daily. BMP today wnl. (14) Hypomagnesemia: resolved. cont PO supplementation. (15) Vitamin D deficiency: ergocalciferol 81896 U weekly x 8 weeks. recheck level at end of replacement. (16) DVT prophylaxis: eliquis 5mg BID but held for amputation today target process for snf placement appreciate social work assistance Admission and Anticipated Discharge Date Admission Date: October 15, 2019 Subjective patient just returned from OR during my visit. c/o severe pain in the left foot. she was writhing in pain. denied cp, dyspnea, abd pain. fell asleep during latter portion of my visit. Review of Systems Respiratory: no dyspnea Cardiovascular: no chest pain Gastrointestinal: no abdominal pain Physical Exam Constitutional: + acute distress (2nd L foot pain); no altered mental status ENMT: external ear and nose normal, oropharynx normal Mouth: + poor dentition and + chipped teeth; no oral mucosal abnormality Respiratory: normal respiratory effort, lungs clear to auscultation Cardiovascular: Rate/Rhythm: regular rate and regular rhythm Heart Sounds: normal S1 and normal S2; no murmur Vessels: no JVD Extremities: no edema Gastrointestinal (Abdomen): Inspection/Auscultation: normal bowel sounds; abdomen not distended Percussion/Palpation: abdomen soft and + hepatomegaly; abdomen nontender and no guarding Musculoskeletal: b/l feet dressed - not removed today Psychiatric: Orientation: alert and oriented x 3 Results & Data Results & Data ([facility]) Vital Signs (Past 12 Hours) Vital Signs Temp Pulse Pulse Pulse Resp BP BP 11/05/19 20:52 11/05/19 19:58 36.3 C L 100 H 16 111/74 11/05/19 19:01 36.7 C 99 H 18 108/74 11/05/19 18:01 36.9 C 100 H 18 123/85 11/05/19 17:25 36.6 C 97 H 16 103/62 11/05/19 16:40 36.5 C 99 H 16 124/71 11/05/19 16:30 103 H 16 95/73 L 11/05/19 16:20 119 H 15 109/60 11/05/19 16:14 36.9 C 124 H 22 120/86 11/05/19 14:55 36.8 C 98 H 20 100/64 11/05/19 14:36 37.2 C 89 20 106/71 Pulse Ox 11/05/19 20:52 92 11/05/19 19:58 96 11/05/19 19:01 92 11/05/19 18:01 98 11/05/19 17:25 96 11/05/19 16:40 98 11/05/19 16:30 97 11/05/19 16:20 97 11/05/19 16:14 99 11/05/19 14:55 96 11/05/19 14:36 94 Laboratory Results Laboratory Results - last 24 hr 11/05/19 11/05/19 11/05/19 06:43 06:43 08:07 WBC 6.85 RBC 3.76 L Hgb 11.2 L Hct 34.9 L MCV 92.8 MCH 29.8 MCHC 32.1 RDW Std Deviation 64.2 H RDW Coeff of Sharan 19.0 H Plt Count 276 MPV 10.9 H Absolute Nucleated RBC 0.05 H Nucleated RBC % (auto) 0.8 Sodium 142 Potassium 3.7 Chloride 110 H Carbon Dioxide 27 Anion Gap 5.0 BUN 3 L Creatinine 0.49 L Est Cr Clr Drug Dosing 145.9 Est GFR ( Amer) 133.5 Est GFR (Non-Af Amer) 115.2 BUN/Creatinine Ratio 5.9 L Glucose 70 POC Glucose Calcium 8.2 L POC Ur Test 11/05/19 11/05/19 14:42 16:13 WBC RBC Hgb Hct MCV MCH MCHC RDW Std Deviation RDW Coeff of Sharan Plt Count MPV Absolute Nucleated RBC Nucleated RBC % (auto) Sodium Potassium Chloride Carbon Dioxide Anion Gap BUN Creatinine Est Cr Clr Drug Dosing Est GFR ( Amer) Est GFR (Non-Af Amer) BUN/Creatinine Ratio Glucose POC Glucose 95 Calcium POC Ur Test NEG PG Care Time/CCT Total # of Minutes Spent Total Time Spent with Patient: Total time spent is greater than 50% in coordination of care (as documented) at patient's floor/unit and/or counseling patient: Coding Level of Care Code 78327 Subseq Hosp Care Lvl 1 Diagnoses Dry gangrene I96 Depression F32.9 Depression Type: unspecified Foot drop, left M21.372 Popliteal artery occlusion, right I70.201 Neuroendocrine neoplasm of gastrointestinal tract D3A.8 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 thrombocytopenia) D75.82 Intellectual disability F79 Abnormal LFTs R94.5 History of hemicolectomy Z90.49 Asthma J45.20 Asthma complication type: unspecified Asthma persistence: intermittent Asthma severity: mild Pulmonary emboli I26.99 Acute cor pulmonale presence: without acute cor pulmonale Chronicity: unspecified Pulmonary embolism type: unspecified Internal jugular vein thrombosis I82.C11 Laterality: right Hypokalemia E87.6 Hypomagnesemia E83.42 Vitamin D deficiency E55.9 DVT prophylaxis Z29.9 (1) Internal jugular vein thrombosis Laterality: right Qualified Code(s): I82.C11 - Acute embolism and thrombosis of right internal jugular vein (2) Depression Depression Type: unspecified Qualified Code(s): F32.9 - Major depressive disorder, single episode, unspecified (3) Pulmonary emboli Acute cor pulmonale presence: without acute cor pulmonale Chronicity: unspecified Pulmonary embolism type: unspecified Qualified Code(s): I26.99 - Other pulmonary embolism without acute cor pulmonale (4) Asthma Asthma complication type: unspecified Asthma persistence: intermittent Asthma severity: mild Qualified Code(s): J45.20 - Mild intermittent asthma, uncomplicated
[2019-11-06] MEDS: KETOROLAC TROMETHAMINE 15 MG/ML VIAL IV SCH ×4 (00:09→17:46)
[2019-11-06] MEDS: LOPERAMIDE HCL 2 MG CAP PO SCH ×5 (00:09→18:45)
[2019-11-06] MEDS: CEFAZOLIN 2000MG 2,000 MG/15 ML SYR IV SCH (02:33)
[2019-11-06] MEDS: SODIUM CHLORIDE 0.9% 1000ML 1,000 ML IV SCH (04:13)
[2019-11-06] MEDS ORDERED: MULTIVITAMIN TAB PO SCH (09:00)
[2019-11-06] MEDS: LACTOBACILLUS ACIDOPHILUS (FLORANEX) TAB PO SCH ×4 (09:04→20:14)
[2019-11-06] MEDS: GABAPENTIN 100 MG CAP PO SCH ×3 (09:04→20:13)
[2019-11-06] MEDS: MAGNESIUM OXIDE 400 MG TAB PO SCH ×3 (09:05→20:15)
[2019-11-06] MEDS: POTASSIUM CHLORIDE 20 MEQ TABCR PO SCH ×2 (09:05→20:14)
[2019-11-06] MEDS: CEROVITE ADV FORMULA TAB PO SCH (09:05)
[2019-11-06] MEDS: PANTOprazole 40 MG TAB PO SCH (09:06)
[2019-11-06] MEDS: NYSTATIN POWDER 15GM BTL EXT SCH ×3 (09:06→20:17)
[2019-11-06] MEDS: DOCUSATE SODIUM 100 MG CAP PO SCH ×2 (09:11→20:15)
[2019-11-06] MEDS: OXYCODONE HCL IR 5 MG TAB (IMMEDIATE RELEASE) PO PRN (09:11)
[2019-11-06] MEDS: COLLAGENASE OINT 30 GM TUBE EXT SCH (09:46)
--- NOTE | 2019-11-06 15:48 | Orthopedic Progress Note ---
Date of Service November 06, 2019 Assessment & Plan (1) Gangrene of toe of left foot: Status post left transmetatarsal amputation postop day #1. Peripheral vascular disease. Recommend nonweightbearing left lower extremity will perform dressing change on Nov 07, 2019. Maintain nonweightbearing left lower extremity. (2) Arterial thrombosis: Admission and Anticipated Discharge Date Admission Date: October 15, 2019 Subjective Patient denied significant pain left foot. Sitting upright watching television. Has maintained nonweightbearing is requested. Overall improved compared to prior to surgery per the patient. No fevers or chills. Physical Exam Physical Exam: Left lower extremity dressing in place. No strikethrough. No foul odor. Status post TMA left lower extremity. Left lower extremity edema improved greater prior to exam. Foot is supple. Results & Data ([facility]) Vital Signs (Past 12 Hours) Vital Signs Temp Pulse Pulse Resp BP Pulse Ox 11/06/19 15:17 36.7 C 98 H 16 115/73 92 11/06/19 07:37 36.4 C L 83 16 103/70 93
[2019-11-06] MEDS: SENNA 8.6 MG TAB PO SCH (20:12)
[2019-11-06] MEDS: MIRTAZAPINE SOLTAB 15 MG PO SCH (20:13)
--- NOTE | 2019-11-06 22:11 | Hospitalist Progress Note ---
Date of Service November 06, 2019 Assessment & Plan (1) Dry gangrene: b/l feet. 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 s/p TMA of all digits, left foot - Dr Le on 11/05/19. ongoing pain, left foot - cont oxycodone prn. plan to increase gabapentin tomorrow for phantom pain. likely resume eliquis tomorrow. (2) Depression: MUCH improved. appetite better. sleeping better. cont remeron 15mg HS recent TSH wnl. recent b12 wnl. replace low vitamin D. (3) Foot drop, left: left foot drop. AFB when she is allowed to weight bear. non-weightbearing post-op from left foot TMA. cause of foot drop uncertain - lumbar spine MRI w/o pathology. patient refused MRI brain. (4) Popliteal artery occlusion, right: Chronic popliteal artery occlusion. No intervention needed. f/u Dr Gresham, [facility], post-d/c. 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 with liver Mets. needs outpatient f/u with Dr Yeung post-d/c. octreotide was apparently administered this admission but I spoke with pharmacy and there is no record of such. (6) 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 thrombocytopenia): 07/2019 at [facility]. Cont eliquis for h/o PEs, right IJ DVT, and arterial thrombi of legs. cbc acceptable. eliquis on hold for amputation today. resume when ok with ortho. (7) Intellectual disability: Long-standing. Pt's children are in foster care. from boyfriend/. next of kin - patient has 2 sisters - 1 in [place]. but has not spoken to her in some time. asked psych to do formal capacity testing on 10/22 - appears to have capacity from their standpoint, but patient has told us multiple times she wants to live with people who cannot care for her. Her decision making is poor at best. Now going through "target process" for snf placement. 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 Surgery at [facility]. (10) Asthma: albuterol prn stable no exacerbation (11) Pulmonary emboli: RLL - incidentally noted on CTA on 09/04/19 in [place]. associated pulmonary infarction in the RLL as well. infarction resolved; no chest pain. cont eliquis life long but on hold due to yesterday's amputation - resume when ok with ortho. (12) Internal jugular vein thrombosis: 07/2019 - [facility]. eliquis (held for amputation). (13) Hypokalemia: resolved. likely 2nd to GI losses and poor PO intake. cont K supplementation daily. BMP in am. (14) Hypomagnesemia: resolved. cont PO supplementation. (15) Vitamin D deficiency: ergocalciferol 33129 U weekly x 8 weeks. recheck level at end of replacement. next dose due 11/09/19. (16) DVT prophylaxis: eliquis 5mg BID but held for amputation on 11/04 likely resume tomorrow target process for snf placement at [facility] in [place] appreciate social work assistance left message for Ozzie, her uncle, on 11/06/19 Admission and Anticipated Discharge Date Admission Date: October 15, 2019 Subjective no issues today feeling good overall mild-moderate pain left foot no abd pain, nausea, emesis or dyspnea eating well no diarrhea Review of Systems Constitutional: no fever Respiratory: no cough Cardiovascular: no chest pain Physical Exam Constitutional: no acute distress and no altered mental status ENMT: Mouth: + poor dentition and + chipped teeth; no oral mucosal abnormality Respiratory: normal respiratory effort, lungs clear to auscultation Cardiovascular: Rate/Rhythm: regular rate and regular rhythm Heart Sounds: normal S1 and normal S2; no murmur Vessels: no JVD Extremities: no edema Gastrointestinal (Abdomen): Inspection/Auscultation: normal bowel sounds; abdomen not distended Percussion/Palpation: abdomen soft and + hepatomegaly; abdomen nontender and no guarding Musculoskeletal: b/l feet in dressings; clean/dry/intact Psychiatric: A+Ox3, euthymic affect Results & Data Results & Data ([facility]) Vital Signs (Past 12 Hours) Vital Signs Temp Pulse Resp BP Pulse Ox 11/06/19 15:17 36.7 C 98 H 16 115/73 92 PG Care Time/CCT Total # of Minutes Spent Total Time Spent with Patient: Total time spent is greater than 50% in coordination of care (as documented) at patient's floor/unit and/or counseling patient: Coding Level of Care Code 46945 Subseq Hosp Care Lvl 2 Diagnoses Dry gangrene I96 Depression F32.9 Depression Type: unspecified Foot drop, left M21.372 Popliteal artery occlusion, right I70.201 Neuroendocrine neoplasm of gastrointestinal tract D3A.8 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 thrombocytopenia) D75.82 Intellectual disability F79 Abnormal LFTs R94.5 History of hemicolectomy Z90.49 Asthma J45.20 Asthma complication type: unspecified Asthma persistence: intermittent Asthma severity: mild Pulmonary emboli I26.99 Acute cor pulmonale presence: without acute cor pulmonale Chronicity: unspecified Pulmonary embolism type: unspecified Internal jugular vein thrombosis I82.C11 Laterality: right Hypokalemia E87.6 Hypomagnesemia E83.42 Vitamin D deficiency E55.9 DVT prophylaxis Z29.9 (1) Internal jugular vein thrombosis Laterality: right Qualified Code(s): I82.C11 - Acute embolism and thrombosis of right internal jugular vein (2) Depression Depression Type: unspecified Qualified Code(s): F32.9 - Major depressive disorder, single episode, unspecified (3) Pulmonary emboli Acute cor pulmonale presence: without acute cor pulmonale Chronicity: unspecified Pulmonary embolism type: unspecified Qualified Code(s): I26.99 - Other pulmonary embolism without acute cor pulmonale (4) Asthma Asthma complication type: unspecified Asthma persistence: intermittent Asthma severity: mild Qualified Code(s): J45.20 - Mild intermittent asthma, uncomplicated
[2019-11-07] MEDS: KETOROLAC TROMETHAMINE 15 MG/ML VIAL IV SCH ×3 (00:04→12:48)
[2019-11-07] MEDS: LOPERAMIDE HCL 2 MG CAP PO SCH ×4 (00:05→19:58)
[2019-11-07 07:03] LABS: BUN Creatinine Ratio 7.8 (10-20); Calcium 8.1 mg/dl (8.5-10.1); Est GFR (African American) 132.6; Est GFR (Non-African American) 114.5; Potassium 3.8 mmol/L (3.5-5.1)
[2019-11-07] MEDS: GABAPENTIN 100 MG CAP PO SCH ×3 (07:35→21:36)
[2019-11-07] MEDS: PANTOprazole 40 MG TAB PO SCH (07:35)
[2019-11-07] MEDS: LACTOBACILLUS ACIDOPHILUS (FLORANEX) TAB PO SCH ×4 (07:36→22:03)
[2019-11-07] MEDS: MAGNESIUM OXIDE 400 MG TAB PO SCH ×3 (07:37→22:04)
[2019-11-07] MEDS: CEROVITE ADV FORMULA TAB PO SCH (07:38)
[2019-11-07] MEDS: DOCUSATE SODIUM 100 MG CAP PO SCH ×2 (07:38→19:58)
[2019-11-07] MEDS: NYSTATIN POWDER 15GM BTL EXT SCH ×3 (07:39→22:06)
[2019-11-07] MEDS: POTASSIUM CHLORIDE 20 MEQ TABCR PO SCH ×2 (07:39→22:04)
[2019-11-07] MEDS: COLLAGENASE OINT 30 GM TUBE EXT SCH (07:40)
--- NOTE | 2019-11-07 10:59 | Orthopedic Progress Note ---
Date of Service November 07, 2019 Assessment & Plan (1) Gangrene of toe of left foot: Status post left transmetatarsal amputation postop day #2. Peripheral vascular disease. Maintain nonweightbearing left lower extremity. Dressing change done this AM, drain pulled. Disposition as per primary team. Will follow. (2) Arterial thrombosis: Admission and Anticipated Discharge Date Admission Date: October 15, 2019 Subjective POD #2, still having some pain with any movement of the LLE. Denies SOB, CP, N/V. Physical Exam Physical Exam: Left foot dressings removed. NEW dressing applied. Drain removed Incision c/d/i./ No erythema. No drainage. Patient in bed comfortable. A&Ox3. Results & Data ([facility]) Vital Signs (Past 12 Hours) Vital Signs Temp Pulse Resp BP Pulse Ox 11/07/19 06:48 36.7 C 101 H 18 117/81 92 11/07/19 00:40 36.6 C 90 18 122/75 93
[2019-11-07] MEDS: OXYCODONE HCL IR 5 MG TAB (IMMEDIATE RELEASE) PO PRN (17:41)
[2019-11-07] MEDS: SENNA 8.6 MG TAB PO SCH (19:58)
--- NOTE | 2019-11-07 21:26 | Hospitalist Progress Note ---
Date of Service November 07, 2019 Assessment & Plan (1) Dry gangrene: b/l feet. 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 s/p TMA of all digits, left foot - Dr Le - on 11/05/19. ongoing pain, left foot - cont oxycodone prn. increase gabapentin to 300mg TID. NWB to left foot. sutures remain in right foot - will d/w ortho about need for removal? (2) Depression: stable. cont remeron 15mg HS recent TSH wnl. recent b12 wnl. replace low vitamin D. (3) Neuroendocrine neoplasm of gastrointestinal tract: s/p hemicolectomy [facility] 07/2019. with liver Mets. needs outpatient f/u with Dr Yeung post-d/c. octreotide was apparently administered this admission but I spoke with pharmacy and there is no record of such. (4) Popliteal artery occlusion, right: Chronic popliteal artery occlusion. No intervention needed. f/u Dr Gresham, [facility], post-d/c. (5) 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 thrombocytopenia): 07/2019 at [facility]. Cont eliquis for h/o PEs, right IJ DVT, and arterial thrombi of legs. cbc acceptable. resume eliquis 5mg BID today. (6) Intellectual disability: Long-standing. Pt's children are in foster care. from boyfriend/. next of kin - patient has 2 sisters - 1 in [place]. but has not spoken to her in some time. asked psych to do formal capacity testing on 10/22 - appears to have capacity from their standpoint, but patient has told us multiple times she wants to live with people who cannot care for her. Her decision making is poor at best. Now going through "target process" for snf placement. 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 Surgery at [facility]. (9) Asthma: albuterol prn stable no exacerbation (10) Pulmonary emboli: RLL - incidentally noted on CTA on 09/04/19 in [place]. associated pulmonary infarction in the RLL as well at that time. resume eliquis today. (11) Internal jugular vein thrombosis: 07/2019 - [facility]. resume eliquis BID today. (12) Hypokalemia: resolved. cont K supplementation daily. (13) Hypomagnesemia: resolved. cont PO supplementation. (14) Vitamin D deficiency: ergocalciferol 90440 U weekly x 8 weeks. recheck level at end of replacement. next dose due 11/09/19. (15) Foot drop, left: left foot drop. AFO needed when she is allowed to weight bear. non-weightbearing status at this time due to left foot TMA on 11/04. cause of foot drop uncertain - lumbar spine MRI w/o pathology. patient refused MRI brain. (16) DVT prophylaxis: resume eliquis 5mg BID today target process for snf placement at [facility] in [place] appreciate social work assistance left message for Ozzie, her uncle, on 11/06/19 Admission and Anticipated Discharge Date Admission Date: October 15, 2019 Subjective continues with severe, stabbing, throbbing left foot pain. electric shock like pain. intermittent. no pain right foot. no other complaints. looking forward to discharging soon. spoke with ortho- ok to resume eliquis. Review of Systems Constitutional: no fever Respiratory: no cough and no dyspnea Cardiovascular: no chest pain, no orthopnea, no paroxysmal nocturnal dyspnea and no edema Gastrointestinal: no abdominal pain, no nausea and no vomiting Physical Exam Constitutional: no acute distress and no altered mental status ENMT: Mouth: + poor dentition; no oral mucosal abnormality Respiratory: normal respiratory effort, lungs clear to auscultation Cardiovascular: Rate/Rhythm: regular rate and regular rhythm Heart Sounds: normal S1 and normal S2; no murmur Vessels: no JVD Extremities: no edema Gastrointestinal (Abdomen): Inspection/Auscultation: normal bowel sounds; abdomen not distended Percussion/Palpation: abdomen soft and + hepatomegaly; abdomen nontender Musculoskeletal: dressings intact b/l feet Psychiatric: A+Ox3, euthymic affect Results & Data Results & Data ([facility]) Vital Signs (Past 12 Hours) Vital Signs Temp Pulse Resp BP Pulse Ox 11/07/19 16:50 36.8 C 90 18 101/66 95 Laboratory Results Laboratory Results - last 24 hr 08/01/20 05:34 Sodium 144 Potassium 3.8 Chloride 113 H Carbon Dioxide 27 Anion Gap 4.0 BUN 4 L Creatinine 0.50 L Est Cr Clr Drug Dosing 143.0 Est GFR ( Amer) 132.6 Est GFR (Non-Af Amer) 114.5 BUN/Creatinine Ratio 7.8 L Glucose 66 L Calcium 8.1 L PG Care Time/CCT Total # of Minutes Spent Total Time Spent with Patient: Total time spent is greater than 50% in coordination of care (as documented) at patient's floor/unit and/or counseling patient: Coding Level of Care Code 04956 Subseq Hosp Care Lvl 2 Diagnoses Dry gangrene I96 Depression F32.9 Depression Type: unspecified Neuroendocrine neoplasm of gastrointestinal tract D3A.8 Popliteal artery occlusion, right I70.201 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 thrombocytopenia) D75.82 Intellectual disability F79 Abnormal LFTs R94.5 History of hemicolectomy Z90.49 Asthma J45.20 Asthma severity: mild Asthma persistence: intermittent Asthma complication type: unspecified Pulmonary emboli I26.99 Pulmonary embolism type: unspecified Chronicity: unspecified Acute cor pulmonale presence: without acute cor pulmonale Internal jugular vein thrombosis I82.C11 Laterality: right Hypokalemia E87.6 Hypomagnesemia E83.42 Vitamin D deficiency E55.9 Foot drop, left M21.372 DVT prophylaxis Z29.9 (1) Depression Depression Type: unspecified Qualified Code(s): F32.9 - Major depressive disorder, single episode, unspecified (2) Asthma Asthma severity: mild Asthma persistence: intermittent Asthma complication type: unspecified Qualified Code(s): J45.20 - Mild intermittent asthma, uncomplicated (3) Pulmonary emboli Pulmonary embolism type: unspecified Chronicity: unspecified Acute cor pulmonale presence: without acute cor pulmonale Qualified Code(s): I26.99 - Other pulmonary embolism without acute cor pulmonale (4) Internal jugular vein thrombosis Laterality: right Qualified Code(s): I82.C11 - Acute embolism and thrombosis of right internal jugular vein
[2019-11-07] MEDS ORDERED: GABAPENTIN 100 MG CAP PO ONE (21:30)
[2019-11-07] MEDS: MIRTAZAPINE SOLTAB 15 MG PO SCH (22:05)
[2019-11-07] MEDS: APIXABAN 5 MG TABLET PO SCH (22:05)
[2019-11-08] MEDS: LOPERAMIDE HCL 2 MG CAP PO SCH ×4 (01:59→20:16)
[2019-11-08] MEDS: DOCUSATE SODIUM 100 MG CAP PO SCH ×2 (08:11→21:22)
[2019-11-08] MEDS: OXYCODONE HCL IR 5 MG TAB (IMMEDIATE RELEASE) PO PRN ×2 (08:21→21:26)
[2019-11-08] MEDS: LACTOBACILLUS ACIDOPHILUS (FLORANEX) TAB PO SCH ×4 (08:21→21:22)
[2019-11-08] MEDS: APIXABAN 5 MG TABLET PO SCH ×2 (08:22→21:22)
[2019-11-08] MEDS: MAGNESIUM OXIDE 400 MG TAB PO SCH ×3 (08:23→21:23)
[2019-11-08] MEDS: POTASSIUM CHLORIDE 20 MEQ TABCR PO SCH ×2 (08:23→21:23)
[2019-11-08] MEDS: GABAPENTIN 300 MG CAP PO SCH ×3 (08:24→21:22)
[2019-11-08] MEDS: CEROVITE ADV FORMULA TAB PO SCH (08:24)
[2019-11-08] MEDS: PANTOprazole 40 MG TAB PO SCH (08:25)
--- NOTE | 2019-11-08 09:03 | Orthopedic Progress Note ---
Date of Service November 08, 2019 Assessment & Plan (1) Gangrene of toe of left foot: Status post left transmetatarsal amputation postop day #3. Right foot surgery 1 month post op- will discus with Dr. Le about suture removal. Peripheral vascular disease. Maintain nonweightbearing left lower extremity. Disposition as per primary team. Will follow. (2) Arterial thrombosis: Admission and Anticipated Discharge Date Admission Date: October 15, 2019 Subjective POD #3, left foot Trans MT amp., just had pain meds on interview, so feeling comfortable. Denies SOB, Cp, N/V, dizziness. 1 month post op right foot Physical Exam Physical Exam: Left foot dressings c/d/i, fitting well. Dressing change yesterday. Right foot sutures in tact, healing well, no drainage, no erythema. Patient groggy but appropriate. Results & Data ([facility]) Vital Signs (Past 12 Hours) Vital Signs Temp Pulse Pulse Resp BP Pulse Ox 11/08/19 08:00 36.9 C 90 18 119/79 93 11/07/19 23:31 36.9 C 94 H 16 121/82 93
[2019-11-08] MEDS: COLLAGENASE OINT 30 GM TUBE EXT SCH (14:28)
[2019-11-08] MEDS: NYSTATIN POWDER 15GM BTL EXT SCH ×3 (14:28→21:23)
--- NOTE | 2019-11-08 21:00 | Hospitalist Progress Note ---
Date of Service November 08, 2019 Assessment & Plan (1) Dry gangrene: b/l feet. 2nd to development of arterial thrombi while hospitalized earlier this spring at [facility]. thrombi were in both legs, and she was started on eliquis then. remains on eliquis. 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 s/p TMA of all digits, left foot - Dr Le - on 11/05/19. ongoing pain, left foot - cont oxycodone prn. Increase oxy from 7.5mg per dose to 10mg. Dosing interval q6h prn. cont gabapentin 300mg TID. consider increase to 400mg TID in 2-3 days for phantom pain. NWB to left foot. sutures remain in right foot - PA for orthopedics indicates in his note that he will d/w Dr Le about removal. (2) Depression: stable. MUCH improved with remeron 15mg HS . appetite and sleep both improved. recent TSH wnl. recent b12 wnl. replace low vitamin D. (3) Neuroendocrine neoplasm of gastrointestinal tract: s/p hemicolectomy [facility] 07/2019. with liver Mets. needs outpatient f/u with Dr Yeung post-d/c. octreotide was apparently administered this admission but I spoke with pharmacy and there is no record of such. need to check with Dr Yenug about dosing and timing. (4) Popliteal artery occlusion, right: Chronic popliteal artery occlusion. No intervention needed. f/u Dr Gresham, [facility], post-d/c. (5) 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 thrombocytopenia): 07/2019 at [facility]. Cont eliquis for h/o PEs, right IJ DVT, and arterial thrombi of legs. cbc acceptable. resume eliquis 5mg BID today. (6) Intellectual disability: Long-standing. Pt's children are in foster care. from boyfriend/. next of kin - patient has 2 sisters - 1 in [place]. but has not spoken to her in some time. asked psych to do formal capacity testing on 10/22 - appears to have capacity from their standpoint, but patient has told us multiple times she wants to live with people who cannot care for her. Her decision making is poor at best. Now going through "target process" for snf placement. 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 Surgery at [facility]. (9) Asthma: albuterol prn stable no exacerbation (10) Pulmonary emboli: RLL - incidentally noted on CTA on 09/04/19 in [place]. associated pulmonary infarction in the RLL as well at that time. eliquis resumed post-op from left foot surgery. (11) Internal jugular vein thrombosis: 07/2019 - [facility]. resumed eliquis yesterday. (12) Hypokalemia: resolved. cont K supplementation daily. (13) Hypomagnesemia: resolved. cont PO supplementation. (14) Vitamin D deficiency: ergocalciferol 15223 U weekly x 8 weeks. recheck level at end of replacement. next dose due 11/09/19. (15) Foot drop, left: left foot drop. AFO needed when she is allowed to weight bear. non-weightbearing status at this time due to left foot TMA on 11/04. cause of foot drop uncertain - lumbar spine MRI w/o pathology. patient refused MRI brain. (16) Arterial thrombosis: b/l legs - 07/2019 at [facility]. in setting of surgery (hemicolectomy). s/p right SFA/popliteal/tibial thrombectomy, left popliteal/tibial thrombectomy, LLE fasciotomy. continue eliquis 5mg BID indefinitely. this is what led to her b/l foot gangrene. (17) DVT prophylaxis: cont eliquis BID target process for snf placement at [facility] in [place] appreciate social work assistance left message for Ozzie, her uncle, on 11/06/19 d/c to SNF tomorrow or Saturday??? Admission and Anticipated Discharge Date Admission Date: October 15, 2019 Subjective still with left foot pain oxy helps but wears off quickly eating well without nausea/emesis/abd pain diarrhea resolved no dyspnea no new complaints hoping for discharge soon I again encouraged her to get OOB - refused again offered her the opportunity to be placed in wheelchair and [facility] - [facility] Review of Systems Constitutional: no fever, no fatigue and no anorexia Respiratory: no cough and no dyspnea Cardiovascular: no chest pain, no dyspnea at rest, no orthopnea, no paroxysmal nocturnal dyspnea and no edema Gastrointestinal: no abdominal pain Integumentary: no rash Physical Exam Constitutional: no acute distress and no altered mental status ENMT: external ear and nose normal, oropharynx normal Mouth: + poor dentition; no oral mucosal abnormality Respiratory: normal respiratory effort, lungs clear to auscultation Cardiovascular: Rate/Rhythm: regular rate and regular rhythm Heart Sounds: normal S1 and normal S2; no murmur Vessels: no JVD Extremities: no edema Gastrointestinal (Abdomen): Inspection/Auscultation: normal bowel sounds; abdomen not distended Percussion/Palpation: abdomen soft and + hepatomegaly; abdomen nontender Musculoskeletal: right foot- 4/5th toes remain; cap refill about 2-3 seconds; sutures intact Skin: b/l feet wrapped in dressings - c/d/i; left medial hooper - ulceration - base is more clean than several days ago. no purulence or cellulitis. Psychiatric: A+Ox3, euthymic affect Results & Data Results & Data ([facility]) Vital Signs (Past 12 Hours) Vital Signs Temp Pulse Resp BP Pulse Ox 11/08/19 16:00 36.9 C 97 H 18 124/84 92 PG Care Time/CCT Total # of Minutes Spent Total Time Spent with Patient: Total time spent is greater than 50% in coordination of care (as documented) at patient's floor/unit and/or counseling patient: Coding Level of Care Code 72054 Subseq Hosp Care Lvl 2 Diagnoses Dry gangrene I96 Depression F32.9 Depression Type: unspecified Neuroendocrine neoplasm of gastrointestinal tract D3A.8 Popliteal artery occlusion, right I70.201 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 thrombocytopenia) D75.82 Intellectual disability F79 Abnormal LFTs R94.5 History of hemicolectomy Z90.49 Asthma J45.20 Asthma complication type: unspecified Asthma persistence: intermittent Asthma severity: mild Pulmonary emboli I26.99 Acute cor pulmonale presence: without acute cor pulmonale Chronicity: unspecified Pulmonary embolism type: unspecified Internal jugular vein thrombosis I82.C11 Laterality: right Hypokalemia E87.6 Hypomagnesemia E83.42 Vitamin D deficiency E55.9 Foot drop, left M21.372 Arterial thrombosis I74.9 DVT prophylaxis Z29.9 (1) Internal jugular vein thrombosis Laterality: right Qualified Code(s): I82.C11 - Acute embolism and thrombosis of right internal jugular vein (2) Depression Depression Type: unspecified Qualified Code(s): F32.9 - Major depressive disorder, single episode, unspecified (3) Pulmonary emboli Acute cor pulmonale presence: without acute cor pulmonale Chronicity: unspecified Pulmonary embolism type: unspecified Qualified Code(s): I26.99 - Other pulmonary embolism without acute cor pulmonale (4) Asthma Asthma complication type: unspecified Asthma persistence: intermittent Ast hma severity: mild Qualified Code(s): J45.20 - Mild intermittent asthma, uncomplicated
[2019-11-08] MEDS: MIRTAZAPINE SOLTAB 15 MG PO SCH (21:22)
[2019-11-08] MEDS: SENNA 8.6 MG TAB PO SCH (21:24)
[2019-11-08] MEDS: LORazepam 0.5 MG TAB PO PRN (21:26)
[2019-11-09] MEDS: LOPERAMIDE HCL 2 MG CAP PO SCH ×4 (01:08→18:49)
[2019-11-09 06:23] LABS: Hematocrit (blood only) 28.9 % (37-47); Hemoglobin 9.4 g/dL (12.0-16.0); Mean Corpuscular Hemoglobin 30.8 pg (25-34); Mean Corpuscular Hgb Conc 32.5 g/dL (32-36); Mean Corpuscular Volume 94.8 fL (80-100); Mean Platelet Volume 10.7 fL (7.4-10.4); Platelet Count 326 K/uL (130-400); RDW Coefficient of Variation 19.1 % (11.5-14.5); RDW Standard Deviation 65.9 fL (36.4-46.3); Red Blood Count 3.05 M/uL (4.2-5.4)
[2019-11-09 06:51] LABS: BUN Creatinine Ratio 6.8 (10-20); Calcium 8.1 mg/dl (8.5-10.1); Creatinine Clr Calc Pharmacy 162.5 ml/min; Est GFR (African American) 138.3; Est GFR (Non-African American) 119.4; Magnesium 1.7 mg/dl (1.8-2.4); Potassium 3.7 mmol/L (3.5-5.1)
[2019-11-09] MEDS ORDERED: ERGOCALCIFEROL 50,000 UNITS CAP PO ONE (09:00)
[2019-11-09] MEDS: MAGNESIUM SULFATE / D5W 1 GM/100 ML BAG IV SCH ×2 (10:00→12:02)
[2019-11-09] MEDS: DOCUSATE SODIUM 100 MG CAP PO SCH ×2 (10:02→20:52)
[2019-11-09] MEDS: LACTOBACILLUS ACIDOPHILUS (FLORANEX) TAB PO SCH ×4 (10:06→20:52)
[2019-11-09] MEDS: CEROVITE ADV FORMULA TAB PO SCH (10:06)
[2019-11-09] MEDS: POTASSIUM CHLORIDE 20 MEQ TABCR PO SCH ×2 (10:06→20:53)
[2019-11-09] MEDS: MAGNESIUM OXIDE 400 MG TAB PO SCH ×3 (10:06→20:53)
[2019-11-09] MEDS: APIXABAN 5 MG TABLET PO SCH ×2 (10:06→20:53)
[2019-11-09] MEDS: COLLAGENASE OINT 30 GM TUBE EXT SCH (10:07)
[2019-11-09] MEDS: NYSTATIN POWDER 15GM BTL EXT SCH ×3 (10:07→20:53)
[2019-11-09] MEDS: GABAPENTIN 300 MG CAP PO SCH ×3 (10:07→20:53)
[2019-11-09] MEDS: PANTOprazole 40 MG TAB PO SCH (12:05)
[2019-11-09] MEDS: OXYCODONE HCL IR 5 MG TAB (IMMEDIATE RELEASE) PO PRN (12:13)
--- NOTE | 2019-11-09 12:19 | Orthopedic Progress Note ---
Date of Service November 09, 2019 Assessment & Plan (1) Gangrene of toe of left foot: Status post left transmetatarsal amputation postop day #4. Continue daily dressing changes. Right foot surgery 1 month post op-Dr. Le still wanting to maintain the current sutures. Peripheral vascular disease. Maintain nonweightbearing left lower extremity. Disposition as per primary team. Orthopedics will sign off at this time. Please call with any questions. (2) Arterial thrombosis: Admission and Anticipated Discharge Date Admission Date: October 15, 2019 Subjective POD 4 Patient lying in bed sleeping but easily woken up. No complaints currently. Pain is controlled. Physical Exam Physical Exam: Dressings removed. Xeroform gauze removed from the wound. Some bleeding noted from the medial and lateral wound edges from the dried Xeroform gauze but otherwise the wound is benign at this time. No purulence. Minimal erythema. Suture line is intact. Redressed with Adaptic, 4 x 4's, Kerlix, Marcel wrap. Results & Data ([facility]) Vital Signs (Past 12 Hours) Vital Signs Temp Pulse Resp BP Pulse Ox 11/09/19 07:48 36.6 C 92 H 16 126/84 96
[2019-11-09] MEDS: SENNA 8.6 MG TAB PO SCH (20:52)
[2019-11-09] MEDS: MIRTAZAPINE SOLTAB 15 MG PO SCH (20:53)
--- NOTE | 2019-11-09 23:21 | Hospitalist Progress Note ---
Date of Service November 09, 2019 Assessment & Plan (1) Dry gangrene: b/l feet. 2nd to development of arterial thrombi while hospitalized earlier this spring at [facility]. thrombi were in both legs, and she was started on eliquis then. remains on eliquis. 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 s/p TMA of all digits, left foot - Dr Le - on 11/05/19. ongoing pain, left foot - cont oxycodone prn. Increase oxy from 7.5mg per dose to 10mg. Dosing interval q6h prn. cont gabapentin 300mg TID. consider increase to 400mg TID in 2-3 days for phantom pain. NWB to left foot. sutures remain in right foot (2) Depression: stable. MUCH improved with remeron 15mg HS . appetite and sleep both improved. recent TSH wnl. recent b12 wnl. replace low vitamin D. 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 with liver Mets. needs outpatient f/u with Dr Yeung post-d/c. spoke with pharmacy, they do not carry the Depo Octreotide, her dose is 30mg IM x 1 would need to be obtained outpatient (4) Popliteal artery occlusion, right: Chronic popliteal artery occlusion. No intervention needed. f/u Dr Gresham, [facility], post-d/c. (5) 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 thrombocytopenia): 07/2019 at [facility]. Cont eliquis for h/o PEs, right IJ DVT, and arterial thrombi of legs. cbc acceptable. continue eliquis 5mg BID (6) Intellectual disability: Long-standing. Pt's children are in foster care. from boyfriend/. next of kin - patient has 2 sisters - 1 in [place]. but has not spoken to her in some time. asked psych to do formal capacity testing on 10/22 - appears to have capacity from their standpoint, but patient has told us multiple times she wants to live with people who cannot care for her. Her decision making is poor at best. Now going through "target process" for snf placement. 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 Surgery at [facility]. (9) Asthma: albuterol prn stable no exacerbation (10) Pulmonary emboli: RLL - incidentally noted on CTA on 09/04/19 in [place]. associated pulmonary infarction in the RLL as well at that time. eliquis resumed post-op from left foot surgery. (11) Internal jugular vein thrombosis: 07/2019 - [facility]. resumed eliquis yesterday. (12) Hypokalemia: resolved. cont K supplementation daily. (13) Hypomagnesemia: resolved. cont PO supplementation. (14) Vitamin D deficiency: ergocalciferol 38815 U weekly x 8 weeks. recheck level at end of replacement. next dose due 11/09/19. (15) Foot drop, left: left foot drop. AFO needed when she is allowed to weight bear. non-weightbearing status at this time due to left foot TMA on 11/04. cause of foot drop uncertain - lumbar spine MRI w/o pathology. patient refused MRI brain. (16) Arterial thrombosis: b/l legs - 07/2019 at [facility]. in setting of surgery (hemicolectomy). s/p right SFA/popliteal/tibial thrombectomy, left popliteal/tibial thrombectomy, LLE fasciotomy. continue eliquis 5mg BID indefinitely. this is what led to her b/l foot gangrene. (17) DVT prophylaxis: cont eliquis BID target process for snf placement at [facility] in [facility] social work assistance left message for Ozzie, her uncle, on 11/06/19 d/c to SNF tomorrow or Saturday??? Admission and Anticipated Discharge Date Admission Date: October 15, 2019 Subjective patient sleeping most of the day no major complaints just waiting on placement at [facility] CM waiting to hear about target paper work Review of Systems Review of Systems: All systems reviewed & are unremarkable except as noted in Subjective Gastrointestinal: + diarrhea/loose stools Physical Exam Constitutional: WD/WN, vitals as above + overweight Eyes: PERRL, conjunctivae normal, anicteric sclerae ENMT: external ear and nose normal, oropharynx normal Neck: trachea midline, no thyromegaly Respiratory: normal respiratory effort, lungs clear to auscultation Cardiovascular: RRR, no murmur, no edema Gastrointestinal (Abdomen): normal bowel sounds, soft, nontender, no hepatosplenomegaly Musculoskeletal: no cyanosis or clubbing, extremities motor strength 5/5 Skin: no rashes, warm and dry (dry gangrene of toes left foot) Neurologic: patellar DTR's 2+ bilat, sensation intact and PERRL, EOMI, accommodation nl, no face palsy, no dysarthria Psychiatric: Orientation: alert and oriented x 3 Affect: + tearful affect Mood: + depressed mood Lymphatic: no cervical or axillary lymphadenopathy Results & Data Results & Data ([facility]) Vital Signs (Past 12 Hours) Vital Signs Temp Pulse Resp BP Pulse Ox 11/09/19 15:23 36.6 C 99 H 16 113/75 91 Laboratory Results Laboratory Results - last 24 hr 11/09/19 11/09/19 05:29 05:29 WBC 6.60 RBC 3.05 L Hgb 9.4 L Hct 28.9 L MCV 94.8 MCH 30.8 MCHC 32.5 RDW Std Deviation 65.9 H RDW Coeff of Sharan 19.1 H Plt Count 326 MPV 10.7 H Sodium 141 Potassium 3.7 Chloride 109 H Carbon Dioxide 29 Anion Gap 3.0 BUN 3 L Creatinine 0.44 L Est Cr Clr Drug Dosing 162.5 Est GFR ( Amer) 138.3 Est GFR (Non-Af Amer) 119.4 BUN/Creatinine Ratio 6.8 L Glucose 69 L Calcium 8.1 L Magnesium 1.7 L Medications Administered Current Inpatient Medications Acetaminophen (Tylenol) 650 mg PO Q4H PRN PRN Reason: pain/fever Stop: 11/14/19 02:33 Last Admin: 11/02/19 16:31 Dose: 650 mg Documented by: Al Hydrox/Mg Hydrox/Simethicone (Maalox) 15 ml PO Q4H PRN PRN Reason: Heartburn Stop: 12/05/19 16:59 Albuterol (Ventolin Hfa) 1 puffs INH Q4 PRN PRN Reason: Shortness Of Breath Or Wheezing Stop: 11/14/19 02:44 Apixaban (Eliquis) 5 mg PO BID DEIDRE Stop: 12/07/19 21:29 Last Admin: 11/09/19 20:53 Dose: 5 mg Documented by: Bisacodyl (Dulcolax) 10 mg ID DAILY PRN PRN Reason: Constipation Stop: 12/05/19 16:59 Collagenase (Santyl) 1 appln EXT DAILY [facility] Stop: 12/02/19 14:59 Last Admin: 11/09/19 10:07 Dose: 1 appln Documented by: Petrolatum 45 appln/Hydrocortisone 45 appln/ Al Hydrox/Mg Hydrox/Simethicone 15 ml/ BARCODE IDENTIFIER 1 ea 0 appln TOP UD PRN PRN Reason: Diaper Rash Stop: 11/14/19 02:46 Last Admin: 11/02/19 20:42 Dose: 1 appln Documented by: Diphenhydramine HCl (Benadryl Capsule) 25 mg PO Q8H PRN PRN Reason: Itching Stop: 12/05/19 16:59 Docusate Sodium (Colace) 100 mg PO BID [facility] Stop: 12/05/19 20:59 Last Admin: 11/09/19 20:52 Dose: Not Given Documented by: Gabapentin (Neurontin) 300 mg PO TID [facility] Stop: 12/08/19 08:59 Last Admin: 11/09/19 20:53 Dose: 300 mg Documented by: Lactobacillus Acidophilus (Floranex) 4 tab PO QIDM [facility] Stop: 11/17/19 20:59 Last Admin: 11/09/19 20:52 Dose: 4 tab Documented by: Loperamide HCl (Imodium) 2 mg PO Q6H [facility] Stop: 12/02/19 06:59 Last Admin: 11/09/19 18:49 Dose: Not Given Documented by: Lorazepam (Ativan) 0.5 mg PO TID PRN PRN Reason: Anxiety Stop: 11/14/19 02:44 Last Admin: 11/08/19 21:26 Dose: 0.5 mg Documented by: Magnesium Hydroxide (Milk Of Magnesia) 30 ml PO Q6H PRN PRN Reason: Constipation Stop: 12/05/19 16:59 Magnesium Oxide (Mag-Ox) 400 mg PO TID [facility] Stop: 12/03/19 13:59 Last Admin: 11/09/19 20:53 Dose: 400 mg Documented by: Metoclopramide HCl (Reglan) 10 mg IV Q6H PRN PRN Reason: Nausea And Vomiting Stop: 12/05/19 16:59 Mirtazapine (Remeron Solutab) 15 mg PO HS [facility] Stop: 11/24/19 20:59 Last Admin: 11/09/19 20:53 Dose: 15 mg Documented by: Multivitamins/Minerals (Multivitamin W/ Minerals Tab) 1 tab PO QAM [facility] Stop: 11/22/19 14:44 Last Admin: 11/09/19 10:06 Dose: 1 tab Documented by: Naloxone HCl (Narcan) 0.1 mg IV Q5M PRN PRN Reason: Oversedation/Resp Depression Stop: 12/05/19 16:59 Nystatin (Mycostatin) 1 appln EXT TID [facility] Stop: 11/24/19 13:59 Last Admin: 11/09/19 20:53 Dose: 1 appln Documented by: Ondansetron HCl (Zofran) 4 mg IV Q6H PRN PRN Reason: Nausea Stop: 11/14/19 02:33 Last Admin: 11/04/19 13:51 Dose: 4 mg Documented by: Oxycodone HCl (Roxicodone Immediate Rel) 10 mg PO Q6H PRN PRN Reason: Pain Stop: 11/17/19 21:31 Last Admin: 11/09/19 12:13 Dose: 10 mg Documented by: Pantoprazole Sodium (Protonix) 40 mg PO DAILY [facility] Stop: 11/14/19 08:59 Last Admin: 11/09/19 12:05 Dose: 40 mg Documented by: Polyethylene Glycol (Miralax Powder Packet) 17 gm PO DAILY PRN PRN Reason: constipation Stop: 11/14/19 08:59 Potassium Chloride (Klor-Con M20) 20 meq PO BID [facility] Stop: 11/26/19 20:59 Last Admin: 11/09/19 20:53 Dose: 20 meq Documented by: Sennosides (Senokot) 17.2 mg PO HS [facility] Stop: 12/05/19 20:59 Last Admin: 11/09/19 20:52 Dose: Not Given Documented by: PG Care Time/CCT Total # of Minutes Spent Total Time Spent with Patient: Total time spent is greater than 50% in coordination of care (as documented) at patient's floor/unit and/or counseling patient: Coding Level of Care Code 09195 Subseq Hosp Care Lvl 1 Diagnoses Dry gangrene I96 Depression F32.9 Depression Type: unspecified Neuroendocrine neoplasm of gastrointestinal tract D3A.8 Popliteal artery occlusion, right I70.201 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 thrombocytopenia) D75.82 Intellectual disability F79 Abnormal LFTs R94.5 History of hemicolectomy Z90.49 Asthma J45.20 Asthma complication type: unspecified Asthma persistence: intermittent Asthma severity: mild Pulmonary emboli I26.99 Acute cor pulmonale presence: without acute cor pulmonale Chronicity: unspecified Pulmonary embolism type: unspecified Internal jugular vein thrombosis I82.C11 Laterality: right Hypokalemia E87.6 Hypomagnesemia E83.42 Vitamin D deficiency E55.9 Foot drop, left M21.372 Arterial thrombosis I74.9 DVT prophylaxis Z29.9 (1) Internal jugular vein thrombosis Laterality: right Qualified Code(s): I82.C11 - Acute embolism and thrombosis of right internal jugular vein (2) Depression Depression Type: unspecified Qualified Code(s): F32.9 - Major depressive disorder, single episode, unspecified (3) Pulmonary emboli Acute cor pulmonale presence: without acute cor pulmonale Chronicity: unspecified Pulmonary embolism type: unspecified Qualified Code(s): I26.99 - Other pulmonary embolism without acute cor pulmonale (4) Asthma Asthma complication type: unspecified Asthma persistence: intermittent Asthma severity: mild Qualified Code(s): J45.20 - Mild intermittent asthma, uncomplicated
[2019-11-10] MEDS: LOPERAMIDE HCL 2 MG CAP PO SCH ×5 (00:05→23:45)
[2019-11-10] MEDS: DOCUSATE SODIUM 100 MG CAP PO SCH ×2 (08:12→21:35)
[2019-11-10] MEDS: GABAPENTIN 300 MG CAP PO SCH ×3 (08:13→21:39)
[2019-11-10] MEDS: PANTOprazole 40 MG TAB PO SCH (08:13)
[2019-11-10] MEDS: LACTOBACILLUS ACIDOPHILUS (FLORANEX) TAB PO SCH ×4 (08:14→21:39)
[2019-11-10] MEDS: APIXABAN 5 MG TABLET PO SCH ×2 (08:14→21:39)
[2019-11-10] MEDS: MAGNESIUM OXIDE 400 MG TAB PO SCH ×3 (08:14→21:39)
[2019-11-10] MEDS: CEROVITE ADV FORMULA TAB PO SCH (08:15)
[2019-11-10] MEDS: POTASSIUM CHLORIDE 20 MEQ TABCR PO SCH ×2 (08:15→21:39)
[2019-11-10] MEDS: COLLAGENASE OINT 30 GM TUBE EXT SCH (08:19)
[2019-11-10] MEDS: NYSTATIN POWDER 15GM BTL EXT SCH ×3 (08:19→21:39)
[2019-11-10] MEDS: OXYCODONE HCL IR 5 MG TAB (IMMEDIATE RELEASE) PO PRN ×2 (10:00→23:45)
--- NOTE | 2019-11-10 16:20 | Hospitalist Progress Note ---
Date of Service November 10, 2019 Assessment & Plan (1) Dry gangrene: b/l feet. 2nd to development of arterial thrombi while hospitalized earlier this spring at [facility]. thrombi were in both legs, and she was started on eliquis then. remains on eliquis. 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 s/p TMA of all digits, left foot - Dr Le - on 11/05/19. ongoing pain, left foot - cont oxycodone prn 10mg. Dosing interval q6h prn. cont gabapentin 300mg TID. will increase to 400mg TID on discharge NWB to left foot. sutures remain in right foot (2) Depression: stable. MUCH improved with remeron 15mg HS . appetite and sleep both improved. recent TSH wnl. recent b12 wnl. replace low vitamin D. (3) Neuroendocrine neoplasm of gastrointestinal tract: s/p hemicolectomy [facility] 07/2019. with liver Mets. needs outpatient f/u with Dr Yeung post-d/c. spoke with pharmacy, they do not carry the Depo Octreotide, her dose is 30mg IM x 1 added to discharge list, can be obtained by SNF and given next week (4) Popliteal artery occlusion, right: Chronic popliteal artery occlusion. No intervention needed. f/u Dr Gresham, [facility], post-d/c. (5) 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 thrombocytopenia): 07/2019 at [facility]. Cont eliquis for h/o PEs, right IJ DVT, and arterial thrombi of legs. cbc acceptable. continue eliquis 5mg BID (6) Intellectual disability: Long-standing. Pt's children are in foster care. from boyfriend/. next of kin - patient has 2 sisters - 1 in [place]. but has not spoken to her in some time. asked psych to do formal capacity testing on 10/22 - appears to have capacity fro m their standpoint, but patient has told us multiple times she wants to live with people who cannot care for her. Her decision making is poor at best. Now going through "target process" for snf placement. 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 Surgery at [facility]. (9) Asthma: albuterol prn stable no exacerbation (10) Pulmonary emboli: RLL - incidentally noted on CTA on 09/04/19 in [place]. associated pulmonary infarction in the RLL as well at that time. eliquis resumed post-op from left foot surgery. (11) Internal jugular vein thrombosis: 07/2019 - [facility]. resumed eliquis yesterday. (12) Hypokalemia: resolved. cont K supplementation daily. (13) Hypomagnesemia: resolved. cont PO supplementation. (14) Vitamin D deficiency: ergocalciferol 38372 U weekly x 8 weeks. recheck level at end of replacement. next dose due 11/09/19. (15) Foot drop, left: left foot drop. AFO needed when she is allowed to weight bear. non-weightbearing status at this time due to left foot TMA on 11/04. cause of foot drop uncertain - lumbar spine MRI w/o pathology. patient refused MRI brain. (16) Arterial thrombosis: b/l legs - 07/2019 at [facility]. in setting of surgery (hemicolectomy). s/p right SFA/popliteal/tibial thrombectomy, left popliteal/tibial thrombectomy, LLE fasciotomy. continue eliquis 5mg BID indefinitely. this is what led to her b/l foot gangrene. (17) DVT prophylaxis: cont eliquis BID target process for snf placement at [facility] in [place] appreciate social work assistance left message for Ozzie, her uncle, on 11/06/19 d/c to SNF tomorrow or Saturday??? Admission and Anticipated Discharge Date Admission Date: October 15, 2019 Subjective no major events patient sleeping a lot all day excited about prospect of being discharged tomorrow, will be closer to her kids Review of Systems Review of Systems: All systems reviewed & are unremarkable except as noted in Subjective Constitutional: + fatigue Gastrointestinal: + diarrhea/loose stools Physical Exam Constitutional: WD/WN, vitals as above + overweight Eyes: PERRL, conjunctivae normal, anicteric sclerae ENMT: external ear and nose normal, oropharynx normal Neck: trachea midline, no thyromegaly Respiratory: normal respiratory effort, lungs clear to auscultation Cardiovascular: RRR, no murmur, no edema Gastrointestinal (Abdomen): normal bowel sounds, soft, nontender, no hepatosplenomegaly Musculoskeletal: no cyanosis or clubbing, extremities motor strength 5/5 Skin: no rashes, warm and dry (s/p L transmetatarsal amputation) Neurologic: patellar DTR's 2+ bilat, sensation intact and PERRL, EOMI, accommodation nl, no face palsy, no dysarthria Psychiatric: A+Ox3, euthymic affect Orientation: alert and oriented x 3 Lymphatic: no cervical or axillary lymphadenopathy Results & Data Results & Data ([facility]) Vital Signs (Past 12 Hours) Vital Signs Temp Pulse Pulse Resp BP Pulse Ox 11/10/19 15:56 37.3 C 100 H 20 116/61 92 11/10/19 07:07 36.9 C 90 16 109/70 92 PG Care Time/CCT Total # of Minutes Spent Total Time Spent with Patient: Total time spent is greater than 50% in coordination of care (as documented) at patient's floor/unit and/or counseling patient: Coding Level of Care Code 16182 Subseq Hosp Care Lvl 2 Diagnoses Dry gangrene I96 Depression F32.9 Depression Type: unspecified Neuroendocrine neoplasm of gastrointestinal tract D3A.8 Popliteal artery occlusion, right I70.201 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 thrombocytopenia) D75.82 Intellectual disability F79 Abnormal LFTs R94.5 History of hemicolectomy Z90.49 Asthma J45.20 Asthma complication type: unspecified Asthma persistence: intermittent Asthma severity: mild Pulmonary emboli I26.99 Acute cor pulmonale presence: without acute cor pulmonale Chronicity: unspecified Pulmonary embolism type: unspecified Internal jugular vein thrombosis I82.C11 Laterality: right Hypokalemia E87.6 Hypomagnesemia E83.42 Vitamin D deficiency E55.9 Foot drop, left M21.372 Arterial thrombosis I74.9 DVT prophylaxis Z29.9 (1) Internal jugular vein thrombosis Laterality: right Qualified Code(s): I82.C11 - Acute embolism and thrombosis of right internal jugular vein (2) Depression Depression Type: unspecified Qualified Code(s): F32.9 - Major depressive disorder, single episode, unspecified (3) Pulmonary emboli Acute cor pulmonale presence: without acute cor pulmonale Chronicity: unspeci fied Pulmonary embolism type: unspecified Qualified Code(s): I26.99 - Other pulmonary embolism without acute cor pulmonale (4) Asthma Asthma complication type: unspecified Asthma persistence: intermittent Asthma severity: mild Qualified Code(s): J45.20 - Mild intermittent asthma, uncomplicated
[2019-11-10] MEDS: MIRTAZAPINE SOLTAB 15 MG PO SCH (21:37)
[2019-11-10] MEDS: SENNA 8.6 MG TAB PO SCH (21:38)
[2019-11-11] MEDS: LOPERAMIDE HCL 2 MG CAP PO SCH ×2 (06:13→13:33)
[2019-11-11 07:48] VITALS: BP 103/68; PULSE 94; TEMP 97.9; O2SAT 91
[2019-11-11] MEDS: NYSTATIN POWDER 15GM BTL EXT SCH ×2 (09:24→13:34)
[2019-11-11] MEDS: PANTOprazole 40 MG TAB PO SCH (09:24)
[2019-11-11] MEDS: MAGNESIUM OXIDE 400 MG TAB PO SCH ×2 (09:24→13:33)
[2019-11-11] MEDS: POTASSIUM CHLORIDE 20 MEQ TABCR PO SCH (09:24)
[2019-11-11] MEDS: COLLAGENASE OINT 30 GM TUBE EXT SCH (09:24)
[2019-11-11] MEDS: DOCUSATE SODIUM 100 MG CAP PO SCH (09:24)
[2019-11-11] MEDS: GABAPENTIN 300 MG CAP PO SCH ×2 (09:24→13:33)
[2019-11-11] MEDS: LACTOBACILLUS ACIDOPHILUS (FLORANEX) TAB PO SCH ×2 (09:24→13:34)
[2019-11-11] MEDS: CEROVITE ADV FORMULA TAB PO SCH (09:24)
[2019-11-11] MEDS: APIXABAN 5 MG TABLET PO SCH (09:24)
[2019-11-11] MEDS: OXYCODONE HCL IR 5 MG TAB (IMMEDIATE RELEASE) PO PRN (09:34)
--- NOTE | 2019-11-15 22:05 | Discharge Summary ---
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 She had thrombectomies in July and LLE fasciotomy. Most recently she was admitted to [facility] for toe amputation on right foot of gangrenous toes. Patient has been at [facility] until Yesterday when she went to live with her boyfriend. He boyfriend was not able to help her care for herself and she has been unable to get around so she has been living in her own stool and urine. She was brought into outside hospital ED and evaluated to have further gangrenous changes to toes on both right and left foot and exquisite toe pain on the right. her only complaint at present is left lower limb pain. She is intellectually disabled and has very poor insight into her disease pro cess. Tells me she has cancer but is unaware of type or status of disease, unaware of causes of her toe amputations. Asked me to call family member blaine but she is not answering at this time. She is sexually active with her boyfriend she has two children both in foster care, she does not smoke drink or use recreational drugs. She does not think she can live with boyfriend any more. 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 Discharge Exam Constitutional WD/WN, vitals as above + overweight Eyes PERRL, conjunctivae normal, anicteric sclerae ENMT external ear and nose normal, oropharynx normal Neck trachea midline, no thyromegaly Respiratory normal respiratory effort, lungs clear to auscultation Cardiovascular RRR, no murmur, no edema Gastrointestinal (Abdomen) normal bowel sounds, soft, nontender, no hepatosplenomegaly Musculoskeletal no cyanosis or clubbing, extremities motor strength 5/5 Extremities: + amputation noted (left transmetatarsal, right toes 1,2, 3) Skin no rashes, warm and dry Neurologic patellar DTR's 2+ bilat, sensation intact and PERRL, EOMI, accommodation nl, no face palsy, no dysarthria Psychiatric A+Ox3, euthymic affect Orientation: alert and oriented x 3 Affect: + tearful affect Mood: + depressed mood Lymphatic no cervical or axillary lymphadenopathy Discharge Data Allergies Allergy/AdvReac Type Severity Reaction Status Date / Time heparin Allergy Heparin Verified 09/23/19 17:20 induced thrombocytopenia strawberry Allergy Hives Verified 09/24/19 16:02 Consultations 10/15/19 02:41 Consult Vascular Surgery Routine 10/15/19 02:42 Consult Case Management - Discharge Planning Routine 10/15/19 04:44 Consult Oncology Routine 10/16/19 14:00 Consult Orthopedic Surgery Routine 10/20/19 15:54 Consult Palliative Care Routine 10/23/19 11:59 Consult Psychiatry Routine 10/30/19 11:47 Consult Wound Care Provider Routine Procedures Performed Operation Date: 10/16/19 09:45 <No data on this case meets the specified criteria> Operation Date: 11/05/19 12:25 Actual Procedures p Left Transmetatarsal Ampuation(Left) - Ezra Le DO Ordered Studies 10/15/19 03:31 US arterial duplex LE BI Urgent 10/19/19 14:28 MR lumbar spine wo/w con Urgent Hospital Course (1) Dry gangrene: b/l feet. 2nd to development of arterial thrombi while hospitalized earlier this spring at [facility]. thrombi were in both legs, and she was started on eliquis then. remains on eliquis. 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 s/p TMA of all digits, left foot - Dr Le - on 11/05/19. ongoing pain, left foot - Oxycodone 10mg q6 PRN cont gabapentin 400mg TID for phantom pain NWB to left foot. sutures remain in right foot follow up with Dr. Le (2) Depression: stable. MUCH improved with remeron 15mg HS . appetite and sleep both improved. recent TSH wnl. recent b12 wnl. replace low vitamin D, continue on 50k units q week x 7 more weeks then daily supplementation (3) Neuroendocrine neoplasm of gastrointestinal tract: s/p hemicolectomy [facility] 07/2019. with liver Mets. needs outpatient f/u with Dr Yeung post-d/c. spoke with pharmacy, they do not carry the Depo Octreotide, her dose is 30mg IM x 1 ordered for outpatient medication list, can be obtained by SNF and given next week (4) Popliteal artery occlusion, right: Chronic popliteal artery occlusion. No intervention needed. f/u Dr Gresham, [facility], post-d/c. (5) 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 thrombocytopenia): 07/2019 at [facility]. Cont eliquis for h/o PEs, right IJ DVT, and arterial thrombi of legs. cbc acceptable. continue eliquis 5mg BID (6) Intellectual disability: Long-standing. Pt's children are in foster care. from boyfriend/. next of kin - patient has 2 sisters - 1 in [place]. but has not spoken to her in some time. asked psych to do formal capacity testing on 10/22 - appears to have capacity from their standpoint, but patient has told us multiple times she wants to live with people who cannot care for her. Her decision making is poor at best. required "target process" for snf placement. 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 Surgery at [facility]. (9) Asthma: albuterol prn stable no exacerbation (10) Pulmonary emboli: RLL - incidentally noted on CTA on 09/04/19 in [place]. associated pulmonary infarction in the RLL as well at that time. eliquis resumed post-op from left foot surgery. (11) Internal jugular vein thrombosis: 07/2019 - [facility]. resumed eliquis yesterday. (12) Hypokalemia: resolved. cont K supplementation daily. (13) Hypomagnesemia: resolved. cont PO supplementation. (14) Vitamin D deficiency: ergocalciferol 51844 U weekly x 8 weeks. recheck level at end of replacement. next dose due 11/16/19. (15) Foot drop, left: left foot drop. AFO needed when she is allowed to weight bear. non-weightbearing status at this time due to left foot TMA on 11/04. cause of foot drop uncertain - lumbar spine MRI w/o pathology. patient refused MRI brain. (16) Arterial thrombosis: b/l legs - 07/2019 at [facility]. in setting of surgery (hemicolectomy). s/p right SFA/popliteal/tibial thrombectomy, left popliteal/tibial thrombectomy, LLE fasciotomy. continue eliquis 5mg BID indefinitely. this is what led to her b/l foot gangrene. (17) DVT prophylaxis: cont eliquis BID target process for snf placement at [facility] in [facility] social work assistance Total Time Total Time Spent Total Time Spent (In Minutes): 31 minutes Total Time Includes: Examination of the Patient, Discharge Planning and Medication Reconciliation Discharge Plan Discharge Items Patient Disposition: Transfer [facility] Fac Reason For Visit: LLE GANGRENE Discharge Diagnosis: Dry gangrene s/p amputation HIT with arterial and venous thrombosis Neuroendocrine tumor Diarrhea Condition on Discharge: Good Activity: Per Instructions section Lifting: Gradually increase as tolerated Bathing: No limitations Exercise/Sports: Gradually increase as tolerated Weightbearing: Left non-weightbearing Non-emergency contact: Primary Care Provider Call non-emergency contact if: you have any medication questions, your symptoms worsen and you have a fever Follow-up/Referrals: Jeff Yeung DO [Physician] - (one month) Ezra Le DO [Surgeon] - (1 week) Jeff Junior [Outside Practitioners] - 10/23/19 1:20 pm (You have a follow up appt on SaturdayOctober 22 at 1:20pm . Please arrive 15 minutes prior to your appt time. If this appt does not fit your schedule please call [phone]. Please remember to bring your mask with you. This appt is set as a new patient appt. [address] [place] [id number]) Mahin Gresham MD [Physician] - (one month) Diet: Heart Healthy Addtl Attending Provider Instructions: LEFT TRANSMETARSAL AMPUTATION ACTIVITY RECOMMENDATIONS: Limitations: Heel weight bearing only if able to tolerate. Absolutely no weightbearing on the forefoot. SPECIAL CARE INSTRUCTIONS: * Some drainage onto the dressing is normal and is no cause for alarm. * Some swelling is natural especially after walking. * When resting, keep your foot elevated above the level of your heart. * Call [facility] if you notice: -Increased drainage -Fever over 101 degrees F -Severe constant pain BANDAGE: * Leave bandage/cast in place unless otherwise directed. * Keep bandage/cast dry at all times. FOLLOW UP VISIT WITH DR. LE If appointment is not already scheduled: Please call [facility] after you get home today to schedule a follow-up appointment for [address] Le at . Addtl [employer] Provider Instructions: Dry gangrene: b/l feet. 2nd to development of arterial thrombi while hospitalized earlier this spring at [facility]. thrombi were in both legs, and she was started on eliquis then. remains on eliquis. 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 s/p TMA of all digits, left foot - Dr Le - on 11/05/19. ongoing pain, left foot - cont oxycodone 10mg q6 PRN for pain, continue Gabapentin 400mg TID for phantom pain may need to increase dosing of Gabapentin in another week NWB to left foot. sutures remain in right foot, follow up with Dr. eL in one week (2) Depression: stable. MUCH improved with remeron 15mg HS . appetite and sleep both improved (3) Neuroendocrine neoplasm of gastrointestinal tract: s/p hemicolectomy [facility] 07/2019. with liver Mets. needs outpatient f/u with Dr Yeung post-d/c, please arrange follow up in one month treat with Depo Octreotide 30mg IM every month, please start 11/15 (4) Popliteal artery occlusion, right: Chronic popliteal artery occlusion. No intervention needed. f/u Dr Gresham, [facility], post-d/c. (5) 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 thrombocytopenia): 07/2019 at [facility]. Cont eliquis for h/o PEs, right IJ DVT, and arterial thrombi of legs. cbc acceptable. continue eliquis 5mg BID (6) Intellectual disability: Long-standing. Pt's children are in foster care. from boyfriend/. next of kin - patient has 2 sisters - 1 in [place]. but has not spoken to her in some time. asked psych to do formal capacity testing on 10/22 - appears to have capacity from their standpoint, but patient has told us multiple times she wants to live with people who cannot care for her. Her decision making is poor at best. Now going through "target process" for snf placement. (8) History of hemicolectomy: 07/2019 - s/p removal of ileum and right colon with reanastomosis. 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 Surgery at [facility]. (10) Pulmonary emboli: RLL - incidentally noted on CTA on 09/04/19 in [place]. associated pulmonary infarction in the RLL as well at that time. eliquis resumed post-op from left foot surgery. (11) Internal jugular vein thrombosis: 07/2019 - [facility]. resumed eliquis (12) Hypokalemia: resolved. cont K supplementation BID (13) Hypomagnesemia: resolved. cont PO supplementation but with slo mag to decreae diarrhea (14) Vitamin D deficiency: ergocalciferol 35882 U weekly x 8 weeks. recheck level at end of replacement. next dose due 11/15 (15) Foot drop, left: left foot drop. AFO needed when she is allowed to weight bear. non-weightbearing status at this time due to left foot TMA on 11/04. cause of foot drop uncertain - lumbar spine MRI w/o pathology. patient refused MRI brain. (16) Arterial thrombosis: b/l legs - 07/2019 at [facility]. in setting of surgery (hemicolectomy). s/p right SFA/popliteal/tibial thrombectomy, left popliteal/tibial thrombectomy, LLE fasciotomy. continue eliquis 5mg BID indefinitely. this is what led to her b/l foot gangrene. Pending Studies at Discharge: No Stand-Alone Forms: My Thing5 Skilled Items Patient informed of condition?: Yes DNR: No Discharge Level of Care: Skilled Communicable Disease: No Discharge Prognosis: Stable Lines: None Urinary Catheter: No Medications and DC Order Prescriptions: New diphenhydramine HCl [Benadryl] 25 mg Capsule 25 mg PO Q8H PRN (Reason: allergy symptoms) 30 Days Qty: 60 RF: 0 pregabalin 200 mg capsule 400 mg PO TID Qty: 180 RF: 1 mirtazapine 15 mg Tablet,Disintegrating 15 mg PO HS 30 Days Qty: 30 RF: 1 oxycodone 5 mg Tablet 10 mg PO Q6H PRN (Reason: pain) 30 Days Qty: 120 RF: 0 nystatin [Nystop] 100,000 unit/gram Powder 1 applic EXT TID 10 Days Qty: 60 RF: 0 Certavite-Antioxidant 18-400 mg-mcg Tablet 1 tab PO QAM 30 Days Qty: 30 RF: 1 Santyl 250 unit/gram Ointment 1 applic EXT DAILY 10 Days Qty: 90 RF: 1 potassium chloride [Klor-Con M20] 20 mEq Tablet,Er Particles/Crystals 20 meq PO BID 30 Days Qty: 60 RF: 1 octreotide,microspheres 30 mg suspension,extended rel recon 30 mg IM MONTHLY Qty: 1 RF: 0 Slow-Mag 71.5 mg tablet,delayed release (DR/EC) 71.5 mg PO BID Qty: 60 RF: 0 ergocalciferol (vitamin D2) [Vitamin D2] 1,250 mcg (50,000 unit) capsule 50,000 units PO .weekly Qty: 7 RF: 0 Continued loperamide 2 mg capsule 2 mg PO Q6H PRN (Reason: Diarrhea) RF: 0 acetaminophen 500 mg Tablet 500 mg PO TID PRN (Reason: Mild Pain (Scale Score 1-4)) RF: 0 pantoprazole 40 mg tablet,delayed release (DR/EC) 40 mg PO DAILY RF: 0 albuterol sulfate [Ventolin HFA] 90 mcg/actuation HFA aerosol inhaler 1 puff INHALATION Q4 PRN (Reason: Shortness Of Breath Or Wheezing) RF: 0 Eliquis 5 mg Tablet 5 mg PO BID RF: 0 naloxone 4 mg/actuation [place],Non-Aerosol 4 mg INTRANASAL PRN (Reason: unknown) RF: 0 lorazepam 0.5 mg Tablet 0.5 mg PO TID PRN (Reason: Anxiety) RF: 0 Discontinued gabapentin 100 mg capsule 200 mg PO BID RF: 0 morphine 15 mg Tablet 15 mg PO Q4 PRN (Reason: Pain) RF: 0 Discharge Orders: Discharge Order (Routine); Ordered 11/11/19 Ordered By: Lui Ching Admission Data Admit Date/Time: 07/09/20 01:47 Attending Provider: Lui Ching Admit Provider: Riana Diop Primary Care Provider: PCP,NO Other Providers: [place] ; [facility] ; [facility], ; [facility] ; Jeff Yeung V. ; Ezra Le ; Loren Gómez ; Jeannie Ashley ; Tavo Renee ; Mahin Gresham Other Interventions: Discharge Summary Assessment (RN) Last Done: 11/11/19 11:51 Coding Level of Care Code D/C Day Management >30 mins Diagnoses Dry gangrene I96 Depression F32.9 Depression Type: unspecified Neuroendocrine neoplasm of gastrointestinal tract D3A.8 Popliteal artery occlusion, right I70.201 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 thrombocytopenia) D75.82 Intellectual disability F79 Abnormal LFTs R94.5 History of hemicolectomy Z90.49 Asthma J45.20 Asthma complication type: unspecified Asthma persistence: intermittent Asthma severity: mild Pulmonary emboli I26.99 Acute cor pulmonale presence: without acute cor pulmonale Chronicity: unspecified Pulmonary embolism type: unspecified Internal jugular vein thrombosis I82.C11 Laterality: right Hypokalemia E87.6 Hypomagnesemia E83.42 Vitamin D deficiency E55.9 Foot drop, left M21.372 Arterial thrombosis I74.9 DVT prophylaxis Z29.9
== END 2019-11-11 14:10 | DRG 239 ==
LOC: SUATTDRO 01:47 → 3W 01:47